=== PATIENT | male | born 1935 | race Caucasian/White ===

== ENCOUNTER 2018-04-09 13:02 | Inpatient (IN) | payer MEDICARE, BC ==
--- NOTE | 2018-04-09 14:22 | RAD ---
HISTORY: chest pain COMPARISONS: March 18, 2015 VIEWS: 1: frontal portable view of the chest at 2:00 PM FINDINGS: LINES AND TUBES: None. CARDIOMEDIASTINAL SILHOUETTE: The aorta is tortuous. The cardiomediastinal silhouette is otherwise normal for portable technique. PLEURA: The costophrenic angles are sharp. No pleural abnormalities are noted. LUNG PARENCHYMA: The lungs are clear. ABDOMEN: The upper abdomen is clear. There is no subphrenic gas. BONES AND SOFT TISSUES: No bone or soft tissue abnormalities are noted. IMPRESSION: NO ACTIVE CARDIOPULMONARY DISEASE.
[2018-04-09 14:37] LABS: ABS Basophils 0.1 10^3/ul (0-0.2); ABS Eosinophils 0.5 10^3/ul (0-0.6); ABS Lymphocytes 1.3 10^3/ul (1.0-4.8); ABS Monocytes 0.5 10^3/ul (0-0.8); ABS Neutrophils 4.8 10^3/ul (1.5-7.7); ABS Nucleated RBC 0 10^3/ul; Eosinophil % 6.8 % (0-6); Hematocrit 32 % (42-52); Lymphocyte % 18.3 % (25-47); Mean Corpuscular HGB Conc 35 g/dl (31-36); Mean Corpuscular Hemoglobin 28 pg (27-31); Mean Corpuscular Volume 80 fL (80-94); Mean Platelet Volume 6.7 um3 (7.4-10.4); Nucleated Red Blood Cells % 0; Platelet Count 210 10^3/ul (150-450); Red Blood Count 3.98 10^6/ul (4.00-5.40); Red Cell Distribution Width 15 % (10.5-15); White Blood Count 7.2 10^3/ul (3.5-10.8)
[2018-04-09 14:49] LABS: INR 0.97 (0.77-1.02)
[2018-04-09 14:55] LABS: EGFR Non-African American 44.8 (>60)
[2018-04-09] MEDS ORDERED: Aspirin TAB* 325 MG PO ONE (16:38)
[2018-04-09] MEDS ORDERED: Aspirin 81 mg CHEW TAB* 81 MG TAB.CHEW ONE (16:51)
--- NOTE | 2018-04-09 16:53 | ED ---
HPI Chest Pain - HPI Summary HPI Summary: This patient is an 83 year old M presenting to [facility] accompanied by and daughter with a chief complaint of CP "beneath the ribs" since 04/08/18. He denies N/V, dizziness, SOB, worsening of sx upon deep breath. He endorses burping a lot, and that the CP is still present today. - History of Current Complaint Chief Complaint: EDChestPainROMI Time Seen by Provider: 04/09/18 16:16 Hx Obtained From: Patient, Family/Mimeographer Onset/Duration: Started Days Ago, Still Present Timing: Constant Initial Severity: Mild Current Severity: Mild Pain Intensity: 3 Pain Scale Used: 0-10 Numeric Chest Pain Location: Upper Sternal - upper left Chest Pain Radiates: No Character: Sharp/Stabbing Aggravating Factor(s): Nothing Alleviating Factor(s): Nothing Associated Signs and Symptoms: Positive: Chest Pain, Other: - burping. Negative : Dizziness, Shortness of Breath, Fever, Nausea, Vomiting - Allergy/Home Medications Allergies/Adverse Reactions: Allergies Allergy/AdvReac Type Severity Reaction Status Date / Time MS Oxycodone [From Percocet] Allergy Severe Difficulty Verified 03/08/16 12:53 Breathing MS Cortisone [Cortisone] AdvReac Intermediate Anxiety Verified 03/08/16 12:53 MS Morphine [Morphine] AdvReac Intermediate Nausea And Verified 03/08/16 12:53 Vomiting Home Medications: Home Medications Aspirin EC TAB* [Ecotrin EC Low Dose 81 MG*] 81 mg PO QAM 04/09/18 [History Confirmed 04/09/18] Atorvastatin* [Lipitor*] 20 mg PO QPM 04/09/18 [History Confirmed 04/09/18] Betamethasone Kaycee 0.1% CRM(NF) [Valisone 0.1% CM(NF)] 1 applic TOPICAL DAILY PRN 04/09/18 [History Confirmed 04/09/18] Ferrous Gluconate TAB* [Fergon TAB*] 324 mg PO SUSA 04/09/18 [History Confirmed 04/09/18] Fexofenadine (NF) [Didi 180 (NF)] 180 mg PO DAILY PRN 04/09/18 [History Confirmed 04/09/18] Isosorbide Mononitrate ER TAB* [Imdur ER TAB*] 30 mg PO QAM 04/09/18 [History Confirmed 04/09/18] Minerin Cream* [Minerin*] 1 applic TOPICAL DAILY PRN 04/09/18 [History Confirmed 04/09/18] Multivitamins/Minerals TAB* [Theragran/minerals TAB*] 1 tab PO QAM 04/09/18 [ History Confirmed 04/09/18] Nitroglycerin TAB 0.4 MG* 0.4 mg SL Q5M PRN 04/09/18 [History Confirmed 04/09/18 ] Pantoprazole TAB (NF) [Protonix TAB (NF)] 40 mg PO QAM 04/09/18 [History Confirmed 04/09/18] Polyethylene Glycol 3350* [Miralax*] 17 gm PO DAILY 04/09/18 [History Confirmed 04/09/18] Potassium Chlor TAB* [Klor Con ER TAB*] 10 meq PO QAM 04/09/18 [History Confirmed 04/09/18] Sertraline* [Zoloft*] 25 mg PO BEDTIME 04/09/18 [History Confirmed 04/09/18] Vit A/Vit C/Vit E/Zinc/Copper [Preservision Areds Softgel] 1 each PO DAILY 04/09 [History Confirmed 04/09/18] PMH/Surg Hx/FS Hx/Imm Hx Endocrine/Hematology History: Denies: Hx Anticoagulant Therapy, Hx Diabetes, Hx Thyroid Disease Cardiovascular History: Reports: Hx Angina, Hx Angioplasty, Hx Coronary Artery Disease, Hx Hypercholesterolemia, Hx Hypertension, Hx Myocardial Infarction, Other Cardiovascular Problems/Disorders - PCI 12/2014 Denies: Hx Auto Implanted Cardiovert Defib, Hx Pacemaker/ICD, Hx Valvular Heart Disease Respiratory History: Reports: Hx Seasonal Allergies - severe hayfever Denies: Hx Asthma, Hx Chronic Obstructive Pulmonary Disease (COPD) GI History: Reports: Hx Gastroesophageal Reflux Disease, Hx Hiatal Hernia, Hx Jaundice - GB out 2012, Other GI Disorders - Constipation-chronic Denies: Hx Cirrhosis, Hx Crohn's Disease, Hx Diverticulosis, Hx Gall Bladder Disease, Hx Gastrointestinal Bleed, Hx Irritable Bowel, Hx Ileostomy, Hx Pyloric Stenosis, Hx Ulcer Comment Only: Hx Obstructive Bowel - loop surgical repair 09/16/ History: Reports: Hx Benign Prostatic Hyperplasia, Hx Kidney Stones, Other Problems/Disorders - Prostate CA, S/P TURP Denies: Hx Dialysis, Hx Renal Disease Musculoskeletal History: Reports: Hx Arthritis, Other Musculoskeletal History - Spinal stenosis Denies: Hx Osteoporosis Sensory History: Reports: Hx Cataracts - surgically removed, Hx Contacts or Glasses, Hx Hearing Aid, Hx Hearing Problem Denies: Hx Eye Injury, Hx Eye Prosthesis, Hx Glaucoma, Hx Legally Blind, Hx Macular Degeneration Opthamlomology History: Reports: Hx Cataracts - surgically removed, Hx Contacts or Glasses Denies: Hx Eye Injury, Hx Eye Prosthesis, Hx Glaucoma, Hx Legally Blind, Hx Macular Degeneration Neurological History: Reports: Other Neuro Impairments/Disorders - temporal arteritis Denies: Hx Dementia, Hx Migraine, Hx Seizures Psychiatric History: Denies: Hx Panic Disorder, Hx Substance Abuse - Cancer History Cancer Type, Location and Year: PROSTATE Hx Chemotherapy: No Hx Radiation Therapy: No - Surgical History Surgery Procedure, Year, and Place: RIGHT KNEE 1982. LEFT SHOULDER. ANGIOPLASTY 1986. PROSTATE SCRAPE. COLON RESECTION. HEART CATH- STENT PLACED - PROMUS PREMIER DRUG-ELUTING STENT PER [facility] [place] OP REPORT- SAFE UP TO 3T; SPATIAL GRADIENT FIELD OF 720 GAUSS/CM OR LESS. GALLBLADDER REMOVAL Hx Anesthesia Reactions: No - Immunization History Date of Tetanus Vaccine: Unk Date of Influenza Vaccine: Fall 2011 Infectious Disease History: No Infectious Disease History: Denies: Hx Hepatitis, Hx Human Immunodeficiency Virus (HIV), Traveled Outside the [place] in Last 30 Days - Family History Known Family History: Negative: Blood Disorder - Social History Alcohol Use: None Substance Use Type: Reports: None Smoking Status (MU): Former Smoker Have You Smoked in the Last Year: No Review of Systems Negative: Fever Positive: Chest Pain Negative: Shortness Of Breath Positive: Other - abnormally frequent burping. Negative: Vomiting, Nausea Neurological: Other - denies dizziness All Other Systems Reviewed And Are Negative: Yes Physical Exam - Summary Physical Exam Summary: Appearance: Well appearing, no pain distress Skin: warm, dry, reflects adequate perfusion Head/face: normal Eyes: EOMI, LISSETTE ENT: normal Neck: supple, non-tender Respiratory: CTA, breath sounds present Cardiovascular: RRR, pulses symmetrical Abdomen: non-tender, soft Bowel: present Musculoskeletal: normal, strength/ROM intact Neuro: normal, sensory motor intact, A&Ox3 Triage Information Reviewed: Yes Vital Signs On Initial Exam: Initial Vitals Temp Pulse Resp BP Pulse Ox 98.3 F 55 16 123/57 99 04/09/18 13:04 04/09/18 13:04 04/09/18 13:04 04/09/18 13:04 04/09/18 13:04 Vital Signs Reviewed: Yes Diagnostics - Vital Signs Vital Signs Temp Pulse Resp BP Pulse Ox 04/09/18 14:59 97.9 F 60 16 144/81 95 04/09/18 13:04 98.3 F 55 16 123/57 99 - Laboratory Lab Results: Lab Results 04/09/18 04/09/18 04/09/18 Range/Units 14:25 14:25 14:25 WBC 7.2 (3.5-10.8) 10^3/ul RBC 3.98 L (4.00-5.40) 10^6/ul Hgb 11.0 L (14.0-18.0) g/dl Hct 32 L (42-52) % MCV 80 (80-94) fL MCH 28 (27-31) pg MCHC 35 (31-36) g/dl RDW 15 (10.5-15) % Plt Count 210 (150-450) 10^3/ul MPV 6.7 L (7.4-10.4) um3 Neut % (Auto) 66.9 (38-83) % Lymph % (Auto) 18.3 L (25-47) % Garfield % (Auto) 6.8 (0-7) % Eos % (Auto) 6.8 H (0-6) % Baso % (Auto) 1.2 (0-2) % Absolute Neuts (auto) 4.8 (1.5-7.7) 10^3/ul Absolute Lymphs (auto) 1.3 (1.0-4.8) 10^3/ul Absolute Monos (auto) 0.5 (0-0.8) 10^3/ul Absolute Eos (auto) 0.5 (0-0.6) 10^3/ul Absolute Basos (auto) 0.1 (0-0.2) 10^3/ul Absolute Nucleated RBC 0 10^3/ul Nucleated RBC % 0 INR (Anticoag Therapy) 0.97 (0.77-1.02) APTT 32.2 (26.0-36.3) seconds Sodium 136 (135-145) mmol/L Potassium 4.0 (3.5-5.0) mmol/L Chloride 102 (101-111) mmol/L Carbon Dioxide 25 (22-32) mmol/L Anion Gap 9 (2-11) mmol/L BUN 22 (6-24) mg/dL Creatinine 1.49 H (0.67-1.17) mg/dL Est GFR ( Amer) 54.2 (>60) Est GFR (Non-Af Amer) 44.8 (>60) BUN/Creatinine Ratio 14.8 (8-20) Glucose 112 H (70-100) mg/dL Lactic Acid (0.5-2.0) mmol/L Calcium 9.2 (8.6-10.3) mg/dL Total Bilirubin 0.70 (0.2-1.0) mg/dL AST 20 (13-39) U/L ALT 12 (7-52) U/L Alkaline Phosphatase 82 (34-104) U/L Troponin I 0.01 (<0.04) ng/mL B-Natriuretic Peptide ( - 100) pg/mL Total Protein 7.2 (6.4-8.9) g/dL Albumin 3.9 (3.2-5.2) g/dL Globulin 3.3 (2-4) g/dL Albumin/Globulin Ratio 1.2 (1-3) 04/09/18/ Range/Units 14:25 14:25 WBC (3.5-10.8) 10^3/ul RBC (4.00-5.40) 10^6/ul Hgb (14.0-18.0) g/dl Hct (42-52) % MCV (80-94) fL MCH (27-31) pg MCHC (31-36) g/dl RDW (10.5-15) % Plt Count (150-450) 10^3/ul MPV (7.4-10.4) um3 Neut % (Auto) (38-83) % Lymph % (Auto) (25-47) % Garfield % (Auto) (0-7) % Eos % (Auto) (0-6) % Baso % (Auto) (0-2) % Absolute Neuts (auto) (1.5-7.7) 10^3/ul Absolute Lymphs (auto) (1.0-4.8) 10^3/ul Absolute Monos (auto) (0-0.8) 10^3/ul Absolute Eos (auto) (0-0.6) 10^3/ul Absolute Basos (auto) (0-0.2) 10^3/ul Absolute Nucleated RBC 10^3/ul Nucleated RBC % INR (Anticoag Therapy) (0.77-1.02) APTT (26.0-36.3) seconds Sodium (135-145) mmol/L Potassium (3.5-5.0) mmol/L Chloride (101-111) mmol/L Carbon Dioxide (22-32) mmol/L Anion Gap (2-11) mmol/L BUN (6-24) mg/dL Creatinine (0.67-1.17) mg/dL Est GFR ( Amer) (>60) Est GFR (Non-Af Amer) (>60) BUN/Creatinine Ratio (8-20) Glucose (70-100) mg/dL Lactic Acid 0.7 (0.5-2.0) mmol/L Calcium (8.6-10.3) mg/dL Total Bilirubin (0.2-1.0) mg/dL AST (13-39) U/L ALT (7-52) U/L Alkaline Phosphatase (34-104) U/L Troponin I (<0.04) ng/mL B-Natriuretic Peptide 242 H ( - 100) pg/mL Total Protein (6.4-8.9) g/dL Albumin (3.2-5.2) g/dL Globulin (2-4) g/dL Albumin/Globulin Ratio (1-3) Result Diagrams: 04/09/18 14:25 04/09/18 14:25 Lab Statement: Any lab studies that have been ordered have been reviewed, and results considered in the medical decision making process. - Radiology CXR Xray Interpretation: No Acute Changes Radiology Interpretation Completed By: Radiologist - No active cardiopulmonary disease. Dr. Ríos has reviewed this report. - EKG 1355 Cardiac Rate: Bradycardia EKG Rhythm: Sinus Bradycardia ST Segment: Non-Specific EKG Interpretation: T changes Chest Pain Course/Dx - Course Course Of Treatment: A 83-year-old M presents to the ED with a CC of CP since last PM. (+) CP, burping. (-) SOB, dizziness, N/V. Background of heart problems. A CXR was negative. An EKG reveals T changes and sinus bradycardia at 41 BPM. In the ED course, pt was given ASA. - Chest Pain Differential Diagnosis/HQI/PQRI: Acute CT, ACS, CHF, Chest Wall, Lower Respiratory Infection, Pulmonary Edema - Diagnoses Provider Diagnoses: Chest pain, rule out acute myocardial infarction - Provider Notifications Discussed Care Of Patient With: Asael Dominguez Time Discussed With Above Provider: 16:50 Instructed by Provider To: Other - accepted admission Discharge - Sign-Out/Discharge Documenting (check all that apply): Patient Departure - admit - Discharge Plan Condition: Fair Disposition: ADMITTED TO [facility] Referrals: Sepideh Davis MD [Primary Care Provider] - - Billing Disposition and Condition Condition: FAIR Disposition: Admitted to [facility]
[2018-04-09] MEDS ORDERED: Acetaminophen TAB* 325 MG PO PRN (19:33)
[2018-04-09] MEDS ORDERED: Al Hydrox/Mg Hydrox/Simet LIQ* 30 ML UDC PO PRN (19:33)
[2018-04-09] MEDS ORDERED: Nitroglycerin TAB 0.4 MG* 0.4 MG TAB SL PRN (19:37)
[2018-04-09] MEDS ORDERED: Atorvastatin* 20 MG TAB ONE (19:52)
[2018-04-09] MEDS: Atorvastatin* 20 MG TAB PO SCH (19:55)
[2018-04-09] MEDS: Sertraline* 25 MG TAB PO SCH (22:01)
[2018-04-09] MEDS: Heparin VIAL(*) 5000 UNITS/ML VIAL (FIVE THOUSAND) SUBCUT SCH (22:01)
--- NOTE | 2018-04-10 01:02 | HP ---
HISTORY AND PHYSICAL: DATE OF ADMISSION: 04/09/18 PROVIDER: Christina Jerry NP PRIMARY CARE PROVIDER: Sepideh Davis MD ATTENDING PROVIDER: Quin Meyers MD * (DICTATED BY CHRISTINA JERRY NP) CHIEF COMPLAINT: Chest pain. HISTORY OF PRESENT ILLNESS: Mr. aLrose is a pleasant 83-year-old male, who carries a past medical history significant for hyperlipidemia, coronary artery disease, iron deficiency anemia, rheumatoid arthritis, bradycardia, low back pain, gastroesophageal reflux, and mild cognitive impairment, MO in 2014, who presented to the emergency room from his family physician after complaints of chest pain. The patient states over the past day and half he has had intermittent episodes of left- sided chest pain. He described it as a mild ache at his left chest. He denies any sweating. He denies any shortness of breath. He denies any radiation to the neck or left arm. He does report some belching associated with the chest pain. He denies any nausea or vomiting. He denies any nocturnal dyspnea or orthopnea. He denies any edema or weight gain. He states that these episodes last from 10 seconds to a minute and given having frequent episodes of this left-sided chest pain, he presented to the emergency room for further evaluation. While in the emergency room, he had routine lab work drawn and his troponins were negative. He has had no further chest pain while in the emergency room. He had a routine EKG done. Given his history of coronary artery disease and stenting in 2014, we were asked to evaluate him for admission due to his chest pain. PAST MEDICAL HISTORY: Significant for coronary artery disease and stenting in 2015, MO, rheumatoid arthritis, mild cognitive impairment, hyperlipidemia, iron deficiency anemia, bradycardia, low back pain, and GERD. PAST SURGICAL HISTORY: Tonsillectomy, knee surgery, stent placement, TURP in 2010. HOME MEDICATIONS: Include: 1. Potassium 10 mEq p.o. daily. 2. Sertraline 25 mg p.o. daily at bedtime. 3. Pantoprazole 40 mg p.o. daily. 4. Isosorbide mononitrate ER 60 mg p.o. daily, take half tablet every 24 hours. 5. MiraLAX 17 g oral powder daily as needed for constipation. 6. Fexofenadine 180 mg p.o. as needed for allergies. 7. Multivitamin 1 tablet p.o. daily. 8. PreserVision 1 capsule orally daily. 9. Nitroglycerin 0.4 sublingual 1 tablet sublingually every 5 minutes x3 as needed for chest pain. 10. Aspirin 81 mg p.o. daily. 11. Ferrous sulfate 134 mg one orally twice a week. 12. Atorvastatin 20 mg p.o. daily. ALLERGIES: 1. BRILINTA. 2. Cortisone 3. ZYRTEC. 4. RHINOCORT. 5. ZOCOR. 6. MORPHINE. 7. OXYCODONE FAMILY HISTORY: Brother with history of colon cancer. No other reported family history. SOCIAL HISTORY: He denies any tobacco, alcohol, or illicit drug use. He is . He lives with his . Surrogate decision maker in the event he is unable to make his own decisions is his daughter, Annetta or , Amelia. , Amelia' phone number is [phone]. His daughter, Annetta's phone number is [phone]. He is a full code. REVIEW OF SYSTEMS: There was no documented fever. There has been no significant weight change. There is no double vision. No ear discharge. No rhinorrhea. No sore throat. He denies any recent illnesses or sick contacts. He denies any fever or chills. He denies any cough, shortness of breath. He does report intermittent episodes of left-sided chest pain rated at a 2 lasting between 10 seconds to a minute over the past day and a half. He denies any cough, hemoptysis, or shortness of breath. He denies any nausea, vomiting, or diarrhea. Denies any abdominal pain. Denies any gross hematuria or dysuria. Denies any focal weakness or sensory loss. Denies any visual complaints. Denies any dysphagia. Denies any arthralgias or myalgias. Denies any rashes or lesions. Denies any psychosis or anxiety. He does report some mild cognitive impairment with underlying mild dementia. PHYSICAL EXAMINATION GENERAL: At this time, Mr. Larose is an 83-year-old pleasant male. He is resting on the stretcher in the emergency room. He does not appear to be in any acute distress. VITAL SIGNS: Temperature was 98.3, heart rate was 55, respirations 16, O2 saturation 99%, blood pressure 123/57. HEENT: Head: Atraumatic, normocephalic. Eyes: EOMs are intact. Sclerae anicteric and not pale. Oral mucosa appeared to be moist. NECK: Supple. LUNGS: Clear to auscultation bilaterally. There are no wheezes, rales, or rhonchi. HEART: S1, S2. Bradycardic. There are no murmurs, rubs, or gallops. ABDOMEN: Soft and nontender. Bowel sounds are present x4. EXTREMITIES: Pulses are +2 bilaterally. There is no edema. He has 5/5 strength for all 4 extremities. NEUROLOGIC: He is awake, alert, and oriented x3. Speech is clear. He is hard of hearing. He does wear hearing aids. SKIN: Intact. DIAGNOSTIC STUDIES/LABORATORY DATA: WBCs are 7.2, RBCs 3.98, hemoglobin 11.0, hematocrit was 32, platelet count was 210. INR was 0.97. Sodium 136, potassium 4.0, chloride 102, carbon dioxide was 25, anion gap was 9, BUN was 22 , creatinine 1.49, which appears to be his baseline, glucose was 112. Lactic acid 0.7. Calcium 9.2. Troponin was 0.01 and 0.01. BNP was 242, which is lower than his normal. He had a chest x-ray, which showed no active cardiopulmonary disease. He had an electrocardiogram, which showed sinus bradycardia at a rate of 41. ASSESSMENT AND PLAN: Mr. Larose is an 83-year-old gentleman, who presented to the emergency room today for complaints of intermittent left-sided chest pain. Denied any diaphoresis or shortness of breath or radiation of the chest pain due to his history of coronary artery disease with stenting and a myocardial infarction in 2014. We were asked to see and evaluate him for admission for chest pain. He will be admitted under observation for: 1. Chest pain. We will rule out acute coronary syndrome. His troponins are currently 0.01 x2. He denies any chest pain at this time. We will continue to trend his troponins. We will do a nuclear stress test in the morning. His ROBERTO score is 3 giving him 13% risk at 14 days of all-cause mortality, new or recurrent myocardial infarction or severe recurrent ischemia requiring urgent vascularization. He will be placed on telemetry and monitored overnight. He does have a history of bradycardia. He is not on any beta-blockers at this time. 2. Iron deficiency anemia. We will continue his iron. 3. Coronary artery disease. We will continue him on aspirin 81 mg p.o. daily, nitro 0.4 mg sublingually as needed for chest pain and atorvastatin 20 mg p.o. daily. 4. Hyperlipidemia. We will continue his atorvastatin. 5. Acid reflux. We will continue him on pantoprazole 40 mg p.o. daily. 6. DVT prophylaxis. I will place him on heparin subcu. 7. Code status. He is a full code. 8. Fluids, electrolytes, and nutrition. He will be placed on heart-healthy, no caffeine diet. TIME SPENT: Time spent on this admission was approximately 60 minutes, greater than half the time was spent [id number] with the patient obtaining my history and physical, the other half of the time was spent going over my plan of care with the patient and implementing my plan of care. I have discussed this with my attending, Dr. Quin Meyers, and she is in agreement with my plan. CHRISTINA JERRY, RECOVERY ROOM RN [id number]/CPS #: [id number] BROCK
[2018-04-10] MEDS: Heparin VIAL(*) 5000 UNITS/ML VIAL (FIVE THOUSAND) SUBCUT SCH ×3 (05:14→21:45)
[2018-04-10] MEDS: Multivitamins/Minerals TAB PO SCH (08:48)
[2018-04-10] MEDS: Polyethylene Glycol 3350* 17 GM PACKET PO SCH (08:48)
[2018-04-10] MEDS: Isosorbide Mononitrate ER TAB* 30 MG PO SCH (08:48)
[2018-04-10] MEDS: Potassium Chlor TAB* 10 MEQ TAB.ER PO SCH (08:48)
[2018-04-10] MEDS: Aspirin EC TAB* 81 MG TAB.EC PO SCH (08:48)
[2018-04-10] MEDS: Omeprazole CAP* 20 MG PO SCH (08:48)
[2018-04-10] MEDS ORDERED: Regadenoson* 0.4 MG/5 ML SYRINGE ONE (11:01)
[2018-04-10] MEDS ORDERED: Aminophylline IV* 25 MG/ML 10 ML VIAL ONE (11:01)
--- NOTE | 2018-04-10 11:30 | RAD ---
HISTORY: chest pain, hyperlipidemia COMPARISONS: January 05, 2015 TECHNIQUE: A 1 day stress/rest myocardial perfusion study was performed, with pharmacologic stress. The stress portion was monitored by Dr. Nicolas. Gated SPECT imaging was performed, without CT-based attenuation correction based on patient physical limitation DOSE: Stress: Technetium 99m tetrofosmin, 25.3 millicuries, injected at 10:14 AM on April 10, 2018 Rest: Technetium 99m tetrofosmin, 10.2 millicuries, injected at 6:50 AM on April 10, 2018 Pharmacologic agent: Lexiscan FINDINGS: CARDIAC MONITORING: No ischemic EKG changes with stress EF: 54% TID: 0.6 MOTION: Normal motion, with normal wall thickening. PERFUSION: There is a small fixed defect of the apex which may reflect histologic apical thinning. There are no definite reversible perfusion defect to suggest ischemia. OTHER: None IMPRESSION: SMALL FIXED DEFECT OF THE APEX WHICH MAY BE PHYSIOLOGIC APICAL THINNING OR A SMALL REMOTE INFARCT. NO DEFINITE REVERSIBILITY TO SUGGEST ISCHEMIA. ASSESSMENT: LOW RISK. Based on imaging criteria from ACC/AHA 2002. Guideline Update for the Management of Patient's with Chronic Stable Angina, table 23. Noninvasive Risk Stratification.
[2018-04-10] MEDS ORDERED: NS 0.9% 1000 ML* 1,000 ML IV ONE (13:45)
[2018-04-10] MEDS: Atorvastatin* 20 MG TAB PO SCH (17:23)
--- NOTE | 2018-04-10 21:31 | PN ---
Subjective Date of Service: 04/10/18 Interval History: Patient nuclear stress today was LOW risk. Patient and family given results and discharge instructions. Patient was getting ready for home , was in the bathroom became lightheaded and dizzy. hypotensive. Patient was placed back in bed and orthostatic vital signs obtained , patient was orthostatic and given 1 liter of normal saline. Did report chest pain overnight, currently denies chest pain. Discharge cancelled. Denies abd pain ,n/v/d Family History: Unchanged from Admission Social History: Unchanged from Admission Past Medical History: Unchanged from Admission Objective Active Medications: Acetaminophen (Tylenol Tab*) 650 mg PO Q4H PRN PRN Reason: FEVER/PAIN Al Hydrox/Mg Hydrox/Simethicone (Maalox Plus*) 30 ml PO Q6H PRN PRN Reason: INDIGESTION Aspirin (Aspirin Ec Tab*) 81 mg PO QAM [facility] Last Admin: 04/10/18 08:48 Dose: 81 mg Atorvastatin Calcium (Lipitor*) 20 mg PO QPM [facility] Last Admin: 04/10/18 17:23 Dose: 20 mg Ferrous Gluconate (Fergon Tab*) 324 mg PO SuSa@0900 [facility] Heparin Sodium (Porcine) (Heparin Vial(*)) 5,000 units SUBCUT Q8HR [facility] Last Admin: 04/10/18 14:29 Dose: 5,000 units Isosorbide Mononitrate (Imdur Er Tab*) 30 mg PO QAM [facility] Last Admin: 04/10/18 08:48 Dose: 30 mg Multivitamins/Minerals (Theragran/Minerals Tab*) [facility] [place] Last Admin: 04/10/18 08:48 Dose: 1 tab Nitroglycerin (Nitroglycerin Tab 0.4 Mg*) 0.4 mg SL Q5M PRN PRN Reason: PAIN - CHEST Omeprazole (Prilosec Cap*) 20 mg PO QAM [facility] Last Admin: 04/10/18 08:48 Dose: 20 mg Polyethylene Glycol/Electrolytes (Miralax*) 17 gm PO DAILY [facility] Last Admin: 04/10/18 08:48 Dose: 17 gm Potassium Chloride (Klor Con Er Tab*) [facility] [place] Last Admin: 04/10/18 08:48 Dose: 10 meq Sertraline HCl (Zoloft*) 25 mg PO BEDTIME [facility] Last Admin: 04/09/18 22:01 Dose: 25 mg Vital Signs - 8 hr 04/10/18 04/10/18 04/10/18 13:30 13:42 13:46 Temperature 97.3 F 98.6 F Pulse Rate 95 73 96 Respiratory 16 16 Rate Blood Pressure 73/19 112/74 61/46 (mmHg) O2 Sat by Pulse 97 97 96 Oximetry 04/10/18 04/10/18 04/10/18 15:11 15:17 15:19 Temperature 98.3 F Pulse Rate 74 84 Respiratory 17 16 Rate Blood Pressure 109/70 92/48 84/67 (mmHg) O2 Sat by Pulse 97 96 Oximetry 04/10/18 04/10/18 15:20 19:26 Temperature 97.7 F Pulse Rate 96 83 Respiratory 20 Rate Blood Pressure 61/46 111/72 (mmHg) O2 Sat by Pulse 96 93 Oximetry Oxygen Devices in Use Now: None Appearance: appears pale, restingin bed. no acute distress Eyes: No Scleral Icterus Ears/Nose/Mouth/Throat: Mucous Membranes Moist Neck: NL Appearance and Movements; NL JVP, Trachea Midline Respiratory: Symmetrical Chest Expansion and Respiratory Effort, Clear to Auscultation Cardiovascular: No Edema, - - normal sounds, murmur, no rubs or gallops. Abdominal: NL Sounds; No Tenderness; No Distention Extremities: No Edema, No Clubbing, Cyanosis Skin: No Rash or Ulcers Neurological: Alert and Oriented x 3 Nutrition: Taking PO's Result Diagrams: 04/09/18 14:25 04/09/18 14:25 Additional Lab and Data: Lab Results 04/09/18 04/09/18 04/09/18 Range/Units 14:25 14:25 14:25 WBC 7.2 (3.5-10.8) 10^3/ul RBC 3.98 L (4.00-5.40) 10^6/ul Hgb 11.0 L (14.0-18.0) g/dl Hct 32 L (42-52) % MCV 80 (80-94) fL MCH 28 (27-31) pg MCHC 35 (31-36) g/dl RDW 15 (10.5-15) % Plt Count 210 (150-450) 10^3/ul MPV 6.7 L (7.4-10.4) um3 Neut % (Auto) 66.9 (38-83) % Lymph % (Auto) 18.3 L (25-47) % [place] % (Auto) 6.8 (0-7) % Eos % (Auto) 6.8 H (0-6) % Baso % (Auto) 1.2 (0-2) % Absolute Neuts (auto) 4.8 (1.5-7.7) 10^3/ul Absolute Lymphs (auto) 1.3 (1.0-4.8) 10^3/ul Absolute Monos (auto) 0.5 (0-0.8) 10^3/ul Absolute Eos (auto) 0.5 (0-0.6) 10^3/ul Absolute Basos (auto) 0.1 (0-0.2) 10^3/ul Absolute Nucleated RBC 0 10^3/ul Nucleated RBC % 0 INR (Anticoag Therapy) 0.97 (0.77-1.02) APTT 32.2 (26.0-36.3) seconds Sodium 136 (135-145) mmol/L Potassium 4.0 (3.5-5.0) mmol/L Chloride 102 (101-111) mmol/L Carbon Dioxide 25 (22-32) mmol/L Anion Gap 9 (2-11) mmol/L BUN 22 (6-24) mg/dL Creatinine 1.49 H (0.67-1.17) mg/dL Est GFR ( Amer) 54.2 (>60) Est GFR (Non-Af Amer) 44.8 (>60) BUN/Creatinine Ratio 14.8 (8-20) Glucose 112 H (70-100) mg/dL Lactic Acid (0.5-2.0) mmol/L Calcium 9.2 (8.6-10.3) mg/dL Total Bilirubin 0.70 (0.2-1.0) mg/dL AST 20 (13-39) U/L ALT 12 (7-52) U/L Alkaline Phosphatase 82 (34-104) U/L Troponin I 0.01 (<0.04) ng/mL B-Natriuretic Peptide ( - 100) pg/mL Total Protein 7.2 (6.4-8.9) g/dL Albumin 3.9 (3.2-5.2) g/dL Globulin 3.3 (2-4) g/dL Albumin/Globulin Ratio 1.2 (1-3) 04/09/18 04/09/18 Range/Units 14:25 14:25 WBC (3.5-10.8) 10^3/ul RBC (4.00-5.40) 10^6/ul Hgb (14.0-18.0) g/dl Hct (42-52) % MCV (80-94) fL MCH (27-31) pg MCHC (31-36) g/dl RDW (10.5-15) % Plt Count (150-450) 10^3/ul MPV (7.4-10.4) um3 Neut % (Auto) (38-83) % Lymph % (Auto) (25-47) % [place] % (Auto) (0-7) % Eos % (Auto) (0-6) % Baso % (Auto) (0-2) % Absolute Neuts (auto) (1.5-7.7) 10^3/ul Absolute Lymphs (auto) (1.0-4.8) 10^3/ul Absolute Monos (auto) (0-0.8) 10^3/ul Absolute Eos (auto) (0-0.6) 10^3/ul Absolute Basos (auto) (0-0.2) 10^3/ul Absolute Nucleated RBC 10^3/ul Nucleated RBC % INR (Anticoag Therapy) (0.77-1.02) APTT (26.0-36.3) seconds Sodium (135-145) mmol/L Potassium (3.5-5.0) mmol/L Chloride (101-111) mmol/L Carbon Dioxide (22-32) mmol/L Anion Gap (2-11) mmol/L BUN (6-24) mg/dL Creatinine (0.67-1.17) mg/dL Est GFR ( Amer) (>60) Est GFR (Non-Af Amer) (>60) BUN/Creatinine Ratio (8-20) Glucose (70-100) mg/dL Lactic Acid 0.7 (0.5-2.0) mmol/L Calcium (8.6-10.3) mg/dL Total Bilirubin (0.2-1.0) mg/dL AST (13-39) U/L ALT (7-52) U/L Alkaline Phosphatase (34-104) U/L Troponin I (<0.04) ng/mL B-Natriuretic Peptide 242 H ( - 100) pg/mL Total Protein (6.4-8.9) g/dL Albumin (3.2-5.2) g/dL Globulin (2-4) g/dL Albumin/Globulin Ratio (1-3) Assess/Plan/Problems-Billing Assessment: Mr. Larose is a pleasant 83-year-old male, who carries a past medical history significant for hyperlipidemia, coronary artery disease, iron deficiency anemia , rheumatoid arthritis, bradycardia, low back pain, gastroesophageal reflux, and mild cognitive impairment, [place] in 2015, who presented to the emergency room from his family physician after complaints of chest pain. - Patient Problems (1) Chest pain Current Visit: Yes Status: Acute Code(s): R07.9 - CHEST PAIN, UNSPECIFIED SNOMED Code(s): 14468545 Comment: - low risk nuclear stress today- 1 area of fixed defect noted- patient/ family do not want any further interventional management. - episode of hypotension after using the bathroom today, found to be orthostatic hypotensive- will given 1 litter of normal saline - repeat orthostatic vital signs. - troponin negative - will repeat orthostatic vital in the AM as well. (2) CAD (coronary artery disease) Current Visit: No Status: Chronic Priority: Low Code(s): I25.10 - ATHSCL HEART DISEASE OF [place] CORONARY ARTERY W/O ANG PCTRS SNOMED Code(s): 01492986 Comment: continue home medications- ASA, IMDUR, Lipitor (3) GERD (gastroesophageal reflux disease) Current Visit: No Status: Chronic Priority: Low Code(s): K21.9 - GASTRO- ESOPHAGEAL REFLUX DISEASE WITHOUT ESOPHAGITIS SNOMED Code(s): 176960282 Comment: continue omeprazole - i suspect this could also be contributing to his chest pain as he report the pain subsides with eating. (4) Hypertension Current Visit: No Status: Chronic Priority: Low Code(s): I10 - ESSENTIAL ( PRIMARY) HYPERTENSION SNOMED Code(s): 87703824 Comment: controlled (5) DVT prophylaxis Current Visit: No Status: Chronic Priority: High Onset Date: 01/12/15 Code(s): TVZ7106 - SNOMED Code(s): 936482741 Comment: HSQ (6) Full code status Current Visit: Yes Status: Acute Code(s): Z78.9 - OTHER SPECIFIED HEALTH STATUS SNOMED Code(s): 112460778 Status and Disposition: Poss Discharge in the AM
[2018-04-10] MEDS: Sertraline* 25 MG TAB PO SCH (21:45)
[2018-04-11] MEDS: Heparin VIAL(*) 5000 UNITS/ML VIAL (FIVE THOUSAND) SUBCUT SCH (05:59)
[2018-04-11 06:04] LABS: ABS Basophils 0 10^3/ul (0-0.2); ABS Eosinophils 0.6 10^3/ul (0-0.6); ABS Lymphocytes 0.8 10^3/ul (1.0-4.8); ABS Monocytes 0.5 10^3/ul (0-0.8); ABS Neutrophils 5.3 10^3/ul (1.5-7.7); ABS Nucleated RBC 0 10^3/ul; Eosinophil % 7.7 % (0-6); Hematocrit 36 % (42-52); Hemoglobin 12.2 g/dl (14.0-18.0); Lymphocyte % 11.3 % (25-47); Mean Corpuscular HGB Conc 34 g/dl (31-36); Mean Corpuscular Hemoglobin 28 pg (27-31); Mean Corpuscular Volume 81 fL (80-94); Nucleated Red Blood Cells % 0; Platelet Count 208 10^3/ul (150-450); Red Blood Count 4.43 10^6/ul (4.00-5.40); Red Cell Distribution Width 15 % (10.5-15); White Blood Count 7.2 10^3/ul (3.5-10.8)
[2018-04-11 06:25] LABS: EGFR Non-African American 47.8 (>60)
[2018-04-11] MEDS: Multivitamins/Minerals TAB PO SCH (08:35)
[2018-04-11] MEDS: Potassium Chlor TAB* 10 MEQ TAB.ER PO SCH (08:35)
[2018-04-11] MEDS: Isosorbide Mononitrate ER TAB* 30 MG PO SCH (08:35)
[2018-04-11] MEDS: Omeprazole CAP* 20 MG PO SCH (08:35)
[2018-04-11] MEDS: Aspirin EC TAB* 81 MG TAB.EC PO SCH (08:35)
[2018-04-11] MEDS: Polyethylene Glycol 3350* 17 GM PACKET PO SCH (08:35)
--- NOTE | 2018-04-11 10:51 | PN ---
Subjective Date of Service: 04/11/18 Interval History: No complaints of chest pain. States that he is feeling well today, Ambulated in the hallways gait was steady, denies lightheadedness or dizziness. Denies shortness of breath or abd pain . Denies n/v/d. Orthostatic with vital signs but is asymptomatic- denying dizziness or lightheadedness. Family History: Unchanged from Admission Social History: Unchanged from Admission Past Medical History: Unchanged from Admission Objective Active Medications: Acetaminophen (Tylenol Tab*) 650 mg PO Q4H PRN PRN Reason: FEVER/PAIN Al Hydrox/Mg Hydrox/Simethicone (Maalox Plus*) 30 ml PO Q6H PRN PRN Reason: INDIGESTION [facility]ir[facility] ([facility]in Ec Tab*) [facility] Last Admin: 04/11/18 08:35 Dose: 81 mg Atorvastatin Calcium (Lipitor*) 20 mg PO QPM [facility] Last Admin: 04/10/18 17:23 Dose: 20 mg Ferrous Gluconate (Fergon Tab*) 324 mg PO SuSa@0900 [facility] Heparin Sodium (Porcine) (Heparin Vial(*)) 5,000 units SUBCUT Q8HR [facility] Last Admin: 04/11/18 05:59 Dose: 5,000 units Isosorbide Mononitrate (Imdur Er Tab*) [facility] Last Admin: 04/11/18 08:35 Dose: 30 mg Multivitamins/Minerals (Theragran/Minerals Tab*) [facility] Last Admin: 04/11/18 08:35 Dose: 1 tab Nitroglycerin (Nitroglycerin Tab 0.4 Mg*) 0.4 mg SL Q5M PRN PRN Reason: PAIN - CHEST Omeprazole (Prilosec Cap*) [facility] Last Admin: 04/11/18 08:35 Dose: 20 mg Polyethylene Glycol/Electrolytes (Miralax*) 17 gm PO DAILY [facility] Last Admin: 04/11/18 08:35 Dose: Not Given Potassium Chloride (Klor Con Er Tab*) [facility]q [facility] Last Admin: 04/11/18 08:35 Dose: 10 meq Sertraline HCl (Zoloft*) 25 mg PO BEDTIME [facility] Last Admin: 04/10/18 21:45 Dose: 25 mg Vital Signs - 8 hr 04/11/18 04/11/18 04/11/18 03:54 07:56 08:00 Temperature 97.2 F 98.1 F Pulse Rate 63 52 78 Respiratory 20 16 Rate Blood Pressure 108/54 146/73 88/59 (mmHg) O2 Sat by Pulse 95 95 96 Oximetry Oxygen Devices in Use Now: None Appearance: alert and oreinted x 3, sitting in the chair, no acute distress. Eyes: No Scleral Icterus, PERRLA Ears/Nose/Mouth/Throat: Clear Oropharnyx, Mucous Membranes Moist Neck: NL Appearance and Movements; NL JVP, Trachea Midline Respiratory: Symmetrical Chest Expansion and Respiratory Effort, Clear to Auscultation Cardiovascular: NL Sounds; No Murmurs; No JVD Abdominal: NL Sounds; No Tenderness; No Distention Extremities: No Edema, No Clubbing, Cyanosis Skin: No Rash or Ulcers Neurological: Alert and Oriented x 3 Nutrition: Taking PO's Result Diagrams: 04/11/18 05:28 04/11/18 05:28 Additional Lab and Data: Lab Results 04/09/18 04/09/18 04/09/18 Range/Units 14:25 14:25 14:25 WBC 7.2 (3.5-10.8) 10^3/ul RBC 3.98 L (4.00-5.40) 10^6/ul Hgb 11.0 L (14.0-18.0) g/dl Hct 32 L (42-52) % MCV 80 (80-94) fL MCH 28 (27-31) pg MCHC 35 (31-36) g/dl RDW 15 (10.5-15) % Plt Count 210 (150-450) 10^3/ul MPV 6.7 L (7.4-10.4) um3 Neut % (Auto) 66.9 (38-83) % Lymph % (Auto) 18.3 L (25-47) % [place] % (Auto) 6.8 (0-7) % Eos % (Auto) 6.8 H (0-6) % Baso % (Auto) 1.2 (0-2) % Absolute Neuts (auto) 4.8 (1.5-7.7) 10^3/ul Absolute Lymphs (auto) 1.3 (1.0-4.8) 10^3/ul Absolute Monos (auto) 0.5 (0-0.8) 10^3/ul Absolute Eos (auto) 0.5 (0-0.6) 10^3/ul Absolute Basos (auto) 0.1 (0-0.2) 10^3/ul Absolute Nucleated RBC 0 10^3/ul Nucleated RBC % 0 INR (Anticoag Therapy) 0.97 (0.77-1.02) APTT 32.2 (26.0-36.3) seconds Sodium 136 (135-145) mmol/L Potassium 4.0 (3.5-5.0) mmol/L Chloride 102 (101-111) mmol/L Carbon Dioxide 25 (22-32) mmol/L Anion Gap 9 (2-11) mmol/L BUN 22 (6-24) mg/dL Creatinine 1.49 H (0.67-1.17) mg/dL Est GFR ( Amer) 54.2 (>60) Est GFR (Non-Af Amer) 44.8 (>60) BUN/Creatinine Ratio 14.8 (8-20) Glucose 112 H (70-100) mg/dL Lactic Acid (0.5-2.0) mmol/L Calcium 9.2 (8.6-10.3) mg/dL Total Bilirubin 0.70 (0.2-1.0) mg/dL AST 20 (13-39) U/L ALT 12 (7-52) U/L Alkaline Phosphatase 82 (34-104) U/L Troponin I 0.01 (<0.04) ng/mL B-Natriuretic Peptide ( - 100) pg/mL Total Protein 7.2 (6.4-8.9) g/dL Albumin 3.9 (3.2-5.2) g/dL Globulin 3.3 (2-4) g/dL Albumin/Globulin Ratio 1.2 (1-3) 04/09/18 04/09/18 Range/Units 14:25 14:25 WBC (3.5-10.8) 10^3/ul RBC (4.00-5.40) 10^6/ul Hgb (14.0-18.0) g/dl Hct (42-52) % MCV (80-94) fL MCH (27-31) pg MCHC (31-36) g/dl RDW (10.5-15) % Plt Count (150-450) 10^3/ul MPV (7.4-10.4) um3 Neut % (Auto) (38-83) % Lymph % (Auto) (25-47) % [place] % (Auto) (0-7) % Eos % (Auto) (0-6) % Baso % (Auto) (0-2) % Absolute Neuts (auto) (1.5-7.7) 10^3/ul Absolute Lymphs (auto) (1.0-4.8) 10^3/ul Absolute Monos (auto) (0-0.8) 10^3/ul Absolute Eos (auto) (0-0.6) 10^3/ul Absolute Basos (auto) (0-0.2) 10^3/ul Absolute Nucleated RBC 10^3/ul Nucleated RBC % INR (Anticoag Therapy) (0.77-1.02) APTT (26.0-36.3) seconds Sodium (135-145) mmol/L Potassium (3.5-5.0) mmol/L Chloride (101-111) mmol/L Carbon Dioxide (22-32) mmol/L Anion Gap (2-11) mmol/L BUN (6-24) mg/dL Creatinine (0.67-1.17) mg/dL Est GFR ( Amer) (>60) Est GFR (Non-Af Amer) (>60) BUN/Creatinine Ratio (8-20) Glucose (70-100) mg/dL Lactic Acid 0.7 (0.5-2.0) mmol/L Calcium (8.6-10.3) mg/dL Total Bilirubin (0.2-1.0) mg/dL AST (13-39) U/L ALT (7-52) U/L Alkaline Phosphatase (34-104) U/L Troponin I (<0.04) ng/mL B-Natriuretic Peptide 242 H ( - 100) pg/mL Total Protein (6.4-8.9) g/dL Albumin (3.2-5.2) g/dL Globulin (2-4) g/dL Albumin/Globulin Ratio (1-3) Assess/Plan/Problems-Billing Assessment: Mr. Larose is a pleasant 83-year-old male, who carries a past medical history significant for hyperlipidemia, coronary artery disease, iron deficiency anemia , rheumatoid arthritis, bradycardia, low back pain, gastroesophageal reflux, and mild cognitive impairment, [place] in 2015, who presented to the emergency room from his family physician after complaints of chest pain. - Patient Problems (1) Chest pain Status: Acute Code(s): R07.9 - CHEST PAIN, UNSPECIFIED SNOMED Code(s): 44405416 Comment: - low risk nuclear stress today- 1 area of fixed defect noted- patient/ family do not want any further interventional management. - episode of hypotension after using the bathroom today, found to be orthostatic hypotensive- will given 1 litter of normal saline - repeat orthostatic vital signs- Repaet orthostatic vital signs this AM continues to be orthostatic but symptomsatic, able to raise and ambulate without symptoms of dizziness, lightheadedness. - troponin negative - will repeat orthostatic vital in the AM as well. (2) CAD (coronary artery disease) Status: Chronic Priority: Low Code(s): I25.10 - ATHSCL HEART DISEASE OF [place] CORONARY ARTERY W/O ANG PCTRS SNOMED Code(s): 79907639 Comment: continue home medications- ASA, IMDUR, Lipitor (3) GERD (gastroesophageal reflux disease) Status: Chronic Priority: Low Code(s): K21.9 - GASTRO-ESOPHAGEAL REFLUX DISEASE WITHOUT ESOPHAGITIS SNOMED Code(s): 904862237 Comment: continue omeprazole - i suspect this could also be contributing to his chest pain as he report the pain subsides with eating. (4) Hypertension Status: Chronic Priority: Low Code(s): I10 - ESSENTIAL (PRIMARY) HYPERTENSION SNOMED Code(s): 68472797 Comment: controlled (5) DVT prophylaxis Status: Chronic Priority: High Onset Date: 01/12/15 Code(s): VAB9400 - SNOMED Code(s): 774732680 Comment: HSQ (6) Full code status Status: Acute Code(s): Z78.9 - OTHER SPECIFIED HEALTH STATUS SNOMED Code(s) : 042920714 Status and Disposition: Discharge
[2018-04-11 11:59] VITALS: BP 120/69
[2018-04-12] MEDS ORDERED: Ferrous Gluconate TAB* 324 MG TAB PO SCH (09:00)
--- NOTE | 2018-04-14 12:36 | DS ---
CC: Dr. Sepideh Davis * DISCHARGE SUMMARY: DATE OF ADMISSION: 04/09/18 DATE OF DISCHARGE: 04/11/18 PROVIDER: Christina Jerry NP. ATTENDING PHYSICIAN WHILE IN THE HOSPITAL: Quin Meyers DO * (dictated by Christina Jerry NP). PRIMARY DIAGNOSIS: Chest pain. SECONDARY DIAGNOSES: 1. Coronary artery disease with stenting in 2015. 2. Myocardial infarction. 3. Rheumatoid arthritis. 4. Mild cognitive impairment. 5. Hyperlipidemia. 6. Iron-deficiency anemia. 7. Bradycardia. 8. Low back pain. 9. Gastroesophageal reflux disease. STUDIES COMPLETED WHILE IN THE HOSPITAL: He had a chest x-ray on 04/09/18. Radiologist's impression: No active cardiopulmonary disease. He had an electrocardiogram on 04/09/18, which showed sinus bradycardia at a rate of 41. He had a nuclear stress on 04/10/18, which showed assessment is low risk. Impression: Small fixed defect at the apex, which may be physiologic apical thinning or a small remote infarct. No definite reversibility to suggest ischemia. DISCHARGE MEDICATIONS: No new home medications. Continued home medications: 1. Zoloft 25 mg p.o. at bedtime. 2. Eucerin topically as needed. 3. Betamethasone ana 0.1% topically as needed. 4. Nitroglycerin 0.4 sublingual q.5 minutes as needed for chest pain. 5. MiraLax 17 g p.o. daily. 6. Didi 180 mg p.o. p.r.n. 7. Ferrous gluconate 324 mg p.o. Saturday and Saturday. 8. PreserVision softgel 1 tablet p.o. daily. 9. Potassium 10 mEq p.o. q.a.m. 10. Multivitamin 1 tab p.o. q.a.m. 11. Aspirin 81 mg p.o. q.a.m. 12. Protonix 40 mg p.o. q.a.m. 13. Isosorbide mononitrate ER 30 mg p.o. q.a.m. 14. Atorvastatin 20 mg p.o. q.p.m. HISTORY OF PRESENT ILLNESS AND HOSPITAL COURSE: Mr. Larose is an 83-year-old male who carries a past medical history significant for hyperlipidemia, coronary artery disease, iron-deficiency anemia, rheumatoid arthritis, and bradycardia, low back pain, GERD, and mild cognitive impairment, [place] in 2014, who presented to the emergency room from his family physician after complaints of chest pain. The patient states that over the last day and a half, he has had intermittent episodes of left-sided chest pain. He describes it as a mild ache. Denies any sweating. Denies any shortness of breath. Denies any radiation to the neck or back. He denies orthopnea or nocturnal dyspnea. Given his history of coronary artery disease and CT in 2015, we were asked to see and evaluate him to rule out acute coronary syndrome. While in the emergency room, he had routine lab work drawn. His troponins were negative. He had no further chest pain while in the emergency room and he was admitted for monitoring on telemetry and nuclear stress test. The next morning while in the hospital, the patient had a nuclear stress test, which showed to be low risk. When getting ready to be discharged home, the patient had an episode of presyncopal episode. He became pale, diaphoretic. He was hypotensive with blood pressures in the 70s. His discharge was canceled and he was given a liter of normal saline and monitored on telemetry overnight. He had no further episodes. The next morning, the patient states that he is feeling in his normal state of health. He has no dizziness or lightheadedness. He denies any chest pain or shortness of breath. He is sitting in the chair. He appears to be in no acute distress. He is able to stand and ambulate and remains asymptomatic, though he does have some orthostatic hypotension. Standing and ambulating. His gait was steady and again, he had no complaints of lightheadedness or dizziness. At this time, Mr. Larose is stable for discharge home. Vital Signs: Temperature was 98.5, heart rate 72, respirations 16, O2 saturations of 96%, blood pressure was 120/69. DISCHARGE PLAN: Mr. Larose will be discharged home today. Activity as tolerated. The patient was instructed to rise slowly and stand for few seconds before ambulating. 1. Chest pain. Chest pain does not appear to be related to acute coronary syndrome. He had a low nuclear stress test. The family indicated they would not want any further interventional procedures with his chest pain and that they would want him medically managed if needed. The patient and the also agreed with this plan. I would recommend for any further complaints of chest pain, medical management. The patient should continue on a heart-healthy, low- sodium diet. He should drink plenty of fluids. 2. Hyperlipidemia. He should continue his atorvastatin as previously prescribed. 3. Coronary artery disease. He should continue with his Imdur. 4. GERD. He should continue on his Protonix as previously prescribed. The patient was instructed to follow up with his primary care provider in 4 to 7 days. The patient was instructed to return to the emergency room for any increased chest pain or shortness of breath or any other concerning symptoms. This is a summarization of his hospitalization. For further details, please see the entire medical record. TIME SPENT: Time spent on this discharge was approximately 60 minutes, greater than half that time was spent with the patient discussing discharge plans and instructions. CONDITION ON DISCHARGE: Stable. CHRISTINA JERRY NP [id number]/CPS #: [id number] [place]
== END 2018-04-11 12:00 | disposition home or self-care (01) | DRG 313 ==
LOC: ED 13:02 → MEDTELE 20:11 → OBSVTOIN 04-10 17:00
PROVIDERS: ADMIT Internal Medicine; ATTEND Internal Medicine
DX: R07.9 Chest pain, unspecified (principal); I95.1 Orthostatic hypotension; I25.10 Atherosclerotic heart disease of native coronary artery without angina pectoris; I11.9 Hypertensive heart disease without heart failure; E78.5 Hyperlipidemia, unspecified; D50.9 Iron deficiency anemia, unspecified; M06.9 Rheumatoid arthritis, unspecified; K21.9 Gastro-esophageal reflux disease without esophagitis; G31.84 Mild cognitive impairment of uncertain or unknown etiology; M54.5 Low back pain; I25.2 Old myocardial infarction; Z95.5 Presence of coronary angioplasty implant and graft; Z79.82 Long term (current) use of aspirin; Z79.899 Other long term (current) drug therapy; Z88.5 Allergy status to narcotic agent; Z88.8 Allergy status to other drugs, medicaments and biological substances; Z80.0 Family history of malignant neoplasm of digestive organs
CPT/HCPCS: 36415; 71045; 78452; 80048; 80053; 83605; 83880; 84484; 85025; 85610; 85730; 93005; 93017; 99285; A9270-GY; A9502; J0280; J1644; J2785

== ENCOUNTER 2018-10-17 16:57 | Inpatient (IN) | payer MEDICARE, BC ==
[2018-10-17] MEDS ORDERED: Ibuprofen TAB* 600 MG PO ONE (17:55)
--- NOTE | 2018-10-17 18:05 | ED ---
Complex/Multi-Sys Presentation - HPI Summary HPI Summary: A 83 y/o male brought in by ambulance and accompanied by family presents to the ED c/o pain reaching 10/10 in severity s/p fall. As per triage, "Pt brought in by EMS due to a unwitnessed fall in his driveway. Pt states that he was walking to the mailbox to grab the newspaper when he slipped on the ice. Pt is unsure of whether or not he lost conciousness, but believes he did. States he did hit his head and his right hip. Pt was able to crawl himself back to his residence, resides in an apartment behind his daughters house. Per EMS, pt notified his daughter and they attempted to get him into a car but were unable to so they called EMS. Pt complaining of severe pain in right hip when moving. Denies cp, sob, lightheadedness. Hx: Dementia, bilateral hearing aides". According to the patient's family, the patient lives with his behind their house. The patient was walking outside to get the mail when he fell. The family denies any LOC, but they are not sure because patient has dementia and he cannot remember where he fell. The stated that he was outside for at least 10 minutes. She noted that he was at least 50 feet, but crawled his way to the house. Patient is on several medications and vitamins. Patient was given Tylenol at 1500. - History Of Current Complaint Chief Complaint: EDHipPelvisInjury Time Seen by Provider: 10/17/18 17:05 Hx Obtained From: Patient, Family/[employer] Hx From Patient Unobtainable Due To: Dementia Onset/Duration: Sudden Onset, Still Present Timing: Constant, Minutes Severity Currently: Severe - 10/10 Severity Initially: Severe - 10/10 Location: Pain At: - HIP Aggravating Factor(s): NOTHING Alleviating Factor(s): NOTHING Associated Signs And Symptoms: Positive: Other - HIP PAIN - Allergies/Home Medications Allergies/Adverse Reactions: Allergies Allergy/AdvReac Type Severity Reaction Status Date / Time cortisone Allergy Anxiety Verified 10/17/18 18:52 morphine Allergy Nausea And Verified 10/17/18 18:52 Vomiting oxycodone Allergy Difficulty Verified 10/17/18 18:52 Breathing Home Medications: Home Medications Lutein/Zeaxanthin 1 dose PO DAILY 10/17/18 [History Confirmed 10/17/18] Zoloft 25 mg PO DAILY 10/17/18 [History Confirmed 10/17/18] PMH/Surg Hx/FS Hx/Imm Hx Endocrine/Hematology History: Denies: Hx Anticoagulant Therapy, Hx Diabetes, Hx Thyroid Disease Cardiovascular History: Reports: Hx Angina, Hx Angioplasty, Hx Coronary Artery Disease - Stents, Hx Hypercholesterolemia, Hx Hypertension, Hx Myocardial Infarction, Other Cardiovascular Problems/Disorders - PCI 12/2014 Denies: Hx Auto Implanted Cardiovert Defib, Hx Pacemaker/ICD, Hx Valvular Heart Disease Respiratory History: Reports: Hx Seasonal Allergies - severe hayfever Denies: Hx Asthma, Hx Chronic Obstructive Pulmonary Disease (COPD) GI History: Reports: Hx Gastroesophageal Reflux Disease, Hx Hiatal Hernia, Hx Jaundice - GB out 2012, Other GI Disorders - Constipation-chronic Denies: Hx Cirrhosis, Hx Crohn's Disease, Hx Diverticulosis, Hx Gall Bladder Disease, Hx Gastrointestinal Bleed, Hx Irritable Bowel, Hx Ileostomy, Hx Pyloric Stenosis, Hx Ulcer Comment Only: Hx Obstructive Bowel - loop surgical repair 09/16/ History: Reports: Hx Benign Prostatic Hyperplasia, Hx Kidney Stones, Other Problems/Disorders - Prostate CA, S/P TURP Denies: Hx Dialysis, Hx Renal Disease Musculoskeletal History: Reports: Hx Arthritis, Other Musculoskeletal History - Spinal stenosis Denies: Hx Osteoporosis Sensory History: Reports: Hx Cataracts - surgically removed, Hx Contacts or Glasses, Hx Hearing Aid, Hx Hearing Problem Denies: Hx Eye Injury, Hx Eye Prosthesis, Hx Glaucoma, Hx Legally Blind, Hx Macular Degeneration Opthamlomology History: Reports: Hx Cataracts - surgically removed, Hx Contacts or Glasses Denies: Hx Eye Injury, Hx Eye Prosthesis, Hx Glaucoma, Hx Legally Blind, Hx Macular Degeneration Neurological History: Reports: Other Neuro Impairments/Disorders - temporal arteritis Denies: Hx Dementia, Hx Migraine, Hx Seizures Psychiatric History: Denies: Hx Panic Disorder, Hx Substance Abuse - Cancer History Cancer Type, Location and Year: PROSTATE Hx Chemotherapy: No Hx Radiation Therapy: No - Surgical History Surgery Procedure, Year, and Place: RIGHT KNEE 1982. LEFT SHOULDER. ANGIOPLASTY 1986. PROSTATE SCRAPE. COLON RESECTION. HEART CATH- STENT PLACED - PROMUS PREMIER DRUG-ELUTING STENT PER [facility] [place] OP REPORT- SAFE UP TO 3T; SPATIAL GRADIENT FIELD OF 720 GAUSS/CM OR LESS. GALLBLADDER REMOVAL Hx Anesthesia Reactions: No - Immunization History Date of Tetanus Vaccine: Unk Date of Influenza Vaccine: Fall 2011 Infectious Disease History: No Infectious Disease History: Denies: Hx Hepatitis, Hx Human Immunodeficiency Virus (HIV), Traveled Outside the [place] in Last 30 Days - Family History Known Family History: Negative: Blood Disorder - Social History Alcohol Use: None Substance Use Type: Reports: None Smoking Status (MU): Former Smoker Type: Cigarettes Length of Time of Smoking/Using Tobacco: Pt unsure,states many, many years ago,? quit,smoked about 5 years Have You Smoked in the Last Year: No Review of Systems Negative: Fever, Chills Negative: Erythema Negative: Sore Throat Negative: Chest Pain Negative: Shortness Of Breath Negative: Abdominal Pain, Vomiting, Nausea Negative: dysuria, hematuria Positive: Other - POSITIVE: HIP PAIN. Negative: Myalgia, Edema Negative: Rash Neurological: Other - NEGATIVE: DIZZINESS All Other Systems Reviewed And Are Negative: Yes Physical Exam - Summary Physical Exam Summary: Constitutional: Well-developed, Well-nourished, Alert, Cooperative Skin: Warm, Dry HENT: Normocephalic; No Racoons eyes; No stewart's sign; No abrasion; No contusion; No hemotympanum; No maxilla facial tenderness or instability; Dentition are smooth; No dental trauma; No trismus Eyes: EOM normal, PERRL Neck: Trachea is midline. No stridor; No JVD; No step off; No posterior cervical spine tenderness Cardio: Rhythm regular, rate normal Heart sounds normal; Intact distal pulses; The pedal pulses are 2+ and symmetric. Radial pulses are 2+ and symmetric. Pulmonary/Chest wall: Effort normal; Breath sounds normal; Equal chest rise; No flail segment; No rib tenderness; No sternal tenderness Abd: Soft, Appearance normal. No distension; No tenderness; No palpable pulsatile mass; No Cullens sign; No Sow-Turners sign Musculoskeletal: No joint swelling; No vertebral body tenderness; No paraspinal tenderness; No step off or deformity of the spine; Pelvis is stable to lateral compression and rock. Pain with passsive ROM of hip, tender to the lateral aspect of the hip. FROM of neck. Neuro: Alert, Oriented x3, Strength 5/5 all extremities. : No blood at urethral meatus Psych: Mood and affect Normal GCS: 15 Triage Information Reviewed: Yes Vital Signs On Initial Exam: Initial Vitals Temp Pulse Resp BP Pulse Ox 98.8 F 67 18 180/86 95 10/17/18 16:59 10/17/18 16:59 10/17/18 16:59 10/17/18 16:59 10/17/18 16:59 Vital Signs Reviewed: Yes Diagnostics - Vital Signs Vital Signs Temp Pulse Resp BP Pulse Ox 10/17/18 16:59 98.8 F 67 18 180/86 95 - Laboratory Result Diagrams: 10/17/18 18:50 10/17/18 18:50 Lab Statement: Any lab studies that have been ordered have been reviewed, and results considered in the medical decision making process. - Radiology FEMUR XR Radiology Interpretation Completed By: ED Physician Summary of Radiographic Findings: NO ACUTE DISEASE. PENDING OFFICIAL REPORT. HIP XR Radiology Interpretation Completed By: ED Physician Summary of Radiographic Findings: NO ACUTE DISEASE. PENDING OFFICIAL REPORT. - CT BRAIN CT CT Interpretation Completed By: Radiologist Summary of CT Findings: 1. No intracranial bleed, suspicious mass, or mass effect. Ventricles appear unremarkable. 2. There is low attenuation change in the white matter most consistent with chronic age related small vessel ischemic change. No acute territorial infarction is seen. These can be initially occult on head CT. 3. Minimal sinus disease. ED PHYSICIAN REVIEWED THIS RADIOLOGY REPORT. CERVICAL SPINE CT CT Interpretation Completed By: Radiologist Summary of CT Findings: 1. No cervical fracture. 2. Mild posterior offset lateral masses of C1 relative to C2 slightly more pronounced on the left suggesting ligamentous laxity or injury. Posterior to the C2 and C3 vertebral bodies there is intermediate attenuation material measuring up to 5 mm in thickness. This may be epidural hemorrhage or ligamentous hypertrophy. Consider MRI. ED PHYSICIAN REVIEWED THIS RADIOLOGY REPORT. PELVIC CT CT Interpretation Completed By: Radiologist Summary of CT Findings: There is an acute nondisplaced basicervical fracture of the proximal right. femur with minimal impaction. ED PHYSICIAN REVIEWED THIS RADIOLOGY REPORT. - EKG 1832 Cardiac Rate: NL - 72 BPM EKG Rhythm: Sinus Rhythm - 72 BPM Summary of EKG Findings: NEGATIVE STEMI. Re-Evaluation - Re-Evaluation First Eval Re-Evaluation Time: 18:22 Change: Unchanged Comment: DR. MACHUCA REQUESTED HIP AND FEMUR PLANE FILMS. Complex Multi-Symp Course/Dx Course Of Treatment: A 83 y/o male brought in by ambulance and accompanied by family presents to the ED c/o pain reaching 10/10 in severity s/p fall. According to the patient's family, the patient lives with his behind their house. The patient was walking outside to get the mail when he fell. The family denies any LOC, but they are not sure because patient has dementia and he cannot remember where he fell. The stated that he was outside for at least 10 minutes. She noted that he was at least 50 feet, but crawled his way to the house. Physical examination findings were significant for pain with passsive ROM of hip, tender to the lateral aspect of the hip. FROM of neck. A Brain CT revealed 1. No intracranial bleed, suspicious mass, or mass effect. Ventricles appear unremarkable. 2. There is low attenuation change in the white matter most consistent with chronic age related small vessel ischemic change. No acute territorial infarction is seen. These can be initially occult on head CT. 3. Minimal sinus disease. GCS: 15. A Cervical Spine CT revealed 1. No cervical fracture. 2. Mild posterior offset lateral masses of C1 relative to C2 slightly more pronounced on the left suggesting ligamentous laxity or injury. Posterior to the C2 and C3 vertebral bodies there is intermediate attenuation material measuring up to 5 mm in thickness. This may be epidural hemorrhage or ligamentous hypertrophy. Consider MRI. A Pelvic CT revealed there is an acute nondisplaced basicervical fracture of the proximal right femur with minimal impaction. An EKG revealed NSR of 72 BPM, negative STEMI. A Femur XR revealed no acute disease. A Hip XR revealed no acute disease. Hematology, Chemistry, and coagulation screens were done. No significant laboratory abnormalities were found except hyperglycemia of 117 mg/dL. Troponin I was 0.01. In the ED course, Motrin, Toradol, Lidocaine, and Zofran. Patient care was discussed with hospitalist, Dr. Genet Chin, who accepts patient for admission. Patient will be admitted with a diagnosis of right hip fracture. Patient is agreeable with this plan. - Diagnoses Provider Diagnoses: Fracture of right hip - Physician Notifications Discussed Care Of Patient With: Genet Chin Time Discussed With Above Provider: 19:06 Instructed by Provider To: Other - ACCEPTS PATIENT FOR ADMISSION. 1999 - DR. MCKEON WILL SEE PATIENT, RECOMMENDS MRI TOMORROW. 2122 - DR. MCKEON RECOMMENDS KEEPING PATIENT IN A [place] [employer] AND MRI THE PATIENT IN THE AM. Discharge - Sign-Out/Discharge Documenting (check all that apply): Patient Departure - ADMIT, Sign-Out Patient - MOVVA Signing out patient TO: Genet Chin Receiving patient FROM: Omid Petersen - Discharge Plan Condition: Fair Disposition: ADMITTED TO [facility] - Attestation Statements Document Initiated by Scribe: Yes Documenting Scribe: Carrillo Connolly Provider For Whom Scribe is Documenting (Include Credential): Omid Petersen MD Scribe Attestation: Carrillo Barrientos, scribed for Omid Petersen MD on 10/17/18 at 2254. Status of Scribe Document: Ready
[2018-10-17] MEDS ORDERED: Ketorolac INJ* 30 MG/ML 1 ML VIAL IV PUSH ONE (18:45)
[2018-10-17] MEDS ORDERED: Ketorolac INJ* 30 MG/ML 1 ML VIAL ONE (18:46)
[2018-10-17 19:09] LABS: Hematocrit 34 % (42-52); Hemoglobin 11.3 g/dl (14.0-18.0); Mean Corpuscular HGB Conc 34 g/dl (31-36); Mean Corpuscular Hemoglobin 28 pg (27-31); Mean Corpuscular Volume 82 fL (80-94); Mean Platelet Volume 6.8 fL (7.4-10.4); Platelet Count 202 10^3/ul (150-450); Red Blood Count 4.12 10^6/ul (4.00-5.40); Red Cell Distribution Width 15 % (10.5-15); White Blood Count 11.1 10^3/ul (3.5-10.8)
[2018-10-17 19:19] LABS: Activated Partial Thrombo Time 29.2 seconds (26.0-36.3); INR 1.04 (0.77-1.02)
[2018-10-17 19:39] LABS: Albumin 3.9 g/dL (3.2-5.2); BUN/Creatinine Ratio 17.7 (8-20); Calcium 9.4 mg/dL (8.6-10.3); EGFR African American 55.1 (>60); EGFR Non-African American 45.5 (>60); Globulin 3.8 g/dL (2-4); Potassium 4.1 mmol/L (3.5-5.0); Total Bilirubin 0.6 mg/dL (0.2-1.0); Total Protein 7.7 g/dL (6.4-8.9)
[2018-10-17 19:40] LABS: Troponin I 0.01 ng/mL (<0.04)
[2018-10-17] MEDS ORDERED: Senna TAB PO PRN (20:25)
[2018-10-17] MEDS ORDERED: Ondansetron INJ* 2 MG/ML VIAL IV PRN (20:25)
[2018-10-17] MEDS ORDERED: Magnesium Hydroxide LIQ* 30 ML UDC PO PRN (20:25)
[2018-10-17] MEDS ORDERED: NS 0.9% 1000 ML** 1,000 ML IV SCH (20:30)
[2018-10-17] MEDS ORDERED: hydrALAZINE IV* 20 MG/ML VIAL IV SLOW PU PRN (20:45)
[2018-10-17] MEDS ORDERED: Heparin VIAL(*) 5000 UNITS/ML VIAL (FIVE THOUSAND) SUBCUT SCH (22:00)
[2018-10-17] MEDS ORDERED: Buffered Lidocaine 1% SYRIN* 1 ML/SYRINGE INTRADERM ONE (22:03)
[2018-10-17] MEDS ORDERED: Ondansetron TAB* 4 MG PO ONE (22:03)
--- NOTE | 2018-10-17 22:36 | HP ---
CC: Dr. Davis; Dr. Polanco * HISTORY AND PHYSICAL: DATE OF ADMISSION: 10/17/18 PRIMARY CARE PROVIDER: Dr. Davsi. THIN FILM TECHNICIAN: Dr. Polanco. CHIEF COMPLAINT: Fall and right hip pain. HISTORY OF PRESENT ILLNESS: Mr. Larose is an 83-year-old male who has a history of coronary artery disease, status post stent in 2014, mild cognitive impairment, hyperlipidemia, iron deficiency anemia, chronic back pain, and GERD who presents to the emergency room with complaints of fall and right hip pain. The patient states that he was walking from outside into his house when he slipped on ice in the driveway. He states that he notes the he slipped on the ice, but when he fell he believes he may have hit his head and passed out for a brief period of time. The patient states that he was unable to get up; therefore, he crawled on his hands and knees back into the house. The patient' s was unable to get him up, so she contacted their daughter, who came to their house and when they tried to get him into the car to be brought to the emergency room, they were unable to do so and therefore, the ambulance was called. The patient states generally he has no significant pain at rest; however, if there is any significant movement to the right lower extremity, he does have significant pain in the right hip. He otherwise has no complaints at this point. At baseline, the patient is ambulatory and steady on his feet. He states that he does not develop any chest pain or shortness of breath and ambulating longer distances. He does not walk up a flight of stairs; therefore, cannot tell me if he develops chest pain with that. He has had no recent chest pain or shortness of breath. He states that overall he has been feeling quite well and is in his usual state of health over the last several days. The patient followed with Dr. Polanco in August 2018. At that time, it was felt that he was doing very well. It was recommended that he continue on his medical management. Of note, the patient did have a chemical nuclear stress test that revealed a small fixed defect of the apex, which may be physiologic apical thinning or a small remote infarct. No definite reversibility to suggest ischemia was noted on the stress test in March 2018. The patient's most recent transthoracic echocardiogram was in December 2014, which revealed an EF of 50% to 55%. PAST MEDICAL HISTORY: 1. Coronary artery disease, status post stenting in 2015. 2. Burnt out RA. 3. Mild cognitive impairment. 4. Hyperlipidemia. 5. Iron deficiency anemia. 6. Chronic back pain. 7. GERD. 8. Stage 3 chronic kidney disease. PAST SURGICAL HISTORY: 1. Tonsillectomy. 2. Arthroscopic knee surgery. 3. TURP. 4. Colon resection for some sort of blockage. 5. Cholecystectomy. 6. Bilateral cataract extraction. 7. Left shoulder surgery. MEDICATIONS: 1. Lutein/zeaxanthin 1 dose p.o. daily. 2. Zoloft 25 mg p.o. daily. 3. Valisone 0.1% cream apply topically daily p.r.n. rash or itching. 4. Lipitor 20 mg p.o. q.h.s. 5. Aspirin 81 mg p.o. daily. 6. Didi 180 mg p.o. daily p.r.n. allergies. 7. Ferrous gluconate 325 mg p.o. Saturday and Saturday. 8. Protonix 40 mg p.o. daily. 9. Nitroglycerin 0.4 mg SL q.5 minutes p.r.n. chest pain. 10. Multivitamin 1 tab p.o. daily. 11. Eucerin cream apply topically daily as needed for dry skin. 12. Imdur 15 mg p.o. daily. 13. PreserVision AREDS 1 cap p.o. daily. 14. Potassium chloride 10 mEq p.o. daily. 15. MiraLAX 17 g p.o. daily. ALLERGIES: CORTISONE, MORPHINE, and OXYCODONE. FAMILY HISTORY: Mom had a history of heart disease. Dad's medical history is unknown. SOCIAL HISTORY: The patient is a remote former smoker, he quit 40 to 50 years ago. He does not drink alcohol. He is . He lives with his who is his healthcare proxy. He also states his daughter is a surrogate to healthcare proxy. REVIEW OF SYSTEMS: A complete 11-system review of systems is obtained. Pertinent positives and negatives are as per HPI and otherwise negative. PHYSICAL EXAMINATION GENERAL: The patient is a well developed elderly male, seen lying flat in the bed, in no acute distress. VITAL SIGNS: Blood pressure 180/86, pulse 67, respirations 18, temp 98.8, O2 sat 95% on room air. HEENT: Pupils are equal and round. Extraocular muscles are intact. Oropharynx is clear. Oral mucosa is moist. The patient wears a full upper denture and a partial on the bottom. There is no submandibular, cervical, or supraclavicular adenopathy. Thyroid is not enlarged. No thyroid nodules noted. PULMONARY: Lungs are clear to auscultation anteriorly and at the lateral bases. CARDIAC: Normal S1, S2. Regular rate and rhythm. I do no appreciate any murmurs. There is no lower extremity edema. ABDOMEN: Bowel sounds present. Abdomen is soft, nontender, nondistended. MUSCULOSKELETAL: There is no cyanosis, clubbing of the digits. SKIN: Warm and dry. There are no rashes. NEUROLOGIC: Cranial nerves II to XII are grossly intact. Sensation is intact to light touch throughout. Strength is 5/5 and symmetric in the upper extremities and left lower extremity. PSYCH: The patient is alert. He is oriented x3. Affect appears appropriate. DIAGNOSTIC STUDIES/LAB DATA: WBC 11.1, hemoglobin 11.3, hematocrit 34, platelets 202. INR 1.04. Sodium 136, potassium 4.1, chloride 102, CO2 26, BUN 26, creatinine 1.47, glucose 117, calcium 9.4. Bilirubin 0.6, AST 21, ALT 12, alk phos 86. Troponin 0.01. Albumin 3.9. EKG reveals normal sinus rhythm without any acute ST-T wave abnormalities, although baseline is not very clear. CT brain reveals no intracranial bleed, suspicious mass or mass effect. Ventricles appear unremarkable. There is low attenuation change in the white matter, most consistent with chronic age-related small vessel ischemic change. No acute territorial infarction is seen. Minimal sinus disease is noted. Cervical spine CT reveals no cervical fracture. There is mild posterior offset lateral masses of C1 relative to C2, slightly more pronounced on the left suggesting ligamentous laxity or injury. Posterior to the C2 and C3 vertebral bodies, there is intermediate attenuation measuring up to 5 mm in thickness. This may be epidural hemorrhage or ligamentous hypertrophy. MRI should be considered. Pelvis CT, there is an acute nondisplaced fracture of the proximal right femur with minimal impaction. Osteopenia and moderate degenerative changes noted. ASSESSMENT AND PLAN: Mr. Larose is an 83-year-old male with a history of coronary artery disease, mild cognitive impairment, hyperlipidemia, iron deficiency anemia, and chronic back pain as well as stage 3 chronic kidney disease, who presents to the emergency room after a mechanical fall where he unfortunately sustained a right proximal femur fracture. 1. Right proximal femur fracture. At this point, the patient is medically optimized to proceed to the operating room. He is not on beta-danita at baseline and I will, therefore, not start this at this point. I do not believe the patient needs a transthoracic echocardiogram as he appears to be without any evidence of congestive heart failure. The patient has been chest pain free despite exertion, though it is unclear if he is able to perform 4 mets. The patient's revised cardiac risk index is 1 making his risk to major cardiac event 6.0%. The benefits of proceeding to the OR sooner rather than later currently outweigh the risk of delaying for any further cardiac evaluation. The patient's aspirin will be held preoperatively, but it should be resumed as soon as possible. Dr. Perez will be alerted to the fact that I believe the patient is ready to go to the OR tomorrow. 2. Possible ligamentous injury versus laxity of the cervical spine. CT of the cervical spine did reveal questionable ligamentous injury versus laxity. Dr. English was consulted by the ER. He has recommended MRI of the cervical spine, which has been ordered by Dr. Petersen from the ER. Dr. English will be seeing the patient in consultation. The patient denies any pain in his neck whatsoever making me suspect that this is likely a chronic finding. 3. Stage 3 chronic kidney disease. The patient's creatinine is 1.47 today. This is essentially at baseline. 4. Coronary artery disease. Again, the patient has a history of [place] in the past and was stented in 2014. He has had no chest pain. He did have an episode of chest pain in March 2018; at which time, he underwent stress testing, which revealed no evidence of ischemia; however, following that hospitalization , it became evident that the patient's chest pain was related to shingles which developed with the rash showing up post-hospitalization. As above, the patient should be restarted on his aspirin as soon as possible. He will continue on his low-dose Imdur. 5. Hypertension. The patient's blood pressure is markedly hypertensive currently; however, I suspect that it is related to pain. The patient's and daughter state that his blood pressure had been getting intermittently low; therefore, his Imdur was decreased. I will add p.r.n. hydralazine for systolic blood pressures greater than 170. 6. Gastroesophageal reflux disease. Continue Protonix. 7. Constipation. The patient is constipated at baseline. He will be placed on an aggressive bowel regimen preoperatively. 8. DVT prophylaxis. According to the Adult Thrombosis Prophylaxis Risk Factor Assessment Guide, the patient has a total risk factor score of 8 making him the highest risk. Heparin 5000 units subcutaneous daily will be initiated this evening; however, will be held after midnight in anticipation of going to the OR tomorrow. 9. Code status is full. TIME SPENT: 65 minutes was spent admitting this patient. [id number]/CPS #: [id number] BROCK
[2018-10-17] MEDS: Acetaminophen TAB* 325 MG PO SCH (23:46)
[2018-10-17] MEDS: Docusate CAP* 100 MG PO SCH (23:47)
[2018-10-18 00:30] LABS: Urine Appearance Clear; Urine Bilirubin Negative (Negative); Urine Blood Negative (Negative); Urine Color Yellow; Urine Glucose Negative (Negative); Urine Ketones Negative (Negative); Urine Nitrite Negative (Negative); Urine Protein Negative (Negative); Urine Specific Gravity 1.005 (1.010-1.030); Urine Urobilinogen Negative (Negative)
--- NOTE | 2018-10-18 04:11 | CONS ---
CONSULTATION NOTE: DATE OF CONSULT: 10/17/18 HISTORY OF PRESENT ILLNESS: The patient is a very pleasant 83-year-old gentleman with history of dementia; coronary artery disease, status post stent placement; hypercholesterolemia; hypertension; and rheumatoid arthritis, who was reported to have sustained a fall today while he was walking to a mailbox and slipped on the ice. We were requested to see the patient by Dr. Petersen in the ED because of CT scan findings consistent with possible rotatory subluxation at the C1-C2 versus ligamentous laxity. The patient denies loss of consciousness, denies loss of memory. The patient reports that he called back himself to the house and called his who notified his daughter and then he was brought to the emergency room by ambulance. The patient denies any neck pain, denies any back pain, denies any weakness of his extremities with the exception in the right hip that has been diagnosed with a fracture. Denies any numbness or tingling of his extremities. The patient was able to ambulate prior to fall. He denies urinary or GI incontinence. The patient is , lives with his and his 4 children. He is retired. He is accompanied today by his daughter. PAST MEDICAL HISTORY: Coronary artery disease, status post stent placement; hypercholesterolemia; hypertension; AR; GERD; hiatal hernia; constipation; prostate hyperplasia; kidney stones; prostate cancer; rheumatoid arthritis; cataracts; hearing loss; temporal arteritis. PAST SURGICAL HISTORY: Right knee surgery, left shoulder surgery, angioplasty, prostate surgery, colon resection, heart stent placement, cholecystectomy. HOME MEDICATIONS: Zoloft, lutein/zeaxanthin. ALLERGIES: CORTISONE, MORPHINE and OXYCODONE. FAMILY HISTORY: Noncontributory. SOCIAL HISTORY: Tobacco negative. Alcohol negative. Recreational drug use negative. PHYSICAL EXAM: The patient is not in acute distress. He is awake, alert, oriented x1-2; this is his baseline as his daughter reports. Pupils are equal and reactive. Cranial nerves II through XII are grossly intact with the exception of bilateral hearing loss. The patient has bilateral hearing aids. Motor 4-5/5 in all extremities with exception of the right hip flexion and knee extension, which are difficult to examine because of his recent fracture and pain limitations. Sensory is grossly intact to light touch. Deep tendon reflexes +1 bilaterally. Right knee not examined because of pain. No clonus, no Babinski. Carlitos's negative. Straight leg test not examined because of his hip fracture. No tenderness to palpation of the thoracic or lumbar spine. He has free range of motion of the cervical spine. DIAGNOSTIC STUDIES/LAB DATA: The patient had a CT scan of the brain, which did not reveal acute hemorrhage or intracranial injury. The patient had a CT scan of the cervical spine that did not reveal evidence of fracture. There is a small degree of subluxation of C1-C2 joint with mild displacement of the C1 lateral mass in reference to C2 with left being slightly more prominent than the right. There is also a suspicion of anterior epidural collection, which could represent blood or chronic inflammatory tissue, per radiology report. ASSESSMENT: The patient is a pleasant 83-year-old gentleman with a history of fall and right hip fracture with medical history including dementia, prostate cancer, rheumatoid arthritis, coronary artery disease with CT scan findings consistent with possible rotatory subluxation of C1 on C2. PLAN: The patient is reporting that he is doing quite well in terms of his neurological function. The CT scan findings may represent abnormal ligamentous laxity due to his arthritis versus traumatic subluxation. For this reason, we recommend an MRI of his cervical spine as well as placement of the patient in a MJ- C-collar. We also recommend thoracic and lumbar spine x-rays. Discussed CT scan findings with the patient's daughter as well as possible treatment options in case traumatic injury will be identified including prolonged immobilization in a cervical collar versus surgical intervention in the form of an arthrodesis between C1 and C2 or occiput to cervical spine. The patient's daughter reports that the patient and herself would like to avoid surgical intervention and understands the possible outcomes from conservative and from operative treatment. We will be happy to follow the results of the MRI. Thank you for allowing us to participate in the care of this patient. Please do not hesitate to contact our office in case you have any further questions or concerns regarding the care of this patient. [id number]/[facility] #: [id number] BROCK
[2018-10-18] MEDS: Acetaminophen TAB* 325 MG PO SCH ×4 (04:30→21:33)
[2018-10-18] MEDS ORDERED: Lactated Ringers 1000 ML Bag* 1,000 ML IV SCH (06:00)
[2018-10-18] MEDS ORDERED: Famotidine IV* 10 MG/ML 2 ML (20 mg) IV ONE (06:00)
[2018-10-18] MEDS ORDERED: Dexamethasone IV* 4 MG/ML 1 ML (4 MG) IV SLOW PU ONE (06:00)
--- NOTE | 2018-10-18 07:26 | PN ---
Progress Note - Progress Note Date of Service: 10/18/18 Note: Pt seen and examined this AM. Full note dictated in system. Pt with R nondisplaced basicervical hip fracture. Plan: R hip IMN. Pt optimized by medicine but with c-collar due to possible spine injury. Will observe spine precautions.
[2018-10-18] MEDS ORDERED: fentaNYL* 50 MCG/ML 2 ML VIAL (100 MCG VIAL) ONE (09:48)
[2018-10-18] MEDS ORDERED: KETAMINE HCL* 50 MG/ML 10 ML VIAL ONE (09:48)
[2018-10-18] MEDS ORDERED: Midazolam* 1 MG/ML 5 ML VIAL (5 MG) ONE (09:48)
[2018-10-18] MEDS ORDERED: Dexamethasone IV* 4 MG/ML 1 ML (4 MG) ONE (09:51)
[2018-10-18] MEDS ORDERED: Famotidine IV* 10 MG/ML 2 ML (20 mg) ONE (09:51)
[2018-10-18] MEDS ORDERED: ceFAZolin 2 GM PREMIX in ORs 2 GM/50 ML BAG IVPB ONE (10:31)
[2018-10-18] MEDS ORDERED: Ropivacaine* 2 MG/ML 20 ML VIAL (0.2%) ONE (11:50)
--- NOTE | 2018-10-18 12:02 | CONS ---
CONSULTATION REPORT: DATE OF CONSULT: 10/18/18 ATTENDING PHYSICIAN: Bipin Perez MD CHIEF COMPLAINT: Right hip pain. HISTORY OF PRESENT ILLNESS: Briefly, Anand Larose is an 83-year-old male who went to check the mail and slipped on ice, it was an unwitnessed fall. He had some head and neck pain. He may have had loss of consciousness. He also has history of dementia. He crawled on his hands and knees back to his house. His and his daughter were unable to get him up, then they tried to get him into the car, so they called an ambulance. He had significant hip pain and was unable to weight bear. He states he thinks he may have lost consciousness. He is a community ambulator, he does not use any assistive devices. His daughter who is at the bedside as well as his . The patient was jensen scanned, there was some finding on the cervical spine. He was evaluated by Dr. English and placed in a collar until he gets an MRI today, which we will plan after surgery. PAST MEDICAL HISTORY: 1. Coronary artery disease. 2. RA. 3. Cognitive impairment/mild dementia. 4. Hyperlipidemia. 5. Iron-deficiency anemia. 6. Chronic back pain. 7. GERD. 8. Stage 3 chronic kidney disease. PAST SURGICAL HISTORY: 1. Tonsillectomy. 2. Arthroscopic knee surgery. 3. TURP. 4. Colon resection in 2013. 5. Cholecystectomy. 6. Cataract surgery. 7. Left shoulder surgery. 8. Stent placement. MEDICATIONS: 1. Lutein. 2. Zoloft. 3. Valisone. 4. Lipitor. 5. Aspirin. 6. Didi 7. Ferrous gluconate. 8. Protonix. 9. Nitroglycerin. 10. Multivitamin. 11. Eucerin cream. 12. Imdur. 13. PreserVision AREDS. 14. Potassium chloride. 15. MiraLAX. ALLERGIES: CORTISONE, MORPHINE, and OXYCODONE. FAMILY HISTORY: Mother had heart disease. Father medical history is unknown. SOCIAL HISTORY: He is a remote former smoker and has quit more than 4 to 5 decades ago. He does not drink alcohol. He is . He lives with his . They live independently. His daughter and his are his surrogate healthcare proxy. He does not use any assistive devices. He is right-hand dominant. REVIEW OF SYSTEMS: A 14-point review of systems reviewed with the patient and is significant only for the above complaint, otherwise, remaining systems are negative. PHYSICAL EXAM: He is in no acute distress. He is well developed, well nourished. He is alert and oriented x3. He has pleasant mood and normal affect. Good balance and coordination of extremities. Temperature is 99.4, pulse 62, respiratory rate 16, O2 saturation is 92% on room air, blood pressure 136/62. He was on 2 L a couple of hours ago. EOMI. Chest: Clear to auscultation. Heart is regular rate and rhythm. Abdomen: Soft and nontender. Examination of the right leg demonstrates the skin is intact. No erythema or warmth. The patient has pain on log roll of the right leg. He his sensate to light touch about the first dorsal webspace in medial, lateral, dorsal and plantar foot. He has 2+ PT pulse. His calf is soft and nontender. DIAGNOSTIC STUDIES/LAB DATA: CT was first obtained that demonstrates an intertrochanteric hip fracture and then x-rays were obtained that demonstrate an intertrochanteric hip fracture with minimal displacement. Labs were reviewed and were within normal limits. IMPRESSION AND PLAN: He has intertrochanteric hip fracture with minimal displacement and basicervical component to it and has lined up quite well. At this point, I would recommend right hip intramedullary nail. He has been medically optimized by the medicine team. We will plan for surgery early Saturday morning. We will then make the patient weightbearing as tolerated after surgery. Risks and benefits of surgery were discussed at length, including but not limited to bleeding; infection; damage to nerves, vessels, surrounding structures; wound nonhealing; persistent pain; need for surgery; scaring, stiffness; incomplete relief of symptoms; risks of anesthesia. We will follow with the patient inhouse. [id number]/[facility] #: [id number] BROCK
[2018-10-18] MEDS ORDERED: Propofol* 10 MG/ML 20 ML BTL ONE (12:23)
[2018-10-18] MEDS ORDERED: Naloxone* 0.4 MG/ML 1 ML VIAL IV PRN (12:29)
[2018-10-18] MEDS ORDERED: PROCHLORPERAZINE INJ 5 MG/ML 2 ML VIAL IV PRN (12:29)
[2018-10-18] MEDS ORDERED: fentaNYL* 50 MCG/ML 2 ML VIAL (100 MCG VIAL) IV PRN (12:29)
[2018-10-18] MEDS: Docusate CAP* 100 MG PO SCH ×2 (14:32→21:36)
[2018-10-18] MEDS: Ferrous Gluconate TAB* 324 MG TAB PO SCH (14:32)
[2018-10-18] MEDS: Isosorbide Mononitrate ER TAB* 30 MG PO SCH (14:32)
[2018-10-18] MEDS: Potassium Chlor TAB* 10 MEQ TAB.ER PO SCH (14:33)
[2018-10-18] MEDS: Pantoprazole TAB * 40 MG TAB PO SCH (14:33)
[2018-10-18] MEDS: Multivitamins/Minerals TAB PO SCH (14:33)
[2018-10-18] MEDS: Sertraline* 25 MG TAB PO SCH (14:33)
[2018-10-18] MEDS: Polyethylene Glycol 3350* 17 GM PACKET PO SCH (14:33)
[2018-10-18] MEDS: traMADol TAB* 50 MG PO PRN (14:41)
--- NOTE | 2018-10-18 15:53 | PN ---
Subjective Date of Service: 10/18/18 Interval History: Mr. Larose went to the OR this afternoon with Dr. Perez and has just arrived back to his room. His two daughters and his are here with him. He is feeling okay--he has no pain at this time. His family report that his bishop paiute-J collar is bothersome, but he does not specifically complain about it. He denies chest pain or shortness of breath. Objective Active Medications: Acetaminophen (Tylenol Tab*) 975 mg PO Q6H [facility] Last Admin: 10/18/18 14:43 Dose: 975 mg Atorvastatin Calcium (Lipitor*) 20 mg PO QPM [facility] Docusate Sodium (Colace Cap*) 100 mg PO BID [facility] Last Admin: 10/18/18 14:32 Dose: Not Given Enoxaparin Sodium (Lovenox(*)) 40 mg SUBCUT Q24H [facility] Ferrous Gluconate (Fergon Tab*) 324 mg PO SUSA [facility] Last Admin: 10/18/18 14:32 Dose: Not Given Hydralazine HCl (Apresoline Iv*) 5 mg IV SLOW PU Q6H PRN PRN Reason: SBP>170 Lactated Ringer's (Lactated Ringers 1000 Ml Bag*) 1,000 mls @ 125 mls/hr IV PER RATE [facility] Cefazolin Sodium 1 gm/ Sodium (Chloride) 50 mls @ 200 mls/hr IVPB Q8H [facility] Stop: 10/19/18 10:44 Isosorbide Mononitrate (Imdur Er Tab*) 15 mg PO QAOK [facility] [place] Last Admin: 10/18/18 14:32 Dose: Not Given Magnesium Hydroxide (Milk Of Magnesia Liq*) 30 ml PO BID PRN PRN Reason: CONSTIPATION Multivitamins/Minerals (Theragran/Minerals Tab*) 1 tab PO QAOK [facility] [place] Last Admin: 10/18/18 14:33 Dose: Not Given Ondansetron HCl (Zofran Inj*) 4 mg IV Q6H PRN PRN Reason: NAUSEA Pantoprazole Sodium (Protonix Tab*) 40 mg PO QAM [facility] Last Admin: 10/18/18 14:33 Dose: Not Given Polyethylene Glycol/Electrolytes (Miralax*) 17 gm PO DAILY [facility] Last Admin: 10/18/18 14:33 Dose: Not Given Potassium Chloride (Klor Con Er Tab*) 10 meq PO QAM [facility] Last Admin: 10/18/18 14:33 Dose: Not Given Senna (Senokot Tab*) 1 tab PO BEDTIME PRN PRN Reason: CONSTIPATION Sertraline HCl (Zoloft*) 25 mg PO DAILY [facility] Last Admin: 10/18/18 14:33 Dose: Not Given Tramadol HCl (Ultram*) 50 mg PO Q6H PRN PRN Reason: PAIN Last Admin: 10/18/18 14:41 Dose: 50 mg Vital Signs - 8 hr 10/18/18 10/18/18 10/18/18 12:26 12:32 12:41 Temperature 97.2 F Pulse Rate 66 72 Respiratory 5 17 Rate Blood Pressure 161/85 162/85 (mmHg) O2 Sat by Pulse 90 95 Oximetry 10/18/18 10/18/18 10/18/18 12:45 13:00 13:15 Temperature Pulse Rate 69 70 70 Respiratory Rate Blood Pressure 163/87 164/91 175/88 (mmHg) O2 Sat by Pulse 95 94 94 Oximetry 10/18/18 10/18/18 13:30 14:41 Temperature 98.2 F Pulse Rate Respiratory 16 Rate Blood Pressure (mmHg) O2 Sat by Pulse Oximetry Oxygen Devices in Use Now: Nasal Cannula Appearance: alert, well appearing, with bishop paiute J Eyes: No Scleral Icterus Ears/Nose/Mouth/Throat: NL Teeth, Lips, Gums Respiratory: Symmetrical Chest Expansion and Respiratory Effort, Clear to Auscultation Cardiovascular: RRR, No Edema Abdominal: NL Sounds; No Tenderness; No Distention Lymphatic: No Cervical Adenopathy Extremities: - - left hip incision with blood at the posterior end. sensation in tact b/l legs. pulses 2+ b/l. Neurological: Alert and Oriented x 3, - - able to name all his family members in the room. when I attempt a sensory exam and ask which hand I am touching, he gets confused. his strength is 5/5 in both upper extremities. Result Diagrams: 10/17/18 18:50 10/17/18 18:50 Assess/Plan/Problems-Billing Assessment: This is an 83 year old man with history of dementia and CAD who presented to the ED after a fall on 10/17 and was found to have a left hip fracture and a possible C1-2 subluxation. - Patient Problems (1) Hip fracture, left Current Visit: Yes Status: Acute Code(s): S72.002A - FRACTURE OF UNSP PART OF NECK OF LEFT FEMUR, INIT SNOMED Code(s): 489408345 Comment: POD #0 PT/OT no pain at this time (2) C1-C2 subluxation Current Visit: Yes Status: Acute Code(s): S13.120A - SUBLUXATION OF C1/C2 CERVICAL VERTEBRAE, INITIAL ENCOUNTER SNOMED Code(s): 030034838 Comment: I have spoken with Dr. Schaefer of radiology to request that the MRI be done now Once we verify that the mikey used on hip are MRI compatible, will proceed Dr. Acosta following No pain His neurologic exam is limited by dementia (3) CAD (coronary artery disease) Current Visit: No Status: Chronic Priority: Low Code(s): I25.10 - ATHSCL HEART DISEASE OF [place] CORONARY ARTERY W/O ANG PCTRS SNOMED Code(s): 96452974 Comment: ASA on hold perioperatively. stent was in 2014. recheck cbc tomorrow. (4) DVT prophylaxis Current Visit: No Status: Chronic Priority: High Onset Date: 01/12/15 Code(s): XKO2087 - SNOMED Code(s): 279612018 Comment: polinax (5) Hypertension Current Visit: No Status: Chronic Priority: Low Code(s): I10 - ESSENTIAL ( PRIMARY) HYPERTENSION SNOMED Code(s): 36333677 Comment: poorly controlled but his family says he has recently been hypotensive on higher doses of imdur continue prn hydralazine unless persistently hypertensive
[2018-10-18] MEDS ORDERED: Atorvastatin* 20 MG TAB PO SCH (18:00)
[2018-10-18] MEDS: ceFAZolin 1 GM ADVAN(*) 1 GM in NS 0.9% 50 ML* 50 ML IVPB SCH (18:32)
[2018-10-19] MEDS ORDERED: risperiDONE TAB* 1 MG PO ONE (00:16)
[2018-10-19] MEDS ORDERED: Haloperidol INJ IV/IM* 5 MG/ML AMP IV SLOW PU ONE (01:10)
[2018-10-19] MEDS: ceFAZolin 1 GM ADVAN(*) 1 GM in NS 0.9% 50 ML* 50 ML IVPB SCH ×2 (03:22→10:31)
--- NOTE | 2018-10-19 05:10 | OP ---
OPERATIVE REPORT: DATE OF OPERATION: 10/18/18 DATE OF : 31 SURGEON: Dr. Perez. ACCESS SPEC: None available. ANESTHESIOLOGIST: Dr. Spain. ANESTHESIA: General. PRE-OP DIAGNOSIS: Right hip basicervical femoral neck fracture. POST-OP DIAGNOSIS: Right hip basicervical femoral neck fracture. OPERATIVE PROCEDURE: Right hip intramedullary nail. INDICATIONS: Anand Larose is an 83-year-old male, who is a community ambulator, who walked to the mailbox and had an unwitnessed fall. He may or may not have lost consciousness. He dragged himself back to his house and they were unable to place him into a car and therefore called EMS. He was brought to the ER and jensen-scanned and found to have a right basicervical femoral neck fracture. He was optimized by Medicine overnight. He did have a possible C1- C2 subluxation, which was evaluated and being managed by Neurosurgery. He is currently in a C-collar with spine precautions. The risks and benefits of surgery were discussed at length and include, but are not limited to bleeding, infection, damage to nerves; vessels; surrounding structures, wound nonhealing, persistent pain, need for surgery, scarring, stiffness, incomplete relief of symptoms, and risk of anesthesia. DESCRIPTION OF PROCEDURE: The patient was greeted in the preoperative area by the attending surgeon. The correct extremity was marked and consent was confirmed. The patient was brought back to the operative suite, where he was placed in the supine position on the operating room table. He underwent spinal anesthesia. Spine precautions were observed throughout the entirety of this case. The patient was then placed on the fracture table. The right arm was draped over his torso. The right hip was placed in the traction device and the left nonoperative leg was placed in a well-leg hawthorne that was well padded. Traction was countered by a well- padded perineal post. X-ray was brought in to confirm reduction of the fracture. This was nondisplaced. When views were confirmed on the AP and lateral views, the right leg was then prepped and draped in the usual sterile fashion, beginning with chlorhexidine, soap, scrub, and alcohol wipe, and a final prep with ChloraPrep. After appropriate surgical pause indicating side, site, and procedure, and administration of antibiotics, the #15 blade was used to make an incision proximal to the tip of the trochanter. Soft tissue was carefully dissected to expose the fascial layer, which was identified and incised. At this point, the guidewire was then placed in the appropriate position. Once this was confirmed on the AP and lateral views, the 16 mm canal reamer was then drilled, after which a size 12 x 170 mm nail was placed down in the shaft. The patient had a capacious canal. A short nail was placed. The femoral neck interlocking jig was then placed and the guidewire was placed. Once it was appropriately positioned on the AP and lateral views, this was measured and found to be 95. The lateral cortex was then drilled and a size 95 helical blade was then chosen and then impacted into position with excellent purchase. The patient had good, decent quality bone. Once this was placed with confirmation that I did not penetrate the joint, the nail was locked proximally, after which the static interlocking bolt was placed distally through a separate stab incision. Once this was in and the correct length was placed, the jig was removed. Final images were obtained. The wounds were then copiously irrigated with sterile saline. The fascia and IT band were then closed in layers with 0 Vicryl in interrupted fashion and the skin with 3-0 Monocryl and mikey. The wounds were then injected with 0.2% Marcaine. Sterile dressings were applied. He was awoken from anesthesia and transferred to PACU in stable condition. POSTOPERATIVE PLAN: He will be weightbearing as tolerated. He will be admitted until he is placed in rehab or sent home with therapy. He will receive 24 hours of postoperative antibiotics. DVT prophylaxis will be Lovenox for 6 weeks. We will start PT; he is out of bed to chair today. We will discontinue his muller post at day #1. I will continue to follow the patient. [id number]/[facility] #: [id number] [facility]ITALMonet
[2018-10-19] MEDS: Acetaminophen TAB* 325 MG PO SCH ×4 (05:29→20:16)
[2018-10-19 06:09] LABS: INR 1.14 (0.77-1.02)
[2018-10-19 06:19] LABS: ABS Basophils 0 10^3/ul (0-0.2); ABS Eosinophils 0 10^3/ul (0-0.6); ABS Lymphocytes 0.7 10^3/ul (1.0-4.8); ABS Monocytes 0.7 10^3/ul (0-0.8); ABS Neutrophils 10.2 10^3/ul (1.5-7.7); ABS Nucleated RBC 0 10^3/ul; Eosinophil % 0.1 %; Hematocrit 28 % (42-52); Hemoglobin 9.4 g/dl (14.0-18.0); Lymphocyte % 5.9 %; Mean Corpuscular HGB Conc 34 g/dl (31-36); Mean Corpuscular Hemoglobin 28 pg (27-31); Mean Corpuscular Volume 82 fL (80-94); Mean Platelet Volume 7.2 fL (7.4-10.4); Nucleated Red Blood Cells % 0; Platelet Count 168 10^3/ul (150-450); Red Blood Count 3.41 10^6/ul (4.00-5.40); Red Cell Distribution Width 14 % (10.5-15); White Blood Count 11.6 10^3/ul (3.5-10.8)
[2018-10-19 06:38] LABS: Calcium 8.9 mg/dL (8.6-10.3); EGFR African American 61.8 (>60); EGFR Non-African American 51.1 (>60); Magnesium 2.1 mg/dL (1.9-2.7); Potassium 3.9 mmol/L (3.5-5.0)
--- NOTE | 2018-10-19 08:06 | PN ---
Progress Note - Progress Note Date of Service: 10/19/18 Note: Pt seen and examined. Confused. Pt did not sleep again last night. No complaints of hip pain. MRI was done but unable to sit still. Shoulder xray obtained. Son at bedside. C-collar in place Temp Pulse Resp BP Pulse Ox 97.7 F 76 18 139/68 95 10/19/18 03:19 10/19/18 03:19 10/19/18 03:19 10/19/18 03:19 10/19/18 03:19 NAD. c-collar in place. alert but not oriented. grabbing sheets. RLE: dressing in place with no strike through. SILT grossly distally. calf soft, nontender. brisk cap refill. minimal pain on hip motion Sodium 138 mmol/L (135-145) 10/19/18 05:39 Potassium 3.9 mmol/L (3.5-5.0) 10/19/18 05:39 BUN 24 mg/dL (6-24) 10/19/18 05:39 Creatinine 1.33 mg/dL (0.67-1.17) H 10/19/18 05:39 Calcium 8.9 mg/dL (8.6-10.3) 10/19/18 05:39 Magnesium 2.1 mg/dL (1.9-2.7) 10/19/18 05:39 AST 21 U/L (13-39) 10/17/18 18:50 ALT 12 U/L (7-52) 10/17/18 18:50 Laboratory Results - last 24 hr 10/19/18 10/19/18 10/19/18 05:39 05:39 05:39 WBC 11.6 H RBC 3.41 L Hgb 9.4 L Hct 28 L MCV 82 MCH 28 MCHC 34 RDW 14 Plt Count 168 MPV 7.2 L Neut % (Auto) 88.0 Lymph % (Auto) 5.9 Hand % (Auto) 5.8 Eos % (Auto) 0.1 Baso % (Auto) 0.2 Absolute Neuts (auto) 10.2 H Absolute Lymphs (auto) 0.7 L Absolute Monos (auto) 0.7 Absolute Eos (auto) 0 Absolute Basos (auto) 0 Absolute Nucleated RBC 0 Nucleated RBC % 0 INR (Anticoag Therapy) 1.14 H Sodium 138 Potassium 3.9 Chloride 105 Carbon Dioxide 25 Anion Gap 8 BUN 24 Creatinine 1.33 H Est GFR ( Amer) 61.8 Est GFR (Non-Af Amer) 51.1 BUN/Creatinine Ratio 18.0 Glucose 131 H Calcium 8.9 Magnesium 2.1 A/P POD#1 R hip IMN doing well WBAT-PT/OT dvt ppx for 6 weeks lovenox dressing change tomorrow continue post op abx will continue to follow
--- NOTE | 2018-10-19 08:25 | PN ---
Subjective Date of Service: 10/19/18 Interval History: Mr. Larose reportedly did not sleep well overnight. He was restless and confused. He went for MRI but was unable to stay still for it. Collar remains in place. His son Maricel is here and was here with him overnight, and also relates that he got no sleep. Mr. Larose denies pain, he has no complaints. No chest pain, shortness of breath. Objective Active Medications: Acetaminophen (Tylenol Tab*) 975 mg PO Q6H [facility] Last Admin: 10/19/18 05:29 Dose: 975 mg Atorvastatin Calcium (Lipitor*) 20 mg PO QPM [facility] Last Admin: 10/18/18 18:36 Dose: 20 mg Docusate Sodium (Colace Cap*) 100 mg PO BID [facility] Last Admin: 10/18/18 21:36 Dose: 100 mg Enoxaparin Sodium (Lovenox(*)) 40 mg SUBCUT Q24H [facility] Ferrous Gluconate (Fergon Tab*) 324 mg PO SUSA [facility] Last Admin: 10/18/18 14:32 Dose: Not Given Hydralazine HCl (Apresoline Iv*) 5 mg IV SLOW PU Q6H PRN PRN Reason: SBP>170 Lactated Ringer's (Lactated Ringers 1000 Ml Bag*) 1,000 mls @ 125 mls/hr IV PER RATE [facility] Last Admin: 10/18/18 21:17 Dose: 125 mls/hr Cefazolin Sodium 1 gm/ Sodium (Chloride) 50 mls @ 200 mls/hr IVPB Q8H [facility] Stop: 10/19/18 10:44 Last Admin: 10/19/18 03:22 Dose: 200 mls/hr Isosorbide Mononitrate (Imdur Er Tab*) [facility] [place] Last Admin: 10/18/18 14:32 Dose: Not Given Magnesium Hydroxide (Milk Of Magnesia Liq*) 30 ml PO BID PRN PRN Reason: CONSTIPATION Multivitamins/Minerals (Theragran/Minerals Tab*) [facility] [place] Last Admin: 10/18/18 14:33 Dose: Not Given Ondansetron HCl (Zofran Inj*) 4 mg IV Q6H PRN PRN Reason: NAUSEA Pantoprazole Sodium (Protonix Tab*) 40 mg PO QAM [facility] Last Admin: 10/18/18 14:33 Dose: Not Given Polyethylene Glycol/Electrolytes (Miralax*) 17 gm PO DAILY [facility] Last Admin: 10/18/18 14:33 Dose: Not Given Potassium Chloride (Klor Con Er Tab*) 10 meq PO QAM [facility] Last Admin: 10/18/18 14:33 Dose: Not Given Senna (Senokot Tab*) 1 tab PO BEDTIME PRN PRN Reason: CONSTIPATION Sertraline HCl (Zoloft*) 25 mg PO DAILY [facility] Last Admin: 10/18/18 14:33 Dose: Not Given Tramadol HCl (Ultram*) 50 mg PO Q6H PRN PRN Reason: PAIN Last Admin: 10/18/18 14:41 Dose: 50 mg Vital Signs - 8 hr 10/19/18 10/19/18 00:25 03:19 Temperature 97.7 F Pulse Rate 76 Respiratory 18 Rate Blood Pressure 139/68 (mmHg) O2 Sat by Pulse 96 95 Oximetry Oxygen Devices in Use Now: Nasal Cannula Appearance: alert, no distress, comfortable. Ears/Nose/Mouth/Throat: NL Teeth, Lips, Gums Respiratory: Symmetrical Chest Expansion and Respiratory Effort, Clear to Auscultation Cardiovascular: NL Sounds; No Murmurs; No JVD, RRR Abdominal: NL Sounds; No Tenderness; No Distention Lymphatic: No Cervical Adenopathy Extremities: - - right hip incision is dressed without drainage around the gauze Skin: No Rash or Ulcers Neurological: - - follows simple commands. Is able to participate in a sensory exam today, which is in tact b/l. strength is 5/5 b/l. DP/PT pulses are 2+ b/ l. Result Diagrams: 10/19/18 05:39 10/19/18 05:39 Assess/Plan/Problems-Billing Assessment: This is an 83 year old man with history of dementia and CAD who presented to the ED after a fall on 10/17 and was found to have a right hip fracture and a possible C1-2 subluxation. - Patient Problems (1) Hip fracture, right Current Visit: Yes Status: Acute Code(s): S72.001A - FRACTURE OF UNSP PART OF NECK OF RIGHT FEMUR, INIT SNOMED Code(s): 166495994 Comment: POD #1 (2) C1-C2 subluxation Current Visit: Yes Status: Acute Code(s): S13.120A - SUBLUXATION OF C1/C2 CERVICAL VERTEBRAE, INITIAL ENCOUNTER SNOMED Code(s): 105844005 Comment: MRI was very limited--I am asking Dr. Acosta to re-evaluate need for collar based on MRI No pain His neurologic exam is limited by dementia (3) CAD (coronary artery disease) Current Visit: No Status: Chronic Priority: Low Code(s): I25.10 - ATHSCL HEART DISEASE OF [place] CORONARY ARTERY W/O ANG PCTRS SNOMED Code(s): 60704963 Comment: ASA on hold perioperatively. stent was in 2014. hgb dropped as anticipated postoperatively. will order ASA to be resumed tomorrow. (the decision to hold asa perioperatively is based on poise-2 trial data, which showed no reduction in AK or mortality in patients undergoing noncardiac surgery in whom asa was continued but increased major bleeding) (4) DVT prophylaxis Current Visit: No Status: Chronic Priority: High Onset Date: 01/12/15 Code(s): VOD0982 - SNOMED Code(s): 262319464 Comment: lovenox (x 6 weeks per ortho) (5) Hypertension Current Visit: No Status: Chronic Priority: Low Code(s): I10 - ESSENTIAL ( PRIMARY) HYPERTENSION SNOMED Code(s): 68710877 Comment: much better control today without intervention
[2018-10-19] MEDS: Pantoprazole TAB * 40 MG TAB PO SCH (08:38)
[2018-10-19] MEDS: Sertraline* 25 MG TAB PO SCH (08:39)
[2018-10-19] MEDS: Potassium Chlor TAB* 10 MEQ TAB.ER PO SCH (08:39)
[2018-10-19] MEDS: Isosorbide Mononitrate ER TAB* 30 MG PO SCH (08:39)
[2018-10-19] MEDS: Multivitamins/Minerals TAB PO SCH (08:39)
[2018-10-19] MEDS: Docusate CAP* 100 MG PO SCH ×2 (08:39→20:17)
[2018-10-19] MEDS: Polyethylene Glycol 3350* 17 GM PACKET PO SCH (08:40)
[2018-10-19] MEDS: Ferrous Gluconate TAB* 324 MG TAB PO SCH (08:44)
--- NOTE | 2018-10-19 12:06 | PN ---
Progress Note - Progress Note Date of Service: 10/19/18 SOAP: Subjective: []Patient was in OR yesterday during rounds. No events ON. Tolerated Rt hip surgery well. On MJ collar. No complains of neck or back pain. Objective: []VSS No tenderness to palpation C spine, Free ROM C spine. AAOx1-2, LISSETTE, CN II-XII grossly intact Motor 4-5/5 all extremities except Rt LE: HF/KE not tested Sensory grossly intact to light touch. Assessment: []83 yom hx RA sp fall, Rt hip #, possible rotatory subluxation C1-2 Plan: []Monitor VS Neurochecks Discussed with Dr Block regarding MRI of C spine findings. No evidence of trauma , but study limited and would recommend repeat of study in am. Maintain MJ collar. Discussed in extend with family including , son, daughter regarding imaging findings. Discussed about repeat MRI in am and regarding treatment options in the event MRI does not exclude cervical spine ligamentous injury. Patient;s and children understand possible outcome of conservative vs operative approach including paralysis and . Given his age and medical condition they would not like to consider surgical intervention. They would prefer a soft collar for comfort with the understanding that if patient has instability at his cervical spine, there is a possibility of severe spinal cord injury, paralysis and . T/L spine XR today. Appreciate IM care. Toño English MD
[2018-10-19] MEDS: Enoxaparin(*) 40 MG/0.4 ML SYR SUBCUT SCH (14:08)
[2018-10-19] MEDS: Atorvastatin* 20 MG TAB PO SCH (20:17)
[2018-10-19] MEDS: Melatonin 3 MG TAB PO SCH (20:17)
[2018-10-20] MEDS: traMADol TAB* 50 MG PO PRN (00:34)
[2018-10-20] MEDS ORDERED: Haloperidol INJ IV/IM* 5 MG/ML AMP IV SLOW PU ONE (00:57)
[2018-10-20] MEDS ORDERED: Haloperidol INJ IV/IM* 5 MG/ML AMP ONE (01:01)
[2018-10-20] MEDS ORDERED: LORazepam INJ* 2 MG/ML 1 ML VIAL IV PUSH ONE (01:46)
[2018-10-20] MEDS ORDERED: LORazepam INJ* 2 MG/ML 1 ML VIAL ONE (01:51)
[2018-10-20] MEDS: Acetaminophen TAB* 325 MG PO SCH ×3 (04:44→21:06)
--- NOTE | 2018-10-20 11:06 | PN ---
Subjective Date of Service: 10/20/18 Interval History: Pt is sedated after receiving Haldol last night for agitation. Seen with daughter and by the bedside Objective Active Medications: Acetaminophen (Tylenol Tab*) 975 mg PO Q6H [facility] Last Admin: 10/20/18 04:44 Dose: Not Given Atorvastatin Calcium (Lipitor*) 20 mg PO 2100 [facility] Last Admin: 10/19/18 20:17 Dose: 20 mg Docusate Sodium (Colace Cap*) 100 mg PO BID [facility] Last Admin: 10/19/18 20:17 Dose: 100 mg Enoxaparin Sodium (Lovenox(*)) 40 mg SUBCUT Q24H [facility] Last Admin: 10/19/18 14:08 Dose: 40 mg Ferrous Gluconate (Fergon Tab*) 324 mg PO SUSA [facility] Last Admin: 10/19/18 08:44 Dose: 324 mg Hydralazine HCl (Apresoline Iv*) 5 mg IV SLOW PU Q6H PRN PRN Reason: SBP>170 Lactated Ringer's (Lactated Ringers 1000 Ml Bag*) 1,000 mls @ 125 mls/hr IV PER RATE [facility] Last Admin: 10/18/18 21:17 Dose: 125 mls/hr Isosorbide Mononitrate (Imdur Er Tab*) 15 mg PO [facility] Last Admin: 10/19/18 08:39 Dose: 15 mg Magnesium Hydroxide (Milk Of Magnesia Liq*) 30 ml PO BID PRN PRN Reason: CONSTIPATION Melatonin (Melatonin) 3 mg PO BEDTIME [facility]; Protocol Last Admin: 10/19/18 20:17 Dose: 3 mg Multivitamins/Minerals (Theragran/Minerals Tab*) 1 tab PO [facility] Last Admin: 10/19/18 08:39 Dose: 1 tab Ondansetron HCl (Zofran Inj*) 4 mg IV Q6H PRN PRN Reason: NAUSEA Pantoprazole Sodium (Protonix Tab*) [facility] [place] Last Admin: 10/19/18 08:38 Dose: 40 mg Polyethylene Glycol/Electrolytes (Miralax*) 17 gm PO DAILY [facility] Last Admin: 10/19/18 08:40 Dose: Not Given Potassium Chloride (Klor Con Er Tab*) 10 meq PO [facility] Last Admin: 10/19/18 08:39 Dose: 10 meq Senna (Senokot Tab*) 1 tab PO BEDTIME PRN PRN Reason: CONSTIPATION Sertraline HCl (Zoloft*) 25 mg PO DAILY [facility] Last Admin: 10/19/18 08:39 Dose: 25 mg Tramadol HCl (Ultram*) 50 mg PO Q6H PRN PRN Reason: PAIN Last Admin: 10/20/18 00:34 Dose: 50 mg Vital Signs - 8 hr 10/20/18 10/20/18 10/20/18 04:01 09:39 09:40 Temperature 100.0 F 98.8 F Pulse Rate 93 94 Respiratory 18 20 20 Rate Blood Pressure 111/56 133/68 (mmHg) O2 Sat by Pulse 98 97 Oximetry Oxygen Devices in Use Now: Nasal Cannula Appearance: 83 yo M, sedated, snoring, withdraws to pain Eyes: No Scleral Icterus, PERRLA Ears/Nose/Mouth/Throat: NL Teeth, Lips, Gums, Mucous Membranes Moist Neck: NL Appearance and Movements; NL JVP, Trachea Midline Respiratory: Symmetrical Chest Expansion and Respiratory Effort, Clear to Auscultation Cardiovascular: NL Sounds; No Murmurs; No JVD, RRR Abdominal: NL Sounds; No Tenderness; No Distention, No Hepatosplenomegaly Lymphatic: No Cervical Adenopathy Extremities: No Edema, No Clubbing, Cyanosis Skin: No Rash or Ulcers, No Nodules or Sclerosis, - - R post op incision not uncovered from surgical dressings, no hematoma or skin infection noted Neurological: - - withdraws to pain in all 4 extremities equally, sedated Result Diagrams: 10/19/18 05:39 10/19/18 05:39 Assess/Plan/Problems-Billing Assessment: This is an 83 year old man with history of dementia and CAD who presented to the ED after a fall on 10/17 and was found to have a right hip fracture and a possible C1-2 subluxation. - Patient Problems (1) Hip fracture, right Comment: s/p R hip ORIF on 10/18/18 (2) C1-C2 subluxation Comment: MRI was very limited-- Dr. Acosta recommens repeat MRI attempt today. His neurologic exam is limited by dementia/sedation As d/w family- their goal is mostly comfort and they are considering discontinuation of collar even if pt was at risk of paralysis/ (3) CKD (chronic kidney disease) stage 3, GFR 30-59 ml/min Comment: creat at baseline (4) CAD (coronary artery disease) Comment: ASA on hold perioperatively. stent was in 2014. hgb dropped as anticipated postoperatively. will order ASA to be resumed tomorrow. (5) Dementia in Alzheimer's disease with delirium Comment: pt owns nightly. will try Seroquel at night (6) Postoperative anemia due to acute blood loss Comment: will recheck Hb in aM (7) DVT prophylaxis Comment: lovenox (x 6 weeks per ortho)
[2018-10-20] MEDS: Isosorbide Mononitrate ER TAB* 30 MG PO SCH (15:17)
[2018-10-20] MEDS: Multivitamins/Minerals TAB PO SCH (15:17)
[2018-10-20] MEDS: Docusate CAP* 100 MG PO SCH ×2 (15:17→21:07)
[2018-10-20] MEDS: Polyethylene Glycol 3350* 17 GM PACKET PO SCH (15:18)
[2018-10-20] MEDS: Potassium Chlor TAB* 10 MEQ TAB.ER PO SCH (15:18)
[2018-10-20] MEDS: Sertraline* 25 MG TAB PO SCH (15:18)
[2018-10-20] MEDS: Pantoprazole TAB * 40 MG TAB PO SCH (15:18)
--- NOTE | 2018-10-20 15:31 | PN ---
Progress Note - Progress Note Date of Service: 10/20/18 SOAP: Subjective: []Pt seen with family at bedside.He is awake and alert but is not oriented to interact with me. Daughter has no complaints to report on his behalf Objective: []general: NAD, alert but not oriented RLE: Right hip dressing changed, gauze was soaked through with dried blood, no active bleeding, no discharge otherwise. Thigh is soft, DF/PF intact, DP2+, cap refill less than two seconds distally, does not answer questions to assess sensation. Calves supple and nontender without erythema, edema or palpable cords Assessment: []POD 2 SP R hip IM nail Plan: []WBAT PT/OT DVT prohy lovenox x 6 weeks Daily Dry sterile dressing change Fu Dr lorenzana 2 weeks post op ortho will follow in house, no further ortho interventions needed prior to DC Vital Signs Temp 98.8 F 10/20/18 09:39 Pulse 94 10/20/18 09:39 Resp 20 10/20/18 09:40 BP 133/68 10/20/18 09:39 Pulse Ox 97 10/20/18 09:39 Intake & Output 10/19/18 10/20/18 10/20/18 18:59 06:59 18:59 Intake Total 533 720 Output Total 1075 375 Balance -542 345 Intake: IVPB 53 ABX - CEFAZOLIN 53 Oral 480 720 Output: Urine 1075 375 Other: Estimated Void Medium Medium # Bowel Movements 0 # Voids 2 2 Laboratory Last Values WBC 11.6 10^3/ul (3.5-10.8) H 10/19/18 05:39 RBC 3.41 10^6/ul (4.00-5.40) L 10/19/18 05:39 Hgb 9.4 g/dl (14.0-18.0) L 10/19/18 05:39 Hct 28 % (42-52) L 10/19/18 05:39 MCV 82 fL (80-94) 10/19/18 05:39 MCH 28 pg (27-31) 10/19/18 05:39 MCHC 34 g/dl (31-36) 10/19/18 05:39 RDW 14 % (10.5-15) 10/19/18 05:39 Plt Count 168 10^3/ul (150-450) 10/19/18 05:39 MPV 7.2 fL (7.4-10.4) L 10/19/18 05:39 Neut % (Auto) 88.0 % 10/19/18 05:39 Lymph % (Auto) 5.9 % 10/19/18 05:39 [place] % (Auto) 5.8 % 10/19/18 05:39 Eos % (Auto) 0.1 % 10/19/18 05:39 Baso % (Auto) 0.2 % 10/19/18 05:39 Absolute Neuts (auto) 10.2 10^3/ul (1.5-7.7) H 10/19/18 05:39 Absolute Lymphs (auto) 0.7 10^3/ul (1.0-4.8) L 10/19/18 05:39 Absolute Monos (auto) 0.7 10^3/ul (0-0.8) 10/19/18 05:39 Absolute Eos (auto) 0 10^3/ul (0-0.6) 10/19/18 05:39 Absolute Basos (auto) 0 10^3/ul (0-0.2) 10/19/18 05:39 Absolute Nucleated RBC 0 10^3/ul 10/19/18 05:39 Nucleated RBC % 0 10/19/18 05:39 INR (Anticoag Therapy) 1.14 (0.77-1.02) H 10/19/18 05:39 APTT 29.2 seconds (26.0-36.3) 10/17/18 18:50 Sodium 138 mmol/L (135-145) 10/19/18 05:39 Potassium 3.9 mmol/L (3.5-5.0) 10/19/18 05:39 Chloride 105 mmol/L (101-111) 10/19/18 05:39 Carbon Dioxide 25 mmol/L (22-32) 10/19/18 05:39 Anion Gap 8 mmol/L (2-11) 10/19/18 05:39 BUN 24 mg/dL (6-24) 10/19/18 05:39 Creatinine 1.33 mg/dL (0.67-1.17) H 10/19/18 05:39 Est GFR ( Amer) 61.8 (>60) 10/19/18 05:39 Est GFR (Non-Af Amer) 51.1 (>60) 10/19/18 05:39 BUN/Creatinine Ratio 18.0 (8-20) 10/19/18 05:39 Glucose 131 mg/dL (70-100) H 10/19/18 05:39 Calcium 8.9 mg/dL (8.6-10.3) 10/19/18 05:39 Magnesium 2.1 mg/dL (1.9-2.7) 10/19/18 05:39 Total Bilirubin 0.60 mg/dL (0.2-1.0) 10/17/18 18:50 AST 21 U/L (13-39) 10/17/18 18:50 ALT 12 U/L (7-52) 10/17/18 18:50 Alkaline Phosphatase 86 U/L (34-104) 10/17/18 18:50 Troponin I 0.01 ng/mL (<0.04) 10/17/18 18:50 Total Protein 7.7 g/dL (6.4-8.9) 10/17/18 18:50 Albumin 3.9 g/dL (3.2-5.2) 10/17/18 18:50 Globulin 3.8 g/dL (2-4) 10/17/18 18:50 Albumin/Globulin Ratio 1.0 (1-3) 10/17/18 18:50 Urine Color Yellow 10/18/18 00:04 Urine Appearance Clear 10/18/18 00:04 Urine pH 6.0 (5-9) 10/18/18 00:04 Ur Specific [place] 1.005 (1.010-1.030) L 10/18/18 00:04 Urine Protein Negative (Negative) 10/18/18 00:04 Urine Ketones Negative (Negative) 10/18/18 00:04 Urine Blood Negative (Negative) 10/18/18 00:04 Urine Nitrate Negative (Negative) 10/18/18 00:04 Urine Bilirubin Negative (Negative) 10/18/18 00:04 Urine Urobilinogen Negative (Negative) 10/18/18 00:04 Ur Leukocyte Esterase Negative (Negative) 10/18/18 00:04 Urine Glucose Negative (Negative) 10/18/18 00:04
[2018-10-20] MEDS: Enoxaparin(*) 40 MG/0.4 ML SYR SUBCUT SCH (16:14)
[2018-10-20] MEDS ORDERED: QUEtiapine TAB* 25 MG PO SCH (21:00)
[2018-10-20] MEDS: Melatonin 3 MG TAB PO SCH (21:07)
[2018-10-20] MEDS: Atorvastatin* 20 MG TAB PO SCH (21:07)
[2018-10-21] MEDS: Acetaminophen TAB* 325 MG PO SCH ×4 (03:05→21:44)
[2018-10-21 06:04] LABS: ABS Basophils 0 10^3/ul (0-0.2); ABS Eosinophils 0.6 10^3/ul (0-0.6); ABS Lymphocytes 0.7 10^3/ul (1.0-4.8); ABS Monocytes 0.4 10^3/ul (0-0.8); ABS Neutrophils 5.3 10^3/ul (1.5-7.7); ABS Nucleated RBC 0 10^3/ul; Eosinophil % 9.2 %; Hematocrit 27 % (42-52); Hemoglobin 9.3 g/dl (14.0-18.0); Lymphocyte % 9.4 %; Mean Corpuscular HGB Conc 34 g/dl (31-36); Mean Corpuscular Hemoglobin 28 pg (27-31); Mean Corpuscular Volume 82 fL (80-94); Mean Platelet Volume 7.1 fL (7.4-10.4); Nucleated Red Blood Cells % 0; Platelet Count 169 10^3/ul (150-450); Red Blood Count 3.36 10^6/ul (4.00-5.40); Red Cell Distribution Width 14 % (10.5-15)
[2018-10-21 06:22] LABS: BUN/Creatinine Ratio 17.9 (8-20); Calcium 8.7 mg/dL (8.6-10.3); EGFR African American 71.7 (>60); EGFR Non-African American 59.2 (>60); Potassium 3.9 mmol/L (3.5-5.0)
--- NOTE | 2018-10-21 10:45 | PN ---
Subjective Date of Service: 10/21/18 Interval History: Pt was awake and conversational, ate breakfast today. When walking with PT got dizzy and had to sit down . SBP>120.After PT felt fatigued, now sleeping in recliner, wakes up and is pleasant and cooperative, but drifts off to sleep quickly Family ant pt requested c spine collar to be removed Objective Active Medications: Acetaminophen (Tylenol Tab*) 975 mg PO Q6H [facility] Last Admin: 10/21/18 09:46 Dose: 975 mg Aspirin (Aspirin Ec Tab*) 81 mg PO QAM [facility] Atorvastatin Calcium (Lipitor*) 20 mg PO 2100 [facility] Last Admin: 10/20/18 21:07 Dose: Not Given Docusate Sodium (Colace Cap*) 100 mg PO BID [facility] Last Admin: 10/20/18 21:07 Dose: Not Given Enoxaparin Sodium (Lovenox(*)) 40 mg SUBCUT Q24H [facility] Last Admin: 10/20/18 16:14 Dose: 40 mg Ferrous Gluconate (Fergon Tab*) 324 mg PO SUSA [facility] Last Admin: 10/19/18 08:44 Dose: 324 mg Hydralazine HCl (Apresoline Iv*) 5 mg IV SLOW PU Q6H PRN PRN Reason: SBP>170 Isosorbide Mononitrate (Imdur Er Tab*) 15 mg PO [facility] Last Admin: 10/20/18 15:17 Dose: Not Given Magnesium Hydroxide (Milk Of Magnesia Liq*) 30 ml PO BID PRN PRN Reason: CONSTIPATION Melatonin (Melatonin) 3 mg PO BEDTIME [facility]; Protocol Last Admin: 10/20/18 21:07 Dose: Not Given Multivitamins/Minerals (Theragran/Minerals Tab*) 1 tab PO [facility] Last Admin: 10/20/18 15:17 Dose: Not Given Ondansetron HCl (Zofran Inj*) 4 mg IV Q6H PRN PRN Reason: NAUSEA Pantoprazole Sodium (Protonix Tab*) 40 mg PO [facility] Last Admin: 10/20/18 15:18 Dose: Not Given Polyethylene Glycol/Electrolytes (Miralax*) 17 gm PO DAILY [facility] Last Admin: 10/20/18 15:18 Dose: Not Given Potassium Chloride (Klor Con Er Tab*) 10 meq PO QAM [facility] Last Admin: 10/20/18 15:18 Dose: Not Given Quetiapine Fumarate (Seroquel Tab*) 25 mg PO BEDTIME [facility] Last Admin: 10/20/18 21:07 Dose: Not Given Senna (Senokot Tab*) 1 tab PO BEDTIME PRN PRN Reason: CONSTIPATION Sertraline HCl (Zoloft*) 25 mg PO DAILY [facility] Last Admin: 10/20/18 15:18 Dose: Not Given Tramadol HCl (Ultram*) 50 mg PO Q6H PRN PRN Reason: PAIN Last Admin: 10/20/18 00:34 Dose: 50 mg Vital Signs - 8 hr 10/21/18 10/21/18 03:57 10:19 Temperature 98.1 F Pulse Rate 78 100 Respiratory 20 Rate Blood Pressure 141/72 126/70 (mmHg) O2 Sat by Pulse 99 100 Oximetry Oxygen Devices in Use Now: Nasal Cannula Appearance: 83 yo M in nAD, aAOx1, occasionally pt is able to recall that he is in hospital. pleasant and cooperative Eyes: No Scleral Icterus, PERRLA Ears/Nose/Mouth/Throat: NL Teeth, Lips, Gums, Mucous Membranes Moist Neck: NL Appearance and Movements; NL JVP, Trachea Midline Respiratory: Symmetrical Chest Expansion and Respiratory Effort, - - faint bibasiliar crackles Cardiovascular: - - irregular Abdominal: NL Sounds; No Tenderness; No Distention, No Hepatosplenomegaly Lymphatic: No Cervical Adenopathy Extremities: No Clubbing, Cyanosis, - - mild R thigh edema, no evidence of post op wound dehiscence or hematoma Skin: No Nodules or Sclerosis Neurological: NL Muscle Strength and Tone Result Diagrams: 10/21/18 05:47 10/21/18 05:47 Assess/Plan/Problems-Billing Assessment: This is an 83 year old man with history of dementia and CAD who presented to the ED after a fall on 10/17 and was found to have a right hip fracture and a possible C1-2 subluxation. - Patient Problems (1) Hip fracture, right Comment: s/p R hip ORIF on 10/18/18 (2) C1-C2 subluxation Comment: repat MRI shows no abnormalities. Family and pt requested for c spine collar to be removed today. (3) CKD (chronic kidney disease) stage 3, GFR 30-59 ml/min Comment: creat at baseline (4) CAD (coronary artery disease) Comment: ASA on hold perioperatively. stent was in 2015. hgb dropped as anticipated postoperatively. will order ASA to be resumed tomorrow. (5) Dementia in Alzheimer's disease with delirium Comment: pt owns nightly. post op delirium /encepalopathy appears to be resolving (6) Postoperative anemia due to acute blood loss Comment: will recheck Hb in aM (7) DVT prophylaxis Comment: lovenox (x 6 weeks per ortho) (8) Irregular heart beat Comment: will check EKG Status and Disposition: inpatient, awaiting STR
[2018-10-21] MEDS: Multivitamins/Minerals TAB PO SCH (10:59)
[2018-10-21] MEDS: Isosorbide Mononitrate ER TAB* 30 MG PO SCH (11:00)
[2018-10-21] MEDS: Potassium Chlor TAB* 10 MEQ TAB.ER PO SCH (11:01)
[2018-10-21] MEDS: Docusate CAP* 100 MG PO SCH ×2 (11:02→21:45)
[2018-10-21] MEDS: Sertraline* 25 MG TAB PO SCH (11:02)
[2018-10-21] MEDS: Aspirin EC TAB* 81 MG TAB.EC PO SCH (11:02)
[2018-10-21] MEDS: Polyethylene Glycol 3350* 17 GM PACKET PO SCH (11:03)
[2018-10-21] MEDS: Pantoprazole TAB * 40 MG TAB PO SCH (11:03)
[2018-10-21] MEDS: Enoxaparin(*) 40 MG/0.4 ML SYR SUBCUT SCH (13:44)
--- NOTE | 2018-10-21 14:17 | PN ---
Progress Note - Progress Note Date of Service: 10/21/18 SOAP: Subjective: []Patient seen OOB in chair. and daughter present. He is still quite somnolent. He opens his eyes briefly and falls back asleep. They are waiting to hear about bed offers for rehab. Objective: [] Vital Signs Temp 98.1 F 10/21/18 03:57 Pulse 100 10/21/18 10:19 Resp 20 10/21/18 08:00 BP 126/70 10/21/18 10:19 Pulse Ox 100 10/21/18 10:19 Intake & Output 10/20/18 10/21/18 10/21/18 18:59 06:59 18:59 Intake Total 185 Output Total 200 300 Balance -200 -115 Weight 155 lb Intake: Oral 185 Output: Urine 200 300 Other: Estimated Void Medium Small Small # Bowel Movements 0 # Voids 2 1 1 Laboratory Results - last 24 hr 10/21/18 10/21/18 05:47 05:47 WBC 7.0 RBC 3.36 L Hgb 9.3 L Hct 27 L MCV 82 MCH 28 MCHC 34 RDW 14 Plt Count 169 MPV 7.1 L Neut % (Auto) 75.0 Lymph % (Auto) 9.4 [place] % (Auto) 6.1 Eos % (Auto) 9.2 Baso % (Auto) 0.3 Absolute Neuts (auto) 5.3 Absolute Lymphs (auto) 0.7 L Absolute Monos (auto) 0.4 Absolute Eos (auto) 0.6 Absolute Basos (auto) 0 Absolute Nucleated RBC 0 Nucleated RBC % 0 Sodium 136 Potassium 3.9 Chloride 102 Carbon Dioxide 27 Anion Gap 7 BUN 21 Creatinine 1.17 Est GFR ( Amer) 71.7 Est GFR (Non-Af Amer) 59.2 BUN/Creatinine Ratio 17.9 Glucose 112 H Calcium 8.7 Right hip dressings under tegaderm dressings are all dry and intact He is able to dorsiflex the right ankle when asked foot pink and warm, sensation intact Assessment: []s/p ORIF with nail, right intertrochanteric hip fracture POD #3 Plan: []PT/OT when able, WBAT RLE Lovenox for DVT prophylaxis 6 weeks post op Await SNF bed
[2018-10-21] MEDS ORDERED: Calcium Carbonate CHEW TAB* 500 MG (TUMS) PO PRN (16:14)
[2018-10-21] MEDS ORDERED: NS 0.9% 250 ML* 250 ML IV ONE (18:46)
[2018-10-21 20:00] LABS: Hematocrit 28 % (42-52); Hemoglobin 9.2 g/dl (14.0-18.0)
--- NOTE | 2018-10-21 20:20 | PN ---
Progress Note - Progress Note Date of Service: 10/21/18 SOAP: Subjective: [] No events ON. MRI was repeated yesterday, no definite injury. MJ collar was removed today. No complains of neck or back pain. Objective: []VSS No tenderness to palpation C spine, Free ROM C spine. AAOx1-2, LISSETTE, CN II-XII grossly intact Motor 4-5/5 all extremities except Rt LE: HF/KE not tested Sensory grossly intact to light touch. Assessment: []83 yom hx RA sp fall, Rt hip #, possible rotatory subluxation C1-2 Plan: [] Monitor VS Neurochecks MRI did not reveal definite ligamentous injury. Motion artifact present. Agree with MJ removal as discussed with family. May have soft collar for comfort. Discussed in extend with daughter regarding imaging findings. Appreciate IM , orthopedic care. Will be always available if needed. Toño English MD
[2018-10-21] MEDS: Atorvastatin* 20 MG TAB PO SCH (21:45)
[2018-10-21] MEDS: Melatonin 3 MG TAB PO SCH (22:00)
[2018-10-22] MEDS: Acetaminophen TAB* 325 MG PO SCH ×2 (04:04→09:35)
[2018-10-22 05:22] LABS: ABS Basophils 0 10^3/ul (0-0.2); ABS Eosinophils 0.7 10^3/ul (0-0.6); ABS Lymphocytes 0.9 10^3/ul (1.0-4.8); ABS Monocytes 0.5 10^3/ul (0-0.8); ABS Neutrophils 4.3 10^3/ul (1.5-7.7); ABS Nucleated RBC 0 10^3/ul; Eosinophil % 10.7 %; Hematocrit 27 % (42-52); Hemoglobin 9.2 g/dl (14.0-18.0); Lymphocyte % 14.2 %; Mean Corpuscular HGB Conc 34 g/dl (31-36); Mean Corpuscular Hemoglobin 28 pg (27-31); Mean Corpuscular Volume 82 fL (80-94); Nucleated Red Blood Cells % 0; Platelet Count 200 10^3/ul (150-450); Red Cell Distribution Width 15 % (10.5-15); White Blood Count 6.5 10^3/ul (3.5-10.8)
[2018-10-22] MEDS: Potassium Chlor TAB* 10 MEQ TAB.ER PO SCH (09:35)
[2018-10-22] MEDS: Sertraline* 25 MG TAB PO SCH (09:35)
[2018-10-22] MEDS: Multivitamins/Minerals TAB PO SCH (09:35)
[2018-10-22] MEDS: Docusate CAP* 100 MG PO SCH (09:35)
[2018-10-22] MEDS: Aspirin EC TAB* 81 MG TAB.EC PO SCH (09:35)
[2018-10-22] MEDS: Pantoprazole TAB * 40 MG TAB PO SCH (09:35)
[2018-10-22] MEDS: Polyethylene Glycol 3350* 17 GM PACKET PO SCH (09:47)
[2018-10-22 12:12] VITALS: BP 116/52
--- NOTE | 2018-10-22 12:14 | DS ---
CC: Dr. Davis; Dr. Polanco; Dr. Perez; [facility] * DISCHARGE SUMMARY: DATE OF ADMISSION: 10/17/18 DATE OF DISCHARGE/TRANSFER TO [facility]: 10/22/18 PRIMARY CARE PROVIDER: Dr. Davis. DISCHARGE DIAGNOSES: 1. Status post fall and right hip fracture status post intramedullary eliud placement by Dr. Perez on 10/18/18. 2. Postoperative delirium. SECONDARY DIAGNOSES: 1. History of dementia. 2. History of carotid disease status post stenting in 2014. 3. History of rheumatoid arthritis, in remission. 4. Hyperlipidemia. 5. Iron-deficiency anemia. 6. Chronic back pain. 7. Gastroesophageal reflux disease. 8. Chronic kidney disease stage 3. MEDICATIONS AT DISCHARGE: Include: 1. Aspirin 81 mg daily. 2. Lipitor 20 mg daily. 3. Betamethasone cream 0.1% one application daily p.r.n. to the affected area. 4. Ferrous gluconate 324 mg p.o. on weekends which is Sundays and Saturdays. 5. Didi 180 mg daily. 6. Lutein 1 dose daily. 7. Eucerin cream on a p.r.n. basis. 8. Multivitamin 1 tablet daily. 9. Nitroglycerin 0.4 mg sublingual on a p.r.n. basis. 10. Protonix 40 mg daily. 11. MiraLAX 17 g daily p.r.n. 12. Potassium chloride 10 mEq daily. 13. Vitamin A, vitamin C, zinc and copper supplement 1 capsule daily. 14. Zoloft 25 mg daily. 15. Acetaminophen 975 mg every 6 hours p.r.n. 16. Colace 100 mg b.i.d. 17. Lovenox 40 mg subcutaneously for DVT prophylaxis for a total of 6 weeks and stop. 18. Melatonin 3 mg at bedtime p.r.n. CONSULTATION DURING HOSPITAL STAY: Dr. Perez from Orthopedic Surgery. PROCEDURE PERFORMED: Included right intramedullary nail placed into the right hip on 10/18/18. LABORATORY DATA AND STUDIES PERFORMED DURING THE HOSPITAL STAY: Included: C-spine MRI obtained on 10/20/18, impression: "No acute findings. STIR sequence is limited due to motion artifact." Thoracic spine x-ray obtained on 10/19/18 showed no compression fracture of the thoracic spine. Lumbar spine x-ray obtained on same day showed no fracture of lumbar spine. Shoulder x-ray obtained on 10/18/18, impression: No fracture of the left shoulder is noted. Pelvis CT obtained on 10/17/18, impression: "There is an acute nondisplaced basicervical fracture of the proximal right femur with minimal impaction seen." Brain CT obtained at admission, impression: "No intracranial bleed or suspicious mass or mass effect. Ventricles appear unremarkable. There is low attenuation change in the white matter most consistent with chronic age-related small vessel ischemic change. No acute territorial infarction is seen. Minimal sinus disease." LABORATORY DATA DURING THE HOSPITAL STAY: Include: On 10/21/18, sodium 136, potassium 3.9, chloride 102, carbon dioxide 27, BUN 21, creatinine 1.17. On , white blood cell count 6.5, hemoglobin 9.2, hematocrit 27, and platelets 200. Microbiology test, none obtained. HOSPITAL COURSE: Anand Larose is an 83-year-old male with significant dementia. The patient's stated that "they never leave him home alone." He is able to dress with minimal help at home, wear his clothes that are laid out. He presented to the hospital complaining of right hip pain after a fall. He was noted to have right hip fracture. The surgery was performed the next day on 10/18/18 with intramedullary eliud placement. Postoperative course was complicated by postop delirium. The patient was agitated and required several doses of Haldol throughout his hospital stay. The delirium eventually resolved on 10/21/18. The patient is still somewhat lethargic but he is pleasant, cooperative with still significant memory deficit which is his baseline. He did develop postoperative anemia that is proportional to the surgery performed with hemoglobin at 9.2 at the time of discharge. The patient had low systolic pressures the night prior to discharge to [facility] and due to that his Imdur that he had been on at 15 mg daily was held and not resumed at discharge. It is recommended for the patient's Imdur 15 mg daily to be resumed if his blood pressures rise to approximately 130 systolic. By the time of discharge, the patient is pleasant, very forgetful, occasionally remembers that he is in the hospital. He is accepted to [facility] for further rehabilitation. PHYSICAL EXAM AT THE TIME OF DISCHARGE: Blood pressure 156/70, heart rate of 79 and regular, respiratory rate of 16, oxygen saturation 100% on 2 L of oxygen nasal cannula, temperature 97.8. General: The patient is a very pleasant 83- year-old male who is in no acute distress. The patient is oriented to self. He recognizes his in the room. Today he is able with prompting to tell me that he is in the hospital. He is not aware of the time or year. HEENT: Head atraumatic, normocephalic. Eyes: Pupils are equal and reactive to light and accommodation. Oropharynx is clear. Mucosa is moist. Neck: Supple. No JVD, no bruits bilaterally. Cardiovascular: Regular rate and rhythm. No murmurs. Respiratory: Clear to auscultation bilaterally. Abdomen: Soft, nontender. Bowel sounds present in all 4 quadrants. Extremities: There is no edema. Pulses +2 bilaterally. There is no clubbing or cyanosis. On neuro evaluation, speech is clear. Cranial nerves II through XII grossly intact. Motor strength is 5/5 bilaterally. On evaluation of the skin, the right postoperative site is noted with a small area of ecchymosis, most proximally to the incision. The area is approximately 5 cm in diameter. Please note that at discharge, the patient is still requiring oxygen at 2 L nasal cannula. It is recommended for the patient to continue oxygen at 2 L while at [facility] and to be slowly weaned off as tolerated. Please note that this is a short summary of the patient's hospitalization. Please refer to further medical records for details. TIME SPENT: Approximately 45 minutes was spent on the patient's discharge. [id number]/[facility] #: [id number] [facility]
[2018-10-22] MEDS: Enoxaparin(*) 40 MG/0.4 ML SYR SUBCUT SCH (13:50)
== END 2018-10-22 14:15 | DRG 956 ==
LOC: ED 16:57 → SSU 20:25
PROVIDERS: ADMIT Hospitalist; ATTEND Internal Medicine
PROC: 0QS606Z Reposition Right Upper Femur with Intramedullary Internal Fixation Device, Open Approach (ICD-10-PCS; principal; 2018-10-18 10:30)
DX: S72.8X1A Other fracture of right femur, initial encounter for closed fracture (principal); S13.120A Subluxation of C1/C2 cervical vertebrae, initial encounter; F05 Delirium due to known physiological condition; D62 Acute posthemorrhagic anemia; W00.2XXA Other fall from one level to another due to ice and snow, initial encounter; I25.10 Atherosclerotic heart disease of native coronary artery without angina pectoris; E78.00 Pure hypercholesterolemia, unspecified; J30.2 Other seasonal allergic rhinitis; K44.9 Diaphragmatic hernia without obstruction or gangrene; K21.9 Gastro-esophageal reflux disease without esophagitis; K59.09 Other constipation; H91.90 Unspecified hearing loss, unspecified ear; G89.29 Other chronic pain; M54.9 Dorsalgia, unspecified; N18.3 Chronic kidney disease, stage 3 (moderate); G30.9 Alzheimer's disease, unspecified; I49.9 Cardiac arrhythmia, unspecified; D50.9 Iron deficiency anemia, unspecified; F02.80 Dementia in other diseases classified elsewhere, unspecified severity, without behavioral disturbance, psychotic disturbance, mood disturbance, and anxiety; I12.9 Hypertensive chronic kidney disease with stage 1 through stage 4 chronic kidney disease, or unspecified chronic kidney disease; M06.9 Rheumatoid arthritis, unspecified; Z88.6 Allergy status to analgesic agent; Z88.5 Allergy status to narcotic agent; Z88.8 Allergy status to other drugs, medicaments and biological substances; Z95.5 Presence of coronary angioplasty implant and graft; I25.2 Old myocardial infarction; Z85.46 Personal history of malignant neoplasm of prostate; Z87.442 Personal history of urinary calculi; Z98.42 Cataract extraction status, left eye; Z98.41 Cataract extraction status, right eye; Z97.4 Presence of external hearing-aid; Y92.008 Other place in unspecified non-institutional (private) residence as the place of occurrence of the external cause; Z90.49 Acquired absence of other specified parts of digestive tract; Z87.891 Personal history of nicotine dependence; Z82.49 Family history of ischemic heart disease and other diseases of the circulatory system; Z79.82 Long term (current) use of aspirin
CPT/HCPCS: 36415; 70450; 72070; 72100; 72125; 72141; 72192; 76000; 80048; 80053; 81003; 83735; 84484; 85014; 85018; 85025; 85027; 85610; 85730; 93005; 99284; A9270-GY; C1713; C1776; G8978-GP-CL; G8979-GP-CJ; G8987-GO-CM; G8988-GO-CJ; J0690; J1100; J1630; J1644; J1650; J1885; J2060; J2250; J2704; J2795; J3010

== ENCOUNTER 2018-10-24 02:13 | Emergency (ER) | payer MEDICARE, BC ==
--- NOTE | 2018-10-24 02:48 | ED ---
Head Injury - HPI Summary HPI Summary: This patient is a 83 year old male brought in by EMS to the emergency room with this daughter with a cc of fall from bed tonight. Pt has dementia and lives in the custodial. The patient has a femur fracture repair on the right. The custodial states he hit his head. LEVEL 5 CAVEAT: Exam limited due to dementia. - History Of Current Complaint Stated Complaint: FALL Time Seen by Provider: 10/24/18 02:32 Hx Obtained From: Family/[employer] Set Up Operator, EMS Hx From Patient Unobtainable Due To: Dementia Mechanism Of Injury: Fall From Height Of: - bed Onset/Duration: Still Present Onset of Pain: Immediate Severity Currently: Moderate Severity Initially: Moderate Pain Intensity: 0 Pain Scale Used: 0-10 Numeric - Allergies/Home Medications Allergies/Adverse Reactions: Allergies Allergy/AdvReac Type Severity Reaction Status Date / Time cortisone Allergy Anxiety Verified 10/17/18 18:52 morphine Allergy Nausea And Verified 10/17/18 18:52 Vomiting oxycodone Allergy Difficulty Verified 10/17/18 18:52 Breathing PMH/Surg Hx/FS Hx/Imm Hx Endocrine/Hematology History: Denies: Hx Anticoagulant Therapy, Hx Diabetes, Hx Thyroid Disease Cardiovascular History: Reports: Hx Angina, Hx Angioplasty, Hx Coronary Artery Disease - Stents, Hx Hypercholesterolemia, Hx Myocardial Infarction, Other Cardiovascular Problems/Disorders - PCI 12/2014 Denies: Hx Auto Implanted Cardiovert Defib, Hx Hypertension, Hx Pacemaker/ICD , Hx Valvular Heart Disease Respiratory History: Reports: Hx Seasonal Allergies - severe hayfever Denies: Hx Asthma, Hx Chronic Obstructive Pulmonary Disease (COPD) GI History: Reports: Hx Gastroesophageal Reflux Disease, Hx Hiatal Hernia, Hx Jaundice - GB out 2012, Other GI Disorders - Constipation-chronic Denies: Hx Cirrhosis, Hx Crohn's Disease, Hx Diverticulosis, Hx Gall Bladder Disease, Hx Gastrointestinal Bleed, Hx Irritable Bowel, Hx Ileostomy, Hx Pyloric Stenosis, Hx Ulcer Comment Only: Hx Obstructive Bowel - loop surgical repair 09/16/ History: Reports: Hx Benign Prostatic Hyperplasia, Hx Kidney Stones, Other Problems/Disorders - Prostate CA, S/P TURP Denies: Hx Dialysis, Hx Renal Disease Musculoskeletal History: Reports: Hx Arthritis - RA, Other Musculoskeletal History - Spinal stenosis Denies: Hx Osteoporosis Sensory History: Reports: Hx Cataracts, Hx Contacts or Glasses, Hx Hearing Aid - bilateral, Hx Hearing Problem Denies: Hx Eye Injury, Hx Eye Prosthesis, Hx Glaucoma, Hx Legally Blind, Hx Macular Degeneration Opthamlomology History: Reports: Hx Cataracts, Hx Contacts or Glasses Denies: Hx Eye Injury, Hx Eye Prosthesis, Hx Glaucoma, Hx Legally Blind, Hx Macular Degeneration Neurological History: Reports: Hx Dementia, Other Neuro Impairments/Disorders - temporal arteritis Denies: Hx Headaches, Hx Migraine, Hx Nerve Disease, Hx Seizures Psychiatric History: Reports: Hx Depression Denies: Hx Anxiety, Hx Panic Disorder, Hx Substance Abuse - Cancer History Cancer Type, Location and Year: PROSTATE Hx Chemotherapy: No Hx Radiation Therapy: No - Surgical History Surgery Procedure, Year, and Place: RIGHT KNEE 1982. LEFT SHOULDER. ANGIOPLASTY 1986. PROSTATE SCRAPE. COLON RESECTION. HEART CATH- STENT PLACED - PROMUS [facility] DRUG-ELUTING STENT PER [facility] OP REPORT- SAFE UP TO 3T; SPATIAL GRADIENT FIELD OF 720 GAUSS/CM OR LESS. GALLBLADDER REMOVAL. hip replacment- ok per dr. uriarte since pt had surgery 3 days ago. temporal vein stripping Hx Anesthesia Reactions: No - Immunization History Date of Tetanus Vaccine: Unk Date of Influenza Vaccine: Fall 2011 Infectious Disease History: Reports: Hx Shingles - March 2018 Denies: Hx Hepatitis, Hx Human Immunodeficiency Virus (HIV), Hx of Known/ Suspected MRSA, Hx Tuberculosis, Traveled Outside the [place] in Last 30 Days - Family History Known Family History: Negative: Blood Disorder - Social History Alcohol Use: None Substance Use Type: Reports: None Smoking Status (MU): Former Smoker Type: Cigarettes Length of Time of Smoking/Using Tobacco: Pt unsure,states many, many years ago,? 1959's quit,smoked about 5 years Have You Smoked in the Last Year: No Review of Systems - ROS Summary Review of Systems Summary: LEVEL 5 CAVEAT: Exam limited due to dementia. Positive: Other - fall . Negative: Fever Positive: Other - head injury All Other Systems Reviewed And Are Negative: No Physical Exam - Summary Physical Exam Summary: Appearance: Well appearing, no pain distress Skin: bandage on the left hip Head/face: normal Eyes: EOMI, LISSETTE ENT: normal Neck: supple, non-tender Respiratory: CTA, breath sounds present Cardiovascular: RRR, pulses symmetrical Abdomen: non-tender, soft Musculoskeletal: normal, strength/ROM intact Neuro: sensory motor intact, Alert and confused GCS:13 Triage Information Reviewed: Yes Vital Signs Reviewed: Yes Completion Of Physical Exam Limited Due To: Dementia, Level 5 Diagnostics - Laboratory Lab Statement: Any lab studies that have been ordered have been reviewed, and results considered in the medical decision making process. - Radiology hip pelvis xray Radiology Interpretation Completed By: ED Physician - no acute fracture. Pending official report Summary of Radiographic Findings: no acute fracture. Pending official report - CT CT Brain CT Interpretation Completed By: Radiologist Summary of CT Findings: no acute findings. ED Physician has reviewed this report CT ABD/Pelvis CT Interpretation Completed By: Radiologist Summary of CT Findings: 1. No evidence of acute fracture involving the cervical vertebral bodies or. posterior elements. 2. 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 No. significant central canal stenosis. Variable degrees of neural foraminal. narrowing secondary degenerative changes of the vertebral joints and facet. joints. 3. Slight retrolisthesis of C1 onto C2 involving the lateral masses. This was. noted on the prior CT scan of 10/17/2018 and are unchanged in severity. ED Physician has reviewed this report Head Injury Course/Dx Assessment/Plan: This patient is a 83 year old male brought in by EMS to the emergency room with this daughter with a cc of fall from bed tonight. Pt has dementia and lives in the custodial. The patient has a femur fracture repair on the right. The custodial states he hit his head. LEVEL 5 CAVEAT: Exam limited due to dementia. CT C spine reveals, per radiology, 1. No evidence of acute fracture involving the cervical vertebral bodies or. posterior elements. 2. 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 No. significant central canal stenosis. Variable degrees of neural foraminal. narrowing secondary degenerative changes of the vertebral joints and facet. joints. 3. Slight retrolisthesis of C1 onto C2 involving the lateral masses. This was. noted on the prior CT scan of 10/17/2018 and are unchanged in severity. CT Brain reveals, per radiology, no acute findings. Hip pelvis xray , no acute fracture. Pending official report. The patient will be discharged back to his nursing facility - Diagnoses Differential Diagnosis/HQI/PQRI: Contusion, Other - fall/dementia Provider Diagnoses: Head injury, Fall Discharge - Sign-Out/Discharge Documenting (check all that apply): Patient Departure Patient Received Moderate/Deep Sedation with Procedure: No - Discharge Plan Condition: Critical Disposition: HOME Patient Education Materials: Fall Prevention for Older Adults (ED), Head Injury (ED) Referrals: Sepideh Davis MD [Primary Care Provider] - Additional Instructions: Follow up with your primary care physician in 1-3 days. RETURN TO THE EMERGENCY DEPARTMENT FOR CHANGING OR WORSENING SYMPTOMS. - Billing Disposition and Condition Condition: CRITICAL Disposition: Home - Attestation Statements Document Initiated by Scribe: Yes Documenting Scribe: Sriram Hunter Provider For Whom Salma is Documenting (Include Credential): Bandar Ríos MD Scribe Attestation: Sriram Barrientos , scribed for Bandar Ríos MD on 10/24/18 at 0528. Scribe Documentation Reviewed: Yes Provider Attestation: The documentation as recorded by the Sriram price accurately reflects the service I personally performed and the decisions made by Bandar vogel MD Status of Scribe Document: Viewed
[2018-10-24 06:08] VITALS: BP 142/77
== END 2018-10-24 06:05 | disposition home or self-care (01) ==
LOC: ED 02:13
DX: S09.90XA Unspecified injury of head, initial encounter (principal); W19.XXXA Unspecified fall, initial encounter; Y92.9 Unspecified place or not applicable; Z87.891 Personal history of nicotine dependence; I25.10 Atherosclerotic heart disease of native coronary artery without angina pectoris; Z95.5 Presence of coronary angioplasty implant and graft; I25.2 Old myocardial infarction; Z85.46 Personal history of malignant neoplasm of prostate; Z98.61 Coronary angioplasty status; Z88.6 Allergy status to analgesic agent; F03.90 Unspecified dementia, unspecified severity, without behavioral disturbance, psychotic disturbance, mood disturbance, and anxiety; K21.9 Gastro-esophageal reflux disease without esophagitis; Z87.442 Personal history of urinary calculi
CPT/HCPCS: 70450; 72125; 99282

== ENCOUNTER 2019-02-08 09:01 | Inpatient (IN) | payer MEDICARE, BC ==
[2019-02-08] MEDS ORDERED: NS 0.9% 1000 ML** 1,000 ML IV ONE (09:07)
[2019-02-08] MEDS ORDERED: cefTRIAXone(*) 2 GM in NS 0.9% 100 ML* 100 ML IVPB ONE (09:08)
--- NOTE | 2019-02-08 09:16 | ED ---
HPI Febrile Illness - HPI Summary HPI Summary: Patient is a 83 y/o M presenting to ED with complaints of fever, urinary incontinence, increased confusion and lethargy. Patient is reported to have first episode of urinary incontinence two days ago in the evening. Patient has had increased fever, lethargy, and confusion over the past few days. Fever has been managed in the past few days but today it is noted that the patient's fever increased, EMS was called by family. EMS reports that the patient had normal EKG, BG was 98. No Hx of diabetes or stroke, Hx of cardiac disease is reported by EMS. Hx of dementia, level 5 caveat. On triage, pain is denied, nothing is noted to aggravate/alleviate Sx, patient last took Tylenol at 2000 last night. Home medications and allergies are reviewed. - History of Current Complaint Hx Obtained From: EMS Hx From Patient Unobtainable Due To: Dementia - LEVEL 5 CAVEAT, DEMENTIA, INCREASED CONFUSION Onset/Duration: Started Days Ago, Still Present, Worse Since - fever increased today Timing: Constant, Lasting Days Current Severity: None - pain denied Pain Intensity: 0 Pain Scale Used: 0-10 Numeric Aggravating Factors: Nothing Alleviating Factors: Nothing Associated Signs and Symptoms: Altered Mental Status - confusion, Other: - urinary incontinence, increased confusion and lethargy - Additional Pertinent History Primary Care Physician: SARAH - Allergy/Home Medications Allergies/Adverse Reactions: Allergies Allergy/AdvReac Type Severity Reaction Status Date / Time cortisone Allergy Anxiety Verified 10/17/18 18:52 morphine Allergy Nausea And Verified 10/17/18 18:52 Vomiting oxycodone Allergy Difficulty Verified 10/17/18 18:52 Breathing PMH/Surg Hx/FS Hx/Imm Hx Endocrine/Hematology History: Denies: Hx Anticoagulant Therapy, Hx Diabetes, Hx Thyroid Disease Cardiovascular History: Reports: Hx Angina, Hx Angioplasty, Hx Coronary Artery Disease - Stents, Hx Hypercholesterolemia, Hx Myocardial Infarction, Other Cardiovascular Problems/Disorders - PCI 12/2014 Denies: Hx Auto Implanted Cardiovert Defib, Hx Hypertension, Hx Pacemaker/ICD , Hx Valvular Heart Disease Respiratory History: Reports: Hx Seasonal Allergies - severe hayfever Denies: Hx Asthma, Hx Chronic Obstructive Pulmonary Disease (COPD) GI History: Reports: Hx Gastroesophageal Reflux Disease, Hx Hiatal Hernia, Hx Jaundice - GB out 2012, Other GI Disorders - Constipation-chronic Denies: Hx Cirrhosis, Hx Crohn's Disease, Hx Diverticulosis, Hx Gall Bladder Disease, Hx Gastrointestinal Bleed, Hx Irritable Bowel, Hx Ileostomy, Hx Pyloric Stenosis, Hx Ulcer Comment Only: Hx Obstructive Bowel - loop surgical repair 09/16/ History: Reports: Hx Benign Prostatic Hyperplasia, Hx Kidney Stones, Other Problems/Disorders - Prostate CA, S/P TURP Denies: Hx Dialysis, Hx Renal Disease Musculoskeletal History: Reports: Hx Arthritis - RA, Other Musculoskeletal History - Spinal stenosis Denies: Hx Osteoporosis Sensory History: Reports: Hx Cataracts, Hx Contacts or Glasses, Hx Hearing Aid - bilateral, Hx Hearing Problem Denies: Hx Eye Injury, Hx Eye Prosthesis, Hx Glaucoma, Hx Legally Blind, Hx Macular Degeneration Opthamlomology History: Reports: Hx Cataracts, Hx Contacts or Glasses Denies: Hx Eye Injury, Hx Eye Prosthesis, Hx Glaucoma, Hx Legally Blind, Hx Macular Degeneration Neurological History: Reports: Hx Dementia, Other Neuro Impairments/Disorders - temporal arteritis Denies: Hx Headaches, Hx Migraine, Hx Nerve Disease, Hx Seizures Psychiatric History: Reports: Hx Depression Denies: Hx Anxiety, Hx Panic Disorder, Hx Substance Abuse - Cancer History Cancer Type, Location and Year: PROSTATE Hx Chemotherapy: No Hx Radiation Therapy: No - Surgical History Surgery Procedure, Year, and Place: RIGHT KNEE 1982. LEFT SHOULDER. ANGIOPLASTY 1986. PROSTATE SCRAPE. COLON RESECTION. HEART CATH- STENT PLACED - PROMUS PREMIER DRUG-ELUTING STENT PER [facility] [place] OP REPORT- SAFE UP TO 3T; SPATIAL GRADIENT FIELD OF 720 GAUSS/CM OR LESS. GALLBLADDER REMOVAL. hip replacment- ok per dr. uriarte since pt had surgery 3 days ago. temporal vein stripping Hx Anesthesia Reactions: No - Immunization History Date of Tetanus Vaccine: Unk Date of Influenza Vaccine: Fall 2011 Infectious Disease History: Reports: Hx Shingles - March 2018 Denies: Hx Hepatitis, Hx Human Immunodeficiency Virus (HIV), Hx of Known/ Suspected MRSA, Hx Tuberculosis - Family History Known Family History: Positive: Cardiac Disease Negative: Blood Disorder - Social History Alcohol Use: None Substance Use Type: Reports: None Smoking Status (MU): Former Smoker Type: Cigarettes Length of Time of Smoking/Using Tobacco: Pt unsure,states many, many years ago,? 1960's quit,smoked about 5 years Have You Smoked in the Last Year: No Review of Systems - ROS Summary Review of Systems Summary: LEVEL 5 CAVEAT, DEMENTIA, INCREASED CONFUSION Constitutional: Other - POSITIVE - LETHARGY Positive: Fever Positive: incontinence - urinary Psychological: Other - POSITIVE - CONFUSION All Other Systems Reviewed And Are Negative: No - Comments Additional Review of Systems Comments: LEVEL 5 CAVEAT, DEMENTIA, INCREASED CONFUSION Physical Exam - Summary Physical Exam Summary: Appearance: well appearing, no pain distress Skin: hot, dry, reflects adequate perfusion Head/face: normal Eyes: EOMI, LISSETTE ENT: mucous membranes moist Neck: supple, non-tender Respiratory: dry cough is heard, breath sounds present Cardiovascular: tachycardic, pulses symmetrical Abdomen: non-tender, soft Bowel Sounds: present Musculoskeletal: normal, strength/ROM intact, no BLE edema Neuro: normal, sensory motor intact, disoriented to time, level 5 caveat Triage Information Reviewed: Yes Vital Signs On Initial Exam: Initial Vitals Temp Pulse Resp BP Pulse Ox 100.9 F 94 24 178/87 90 02/08/19 09:09 02/08/19 09:09 02/08/19 09:09 02/08/19 09:09 02/08/19 09:09 Vital Signs Reviewed: Yes Diagnostics - Laboratory Result Diagrams: 02/08/19 09:39 02/08/19 09:39 Lab Statement: Any lab studies that have been ordered have been reviewed, and results considered in the medical decision making process. - Radiology CXR Radiology Interpretation Completed By: Radiologist Summary of Radiographic Findings: IMPRESSION: NO ACTIVE CARDIOPULMONARY DISEASE IS IDENTIFIED. THIS REPORT WAS REVIEWED BY DR. ROBLES. - EKG 0917 Cardiac Rate: NL - rate of 96 BPM EKG Rhythm: Sinus Rhythm ST Segment: Normal Summary of EKG Findings: EKG showed NSR with rate of 98 BPM, left axis, normal ST. Course/Dx - Course Course Of Treatment: Patient with temperature to 103.4 with increasing confusion and urinary incontinence. Suspected UTI. Rocephin was given early. IV fluids for sepsis. Patient ultimately had no elevation WBC or lactate. He did have upper respiratory symptoms and a negative chest x-ray. Nasal swab for flu was negative. Patient to be admitted by the hospitalist team for further evaluation and treatment. - Febrile Illness Differential Diagnoses: Bacteremia, Encephalitis, Pneumonia, Pyelonephritis, Sepsis - Diagnoses Provider Diagnoses: URI (upper respiratory infection), Sepsis - Provider Notifications Discussed Care Of Patient With: Cary Arbach Time Discussed With Above Provider: 10:29 Instructed by Provider To: Other - Patient's case was discussed with Dr. Conway , Dr. Conway accepts for admission. - Critical Care Time Critical Care Time: 30-74 min - CCT is EXCLUSIVE of separately billable procedures. Discharge - Sign-Out/Discharge Documenting (check all that apply): Patient Departure - admit Patient Received Moderate/Deep Sedation with Procedure: No - Discharge Plan Condition: Good Disposition: ADMITTED TO [facility] - Billing Disposition and Condition Condition: GOOD Disposition: Admitted to [facility] - Attestation Statements Document Initiated by Scribe: Yes Documenting Scribe: PIPER PADGETT Provider For Whom Scribe is Documenting (Include Credential): EITAN ROBLES MD Scribe Attestation: PIPER Barrientos, scribed for EITAN ROBLES MD on 02/08/19 at 1433. Scribe Documentation Reviewed: Yes Provider Attestation: The documentation as recorded by the PIPER price accurately reflects the service I personally performed and the decisions made by EITAN vogel MD Status of Scribe Document: Viewed
--- OUTSIDE RECORDS SUMMARY | 2019-02-08 09:19 | XMS REPORT | Continuity of Care Document ---
:1935 External Reference #:[id number] Author Name Lamin Arango, OD Address [address] [place] [address] Care Team Providers Name Role Phone Sepideh Davis MD Care Team Information Pool Manager Unavailable Sepideh Davis MD Primary Care Physician Unavailable Payers Date Identification Numbers Payment Provider Subscriber Policy Number: [id number] Medicare [place] Larose PayID: [id number] [address] [place] [address] Policy Number: [id number] [place] Insurance Amelia Larose PayID: [id number] [address] [place] [address] Advance Directives Description No Information Available Problems Description No Information Family History Date Family Member(s) Observation Comments General Glasses General No Current Problems Mother Heart Disease Social History Type Date Description Comments Sex Unknown ETOH Use Denies alcohol use Tobacco Use Start: Unknown End: Unknown Patient is a former smoker Smoking Status Reviewed: 01/15/19 Patient is a former smoker Allergies, Adverse Reactions, Alerts Active Allergies Reaction Severity Comments Date Morphine 07/11/2017 Cortisone 07/11/2017 Oxycodone 07/11/2017 Medications Active Medications SIG Qnty Indications Ordering Provider Date Lutein-Zeaxanthin one capsule 60caps Ta [place], 07/17/2018 every day by Indigo 20-0.8mg Capsules mouth Pantoprazole Sodium Lamin Arango, SAFIA 07/11/2017 40mg Solution Rec Isosorbide Mononitrate Unknown ER 60mg Tablets ER 24HR Lipitor Unknown 20mg Tablets Aspirin Low Dose Unknown 81mg Tablets DR Rodriguez Unknown 100mg Capsules Potassimin Unknown 10mg Tablets Didi Allergy Unknown 180mg Tablets Atorvastatin Calcium Unknown 20mg Tablets Aspirin 81 Low Dose Unknown 81mg Chewtabs Nitrostat Unknown 0.4mg Tablets Sub Zoloft Unknown 25mg Tablets Immunizations Description No Information Available Vital Signs Date Vital Result Comment 07/17/2018 8:32am Intraocular Pressure Right Eye 13 mmHg Intraocular Pressure Left Eye 13 mmHg 07/11/2017 2:42pm Intraocular Pressure Right Eye 12 mmHg Intraocular Pressure Left Eye 12 mmHg Results Description No Information Available Procedures Date Code Description Status 07/17/2018 09522 Fundus Photography W/Interpretation & Report Completed 07/17/2018 47505 Refraction Completed 07/17/2018 89689 Eye Exam Est Intermediate Completed 01/10/2018 71726 Oct Retina Completed 01/10/2018 90130 Eye Exam Est Intermediate Completed 07/11/2017 02542 Fundus Photography W/Interpretation & Report Completed 07/11/2017 66702 Eye Exam New Intermediate Completed 10/13/2010 49862 Eye Exam Est Intermediate Completed 03/06/2010 22092 Extracapsular Cataract Extraction W/Intraocular Lens Completed 02/27/2010 84781 Extracapsular Cataract Extraction W/Intraocular Lens Completed 01/07/2010 10014 Ophthalmoscopy Initial Completed 01/07/2010 93767 Ophthalmic Biometry By Partial Coherence Interferometry Completed W/Intra 01/07/2010 54254 Eye Exam New Comprehensive Completed Encounters Description No Information Available Plan of Treatment 01/15/2019 - Lamin Arango, OD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, left eyeH35.3131 Nonexudative age-related macular degeneration, bilateral, eaFollow up:6 mos full , sooner PRN
[2019-02-08 09:56] LABS: ABS Eosinophils 0.1 10^3/ul (0-0.6); ABS Lymphocytes 0.7 10^3/ul (1.0-4.8); ABS Monocytes 0.4 10^3/ul (0-0.8); ABS Neutrophils 4.7 10^3/ul (1.5-7.7); Eosinophil % 2.3 %; Hematocrit 31 % (42-52); Hemoglobin 10.5 g/dL (14.0-18.0); Lymphocyte % 12.1 %; Mean Corpuscular HGB Conc 34 g/dL (31-36); Mean Corpuscular Hemoglobin 26 pg (27-31); Mean Corpuscular Volume 78 fL (80-94); Mean Platelet Volume 6.8 fL (7.4-10.4); Nucleated Red Blood Cells % 0.1; Platelet Count 180 10^3/uL (150-450); Red Blood Count 4.02 10^6 /uL (4.18-5.48); Red Cell Distribution Width 17 % (10.5-15)
[2019-02-08 10:05] LABS: Activated Partial Thrombo Time 31.5 seconds (26.0-36.3); INR 1.04 (0.82-1.09)
[2019-02-08 10:05] LABS: Urine Appearance Cloudy; Urine Bacteria Absent (Absent); Urine Bilirubin Negative (Negative); Urine Blood 1+ (Negative); Urine Color Yellow; Urine Glucose Negative (Negative); Urine Ketones Negative (Negative); Urine Nitrite Negative (Negative); Urine Protein Negative (Negative); Urine Red Blood Cell 3+(>10/hpf) (Absent); Urine Specific Gravity 1.011 (1.010-1.030); Urine Urobilinogen Negative (Negative); Urine White Blood Cell Absent (Absent)
[2019-02-08 10:07] LABS: Albumin 4.1 g/dL (3.2-5.2); Albumin/Globulin Ratio 1.2 (1-3); BUN/Creatinine Ratio 17.4 (8-20); C Reactive Protein 12.26 mg/L (<8.01); Calcium 8.8 mg/dL (8.6-10.3); EGFR African American 54.2 (>60); EGFR Non-African American 44.8 (>60); Globulin 3.5 g/dL (2-4); Potassium 4.2 mmol/L (3.5-5.0); Total Bilirubin 0.5 mg/dL (0.2-1.0); Total Protein 7.6 g/dL (6.4-8.9)
[2019-02-08 10:09] LABS: Troponin I 0.03 ng/mL (<0.04)
[2019-02-08] MEDS ORDERED: Acetaminophen ADULT LIQ* 650 MG/20.3 ML UDC PO ONE (10:14)
[2019-02-08 10:34] LABS: Influenza A Molecular NEGATIVE (Negative); Influenza B Molecular NEGATIVE (Negative)
[2019-02-08] MEDS ORDERED: Al Hydrox/Mg Hydrox/Simet LIQ* 30 ML UDC PO PRN (11:33)
[2019-02-08] MEDS ORDERED: Albuterol/Ipratropium NEB.SOL* Albuterol 2.5 MG/Ipratropium 0.5 MG 3 ML INH PRN (11:33)
[2019-02-08] MEDS ORDERED: Magnesium Hydroxide LIQ* 30 ML UDC PO PRN (11:33)
[2019-02-08] MEDS ORDERED: Azithromycin TAB* 250 MG PO SCH (12:00)
[2019-02-08] MEDS ORDERED: Acetaminophen TAB* 325 MG PO PRN (13:16)
[2019-02-08] MEDS ORDERED: Cetirizine* 10 MG TAB PO PRN (13:16)
--- NOTE | 2019-02-08 13:49 | HP ---
CC: Sepideh Davis MD * HISTORY AND PHYSICAL: DATE OF ADMISSION: 02/08/19 PRIMARY CARE PHYSICIAN: Sepideh Davis MD HEALTHCARE PROXY: His daughters, Annetta and Patricia. CODE STATUS: Full. CHIEF COMPLAINT: Fever and nocturnal urinary incontinence for 2 days. HISTORY OF PRESENT ILLNESS: Mr. Larose is an 83-year-old man with a history of coronary artery disease, status post stent in 2014; rheumatoid arthritis, no longer active; dementia; iron deficiency anemia; who is presenting from home for 2 days of fevers and nocturnal urinary incontinence. His daughter, Annetta, at bedside gives most history as the patient has notably poor memory which is at his baseline. His daughter states that 2 nights ago, he was noted to have a fever to approximately 101 degrees Fahrenheit at home and that night he had experienced urinary incontinence which was not present during the day the next day; however, he had fever again that day. These new symptoms were associated with increased lethargy as well as a progressive cough. The daughter states that initially a few days ago he had a hoarse voice that progressed to a cough which has recently become productive of whitish sputum. Given the progressive nature of his symptoms and the persistent fevers, EMS was called to bring the patient to the hospital. The patient and his daughter deny pain, shortness of breath, chest pain, nausea, vomiting, decreased appetite. The patient's noted two episodes of diarrhea 2 days prior to presentation, but had a normal bowel movement yesterday. The patient and family deny chills or night sweats. The patient may have had increased runny nose and congestion recently as well, but not in the last 2 days. The patient has had no sick contacts, dysuria, abdominal pain, or new rash. PAST MEDICAL HISTORY: 1. Coronary artery disease with AR status post stenting 2014. 2. Rheumatoid arthritis, no longer active or on treatment. 3. Dementia and depression. 4. Iron deficiency anemia. 5. Chronic lower back pain. 6. GERD. HOME MEDICATIONS: 1. Isosorbide mononitrate ER 30 mg daily. 2. Lipitor 20 mg daily. 3. Aspirin 81 mg daily. 4. Pantoprazole 40 mg daily. 5. Potassium 10 mEq daily. 6. Multivitamin and PreserVision 1 tablet daily. 7. Ferrous gluconate twice a week. 8. Didi 180 mg daily. 9. Zoloft 25 mg nightly. 10. MiraLAX daily as needed. 11. Sublingual nitro daily as needed. ALLERGIES: Include MORPHINE, CORTISONE, and OXYCODONE with unknown reactions. FAMILY HISTORY: Reviewed and noncontributory. SOCIAL HISTORY: The patient lives at home with his and they have a caregiver during the day and Annetta, his daughter, stays with them at night. He quite tobacco in the 70s, never drank or did other drugs. 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 His healthcare proxies are his daughters, Annetta and Patricia. REVIEW OF SYSTEMS: A 10-point review of systems was performed and all pertinent positives and negatives are listed in the HPI. PHYSICAL EXAM: GENERAL: Chronically ill-appearing elderly man, somewhat lethargic, in no acute distress, nontoxic. VITAL SIGNS: T-max 100.9, heart rate 90s, blood pressure 170s/80s, respiratory rate 20, oxygen saturation 92% on 2 L nasal cannula. HEENT: Moist mucous membranes. OP clear. NECK: Supple, nontender. No JVD. LUNGS: Clear to auscultation bilaterally. HEART: Regular rate and rhythm. No murmur, gallops, rubs. ABDOMEN: Mild tenderness to palpation of epigastrium. No guarding or rebound, nondistended, normoactive bowel sounds. EXTREMITIES: Lower extremities warm and well perfused without edema. NEURO: A and O x1 to daughter. Does not know date, nor location. DIAGNOSTIC STUDIES/LAB DATA: Labs reviewed and significant for: Normal WBC. Hemoglobin 10.5, microcytic anemia at baseline. Sodium 132 and creatinine 1.49 , near baseline. CRP 12. UA without positive nitrite, LE, or bacteria. Influenza A and B swabs negative. Chest x-ray AP unremarkable. EKG: Normal sinus rhythm 96 with left anterior fascicular block. No concerning ischemic changes. No Q waves. ASSESSMENT AND PLAN: An 83-year-old man with history of coronary artery disease /myocardial infarction, status post stent, dementia, depression, iron deficiency anemia, is presenting to emergency room with fevers and new cough. 1. Sepsis with fever and tachypnea and concern for infection. Etiology of infection is uncertain at this point, but highest on differential is a new lung infection given progressive cough, productive mucous proceeded by upper respiratory infection like symptoms and now presenting with new oxygen requirements. Chest x- ray performed in the ER was AP, and chest x-rays are not very sensitive for diagnosing pneumonia. The patient was given 1 dose of ceftriaxone in the emergency room. We will continue on ceftriaxone and add azithromycin. Urine antigen sent for Strep pneumo and legionella. We will follow up with cultures and procalcitonin as well and continue to monitor closely for other focal signs of infection. Also, possible that the patient could be experiencing a viral illness as well and his urinalysis was clear. DuoNebs as needed for shortness of breath given the patient's history of smoking. 2. Coronary artery disease. Continue the patient's home aspirin and statin. Also continue home Imdur. 3. Seasonal allergies. Continue Didi. 4. Gastroesophageal reflux disease. Continue PPI. 5. Dementia, complicated by depression. Continue home SSRI. We will order physical therapy for generalized weakness. 6. DVT prophylaxis. We will start on Lovenox. 7. Code status is full. TIME SPENT: Approximately 60 minutes was spent on admission of this patient; more than half of which was spent at bedside for interview and exam. [id number]/CPS #: [id number] BROCK
[2019-02-08] MEDS ORDERED: Ferrous Gluconate TAB* 324 MG TAB PO SCH (14:00)
[2019-02-08] MEDS: NF:Multivitamins/Minera Areds(NF) 1 CAP CAP PO SCH (14:05)
[2019-02-08] MEDS: Isosorbide Mononitrate ER TAB* 30 MG PO SCH (15:07)
[2019-02-08] MEDS: Aspirin EC TAB* 81 MG TAB.EC PO SCH (15:07)
[2019-02-08] MEDS: Enoxaparin(*) 40 MG/0.4 ML SYR SUBCUT SCH (15:13)
[2019-02-08] MEDS ORDERED: Atorvastatin* 20 MG TAB PO SCH (18:00)
[2019-02-08] MEDS ORDERED: GuaiFENesin DM sugar free* 5 ML UDC PO PRN (20:58)
[2019-02-08] MEDS ORDERED: Sertraline* 25 MG TAB PO SCH (21:00)
[2019-02-09 08:43] LABS: ABS Lymphocytes 0.6 10^3/ul (1.0-4.8); ABS Monocytes 0.4 10^3/ul (0-0.8); Eosinophil % 0.4 %; Hematocrit 30 % (42-52); Hemoglobin 9.9 g/dL (14.0-18.0); Lymphocyte % 15.2 %; Mean Corpuscular HGB Conc 33 g/dL (31-36); Mean Corpuscular Hemoglobin 26 pg (27-31); Mean Corpuscular Volume 78 fL (80-94); Nucleated Red Blood Cells % 0.1; Platelet Count 174 10^3/uL (150-450); Red Blood Count 3.82 10^6 /uL (4.18-5.48); Red Cell Distribution Width 17 % (10.5-15)
[2019-02-09] MEDS ORDERED: Azithromycin TAB* 250 MG PO SCH (09:00)
[2019-02-09] MEDS ORDERED: Pantoprazole TAB * 40 MG TAB PO SCH (09:00)
[2019-02-09] MEDS ORDERED: Multivitamins/Minerals TAB PO SCH (09:00)
[2019-02-09] MEDS ORDERED: cefTRIAXone(*) 2 GM in NS 0.9% 100 ML* 100 ML IVPB SCH (09:00)
[2019-02-09] MEDS ORDERED: Potassium Chlor TAB* 10 MEQ TAB.ER PO SCH (09:00)
[2019-02-09 09:02] LABS: BUN/Creatinine Ratio 16.4 (8-20); Calcium 8.6 mg/dL (8.6-10.3); EGFR African American 64.6 (>60); EGFR Non-African American 53.4 (>60); Magnesium 2.2 mg/dL (1.9-2.7); Potassium 4.2 mmol/L (3.5-5.0)
[2019-02-09] MEDS: Aspirin EC TAB* 81 MG TAB.EC PO SCH (10:16)
[2019-02-09] MEDS: Isosorbide Mononitrate ER TAB* 30 MG PO SCH (10:16)
[2019-02-09] MEDS: NF:Multivitamins/Minera Areds(NF) 1 CAP CAP PO SCH (10:16)
[2019-02-09] MEDS: Enoxaparin(*) 40 MG/0.4 ML SYR SUBCUT SCH (12:21)
[2019-02-09 13:57] VITALS: BP 127/68
--- NOTE | 2019-02-09 21:16 | DS ---
CC: Dr. Sepideh Davis * DISCHARGE SUMMARY: DATE OF ADMISSION: 02/08/19 DATE OF DISCHARGE: 02/09/19 PRIMARY CARE PROVIDER: Dr. Sepideh Davis. ATTENDING PHYSICIAN: Dr. Cary Conway * (dictated by Shannan Rao NP). PRIMARY DIAGNOSES: 1. Community-acquired pneumonia. 2. Acute hypoxic respiratory failure. 3. Sepsis. SECONDARY DIAGNOSES: 1. Coronary artery disease. 2. Dementia. 3. Gastroesophageal reflux disease. 4. Iron-deficiency anemia. STUDIES WHILE IN THE HOSPITAL: 1. Chest x-ray on 02/08/19 reads as: No active cardiopulmonary disease. 2. EKG on 02/08/19 shows: Normal sinus rhythm with a rate of 96, QTc 435. This EKG appears to be consistent with previous EKG on file from September 2018. HISTORY OF PRESENT ILLNESS AND HOSPITAL COURSE: Mr. Larose is an 83-year-old male with past medical history of CAD, rheumatoid arthritis, dementia, depression, iron- deficiency anemia and GERD, who presented to the emergency room on 02/08/19 with complaints of fever and nocturnal urinary incontinence. Please see the history and physical by Dr. Conway for a complete summary of the events leading up to this hospitalization. In short, the patient's daughter reported 2 days of fevers with new nocturnal urinary incontinence. The patient is noted to be a poor historian and was unable to provide a good history. Fever at home was reportedly up to 101 degrees Fahrenheit. The daughter did also report increased lethargy as well as a worsening cough with white sputum. There were no known sick contacts. In the emergency room, the patient was noted to have microcytic anemia consistent with his baseline iron-deficiency anemia. He was noted to have elevated CRP of 12. Urinalysis was unremarkable and influenza A and B swabs were negative. In the emergency room, he did spike a temp of 103.3. That combined with tachycardia and tachypnea was sufficient for a diagnosis of sepsis. Source was not clear, although because of the new- onset cough, it was felt as though this was likely a pneumonia despite a negative chest x-ray. The patient was admitted by the hospitalist service. He was initially requiring 2 L of oxygen to maintain saturations in the low 90s , though as of today, has been weaned off oxygen and saturating in the mid 90s while ambulating on room air. The patient was started on ceftriaxone and azithromycin. He was noted to have negative Legionella and Strep pneumo urine antigens. Vital signs normalized and the patient's last fever was on 02/08/19 at 1300 and that was 100.6 degrees Fahrenheit. On exam this morning, the patient reports feeling significantly improved. His and daughter at the bedside agree that he appears to be improved from yesterday. He denies any shortness of breath or cough and as I mentioned above, he has been able to ambulate on room air without any noted hypoxia. As I noted above, the patient' s chest x-ray was unremarkable for any acute process, though due to the clinical picture, community-acquired pneumonia is very likely at this point. The patient also did respond to antibiotics quite well, which further points to the presence of a bacterial pneumonia. Initially, it was thought as to be viral and this could be on the differential, although I think this is less likely due to the presence of a fever greater than 103 and again the improvement since beginning antibiotics. I spoke with the patient and his family and they are agreeable for discharge home today. Mr. Larose is stable for discharge today. Most recent vital signs are as follows: Temp 98.0, heart rate 89, respiratory rate 18, oxygen saturation 95% on room air, blood pressure 127/68. DISCHARGE MEDICATIONS: New medications: 1. Amoxicillin 1000 mg p.o. t.i.d. x6 days. 2. Azithromycin 250 mg p.o. daily x3 days. Continued medications: 1. Acetaminophen 975 mg p.o. q.6 hours p.r.n. for pain. 2. Aspirin 81 mg p.o. daily. 3. Atorvastatin 20 mg p.o. daily. 4. Ferrous gluconate 324 mg p.o. every Saturday and Saturday. 5. Fexofenadine 180 mg p.o. daily p.r.n. allergy symptoms. 6. Isosorbide mononitrate ER 30 mg p.o. daily. 7. Lutein/zeaxanthin 1 tab p.o. daily. 8. Multivitamin 1 tab p.o. daily. 9. Nitro 0.4 mg sublingual q.5 minutes p.r.n. chest pain. 10. Pantoprazole 40 mg p.o. daily. 11. Potassium chloride 10 mEq p.o. daily. 12. PreserVision 1 cap p.o. daily. 13. Sertraline 25 mg p.o. daily. DISCHARGE PLAN: Mr. Larose will be discharged home. Activity will be as tolerated. Diet will be regular as tolerated. Medications are noted above. I have prescribed the patient an additional 3 days of azithromycin to complete a total of 5 days of azithromycin and 6 days of amoxicillin to complete a total of 7 days of antibiotic therapy for his acute community-acquired pneumonia. He can continue his other usual medications as noted above and I have not made any further changes. He will need to follow up with his primary care provider in 4 to 7 days. Our employment case manager have made a referral to visiting nurse services as well. The patient and his family have been instructed to return to the emergency room or nearest hospital for any worsening of symptoms, shortness of breath, lightheadedness, dizziness, chest discomfort, high fevers, chills, night sweats, loss of consciousness, or any other worrisome signs or symptoms. DISCHARGE CONDITION: Stable. DISCHARGE DISPOSITION: Home. This is a summarized report of a complex medical history and hospital stay. For further details, please see the entire medical record. TIME SPENT: Approximately 50 minutes were spent on this discharge. SHANNAN RAO NP [id number]/CPS #: [id number] [facility]OCK
== END 2019-02-09 13:20 | disposition home or self-care (01) | DRG 871 ==
LOC: ED 09:01 → MED 11:33
PROVIDERS: ADMIT Internal Medicine; ATTEND Internal Medicine
DX: A41.9 Sepsis, unspecified organism (principal); J96.01 Acute respiratory failure with hypoxia; J15.9 Unspecified bacterial pneumonia; R32 Unspecified urinary incontinence; F03.90 Unspecified dementia, unspecified severity, without behavioral disturbance, psychotic disturbance, mood disturbance, and anxiety; M06.9 Rheumatoid arthritis, unspecified; M48.00 Spinal stenosis, site unspecified; H91.93 Unspecified hearing loss, bilateral; F32.9 Major depressive disorder, single episode, unspecified; G89.29 Other chronic pain; M54.5 Low back pain; D50.9 Iron deficiency anemia, unspecified; I44.4 Left anterior fascicular block; H26.9 Unspecified cataract; I25.10 Atherosclerotic heart disease of native coronary artery without angina pectoris; Z95.5 Presence of coronary angioplasty implant and graft; E78.00 Pure hypercholesterolemia, unspecified; I25.2 Old myocardial infarction; J30.2 Other seasonal allergic rhinitis; K21.9 Gastro-esophageal reflux disease without esophagitis; K44.9 Diaphragmatic hernia without obstruction or gangrene; K59.09 Other constipation; N40.0 Benign prostatic hyperplasia without lower urinary tract symptoms; Z87.442 Personal history of urinary calculi; Z85.46 Personal history of malignant neoplasm of prostate; Z97.4 Presence of external hearing-aid; Z90.49 Acquired absence of other specified parts of digestive tract; Z96.649 Presence of unspecified artificial hip joint; Z88.5 Allergy status to narcotic agent; Z88.8 Allergy status to other drugs, medicaments and biological substances; Z86.19 Personal history of other infectious and parasitic diseases; Z82.49 Family history of ischemic heart disease and other diseases of the circulatory system; Z87.891 Personal history of nicotine dependence; Z79.82 Long term (current) use of aspirin
CPT/HCPCS: 36415; 71045; 80048; 80053; 81003; 81015; 83605; 83735; 84145; 84484; 85025; 85610; 85730; 86140; 87040; 87899; 93005; 99284; A9270-GY; G8978-GP-CL; G8979-GP-CI; J0696; J1650

== ENCOUNTER 2019-06-28 11:41 | Emergency (ER) | payer MEDICARE, BC ==
[2019-06-28] MEDS ORDERED: Meclizine TAB* 12.5 MG PO ONE (12:21)
--- NOTE | 2019-06-28 12:30 | ED ---
Dizziness - HPI Summary HPI Summary: The patient is an 84 y/o M presenting to [facility] accompanied by daughter with a chief complaint of dizziness, nausea, chest pain, and weakness onset this morning. His daughter reports that they had been in [place] when he had dizziness , nausea, and chest pain. As they were leaving, he had weakness as he was unable to stand on his own like he typically is able to do. His daughter denies any syncope or vomiting, but he had more disorientation than usual and has felt warm to touch. He denies any shortness of breath or pain at this time. PMHx: angina, CAD, HLD, ID with stent placement, dementia. Former smoker, no EtOH, no substance use. Medications reviewed. Allergies noted. LEVEL 5 CAVEAT secondary to dementia. 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 Negative: syncope, shortness of breath, pain. Negative: Vomiting - Allergies/Home Medications Allergies/Adverse Reactions: Allergies Allergy/AdvReac Type Severity Reaction Status Date / Time cortisone Allergy Anxiety Verified 06/28/19 11:46 morphine Allergy Nausea And Verified 06/28/19 11:46 Vomiting oxycodone Allergy Difficulty Verified 06/28/19 11:46 Breathing PMH/Surg Hx/FS Hx/Imm Hx Endocrine/Hematology History: Denies: Hx Anticoagulant Therapy, Hx Diabetes, Hx Thyroid Disease Cardiovascular History: Reports: Hx Angina, Hx Angioplasty, Hx Coronary Artery Disease - Stents, Hx Hypercholesterolemia, Hx Myocardial Infarction, Other Cardiovascular Problems/Disorders - PCI 12/2014 Denies: Hx Auto Implanted Cardiovert Defib, Hx Hypertension, Hx Pacemaker/ICD , Hx Valvular Heart Disease Respiratory History: Reports: Hx Seasonal Allergies - severe hayfever Denies: Hx Asthma, Hx Chronic Obstructive Pulmonary Disease (COPD) GI History: Reports: Hx Gastroesophageal Reflux Disease, Hx Hiatal Hernia, Hx Jaundice - GB out 2012, Other GI Disorders - Constipation-chronic Denies: Hx Cirrhosis, Hx Crohn's Disease, Hx Diverticulosis, Hx Gall Bladder Disease, Hx Gastrointestinal Bleed, Hx Irritable Bowel, Hx Ileostomy, Hx Pyloric Stenosis, Hx Ulcer Comment Only: Hx Obstructive Bowel - loop surgical repair 09/16/ History: Reports: Hx Benign Prostatic Hyperplasia, Hx Kidney Stones, Other Problems/Disorders - Prostate CA, S/P TURP Denies: Hx Dialysis, Hx Renal Disease Musculoskeletal History: Reports: Hx Arthritis - RA, Other Musculoskeletal History - Spinal stenosis Denies: Hx Osteoporosis Sensory History: Reports: Hx Cataracts, Hx Contacts or Glasses, Hx Hearing Aid - bilateral, Hx Hearing Problem Denies: Hx Eye Injury, Hx Eye Prosthesis, Hx Glaucoma, Hx Legally Blind, Hx Macular Degeneration Opthamlomology History: Reports: Hx Cataracts, Hx Contacts or Glasses Denies: Hx Eye Injury, Hx Eye Prosthesis, Hx Glaucoma, Hx Legally Blind, Hx Macular Degeneration Neurological History: Reports: Hx Dementia, Other Neuro Impairments/Disorders - temporal arteritis Denies: Hx Headaches, Hx Migraine, Hx Nerve Disease, Hx Seizures Psychiatric History: Reports: Hx Depression Denies: Hx Anxiety, Hx Panic Disorder, Hx Substance Abuse - Cancer History Cancer Type, Location and Year: PROSTATE Hx Chemotherapy: No Hx Radiation Therapy: No - Surgical History Surgical History: Yes Surgery Procedure, Year, and Place: RIGHT KNEE 1982. LEFT SHOULDER. ANGIOPLASTY 1986. PROSTATE SCRAPE. COLON RESECTION. HEART CATH- STENT PLACED - PROMUS PREMIER DRUG-ELUTING STENT PER [facility] [place]- SAFE UP TO 3T; SPATIAL GRADIENT FIELD OF 720 GAUSS/CM OR LESS. GALLBLADDER REMOVAL. hip replacment- ok per dr. uriarte since pt had surgery 3 days ago. temporal vein stripping Hx Anesthesia Reactions: No - Immunization History Date of Tetanus Vaccine: Unk Date of Influenza Vaccine: Fall 2011 Infectious Disease History: No Infectious Disease History: Reports: Hx Shingles - March 2018 Denies: Hx Hepatitis, Hx Human Immunodeficiency Virus (HIV), Hx of Known/ Suspected MRSA, Hx Tuberculosis, Traveled Outside the [place] in Last 30 Days - Family History Known Family History: Positive: Cardiac Disease Negative: Blood Disorder - Social History Alcohol Use: None Hx Substance Use: No Substance Use Type: Reports: None Hx Tobacco Use: Yes Smoking Status (MU): Former Smoker Type: Cigarettes Length of Time of Smoking/Using Tobacco: Pt unsure,states many, many years ago,? 1960's quit,smoked about 5 years Have You Smoked in the Last Year: No Review of Systems Positive: Other - warm sensation Positive: Chest Pain - resolved Negative: Shortness Of Breath Positive: Nausea. Negative: Vomiting Neurological: Other - dizziness, disoriented Positive: Weakness. Negative: Syncope All Other Systems Reviewed And Are Negative: No - Comments Additional Review of Systems Comments: LEVEL 5 CAVEAT secondary to dementia Physical Exam - Summary Physical Exam Summary: VITAL SIGNS: Reviewed. GENERAL: Patient is a well-developed and nourished male who is lying comfortable in the stretcher. Patient is not in any acute respiratory distress. HEAD AND FACE: No signs of trauma. No ecchymosis, hematomas or skull depressions. No sinus tenderness. EYES: PERRLA, EOMI x 2, No injected conjunctiva, no nystagmus. EARS: Hearing grossly intact. Ear canals and tympanic membranes are within normal limits. MOUTH: Oropharynx within normal limits. NECK: Supple, trachea is midline, no adenopathy, no JVD, no carotid bruit, no c- spine tenderness, neck with full ROM. CHEST: Symmetric, no tenderness at palpation. LUNGS: Clear to auscultation bilaterally. No wheezing or crackles. CVS: Regular rate and rhythm, S1 and S2 present, no murmurs or gallops appreciated. ABDOMEN: Soft, non-tender. No signs of distention. No rebound, no guarding, and no masses palpated. Bowel sounds are normal. EXTREMITIES: FROM in all major joints, no edema, no cyanosis or clubbing. NEURO: Alert. Dementia. No acute neurological deficits. Speech is normal and follows commands. SKIN: Dry and warm. GCS: 14. Triage Information Reviewed: Yes Vital Signs On Initial Exam: Initial Vitals Temp Pulse Resp BP Pulse Ox 97.4 F 54 16 135/74 96 06/28/19 11:43 06/28/19 11:43 06/28/19 11:43 06/28/19 11:43 06/28/19 11:43 Vital Signs Reviewed: Yes Completion Of Physical Exam Limited Due To: Dementia, Level 5 - Rexford Coma Scale Best Eye Response: 4 - Spontaneous Best Motor Response: 6 - Obeys Commands Best Verbal Response: 4 - Confused Coma Scale Total: 14 Procedures - Sedation Patient Received Moderate/Deep Sedation with Procedure: No Diagnostics - Vital Signs Vital Signs Temp Pulse Resp BP Pulse Ox 06/28/19 11:43 97.4 F 54 16 135/74 96 - Laboratory Result Diagrams: 06/28/19 13:08 06/28/19 13:08 Lab Statement: Any lab studies that have been ordered have been reviewed, and results considered in the medical decision making process. - Radiology Chest X-Ray Radiology Interpretation Completed By: Radiologist Summary of Radiographic Findings: Impression: Low lung volumes, no evidence for acute finding. ED physician has reviewed this report. - CT Brain CT CT Interpretation Completed By: Radiologist Summary of CT Findings: Impression: 1. No evidence for acute intracranial abnormality. 2. Atrophy and findings suggestive of chronic small vessel ischemic changes. 3. Mucosal thickening within the sinuses which would be suggestive of sinusitis in the correct clinical setting. ED physician has reviewed this report. - EKG 1209 Cardiac Rate: Bradycardia - 53 bpm EKG Rhythm: Sinus Bradycardia EKG Comparison: No Significant Change - Similar to previous on 02/08/19. Summary of EKG Findings: EKG at 1209 reveals sinus bradycardia at 53 bpm. T- wave inversions in V5-V6. Diffuse T-wave abnormality. ED physician has reviewed and interpreted this EKG. Re-Evaluation - Re-Evaluation First Eval Re-Evaluation Time: 17:30 Change: Improved Comment: We discussed all results and plan for discharge. He is not dizzy in the ED. Dizzy Course/Dx - Course Assessment/Plan: Level 5 caveat secondary to dementia (history obtained from daughter). Patient is an 84 y/o M hx of ID, HTN with chief complaint of dizziness, nausea, chest pain, increased disorientation, and weakness this morning while at [place]. He denies pain or shortness of breath in the ED. Blood work without any significant abnormality except for slight anemia, sodium of 133 , BUN of 26, creatinine of 1.6, glucose of 108, CRP of 11.5, BNP of 238 and TSH of 8.63. Head CT impression: No evidence for acute mental Abnormality. Atrophy and Findings Suggestive of a Chronic Small Vessel Ischemic Changes. Mucosal Thickening within the Sinuses Which Could be Suggestive of Sinusitis and the Correct Clinical Setting. CXR impression: negative for acute pathology. In the ED course, the patient was given meclizine for dizziness. After medications the patient was observed for a couple hours and the symptoms resolved. The patient is alert without any ataxia, he is feeling back to normal. At this point, I discussed all the findings and test results with the patient. He was instructed to return to the emergency room immediately if any of the symptoms return or worsen. Patient understands and agrees. Neurological exam before discharge: Patient is alert and oriented x 3. No acute neurological deficits. Patient's vital signs are stable. Patient is to follow up with CPP in the next 2 3 days. They understand and agree. Plan of care was discussed with the patient and patient understands and agrees with the plan of care. All questions were answered at patient satisfaction. There were no further complaints or concerns. - Diagnoses Provider Diagnoses: Vertigo Discharge ED - Sign-Out/Discharge Documenting (check all that apply): Patient Departure - Patient will be discharged home. - Discharge Plan Condition: Stable Disposition: HOME Prescriptions: Meclizine TAB* [Antivert 12.5 TAB*] 25 mg PO TID PRN #30 tab PRN Reason: Vertigo Patient Education Materials: Vertigo (DC) Referrals: Sepideh Davis MD [Primary Care Provider] - 3 Days Additional Instructions: Please take medications as prescribed. Follow up with your primary care provider in 2-3 days. Return to the emergency department for any new or worsening symptoms. - Billing Disposition and Condition Condition: STABLE Disposition: Home - Attestation Statements Document Initiated by Salma: Yes Documenting Scribe: Kirsten Monge Provider For Whom Salma is Documenting (Include Credential): Dr. Juan Luis Solorio MD Scribe Attestation: Kirsten Barrientos scribed for Dr. Juan Luis Solorio MD on 06/28/19 at 1901. Scribe Documentation Reviewed: Yes Provider Attestation: The documentation as recorded by the Kirsten price accurately reflects the service I personally performed and the decisions made by me, Dr. Juan Luis Solorio MD Status of [place] Document: Viewed
[2019-06-28 13:31] LABS: ABS Basophils 0.1 10^3/ul (0-0.2); ABS Eosinophils 0.3 10^3/ul (0-0.6); ABS Lymphocytes 0.8 10^3/ul (1.0-4.8); ABS Monocytes 0.7 10^3/ul (0-0.8); Hematocrit 35 % (42-52); Hemoglobin 11.6 g/dL (14.0-18.0); Lymphocyte % 7.1 %; Mean Corpuscular HGB Conc 33 g/dL (31-36); Mean Corpuscular Hemoglobin 27 pg (27-31); Mean Corpuscular Volume 80 fL (80-94); Mean Platelet Volume 7.1 fL (7.4-10.4); Platelet Count 270 10^3/uL (150-450); Red Blood Count 4.36 10^6 /uL (4.18-5.48); Red Cell Distribution Width 15 % (10-15); White Blood Count 10.8 10^3/uL (3.5-10.8)
[2019-06-28 13:47] LABS: Albumin 4.2 g/dL (3.2-5.2); Albumin/Globulin Ratio 1.1 (1-3); C Reactive Protein 11.55 mg/L (<8.01); Calcium 9.5 mg/dL (8.6-10.3); EGFR African American 49.1 (>60); EGFR Non-African American 40.6 (>60); Globulin 3.7 g/dL (2-4); Magnesium 2.1 mg/dL (1.9-2.7); Potassium 4.5 mmol/L (3.5-5.0); Total Bilirubin 0.6 mg/dL (0.2-1.0); Total Protein 7.9 g/dL (6.4-8.9)
[2019-06-28 13:48] LABS: Troponin I 0.02 ng/mL (<0.04)
[2019-06-28 14:00] LABS: TSH (Thyroid Stimulating Horm) 8.63 mcIU/mL (0.34-5.60)
[2019-06-28 17:57] VITALS: BP 123/77
== END 2019-06-28 18:04 | disposition home or self-care (01) ==
LOC: ED 11:41
DX: R42 Dizziness and giddiness (principal); R07.9 Chest pain, unspecified; R11.0 Nausea; Z87.891 Personal history of nicotine dependence; I25.10 Atherosclerotic heart disease of native coronary artery without angina pectoris; I25.2 Old myocardial infarction; E78.00 Pure hypercholesterolemia, unspecified; K21.9 Gastro-esophageal reflux disease without esophagitis; N40.0 Benign prostatic hyperplasia without lower urinary tract symptoms; Z87.442 Personal history of urinary calculi; F32.9 Major depressive disorder, single episode, unspecified
CPT/HCPCS: 36415; 70450; 71046; 80053; 83605; 83735; 83880; 84443; 84484; 85025; 86140; 93005; 99284; A9270-GY

== ENCOUNTER 2019-08-29 09:19 | Emergency (ER) | payer MEDICARE, OTHER, BC ==
--- OUTSIDE RECORDS SUMMARY | 2019-08-29 09:28 | XMS REPORT | Continuity of Care Document ---
:1935 External Reference #:[id number] Author Name Cesar Polanco M.D. (transmitted by agent of provider Sue Ramirez ) Address [address] 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 Medicine Problems Active Problems Provider Date Chronic ischemic heart disease Bar Solo M.D., [facility], Onset: 01/18/2015 [facility] Essential hypertension Bar Solo M.D., [facility], Onset: 01/18/2015 [facility] Hyperlipidemia Bar Solo M.D., [facility], Onset: 01/18/2015 [facility] Atherosclerotic heart disease of Bar Solo M.D., [facility], Onset: 09/02/2017 [place] coronary artery without angina [facility] pectoris Closed intertrochanteric fracture Bipin Perez MD Onset: 10/28/2018 Social History Type Date Description Comments Sex Unknown ETOH Use Denies alcohol use Tobacco Use Start: Unknown End: Patient is a former quit in 1971, smoked Unknown smoker for 20yrs, less than 1PPD Smoking Status Reviewed: 01/08/19 Patient is a former quit in 1971, smoked smoker for 20yrs, less than 1PPD Exercise Exercises sporadically Type/Frequency Allergies, Adverse Reactions, Alerts Active Allergies Reaction Severity Comments Date Cortisone 01/14/2015 Morphine 01/14/2015 Oxycodone 01/18/2015 Medications Active Medications SIG Qnty Indications Ordering Date Provider Isosorbide Mononitrate Take 1/2 Tablet Sepideh Davis 05/09/2018 ER By Mouth Itz LMD Venkata 30mg Tablets ER 24HR Day Potassium Chloride ER Take One Capsule Sepideh Davis 2018 10Meq By Mouth Every MD Radha Capsules ER Day Sertraline HCL 1 tablet po Sepideh Davis 2018 25mg Tablets daily MD Radha Pantoprazole Sodium 1 by mouth every Sepideh Davis 07/05/2017 40mg day MD Radha Tablets DR Lipitor one tab by mouth 90tabs Cesar Araya 20mg Tablets every night at [facility] Polanco bedtime Aspirin 1 by mouth every Unknown 81mg Tablets day [facility] 50 1 by mouth every Unknown + Multivitamins day Capsules Miralax prn Unknown Didi Allergy 1 by mouth every Unknown 180mg day Tablets Nitrostat one sl q5min up 25tabs Cesar Araya 0.4mg Tablets Sub to 3 doses as [place] Polanco needed Iron Ferrous Gluconate 1 tablet po on Unknown sat and sun only Hydrocortisone used as needed Unknown 1% Cream Eucerin applied to arms Unknown Cream and back daily Preservision Areds 2 1 tab by mouth Unknown once a day Capsules Lutein 1 po daily Unknown 20mg Medications Administered in Office Medication SIG Qnty Indications Ordering Provider Date Technetium TC 99M Cesar Robbins M.D. 05/20/2013 Per Unit Dose Up To 40 Millicuries Injection Immunizations Description No Information Available Vital Signs Date Vital Result Comment 01/08/2019 9:19am Height 66.5 inches 5'6.50" Weight 166.00 lb Heart Rate 86 /min BP Systolic 98 mmHg BP Diastolic 68 mmHg Body Temperature 97.8 F Pain Level 2 BMI (Body Mass Index) 26.4 kg/m2 11/27/2018 10:54am Height 66.50 inches 5'6.50" Heart Rate 70 /min BP Systolic Sitting 118 mmHg BP Diastolic Sitting 66 mmHg Respiratory Rate 16 /min Pain Level 3 Results Description No Information Available Procedures Description No Information Available Medical Devices Description No Information Available Encounters Description No Information Available Assessments Description No Information Available Plan of Treatment 01/08/2019 - Bipin Perez, [id number] Displaced intertrochanteric fracture of right femur, subsequFollow up:Follow up: As needed Functional Status Description No Information Available Mental Status Description No Information Available Referrals Description No Information Available
--- OUTSIDE RECORDS SUMMARY | 2019-08-29 09:28 | XMS REPORT | Continuity of Care Document ---
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 [phone] Problems Description No Information Available Social History Type Date Description Comments Sex Unknown ETOH Use Denies alcohol use Tobacco Use Start: Unknown End: Unknown Patient is a former smoker Smoking Status Reviewed: 07/17/19 Patient is a former smoker Allergies, Adverse Reactions, Alerts Active Allergies Reaction Severity Comments Date Morphine 07/11/2017 Cortisone 07/11/2017 Oxycodone 07/11/2017 Medications Active Medications SIG Qnty Indications Ordering Provider Date Lutein-Zeaxanthin one capsule 60caps Ta [place], 07/17/2018 every day by [place] 20-0.8mg Capsules mouth Pantoprazole Sodium Lamin Arango, OD 07/11/2017 40mg Solution Rec Isosorbide Mononitrate Unknown ER 60mg Tablets ER 24HR Lipitor Unknown 20mg Tablets Aspirin Low Dose Unknown 81mg Tablets DR Rodriguez Unknown 100mg Capsules Potassimin Unknown 10mg Tablets Didi Allergy Unknown 180mg Tablets Atorvastatin Calcium Unknown 20mg Tablets Aspirin 81 Low Dose Unknown 81mg Chewtabs Nitrostat Unknown 0.4mg Tablets Sub Zoloft Unknown 25mg Tablets Klor-Con M10 1 tablet by Unknown 10Meq mouth twice Tablets ER daily am/pm ( started 07/2017) One Daily Multivitamin Unknown Mens 50+/Lycopene Mens 50+ Tablets Preservision Areds 2 1 by mouth twice Unknown a day Areds 2 Capsules Ferrous Gluconate take one tablet Unknown by mouth twice a 324(37.5Fe) mg Tablets day Immunizations Description No Information Available Vital Signs Date Vital Result Comment 07/17/2018 8:32am Intraocular Pressure Right Eye 13 mmHg Intraocular Pressure Left Eye 13 mmHg 07/11/2017 2:42pm Intraocular Pressure Right Eye 12 mmHg Intraocular Pressure Left Eye 12 mmHg Results Description No Information Available Procedures Description No Information Available Medical Devices Description No Information Available Encounters Description No Information Available Assessments Date Code Description Provider 07/17/2019 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, left eye Lamin Arango, OD 07/17/2019 H35.3131 Nonexudative age-related macular degeneration, Lamin Arango, OD bilateral, ea 07/17/2019 Z96.1 Presence of intraocular lens Lamin Arango, OD 07/17/2019 H52.4 Presbyopia Lamin Arango, OD Plan of Treatment 07/17/2019 - Lamin Arango, OD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, left eyeH35.3131 Nonexudative age-related macular degeneration, bilateral, eaZ96.1 Presence of intraocular lensH52.4 PresbyopiaFollow up:6 mos mac OCT, sooner PRN Functional Status Description No Information Available Mental Status Description No Information Available Referrals Description No Information Available
--- NOTE | 2019-08-29 10:11 | ED ---
Altered Mental Status - HPI Summary HPI Summary: This patient is a 84 year old male with a Hx of dementia, right femur fracture status post fixation brought in by EMS accompanied by his daughter presenting to [facility] with a chief complaint of fatigue and leg pain. His daughter says he was up all night, pain in his lower extremities, right more than left. He also reports back pain. She states he was awake 2/2 pain. No trauma. She reports that he recently had a UTI within one month ago. Patient denies fevers. Patient lives at home with in assisted living facility. No known falls, daughter is adamant that he would know if he fell. States his baseline is mild confusion (at his baseline). - History Of Current Complaint Chief Complaint: EDWeakness Stated Complaint: DISTRESS PER EMS Time Seen by Provider: 08/29/19 09:48 Hx Obtained From: Family/[employer], EMS Timing: Constant, Lasting Hours Character: Responsiveness - Allergies/Home Medications Allergies/Adverse Reactions: Allergies Allergy/AdvReac Type Severity Reaction Status Date / Time cortisone Allergy Anxiety Verified 06/28/19 11:46 morphine Allergy Nausea And Verified 06/28/19 11:46 Vomiting oxycodone Allergy Difficulty Verified 06/28/19 11:46 Breathing PMH/Surg Hx/FS Hx/Imm Hx Endocrine/Hematology History: Denies: Hx Anticoagulant Therapy, Hx Diabetes, Hx Thyroid Disease Cardiovascular History: Reports: Hx Angina, Hx Angioplasty, Hx Coronary Artery Disease - Stents, Hx Hypercholesterolemia, Hx Myocardial Infarction, Other Cardiovascular Problems/Disorders - PCI 12/2014 Denies: Hx Auto Implanted Cardiovert Defib, Hx Hypertension, Hx Pacemaker/ICD , Hx Valvular Heart Disease Respiratory History: Reports: Hx Seasonal Allergies - severe hayfever Denies: Hx Asthma, Hx Chronic Obstructive Pulmonary Disease (COPD) GI History: Reports: Hx Gastroesophageal Reflux Disease, Hx Hiatal Hernia, Hx Jaundice - GB out 2012, Other GI Disorders - Constipation-chronic Denies: Hx Cirrhosis, Hx Crohn's Disease, Hx Diverticulosis, Hx Gall Bladder Disease, Hx Gastrointestinal Bleed, Hx Irritable Bowel, Hx Ileostomy, Hx Pyloric Stenosis, Hx Ulcer Comment Only: Hx Obstructive Bowel - loop surgical repair 09/16/ History: Reports: Hx Benign Prostatic Hyperplasia, Hx Kidney Stones, Other Problems/Disorders - Prostate CA, S/P TURP Denies: Hx Dialysis, Hx Renal Disease Musculoskeletal History: Reports: Hx Arthritis - RA, Other Musculoskeletal History - Spinal stenosis Denies: Hx Osteoporosis Sensory History: Reports: Hx Cataracts, Hx Contacts or Glasses, Hx Hearing Aid - bilateral, Hx Hearing Problem Denies: Hx Eye Injury, Hx Eye Prosthesis, Hx Glaucoma, Hx Legally Blind, Hx Macular Degeneration Opthamlomology History: Reports: Hx Cataracts, Hx Contacts or Glasses Denies: Hx Eye Injury, Hx Eye Prosthesis, Hx Glaucoma, Hx Legally Blind, Hx Macular Degeneration Neurological History: Reports: Hx Dementia, Other Neuro Impairments/Disorders - temporal arteritis Denies: Hx Headaches, Hx Migraine, Hx Nerve Disease, Hx Seizures Psychiatric History: Reports: Hx Depression Denies: Hx Anxiety, Hx Panic Disorder, Hx Substance Abuse - Cancer History Cancer Type, Location and Year: PROSTATE Hx Chemotherapy: No Hx Radiation Therapy: No - Surgical History Surgery Procedure, Year, and Place: RIGHT KNEE 1982. LEFT SHOULDER. ANGIOPLASTY 1986. PROSTATE SCRAPE. COLON RESECTION. HEART CATH- STENT PLACED - PROMUS PREMIER DRUG-ELUTING STENT PER [facility] [place] OP REPORT- SAFE UP TO 3T; SPATIAL GRADIENT FIELD OF 720 GAUSS/CM OR LESS. GALLBLADDER REMOVAL. hip replacment- ok per dr. uriarte since pt had surgery 3 days ago. temporal vein stripping Hx Anesthesia Reactions: No - Immunization History Date of Tetanus Vaccine: Unk Date of Influenza Vaccine: Fall 2011 Infectious Disease History: No Infectious Disease History: Reports: Hx Shingles - March 2018 Denies: Hx Hepatitis, Hx Human Immunodeficiency Virus (HIV), Hx of Known/ Suspected MRSA, Hx Tuberculosis, Traveled Outside the [place] in Last 30 Days - Family History Known Family History: Positive: Cardiac Disease Negative: Blood Disorder - Social History Alcohol Use: None Hx Substance Use: No Substance Use Type: Reports: None Hx Tobacco Use: Yes Smoking Status (MU): Former Smoker Type: Cigarettes Length of Time of Smoking/Using Tobacco: Pt unsure,states many, many years ago,? 1960's quit,smoked about 5 years Have You Smoked in the Last Year: No Review of Systems Positive: Other - General behavior change- staying awake all night Positive: Other - Back and bilateral lower extremity pain Neurological: Other - Decreased responsiveness All Other Systems Reviewed And Are Negative: Yes Physical Exam - Summary Physical Exam Summary: Constitutional: Elderly and drowsy. Skin: Warm, Dry HENT: Normocephalic; Atraumatic Eyes: Conjunctiva normal Neck: Musculoskeletal ROM normal neck. (-) JVD, (-) Stridor, (-) Nuchal rigidity Cardio: Rhythm regular, rate normal, Heart sounds normal; Intact distal pulses; Radial pulses are 2+ and symmetric. (-) Murmur Pulmonary/Chest wall: Effort normal. (-) Respiratory distress, (-) Wheezes, (-) Rales Abd: Soft, (-) tenderness, (-) Distension, (-) Guarding, (-) Rebound Musculoskeletal: (-) Edema. Tenderness of the midline and paraspinal thoracic and lumbar spine. 2 + DP pulses in his lower extremities. No significant tenderness of hips, knees or ankles bilaterally. Lymph: (-) Cervical adenopathy Neuro: Drowsy, responds to verbal stimuli. Alert and oriented to person and place, not time (baseline). Psych: Deferred. l Triage Information Reviewed: Yes Vital Signs On Initial Exam: Initial Vitals Temp Pulse Resp BP Pulse Ox 97.7 F 73 18 140/83 95 08/29/19 09:27 08/29/19 09:27 08/29/19 09:27 08/29/19 09:27 08/29/19 09:27 Vital Signs Reviewed: Yes Procedures - Sedation Patient Received Moderate/Deep Sedation with Procedure: No Diagnostics - Vital Signs Vital Signs Temp Pulse Resp BP Pulse Ox 08/29/19 09:27 97.7 F 73 18 140/83 95 - Laboratory Result Diagrams: 08/29/19 10:06 08/29/19 10:06 Lab Statement: Any lab studies that have been ordered have been reviewed, and results considered in the medical decision making process. - Radiology Thoracic Spine XR Radiology Interpretation Completed By: Radiologist Summary of Radiographic Findings: Osteopenia with no compression deformity in the thoracic spine. ED Provider has reviewed this report. Femur Right XR Radiology Interpretation Completed By: Radiologist Summary of Radiographic Findings: 1. Status post right hip ORIF. Uncomplicated hardware. 2. Osteopenia with no displaced fracture. If pain persists follow-up imaging is recommended. ED Provider has reviewed this report. Lumbar Spine XR Radiology Interpretation Completed By: Radiologist Summary of Radiographic Findings: 1. Osteopenia with no compression deformity in the lumbar spine. 2. Multilevel spondylosis. ED Provider has reviewed this report. Bilateral Hip XR Radiology Interpretation Completed By: Radiologist Summary of Radiographic Findings: 1. Status post right hip ORIF. Uncomplicated hardware. 2. Osteopenia with no displaced fracture. If pain persists, follow- up imaging is recommended. ED Provider has reviewed this report. CXR Radiology Interpretation Completed By: Radiologist Summary of Radiographic Findings: 1. No acute cardiopulmonary process by radiograph. 2. There is mild elevation of the right hemidiaphragm. ED Provider has reviewed this report. - CT Pelvis CT Interpretation Completed By: Radiologist Summary of CT Findings: 1. Osteopenic bones with no new displaced fracture identified. 2. Status post ORIF of the right hip with previously described basicervical fracture redemonstrated. 3. Ventral hernia and bilateral inguinal hernias as above. ED Provider has reviewed this report. - EKG 1013 Cardiac Rate: NL - 74 BPM EKG Rhythm: Sinus Rhythm Summary of EKG Findings: T-wave inversions in I,V1, aVL, and LAFB. No significant changes since 12/28/2014. ED Physician has reviewed and interpreted this report. 1314 Cardiac Rate: Bradycardia - 59 BPM EKG Rhythm: Sinus Bradycardia Summary of EKG Findings: T-wave inversions in I, V1, aVL. No significant change from the earlier EKG. ED Physician has reviewed and interpreted this EKG. Re-Evaluation - Re-Evaluation First Eval Re-Evaluation Time: 12:27 Comment: On review of imaging, on the CXR he had a elevated right hemidiaphragm , which is unchanged from 01/07/15. Patient reports having persistent right hip pain, so a CT of the hip was ordered. Second Eval Re-Evaluation Time: 14:05 Change: Improved Comment: Patient ambulated around the ED with the help of his walker and he is at his baseline mental status. Ate a turkey sandwhich. Family feels comfortable taking him home. Altered Mental Statu Course/Dx - Course Course Of Treatment: 84 y/o male w hx dementia, CAD, HTN, HLD, RA, recent R femur fr, UTI p/w fatigue. VSS NAD. PE w elderly male, NAD. AAOx2 baseline. Drowsy but arousable. States he didnt sleep last night 2/2 leg pain. Mild TTP R lateral hip. - no trauma. Family concerned about UTI. - labs w/o e/o infection , EKG unchanged trop 0.3 x2 (baseline), trop of 0.13 was lab error. - CXR unremarkable aside from elevated diaphragm (chronic), plain films hips/femur/ back neg. - CT obtained of R femur for persistent pain w hx fr, neg for fr. - given 500 cc IVF, tolerating PO and will ambulate in ED. - does not appear to be altered from baseline, no signs of trauma or hx falls, head CT deferred. - Diagnoses Provider Diagnoses: Fatigue, Acute pain of right lower extremity Discharge ED - Sign-Out/Discharge Documenting (check all that apply): Patient Departure - Discharge Plan Condition: Stable Disposition: HOME Patient Education Materials: Fatigue (ED) Referrals: Sepideh Davis MD [Primary Care Provider] - Additional Instructions: You were seen in the emergency department for right hip pain and fatigue. Your x-rays and CT scan did not show any new changes. Your labs did not show any cause for her fatigue. If any studies were not completed at the time of discharge you will be called with the relevant results. Please follow up with your primary care doctor in next 2-3 days and return to emergency department for worsening pain, chest pain, fevers, or concerning symptoms. It was a pleasure taking care of you today. - Billing Disposition and Condition Condition: STABLE Disposition: Home - Attestation Statements Document Initiated by Salma: Yes Documenting Chrisibe: [employer] Provider For Whom Salma is Documenting (Include Credential): Rosa Chase MD Scribe Attestation: I, Gr[employer] Rios, scribed for Rosa Chase MD on 08/29/19 at 1410. Scribe Documentation Reviewed: Yes Provider Attestation: The documentation as recorded by the Gr[employer] price accurately reflects the service I personally performed and the decisions made by me, Rosa Chase MD Status of Scribe Document: Viewed
[2019-08-29 10:14] LABS: ABS Basophils 0.1 10^3/ul (0-0.2); ABS Eosinophils 0.9 10^3/ul (0-0.6); ABS Monocytes 0.6 10^3/ul (0-0.8); ABS Neutrophils 3.7 10^3/ul (1.5-7.7); Eosinophil % 14.2 %; Hematocrit 31 % (42-52); Hemoglobin 10.6 g/dL (14.0-18.0); Lymphocyte % 16.6 %; Mean Corpuscular HGB Conc 34 g/dL (31-36); Mean Corpuscular Hemoglobin 27 pg (27-31); Mean Corpuscular Volume 78 fL (80-94); Mean Platelet Volume 6.7 fL (7.4-10.4); Platelet Count 256 10^3/uL (150-450); Red Blood Count 3.97 10^6 /uL (4.18-5.48); Red Cell Distribution Width 16 % (10-15); White Blood Count 6.2 10^3/uL (3.5-10.8)
[2019-08-29 10:33] LABS: ALT 9 U/L (7-52); AST 21 U/L (13-39); Albumin 3.8 g/dL (3.2-5.2); Albumin/Globulin Ratio 1.1 (1-3); Alkaline Phosphatase 75 U/L (34-104); Anion Gap 8 mmol/L (2-11); BUN/Creatinine Ratio 14.1 (8-20); Blood Urea Nitrogen 21 mg/dL (6-24); CO2 Carbon Dioxide 26 mmol/L (22-32); Calcium 9.2 mg/dL (8.6-10.3); Chloride 100 mmol/L (101-111); EGFR African American 54.1 (>60); EGFR Non-African American 44.7 (>60); Globulin 3.4 g/dL (2-4); Glucose 101 mg/dL (70-100); Sodium 134 mmol/L (135-145); Total Protein 7.2 g/dL (6.4-8.9)
[2019-08-29 10:39] LABS: Troponin I 0.03 ng/mL (<0.03)
[2019-08-29] MEDS ORDERED: NS 0.9% 500 ML* 500 ML IV ONE (11:06)
[2019-08-29 11:08] LABS: T4, Total 8.03 mcg/dL (6.09-12.23)
[2019-08-29 11:12] LABS: TSH (Thyroid Stimulating Horm) 7.93 mcIU/mL (0.34-5.60)
[2019-08-29] MEDS ORDERED: NS 0.9% 1000 ML** 1,000 ML IV.FLUID IV ONE (11:49)
[2019-08-29 12:16] LABS: Urine Appearance Clear; Urine Bilirubin Negative (Negative); Urine Blood Negative (Negative); Urine Color Yellow; Urine Glucose Negative (Negative); Urine Ketones Negative (Negative); Urine Nitrite Negative (Negative); Urine Protein Negative (Negative); Urine Specific Gravity 1.013 (1.010-1.030); Urine Urobilinogen Negative (Negative)
[2019-08-29 13:38] LABS: Troponin I 0.03 ng/mL (<0.03)
[2019-08-29 14:32] VITALS: BP 152/86
== END 2019-08-29 14:37 | disposition home or self-care (01) ==
LOC: ED 09:19
DX: R53.83 Other fatigue (principal); M79.604 Pain in right leg; K43.9 Ventral hernia without obstruction or gangrene; K40.20 Bilateral inguinal hernia, without obstruction or gangrene, not specified as recurrent; M85.89 Other specified disorders of bone density and structure, multiple sites; F03.90 Unspecified dementia, unspecified severity, without behavioral disturbance, psychotic disturbance, mood disturbance, and anxiety; I25.10 Atherosclerotic heart disease of native coronary artery without angina pectoris; I10 Essential (primary) hypertension; M06.9 Rheumatoid arthritis, unspecified; E78.00 Pure hypercholesterolemia, unspecified; I25.2 Old myocardial infarction; K21.9 Gastro-esophageal reflux disease without esophagitis; N40.0 Benign prostatic hyperplasia without lower urinary tract symptoms; F32.9 Major depressive disorder, single episode, unspecified; Z85.46 Personal history of malignant neoplasm of prostate; Z95.5 Presence of coronary angioplasty implant and graft; Z87.442 Personal history of urinary calculi; Z90.49 Acquired absence of other specified parts of digestive tract; Z87.891 Personal history of nicotine dependence; Z96.641 Presence of right artificial hip joint; Z88.5 Allergy status to narcotic agent; Z88.8 Allergy status to other drugs, medicaments and biological substances
CPT/HCPCS: 36415; 71046; 72070; 72100; 72192; 73523; 80053; 81003; 84436; 84443; 84484; 85025; 93005; 96360; 99282

== ENCOUNTER 2019-09-01 12:05 | Emergency (ER) | payer MEDICARE, OTHER, BC ==
--- NOTE | 2019-09-01 12:13 | ED ---
Head Injury - HPI Summary HPI Summary: The patient is an 84 y/o M arriving by ambulance to [facility] with a chief complaint of a head injury after sustaining a fall this morning. He reports that he believed he slipped, causing him to fall and hit his head, leaving an abrasion to the left forehead. He denies LOC as he remembers the fall. He had a headache earlier, but he denies the headache now. He denies any neck pain. Reporting back pain. Currently taking ASA but no other blood thinners. He was recently in the ED for back and leg myalgias and lethargy. PMHx: HTN, [place], hypothyroidism, CAD, GERD, HLD, BPH, dementia. Former smoker, no EtOH, no substance use. Medications reviewed. Allergies noted. - History Of Current Complaint Stated Complaint: FALL Hx Obtained From: Patient Mechanism Of Injury: Fall From A Standing Position Onset/Duration: Started Minutes Ago Severity Currently: Moderate Severity Initially: Mild Pain Intensity: 0 Pain Scale Used: 0-10 Numeric Location of Head Injury: Frontal - right Aggravating Factor(s): Other: - nothing Alleviating Factor(s): Other: - nothing Associated Signs And Symptoms: Other: - headache (resolved); Negative: neck pain - Allergies/Home Medications Allergies/Adverse Reactions: Allergies Allergy/AdvReac Type Severity Reaction Status Date / Time cortisone Allergy Anxiety Verified 06/28/19 11:46 morphine Allergy Nausea And Verified 06/28/19 11:46 Vomiting oxycodone Allergy Difficulty Verified 06/28/19 11:46 Breathing Home Medications: Home Medications Acetaminophen TAB* [Tylenol TAB*] 650 mg PO Q6H PRN 09/01/19 [History Confirmed 09/01/19] Albuterol HFA INHALER* [Ventolin HFA Inhaler*] 2 puff INH Q6H PRN 09/01/19 [ History Confirmed 09/01/19] Dextromethorphan HBr [Robitussin Childrens Coug] 10 ml PO TID PRN 09/01/19 [ History Confirmed 09/01/19] Ferrous Sulfate TAB* 134 mg PO TUFR 09/01/19 [History Confirmed 09/01/19] Levothyroxine Sodium [Levoxyl] 25 mcg PO DAILY 09/01/19 [History Confirmed 09/01] Lutein 20 mg PO DAILY 09/01/19 [History Confirmed 09/01/19] Sertraline* [Zoloft*] 50 mg PO BEDTIME 09/01/19 [History Confirmed 09/01/19] Vit C/E/Zn/Coppr/Lutein/Zeaxan [Preservision Areds 2 Softgel] 1 each PO DAILY [History Confirmed 09/01/19] PMH/Surg Hx/FS Hx/Imm Hx Endocrine/Hematology History: Denies: Hx Anticoagulant Therapy, Hx Diabetes, Hx Thyroid Disease Cardiovascular History: Reports: Hx Angina, Hx Angioplasty, Hx Coronary Artery Disease - Stents, Hx Hypercholesterolemia, Hx Myocardial Infarction, Other Cardiovascular Problems/Disorders - PCI 12/2014 Denies: Hx Auto Implanted Cardiovert Defib, Hx Hypertension, Hx Pacemaker/ICD , Hx Valvular Heart Disease Respiratory History: Reports: Hx Seasonal Allergies - severe hayfever Denies: Hx Asthma, Hx Chronic Obstructive Pulmonary Disease (COPD) GI History: Reports: Hx Gastroesophageal Reflux Disease, Hx Hiatal Hernia, Hx Jaundice - GB out 2012, Other GI Disorders - Constipation-chronic Denies: Hx Cirrhosis, Hx Crohn's Disease, Hx Diverticulosis, Hx Gall Bladder Disease, Hx Gastrointestinal Bleed, Hx Irritable Bowel, Hx Ileostomy, Hx Pyloric Stenosis, Hx Ulcer Comment Only: Hx Obstructive Bowel - loop surgical repair 09/16/ History: Reports: Hx Benign Prostatic Hyperplasia, Hx Kidney Stones, Other Problems/Disorders - Prostate CA, S/P TURP Denies: Hx Dialysis, Hx Renal Disease Musculoskeletal History: Reports: Hx Arthritis - RA, Other Musculoskeletal History - Spinal stenosis Denies: Hx Osteoporosis Sensory History: Reports: Hx Cataracts, Hx Contacts or Glasses, Hx Hearing Aid - bilateral, Hx Hearing Problem Denies: Hx Eye Injury, Hx Eye Prosthesis, Hx Glaucoma, Hx Legally Blind, Hx Macular Degeneration Opthamlomology History: Reports: Hx Cataracts, Hx Contacts or Glasses Denies: Hx Eye Injury, Hx Eye Prosthesis, Hx Glaucoma, Hx Legally Blind, Hx Macular Degeneration Neurological History: Reports: Hx Dementia, Other Neuro Impairments/Disorders - temporal arteritis Denies: Hx Headaches, Hx Migraine, Hx Nerve Disease, Hx Seizures Psychiatric History: Reports: Hx Depression Denies: Hx Anxiety, Hx Panic Disorder, Hx Substance Abuse - Cancer History Cancer Type, Location and Year: PROSTATE Hx Chemotherapy: No Hx Radiation Therapy: No - Surgical History Surgical History: Yes Surgery Procedure, Year, and Place: RIGHT KNEE 1982. LEFT SHOULDER. ANGIOPLASTY 1986. PROSTATE SCRAPE. COLON RESECTION. HEART CATH- STENT PLACED - PROMUS PREMIER DRUG-ELUTING STENT PER [facility] [place] OP REPORT- SAFE UP TO 3T; SPATIAL GRADIENT FIELD OF 720 GAUSS/CM OR LESS. GALLBLADDER REMOVAL. hip replacment- ok per dr. uriarte since pt had surgery 3 days ago. temporal vein stripping Hx Anesthesia Reactions: No - Immunization History Date of Tetanus Vaccine: Unk Date of Influenza Vaccine: Fall 2011 Infectious Disease History: Reports: Hx Shingles - March 2018 Denies: Hx Hepatitis, Hx Human Immunodeficiency Virus (HIV), Hx of Known/ Suspected MRSA, Hx Tuberculosis - Family History Known Family History: Positive: Cardiac Disease Negative: Blood Disorder - Social History Alcohol Use: None Hx Substance Use: No Substance Use Type: Reports: None Hx Tobacco Use: Yes Smoking Status (MU): Former Smoker Type: Cigarettes Length of Time of Smoking/Using Tobacco: Pt unsure,states many, many years ago,? 1959's quit,smoked about 5 years Have You Smoked in the Last Year: No Review of Systems Negative: Other - neck pain Positive: Other - abrasion to left forehead Neurological: Other - Negative: LOC Positive: Headache - resolved All Other Systems Reviewed And Are Negative: Yes Physical Exam - Summary Physical Exam Summary: Constitutional: Well-developed, Well-nourished, Alert, Cooperative Skin: Warm, Dry, abrasion to forehead HENT: Abrasion to the left forehead. Normocephalic. Midface stable, Dentition intact Eyes: EOM normal, PERRL Neck: Trachea is midline. No stridor; No JVD; No step off; No posterior cervical spine tenderness Cardio: Rhythm regular, rate normal Heart sounds normal; Intact distal pulses; Radial pulses are 2+ and symmetric. Pulmonary/Chest wall: Effort normal; Breath sounds normal; Equal chest rise; No flail segment; No rib tenderness; No sternal tenderness Abd: Soft, Appearance normal. No distension; No tenderness Musculoskeletal: No tenderness at hips, ankles, shoulders, elbows and knees; No joint swelling; paraspinal and midline thoracic and lumbar tenderness.No step off or deformity of the spine; Neuro: Alert, Oriented x2, GCS 15. Strength 5/5 all extremities. Psyc cooperative Triage Information Reviewed: Yes Vital Signs Reviewed: Yes - [place] Coma Scale Best Eye Response: 4 - Spontaneous Best Motor Response: 6 - Obeys Commands Best Verbal Response: 5 - Oriented Coma Scale Total: 15 Procedures - Sedation Patient Received Moderate/Deep Sedation with Procedure: No Diagnostics - Laboratory Result Diagrams: 09/01/19 12:19 09/01/19 12:19 Lab Statement: Any lab studies that have been ordered have been reviewed, and results considered in the medical decision making process. - Radiology Abd XR Radiology Interpretation Completed By: Radiologist Summary of Radiographic Findings: Impression: Nonspecific bowel gas pattern. ED physician has reviewed this report. CXR Radiology Interpretation Completed By: Radiologist Summary of Radiographic Findings: Impression: Low lung volumes. No active cardiopulmonary disease. ED physician has reviewed this report. - CT Brain CT CT Interpretation Completed By: Radiologist Summary of CT Findings: Impression: 1. Left forehead laceration with an intact subjacent calvarium. 2. No acute intracranial abnormality. 3. Moderate chronic small vessel ischemic disease is likely. 4. Moderate cerebral volume loss. 5. Paranasal sinus mucosal disease as above. ED physician has reviewed this report. C-Spine CT CT Interpretation Completed By: Radiologist Summary of CT Findings: Impression: 1. Osteopenia. 2. Degenerative disc disease and osteoarthritis. 3. No acute osseous injury to the cervical spine. ED physician has reviewed this report. L-Spine CT CT Interpretation Completed By: Radiologist Summary of CT Findings: Impression: 1. Osteopenia. 2. Degenerative disc disease and osteoarthritis as described above. 3. No acute osseous injury to the lumbar spine. ED physician has reviewed this report. T-Spine CT CT Interpretation Completed By: Radiologist Summary of CT Findings: Impression: Osteopenia. Degenerative disc disease and osteoarthritis no acute osseous injury to the thoracic spine. ED physician has reviewed this report. Abd/Pel CT CT Interpretation Completed By: Radiologist Summary of CT Findings: Impression: 1. In the right lobe of the liver there is a 7 mm hypoattenuating focus that is incompletely characterized on this CT examination. Further characterization can be acquired with ultrasound the liver on a nonemergent basis. 2. Diastases recti at the umbilicus allowing loops of small bowel to extend just beneath the surface of the abdominal wall. There is no evidence of pathologic obstruction or bowel strangulation. 3. There are additional chronic, degenerative and iatrogenic findings described in the body the report. ED physician has reviewed this report. - EKG 1244 Cardiac Rate: Bradycardia - 59 BPM EKG Rhythm: Sinus Bradycardia EKG Comparison: No Significant Change - Compared to 08/29/19, no significant change Summary of EKG Findings: An EKG at 1244 reveals sinus bradycardia at 54 BPM. No STEMI. ED physician has reviewed and interpreted this EKG. Re-Evaluation - Re-Evaluation First Eval Re-Evaluation Time: 12:50 Change: Worse Comment: He is reporting lower back pain. Lumbar and Cervical Spine CTs ordered. Second Eval Re-Evaluation Time: 14:30 Change: Worse Comment: Patient now experiencing abdominal pain. Daughter at bedside states hx colon resection (per [facility] / [facility] in 2014), will check Abd/Pel CT, CXR. Abd soft Third Eval Re-Evaluation Time: 18:20 Change: Improved - lipase neg, CT w/o abnl aside from liver lesion. Ambulated w walker Head Injury Course/Dx Course Of Treatment: 84-year-old male with a history of dementia presents after mechanical fall. - Physical exam abrasion to head. Patient walks with a walker at baseline. Suspect mechanical but given history of dementia we'll also check labs and EKG. - patient was seen 2 days ago for back pain, neg XRays. - presented at bedside patient has continued to report back and leg pain , he has been otherwise well. Tolerating by mouth and having bowel movements. Patient has a history of a cecal volvulus per review of records years ago. - CT brain w/o abnormality, CTs of the spine without fractures. Patient reporting persistent back pain concerned that he may have abdominal process causing this pain, will check a CT abdomen and pelvis. History difficult given dementia - Diagnoses Provider Diagnoses: Fall, Back pain, Dementia Discharge ED - Sign-Out/Discharge Documenting (check all that apply): Patient Departure - Patient will be discharged home. - Discharge Plan Condition: Stable Disposition: HOME Patient Education Materials: Dementia (ED), Fall Prevention for Older Adults ( ED), Back Pain (ED) Referrals: Sepideh Davis MD [Medical Doctor] - 3 Days Additional Instructions: You were seen in the emergency department for a fall with back pain. Your CT scan did not show any evidence of fractures. It did show small nodule on your liver for to get an ultrasound outpatient for non-emergently. If any studies were not completed at the time of discharge you will be called with the relevant results. Please follow up with your primary care doctor in the next 2-3 days and return to the emergency department for worsening pain, falls, weakness or concerning symptoms. It was a pleasure taking care of you today. - Billing Disposition and Condition Condition: STABLE Disposition: Home - Attestation Statements Document Initiated by Salma: Yes Documenting Scribe: Kirsten Monge Provider For Whom Salma is Documenting (Include Credential): Dr. Rosa Chase MD Scribe Attestation: I, Kirsten Monge, scribed for Dr. Rosa Chase MD on 09/01/19 at 2151. Scribe Documentation Reviewed: Yes Provider Attestation: The documentation as recorded by the Kirsten price accurately reflects the service I personally performed and the decisions made by me, Dr. Rosa Chase MD Status of Scribe Document: Viewed
[2019-09-01] MEDS ORDERED: Tetan/Diph/Pertus SYR(Tdap)* 0.5 ML SYR(BOOSTRIX) use SYR contains LATEX IM ONE (12:15)
[2019-09-01 12:27] LABS: ABS Basophils 0.1 10^3/ul (0-0.2); ABS Eosinophils 0.9 10^3/ul (0-0.6); ABS Monocytes 0.6 10^3/ul (0-0.8); ABS Neutrophils 3.7 10^3/ul (1.5-7.7); Eosinophil % 15.1 %; Hematocrit 28 % (42-52); Hemoglobin 9.7 g/dL (14.0-18.0); Lymphocyte % 15.6 %; Mean Corpuscular HGB Conc 34 g/dL (31-36); Mean Corpuscular Hemoglobin 27 pg (27-31); Mean Corpuscular Volume 79 fL (80-94); Mean Platelet Volume 6.7 fL (7.4-10.4); Platelet Count 246 10^3/uL (150-450); Red Cell Distribution Width 16 % (10-15); White Blood Count 6.3 10^3/uL (3.5-10.8)
[2019-09-01 13:22] LABS: Potassium 4.1 mmol/L (3.5-5.0)
[2019-09-01 13:24] LABS: Albumin 3.6 g/dL (3.2-5.2); Albumin/Globulin Ratio 1.1 (1-3); EGFR African American 53.7 (>60); EGFR Non-African American 44.4 (>60); Globulin 3.2 g/dL (2-4); Total Bilirubin 0.4 mg/dL (0.2-1.0); Total Protein 6.8 g/dL (6.4-8.9)
[2019-09-01] MEDS ORDERED: Acetaminophen TAB* 325 MG PO ONE (13:53)
[2019-09-01] MEDS ORDERED: Ondansetron INJ* 2 MG/ML VIAL IV ONE (15:18)
[2019-09-01] MEDS ORDERED: Iodixanol* (CONTRAST) 320 MG/ML 100 ML SDV IV ONE (17:08)
[2019-09-01 18:55] VITALS: BP 148/65
[2019-09-02 12:20] LABS: C Reactive Protein 19.81 mg/L (<8.01)
== END 2019-09-01 18:53 | disposition home or self-care (01) ==
LOC: ED 12:05
DX: M54.5 Low back pain (principal); M51.36 Other intervertebral disc degeneration, lumbar region; M85.88 Other specified disorders of bone density and structure, other site; M47.816 Spondylosis without myelopathy or radiculopathy, lumbar region; M51.34 Other intervertebral disc degeneration, thoracic region; M50.30 Other cervical disc degeneration, unspecified cervical region; S01.81XA Laceration without foreign body of other part of head, initial encounter; W01.0XXA Fall on same level from slipping, tripping and stumbling without subsequent striking against object, initial encounter; Y92.9 Unspecified place or not applicable; Z23 Encounter for immunization; R00.1 Bradycardia, unspecified; I44.4 Left anterior fascicular block; F03.90 Unspecified dementia, unspecified severity, without behavioral disturbance, psychotic disturbance, mood disturbance, and anxiety; E78.00 Pure hypercholesterolemia, unspecified; K21.9 Gastro-esophageal reflux disease without esophagitis; F32.9 Major depressive disorder, single episode, unspecified; Z79.82 Long term (current) use of aspirin; Z88.5 Allergy status to narcotic agent; Z88.8 Allergy status to other drugs, medicaments and biological substances; Z95.5 Presence of coronary angioplasty implant and graft; Z87.891 Personal history of nicotine dependence
CPT/HCPCS: 36415; 70450; 71045; 72125; 72128; 72131; 74018; 74177; 80053; 82550; 83690; 85025; 86140; 90471; 90715; 93005; 96374; 99282; A9270-GY; J2405; Q9967

== ENCOUNTER 2019-09-03 20:01 | Inpatient (IN) | payer MEDICARE, BC ==
[2019-09-03 20:34] LABS: ABS Basophils 0.1 10^3/ul (0-0.2); ABS Eosinophils 0.8 10^3/ul (0-0.6); ABS Lymphocytes 0.9 10^3/ul (1.0-4.8); ABS Monocytes 0.6 10^3/ul (0-0.8); ABS Neutrophils 5.1 10^3/ul (1.5-7.7); Hematocrit 30 % (42-52); Hemoglobin 10.3 g/dL (14.0-18.0); Mean Corpuscular HGB Conc 34 g/dL (31-36); Mean Corpuscular Hemoglobin 27 pg (27-31); Mean Corpuscular Volume 78 fL (80-94); Mean Platelet Volume 6.7 fL (7.4-10.4); Platelet Count 263 10^3/uL (150-450); Red Blood Count 3.84 10^6 /uL (4.18-5.48); Red Cell Distribution Width 16 % (10-15); White Blood Count 7.4 10^3/uL (3.5-10.8)
[2019-09-03 20:51] LABS: ALT 14 U/L (7-52); AST 27 U/L (13-39); Albumin 3.8 g/dL (3.2-5.2); Albumin/Globulin Ratio 1.1 (1-3); Alkaline Phosphatase 76 U/L (34-104); Anion Gap 8 mmol/L (2-11); BUN/Creatinine Ratio 15.2 (8-20); Blood Urea Nitrogen 24 mg/dL (6-24); CO2 Carbon Dioxide 25 mmol/L (22-32); Calcium 9.1 mg/dL (8.6-10.3); Chloride 97 mmol/L (101-111); EGFR African American 50.6 (>60); EGFR Non-African American 41.8 (>60); Globulin 3.5 g/dL (2-4); Glucose 105 mg/dL (70-100); Sodium 130 mmol/L (135-145); Total Protein 7.3 g/dL (6.4-8.9)
--- OUTSIDE RECORDS SUMMARY | 2019-09-03 20:51 | XMS REPORT | Continuity of Care Document ---
:1935 External Reference #:[id number] Author Name Cesar Polanco M.D. 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 [phone] Medicine Problems Active Problems Provider Date Chronic ischemic heart disease Bar Solo M.D., [facility], Onset: 01[facility]18/2015 [facility] Essential hypertension Bar Solo M.D., [facility], Onset: 01/18/2015 [facility] Hyperlipidemia Bar Solo M.D., [facility], Onset: 01/18/2015 [facility] Atherosclerotic heart disease of Bar Solo M.D., [facility], Onset: 09/02/2017 [facility] coronary artery without angina [facility] pectoris Closed intertrochanteric fracture Bipin Perez [...] Indications Ordering Provider Date Technetium TC 99M TetrCesar antoine M.D. 05/20/2013 Per Unit Dose Up To [...] Information Available Plan of Treatment 01/08/2019 - PALMER [id number] Displaced intertrochanteric fracture of right femur, subsequFollow up:Follow up: As needed Functional Status Description No Information Available Mental Status Description No Information Available Referrals Description No Information Available
[2019-09-03 20:58] LABS: Troponin I 0.03 ng/mL (<0.03)
--- NOTE | 2019-09-03 21:02 | ED ---
Altered Mental Status - HPI Summary HPI Summary: This pt is an 84 Y/O M brought in by EMS to [facility] for a fall that he had yesterday. He states that he fell down due to feeling lightheaded and hit the front part of his head on the ground. He states that he has a headache and that he has a small abrasion to the top part of his head. He has issues remembering where he lives. His daughter states that he has been having C/O of back pain and has been extremely fatigued since Saturday08/29/19. He has no aggravating or alleviating symptoms. He denies any recent illness including fevers, chills , N/V, SOB and CP. He has a PMHx of CAD, Prostate CA, and Dementia. - History Of Current Complaint Chief Complaint: EDAltMentalStatus Stated Complaint: AMS PER EMS Time Seen by Provider: 09/03/19 20:13 Hx Obtained From: Patient Last Known Well Date: Saturday08/27/19 Onset/Duration: Still Present Timing: Constant Severity Initially: Moderate Severity Currently: Moderate Character: Confusion, Lethargy Aggravating Factor(s): Nothing Alleviating Factor(s): Nothing Associated Signs And Symptoms: Positive: Negative - chills, SOB and CP. Negative: Nausea, Vomiting, Fever - Allergies/Home Medications Allergies/Adverse Reactions: Allergies Allergy/AdvReac Type Severity Reaction Status Date / Time budesonide Allergy Unknown Verified 09/03/19 20:15 [From Rhinocort Allergy] Reaction Details cetirizine [From Zyrtec] Allergy Unknown Verified 09/03/19 20:15 Reaction Details cortisone Allergy Anxiety Verified 09/03/19 20:15 morphine Allergy Nausea And Verified 09/03/19 20:15 Vomiting oxycodone Allergy Difficulty Verified 09/03/19 20:15 Breathing simvastatin [From Zocor] Allergy Unknown Verified 09/03/19 20:15 Reaction Details ticagrelor [From Brilinta] Allergy Unknown Verified 09/03/19 20:15 Reaction Details triamcinolone Allergy Unknown Verified 09/03/19 20:15 Reaction Details PMH/Surg Hx/FS Hx/Imm Hx Previously Healthy: Yes Endocrine/Hematology History: Denies: Hx Anticoagulant Therapy, Hx Diabetes, Hx Thyroid Disease Cardiovascular History: Reports: Hx Angina, Hx Angioplasty, Hx Coronary Artery Disease - Stents, Hx Hypercholesterolemia, Hx Myocardial Infarction, Other Cardiovascular Problems/Disorders - PCI 12/2014 Denies: Hx Auto Implanted Cardiovert Defib, Hx Hypertension, Hx Pacemaker/ICD , Hx Valvular Heart Disease Respiratory History: Reports: Hx Seasonal Allergies - severe hayfever Denies: Hx Asthma, Hx Chronic Obstructive Pulmonary Disease (COPD) GI History: Reports: Hx Gastroesophageal Reflux Disease, Hx Hiatal Hernia, Hx Jaundice - GB out 2012, Other GI Disorders - Constipation-chronic Denies: Hx Cirrhosis, Hx Crohn's Disease, Hx Diverticulosis, Hx Gall Bladder Disease, Hx Gastrointestinal Bleed, Hx Irritable Bowel, Hx Ileostomy, Hx Pyloric Stenosis, Hx Ulcer Comment Only: Hx Obstructive Bowel - loop surgical repair 09/16/ History: Reports: Hx Benign Prostatic Hyperplasia, Hx Kidney Stones, Other Problems/Disorders - Prostate CA, S/P TURP Denies: Hx Dialysis, Hx Renal Disease Musculoskeletal History: Reports: Hx Arthritis - RA, Other Musculoskeletal History - Spinal stenosis Denies: Hx Osteoporosis Sensory History: Reports: Hx Cataracts, Hx Contacts or Glasses, Hx Hearing Aid - bilateral, Hx Hearing Problem Denies: Hx Eye Injury, Hx Eye Prosthesis, Hx Glaucoma, Hx Legally Blind, Hx Macular Degeneration Opthamlomology History: Reports: Hx Cataracts, Hx Contacts or Glasses Denies: Hx Eye Injury, Hx Eye Prosthesis, Hx Glaucoma, Hx Legally Blind, Hx Macular Degeneration Neurological History: Reports: Hx Dementia, Other Neuro Impairments/Disorders - temporal arteritis Denies: Hx Headaches, Hx Migraine, Hx Nerve Disease, Hx Seizures Psychiatric History: Reports: Hx Depression Denies: Hx Anxiety, Hx Panic Disorder, Hx Substance Abuse - Cancer History Cancer Type, Location and Year: PROSTATE Hx Chemotherapy: No Hx Radiation Therapy: No - Surgical History Surgical History: Yes Surgery Procedure, Year, and Place: RIGHT KNEE 1982. LEFT SHOULDER. ANGIOPLASTY 1986. PROSTATE SCRAPE. COLON RESECTION. HEART CATH- STENT PLACED - PROMUS PREMIER DRUG-ELUTING STENT PER [facility] [place]- SAFE UP TO 3T; SPATIAL GRADIENT FIELD OF 720 GAUSS/CM OR LESS. GALLBLADDER REMOVAL. hip replacment- ok per dr. uriarte since pt had surgery 3 days ago. temporal vein stripping Hx Anesthesia Reactions: No - Immunization History Date of Tetanus Vaccine: Unk Date of Influenza Vaccine: Fall 2011 Immunizations Up to Date: Yes Infectious Disease History: No Infectious Disease History: Reports: Hx Shingles - March 2018 Denies: Hx Hepatitis, Hx Human Immunodeficiency Virus (HIV), Hx of Known/ Suspected MRSA, Hx Tuberculosis, Traveled Outside the [place] in Last 30 Days - Family History Known Family History: Positive: Cardiac Disease Negative: Blood Disorder - Social History Occupation: Retired Lives: With Family Alcohol Use: None Hx Substance Use: No Substance Use Type: Reports: None Hx Tobacco Use: Yes Smoking Status (MU): Former Smoker Type: Cigarettes Length of Time of Smoking/Using Tobacco: Pt unsure,states many, many years ago,? 1959's quit,smoked about 5 years Have You Smoked in the Last Year: No Review of Systems - ROS Summary Review of Systems Summary: Home Medications Medication Instructions Recorded Confirmed Type Aspirin EC TAB* [Ecotrin EC Low 81 mg PO QAM 04/09/18 09/03/19 History Dose 81 MG*] Atorvastatin* [Lipitor 20 MG*] 20 mg PO DAILY 04/09/18 09/03/19 History Fexofenadine (NF) [Didi 180 180 mg PO DAILY PRN 04/09/18 09/03/19 History (NF)] Multivitamins/Minerals TAB* 1 tab PO DAILY 04/09/18 09/03/19 History [Theragran/minerals TAB*] Nitroglycerin TAB 0.4 MG* 0.4 mg SL Q5M PRN 04/09/18 09/03/19 History Pantoprazole TAB * [Protonix TAB*] 40 mg PO DAILY 04/09/18 09/03/19 History Potassium Chlor TAB* [Klor Con ER 10 meq PO DAILY 04/09/18 09/03/19 History TAB 10 MEQ*] Isosorbide Mononitrate ER TAB* 15 mg PO DAILY 02/09/19 09/03/19 History [Imdur ER TAB*] Meclizine TAB* [Antivert 12.5 TAB*] 25 mg PO TID PRN #30 tab 06/28/19 09/03/19 Rx Acetaminophen TAB* [Tylenol TAB*] 650 mg PO Q6H PRN 09/01/19 09/03/19 History Albuterol HFA INHALER* [Ventolin 2 puff INH Q6H PRN 09/01/19 09/03/19 History HFA Inhaler*] Dextromethorphan HBr [Robitussin 10 ml PO TID PRN 09/01/19 09/03/19 History [facility]] Ferrous Sulfate TAB* 134 mg PO TUFR 09/01/19 09/03/19 History Levothyroxine Sodium [Levoxyl] 25 mcg PO DAILY 09/01/19 09/03/19 History Lutein 20 mg PO DAILY 09/01/19 09/03/19 History Sertraline* [Zoloft*] 50 mg PO BEDTIME 09/01/19 09/03/19 History Vit C/E/Zn/Coppr/Lutein/Zeaxan 1 each PO DAILY 09/01/19 09/03/19 History [Preservision Areds 2 Softgel] Negative: Fever, Chills Negative: Chest Pain Negative: Shortness Of Breath Negative: Vomiting, Nausea Positive: Other - Pt states that he hit his head after a fall Skin: Other - abrasion to head Positive: Weakness All Other Systems Reviewed And Are Negative: Yes Physical Exam - Summary Physical Exam Summary: General: Well-developed, Well-nourished male. No acute distress. HEENT: Normocephalic, large superficial abrasion to the L scalp Eyes: Conjuctiva normal, PERRL. Oropharynx: Clear, mucous membranes moist, (-) exudates. Neck: Soft, FROM, (-) lymphadenopathy, (-) thyromegaly, (-) JVD. Cardiovascular: Normal sinus rhythm, (-) murmur. Lungs: Clear to auscultation bilaterally (-) wheezes, (-) rales, (-) rhonchi. Abdomen: Soft, non-tender, non-distended, (-) organomegaly, normal bowel sounds. Back: (-) CVA tenderness Extremities: No edema. Skin: Warm, dry, (-) rash. Neuro: confused, oriented to 1, no focal deficits. Psychiatric: Mood normal, affect normal. Triage Information Reviewed: Yes Vital Signs On Initial Exam: Initial Vitals Temp Pulse Resp BP Pulse Ox 98.5 F 74 18 113/45 93 09/03/19 20:10 09/03/19 20:10 09/03/19 20:10 09/03/19 20:10 09/03/19 20:10 Vital Signs Reviewed: Yes - [place] Coma Scale Best Eye Response: 4 - Spontaneous Best Motor Response: 6 - Obeys Commands Best Verbal Response: 4 - Confused Coma Scale Total: 14 Procedures - Sedation Patient Received Moderate/Deep Sedation with Procedure: No Diagnostics - Vital Signs Vital Signs Temp Pulse Resp BP Pulse Ox 09/03/19 20:10 98.5 F 74 18 113/45 93 - Laboratory Lab Results: Lab Results 09/03/19 09/03/19 09/03/19 Range/Units 20:27 20:27 20:27 WBC 7.4 (3.5-10.8) 10^3/uL RBC 3.84 L (4.18-5.48) 10^6 /uL Hgb 10.3 L (14.0-18.0) g/dL Hct 30 L (42-52) % MCV 78 L (80-94) fL MCH 27 (27-31) pg MCHC 34 (31-36) g/dL RDW 16 H (10-15) % Plt Count 263 (150-450) 10^3/uL MPV 6.7 L (7.4-10.4) fL Neut % (Auto) 68.2 % Lymph % (Auto) 12.0 % Cooper % (Auto) 8.1 % Eos % (Auto) 11.0 % Baso % (Auto) 0.7 % Absolute Neuts (auto) 5.1 (1.5-7.7) 10^3/ul Absolute Lymphs (auto) 0.9 L (1.0-4.8) 10^3/ul Absolute Monos (auto) 0.6 (0-0.8) 10^3/ul Absolute Eos (auto) 0.8 H (0-0.6) 10^3/ul Absolute Basos (auto) 0.1 (0-0.2) 10^3/ul Absolute Nucleated RBC 0.0 10^3/ul Nucleated RBC % 0.0 Sodium 130 L (135-145) mmol/L Potassium 4.0 (3.5-5.0) mmol/L Chloride 97 L (101-111) mmol/L Carbon Dioxide 25 (22-32) mmol/L Anion Gap 8 (2-11) mmol/L BUN 24 (6-24) mg/dL Creatinine 1.58 H (0.67-1.17) mg/dL Est GFR ( Amer) 50.6 (>60) Est GFR (Non-Af Amer) 41.8 (>60) BUN/Creatinine Ratio 15.2 (8-20) Glucose 105 H (70-100) mg/dL Lactic Acid 1.1 (0.5-2.0) mmol/L Calcium 9.1 (8.6-10.3) mg/dL Total Bilirubin 0.40 (0.2-1.0) mg/dL AST 27 (13-39) U/L ALT 14 (7-52) U/L Alkaline Phosphatase 76 (34-104) U/L Troponin I Pending Total Protein 7.3 (6.4-8.9) g/dL Albumin 3.8 (3.2-5.2) g/dL Globulin 3.5 (2-4) g/dL Albumin/Globulin Ratio 1.1 (1-3) TSH Pending Result Diagrams: 09/06/19 05:48 09/07/19 06:44 Lab Statement: Any lab studies that have been ordered have been reviewed, and results considered in the medical decision making process. - Radiology CXR Radiology Interpretation Completed By: ED Physician Summary of Radiographic Findings: No infiltrate. No pleural effusion. Pending offical review. - CT Brain CT CT Interpretation Completed By: Radiologist Summary of CT Findings: 1. No traumatic intracranial abnormalities. 2. Age- related atrophy and mild chronic small vessel ischemic disease. 3. Paranasal sinusitis. ED physician has reviewed this report. - EKG 2041 Cardiac Rate: NL - 69 BPM EKG Rhythm: Sinus Rhythm ST Segment: Normal Ectopy: None Summary of EKG Findings: EKG at 2041 reveals normal sinus rhythm with rate of 69 BPM, no acute changes, no ischemic changes. This EKG was reviewed and interpreted by Dr. Agrawal at 204309/03/19. Altered Mental Statu Course/Dx - Course Course Of Treatment: 84-year-old male presents after fall. Patient has decline in function over the last week. He is no longer safe to be at home with his level of care. He lives in an apartment with his with minimal [facility] contacts. Less than assisted living. Workup demonstrates no significant abnormality. Patient has known dementia. Initially refused by hospitalist for admission. However [facility] called and strongly emphasized the change in patient's ability to function independently. Patient will be admitted as social admission to be discharged to a higher level of care. - Diagnoses Provider Diagnoses: Dementia with behavioral disturbance, Weakness - Provider Notifications Discussed Care Of Patient With: Joaquina Doyle - see attached section Time Discussed With Above Provider: 01:55 Discharge ED - Sign-Out/Discharge Documenting (check all that apply): Patient Departure - admitted - Discharge Plan Condition: Stable Disposition: ADMITTED TO [facility] - Billing Disposition and Condition Condition: STABLE Disposition: Admitted to [facility] - Attestation Statements Document Initiated by Salma: Yes Documenting Scribe: Shay Whitten Provider For Whom Kenyone is Documenting (Include Credential): Ann Agrawal MD Scribe Attestation: Shay Barrientos, scribed for Ann Agrawal MD on 09/07/19 at 1532. Scribe Documentation Reviewed: Yes Provider Attestation: The documentation as recorded by the Shay price accurately reflects the service I personally performed and the decisions made by , Ann Agrawal MD Status of Scribe Document: Viewed Consult Consult: Dr. Doyle, Hospitalist, was consulted at 0155 in order to discuss possible admission. Per Dr. Doyle the pt is capable of being discharged and has no abnormalities that require admission [facility]. The pt will be discharged home. Dr. Doyle was consulted again at 0318 due to [place] stating that the pt has been increasingly becoming more demented an unable to care for himself. The hospitalist will re-evaluating the pt for a social work admission to place the pt into a higher level of care.
[2019-09-03 21:03] LABS: INR 1.15 (0.82-1.09)
[2019-09-03 21:10] LABS: TSH (Thyroid Stimulating Horm) 7.46 mcIU/mL (0.34-5.60)
[2019-09-03 21:56] LABS: Urine Appearance Cloudy; Urine Bilirubin Negative (Negative); Urine Blood Negative (Negative); Urine Color Yellow; Urine Glucose Negative (Negative); Urine Ketones Negative (Negative); Urine Nitrite Negative (Negative); Urine Protein Negative (Negative); Urine Specific Gravity 1.016 (1.010-1.030); Urine Urobilinogen Negative (Negative)
[2019-09-03 22:09] LABS: Urine Benzodiazepine Screen None Detected (None Detect); Urine Opiates Screen None Detected (None Detect)
[2019-09-04 01:07] LABS: Troponin I 0.03 ng/mL (<0.03)
[2019-09-04] MEDS ORDERED: Acetaminophen TAB* 325 MG PO ONE (02:35)
[2019-09-04 03:11] LABS: Uric Acid 5.8 mg/dL (4.4-7.6)
[2019-09-04] MEDS ORDERED: Albuterol 2.5 MG/3 ML NEB.SOL* (0.083%) INH PRN (04:40)
[2019-09-04] MEDS ORDERED: Albuterol HFA INHALER* 8 gm MDI INH PRN (04:42)
[2019-09-04] MEDS ORDERED: Nitroglycerin TAB 0.4 MG* 0.4 MG TAB SL PRN (04:42)
--- NOTE | 2019-09-04 05:51 | ADMNOTE ---
Subjective Interval History: H&P 84 yo male with history of dementia who resides in [place] brought to the ED by daughter with complaints of delirium. His history actually started about 1 week ago when he presented with back pain. There was no witnessed trauma but due to his level of pain and the fact he was a poor historian, it was assumed that he sustained some trauma. His entire spine was scanned, and there was no acute findings. Pt was discharged back to [facility] from the ED. He came back a few days after with a witnessed fall with trauma to his head. He had a CT head done which was normal and pt was discharged back to [facility]. He comes back again tonight with delirium. Per daughter pt has been hallucinating, trying to eat his couch, sometimes screams that his back is in pain. Daughter reports that at baseline he walks with a cane. He is oriented to self and sometimes recognizes her. He usually is pleasant. Pt had CBC, CMP, Uric acid, ammonia, UA, drug screen. No metabolic explanation for his delirium. Pt had a CT head repeated which was normal. I explained to baljinderugher that there isnt a metabolic explanation for his delirium but it's not uncommon for a patient with dementia to become delirious with frequent changes to their environment. Otherwise, He has had 1 new medication which was synthroid that was started about a week ago. His PCP was concerned that his pain might be secondary to his rheumatoid arthritis and was planning on starting him on steroids (he is not on any treatment for this). Pt was deemed medically stable for discharge back to [facility]. [facility] called and expressed that they do not feel comfortable taking him back due to not enough staff to watch over him because of his delirium. Daughter was frustrated with back and forth, i talked to her and explained that i will observe the patient and have CM involve in the morning for discharge planning. Family History: Unchanged from Admission Social History: Unchanged from Admission Past Medical History: Unchanged from Admission Review of Systems - Measurements Intake and Output: Intake and Output Last 24 Hours 09/01/19 09/02/19 09/03/19 09/04/19 06:59 06:59 06:59 06:59 Weight 170 lb - Review of Systems General Comments: not obtained due to dementia Objective Active Medications: Acetaminophen (Tylenol Tab*) 975 mg PO Q8H [place] Albuterol (Ventolin 2.5 Mg/3 Ml Neb.Joana*) 2.5 mg INH RT.H2KG-ERLQD AWAKE PRN PRN Reason: sob/wheezing Albuterol (Ventolin Hfa Inhaler*) 2 puff INH Q6H PRN PRN Reason: CONGESTION Aspirin (Aspirin Ec Tab*) 81 mg PO QAM [facility] Atorvastatin Calcium (Lipitor*) 20 mg PO DAILY [facility] Ferrous Sulfate (Ferrous Sulfate Tab*) 134 mg PO TUFR [facility] Heparin Sodium (Porcine) (Heparin Vial(*)) 5,000 units SUBCUT Q8HR [facility] Isosorbide Mononitrate (Imdur Er Tab*) 15 mg PO DAILY [facility] Nitroglycerin (Nitroglycerin Tab 0.4 Mg*) 0.4 mg SL Q5M PRN PRN Reason: PAIN - CHEST Pantoprazole Sodium (Protonix Tab*) 40 mg PO DAILY [facility] Quetiapine Fumarate (Seroquel Tab*) 25 mg PO DAILY [facility] Senna (Senokot 8.6 Mg Tab*) 1 tab PO BID [facility] Sertraline HCl (Zoloft*) 50 mg PO BEDTIME [facility] Vital Signs - 8 hr 09/04/19 09/04/19 09/04/19 02:28 02:29 02:41 Pulse Rate 72 76 71 Blood Pressure 156/122 153/81 (mmHg) O2 Sat by Pulse 96 99 98 Oximetry 09/04/19 09/04/19 09/04/19 02:57 03:00 03:28 Pulse Rate 67 66 69 Blood Pressure 162/89 141/74 (mmHg) O2 Sat by Pulse 97 98 98 Oximetry 09/04/19 09/04/19 09/04/19 03:57 04:00 04:29 Pulse Rate 80 77 80 Blood Pressure 147/92 144/106 (mmHg) O2 Sat by Pulse 94 95 79 Oximetry 09/04/19 04:36 Pulse Rate 79 Blood Pressure 141/83 (mmHg) O2 Sat by Pulse 87 Oximetry Oxygen Devices in Use Now: None Appearance: not in distress, confused, being redirected by daughter Eyes: No Scleral Icterus, PERRLA Ears/Nose/Mouth/Throat: Clear Oropharnyx, Mucous Membranes Moist Neck: NL Appearance and Movements; NL JVP, Trachea Midline Respiratory: Symmetrical Chest Expansion and Respiratory Effort, Clear to Auscultation, Clear to Percussion Cardiovascular: NL Sounds; No Murmurs; No JVD, No Edema Abdominal: NL Sounds; No Tenderness; No Distention, No Hepatosplenomegaly Lymphatic: No Cervical Adenopathy, No Inguinal Adenopathy Extremities: No Edema, No Clubbing, Cyanosis Skin: No Rash or Ulcers Neurological: - - alert, oriented to self. Does not recognize his daughter. Speech is clear but pt is clearly confused. No focal deficits. He is moving his EXTs spontaneously. He is not following commands. Result Diagrams: 09/03/19 20:27 09/03/19 20:27 Additional Lab and Data: Lab Results 09/03/19 09/03/19 09/03/19 Range/Units 20:27 20:27 20:27 WBC 7.4 (3.5-10.8) 10^3/uL RBC 3.84 L (4.18-5.48) 10^6 /uL Hgb 10.3 L (14.0-18.0) g/dL Hct 30 L (42-52) % MCV 78 L (80-94) fL MCH 27 (27-31) pg MCHC 34 (31-36) g/dL RDW 16 H (10-15) % Plt Count 263 (150-450) 10^3/uL MPV 6.7 L (7.4-10.4) fL Neut % (Auto) 68.2 % Lymph % (Auto) 12.0 % [place] % (Auto) 8.1 % Eos % (Auto) 11.0 % Baso % (Auto) 0.7 % Absolute Neuts (auto) 5.1 (1.5-7.7) 10^3/ul Absolute Lymphs (auto) 0.9 L (1.0-4.8) 10^3/ul Absolute Monos (auto) 0.6 (0-0.8) 10^3/ul Absolute Eos (auto) 0.8 H (0-0.6) 10^3/ul Absolute Basos (auto) 0.1 (0-0.2) 10^3/ul Absolute Nucleated RBC 0.0 10^3/ul Nucleated RBC % 0.0 Sodium 130 L (135-145) mmol/L Potassium 4.0 (3.5-5.0) mmol/L Chloride 97 L (101-111) mmol/L Carbon Dioxide 25 (22-32) mmol/L Anion Gap 8 (2-11) mmol/L BUN 24 (6-24) mg/dL Creatinine 1.58 H (0.67-1.17) mg/dL Est GFR ( Amer) 50.6 (>60) Est GFR (Non-Af Amer) 41.8 (>60) BUN/Creatinine Ratio 15.2 (8-20) Glucose 105 H (70-100) mg/dL Lactic Acid 1.1 (0.5-2.0) mmol/L Calcium 9.1 (8.6-10.3) mg/dL Total Bilirubin 0.40 (0.2-1.0) mg/dL AST 27 (13-39) U/L ALT 14 (7-52) U/L Alkaline Phosphatase 76 (34-104) U/L Troponin I Pending Total Protein 7.3 (6.4-8.9) g/dL Albumin 3.8 (3.2-5.2) g/dL Globulin 3.5 (2-4) g/dL Albumin/Globulin Ratio 1.1 (1-3) TSH Pending Assess/Plan/Problems-Billing Assessment: - Patient Problems (1) Dementia in Alzheimer's disease with delirium Current Visit: No Status: Acute Code(s): G30.9 - ALZHEIMER'S DISEASE, UNSPECIFIED; F02.80 - DEMENTIA IN OTH DISEASES CLASSD ELSWHR W/O BEHAVRL DISTURB ; F05 - DELIRIUM DUE TO KNOWN PHYSIOLOGICAL CONDITION SNOMED Code(s): 130177777413667 Comment: Pt has 2 trips to the ER for back pain, and then for fall. Now he is delirious iwth no metabolic explanation for it. Bharathi is not comfortable caring for him right now. If his back pain is causing the delirium, started standing tylenol and a heating pad Starting seroquel discontinuing some of his home medications PT/OT. Bharathi said he hadnt walked today. Right now he is just not following commands and becomes more agitated if you try to get him to do anything. Hoping the seroquel will calm him enough to be evaluated with PT (2) CKD (chronic kidney disease) stage 3, GFR 30-59 ml/min Current Visit: No Status: Acute Code(s): N18.3 - CHRONIC KIDNEY DISEASE, STAGE 3 (MODERATE) SNOMED Code(s): 634038438 Comment: creat at baseline (3) CAD (coronary artery disease) Current Visit: No Status: Chronic Priority: Low Code(s): I25.10 - ATHSCL HEART DISEASE OF [place] CORONARY ARTERY W/O ANG PCTRS SNOMED Code(s): 59880012 Comment: cont aspirin (4) DVT prophylaxis Current Visit: No Status: Chronic Priority: High Onset Date: 01/12/15 Code(s): PXX9733 - SNOMED Code(s): 734793917 Comment: heparin sc (5) GERD (gastroesophageal reflux disease) Current Visit: No Status: Chronic Priority: Low Code(s): K21.9 - GASTRO- ESOPHAGEAL REFLUX DISEASE WITHOUT ESOPHAGITIS SNOMED Code(s): 460894382 Comment: continue omeprazole (6) Hypertension Current Visit: No Status: Chronic Priority: Low Code(s): I10 - ESSENTIAL ( PRIMARY) HYPERTENSION SNOMED Code(s): 24197832 Comment: controlled (7) Rheumatoid arthritis Current Visit: No Status: Chronic Code(s): M06.9 - RHEUMATOID ARTHRITIS, UNSPECIFIED SNOMED Code(s): 68258679 Comment: not on medications at home
[2019-09-04] MEDS: Acetaminophen TAB* 325 MG PO SCH ×4 (07:51→23:21)
[2019-09-04] MEDS: Heparin VIAL(*) 5000 UNITS/ML VIAL (FIVE THOUSAND) SUBCUT SCH ×3 (07:51→23:38)
[2019-09-04] MEDS ORDERED: QUEtiapine TAB* 25 MG PO SCH (09:00)
[2019-09-04] MEDS ORDERED: Ferrous Sulfate LIQ* 300 MG/5 ML UDC PO SCH (09:00)
[2019-09-04] MEDS: Isosorbide Mononitrate ER TAB* 30 MG PO SCH (11:07)
[2019-09-04] MEDS: Senna TAB 8.6 mg* TAB PO SCH ×2 (11:08→23:20)
[2019-09-04] MEDS: Aspirin EC TAB* 81 MG TAB.EC PO SCH (11:08)
[2019-09-04] MEDS: Pantoprazole TAB * 40 MG TAB PO SCH (11:09)
[2019-09-04] MEDS: Atorvastatin* 20 MG TAB PO SCH (11:09)
[2019-09-04] MEDS ORDERED: Haloperidol INJ IV/IM* 5 MG/ML AMP IV SLOW PU PRN (13:09)
[2019-09-04] MEDS ORDERED: Ibuprofen ADULT LIQ* 600 MG/30 ML UDC PO PRN (13:09)
[2019-09-04 13:14] LABS: C Reactive Protein 44.44 mg/L (<8.01)
--- NOTE | 2019-09-04 18:19 | PN ---
Hospitalist Progress Note Date of Service: 09/04/19 Patient seen and examined at bedside, still markedly delirious and reaching for objects in the air which do not exist. Unable to have coherent conversation. Discussed with family and PCP and transitioned off of penitentiary status due to acute hallucinations. A/P: With mild hypoxia, ordered CT chest which showed possible small lobar infiltrate. Will treat with antibiotics and assess for improvement in mental status. Repeat ABG at this time. Treat with low dose steroids for pain. Change to nighttime seroquel and PRN haldol. Avoid interruptions and strong supportive care.
[2019-09-04] MEDS ORDERED: DOXYcycline IV* 100 MG in NS 0.9% 250 ML* 250 ML IVPB SCH (19:30)
[2019-09-04] MEDS: cefTRIAXone(*) 1 GM in NS 0.9% 50 ML* 50 ML IVPB SCH (20:06)
[2019-09-04] MEDS: Sertraline* 50 MG TAB PO SCH (23:20)
[2019-09-04] MEDS: QUEtiapine TAB* 25 MG PO SCH (23:20)
[2019-09-04] MEDS: DOXYcycline IV* 100 MG in NS 0.9% 250 ML* 250 ML IVPB SCH (23:25)
[2019-09-05 05:17] LABS: ABS Basophils 0.1 10^3/ul (0-0.2); ABS Eosinophils 0.8 10^3/ul (0-0.6); ABS Lymphocytes 0.9 10^3/ul (1.0-4.8); ABS Monocytes 0.5 10^3/ul (0-0.8); ABS Neutrophils 4.4 10^3/ul (1.5-7.7); Eosinophil % 11.7 %; Hematocrit 32 % (42-52); Hemoglobin 10.9 g/dL (14.0-18.0); Mean Corpuscular HGB Conc 34 g/dL (31-36); Mean Corpuscular Hemoglobin 27 pg (27-31); Mean Corpuscular Volume 79 fL (80-94); Nucleated Red Blood Cells % 0.3; Platelet Count 280 10^3/uL (150-450); Red Blood Count 4.06 10^6 /uL (4.18-5.48); Red Cell Distribution Width 16 % (10-15); White Blood Count 6.7 10^3/uL (3.5-10.8)
[2019-09-05 05:34] LABS: BUN/Creatinine Ratio 14.2 (8-20); Calcium 9.3 mg/dL (8.6-10.3); EGFR African American 61.2 (>60); EGFR Non-African American 50.5 (>60); Magnesium 2.1 mg/dL (1.9-2.7); Potassium 3.9 mmol/L (3.5-5.0)
[2019-09-05] MEDS: Heparin VIAL(*) 5000 UNITS/ML VIAL (FIVE THOUSAND) SUBCUT SCH ×3 (07:25→23:15)
[2019-09-05] MEDS: Acetaminophen TAB* 325 MG PO SCH ×3 (07:25→23:11)
[2019-09-05] MEDS: predniSONE TAB* 10 MG PO SCH (10:39)
[2019-09-05] MEDS: Aspirin EC TAB* 81 MG TAB.EC PO SCH (10:40)
[2019-09-05] MEDS: Pantoprazole TAB * 40 MG TAB PO SCH (10:40)
[2019-09-05] MEDS: DOXYcycline IV* 100 MG in NS 0.9% 250 ML* 250 ML IVPB SCH ×2 (10:40→23:20)
[2019-09-05] MEDS: Isosorbide Mononitrate ER TAB* 30 MG PO SCH (10:40)
[2019-09-05] MEDS: Senna TAB 8.6 mg* TAB PO SCH ×2 (10:40→21:24)
[2019-09-05] MEDS: Atorvastatin* 20 MG TAB PO SCH (10:41)
--- NOTE | 2019-09-05 13:27 | PN ---
Subjective Date of Service: 09/05/19 Interval History: Patient slept most of the night and is still sleeping on examination. Patient is no longer obviously hallucinating. Patient denies pain. Unable to otherwise perform ROS. Family History: Unchanged from Admission Social History: Unchanged from Admission Past Medical History: Unchanged from Admission Objective Active Medications: Acetaminophen (Tylenol Tab*) 975 mg PO Q8HR [facility] Last Admin: 09/05/19 07:25 Dose: 975 mg Albuterol (Ventolin 2.5 Mg/3 Ml Neb.Joana*) 2.5 mg INH [id number] AWAKE PRN PRN Reason: sob/wheezing Albuterol (Ventolin Hfa Inhaler*) 2 puff INH Q6H PRN PRN Reason: CONGESTION Aspirin (Aspirin Ec Tab*) 81 mg PO QAM [facility] Last Admin: 09/05/19 10:40 Dose: 81 mg Atorvastatin Calcium (Lipitor*) 20 mg PO DAILY [facility] Last Admin: 09/05/19 10:41 Dose: 20 mg Ferrous Sulfate (Feosol Liq*) 150 mg PO TuFr@0900 [facility] Last Admin: 09/04/19 11:14 Dose: 150 mg Haloperidol Lactate (Haldol Inj Iv/Im*) 2.5 mg IV SLOW PU Q12H PRN PRN Reason: AGITATION Heparin Sodium (Porcine) (Heparin Vial(*)) 5,000 units SUBCUT Q8HR [facility] Last Admin: 09/05/19 07:25 Dose: 5,000 units Ceftriaxone Sodium 1 gm/ (Sodium Chloride) 50 mls @ 100 mls/hr IVPB Q24H [facility] Last Admin: 09/04/19 20:06 Dose: 100 mls/hr Doxycycline Hyclate 100 mg/ (Sodium Chloride) 250 mls @ 250 mls/hr IVPB Q12H [facility] Last Admin: 09/05/19 10:40 Dose: 250 mls/hr Ibuprofen (Motrin Liq Adult*) 600 mg PO Q6H PRN PRN Reason: MILD PAIN or TEMP > 100.4 Last Admin: 09/04/19 17:36 Dose: 600 mg Isosorbide Mononitrate (Imdur Er Tab*) 15 mg PO DAILY [facility] Last Admin: 09/05/19 10:40 Dose: 15 mg Nitroglycerin (Nitroglycerin Tab 0.4 Mg*) 0.4 mg SL Q5M PRN PRN Reason: PAIN - CHEST Pantoprazole Sodium (Protonix Tab*) 40 mg PO DAILY [facility] Last Admin: 09/05/19 10:40 Dose: 40 mg Prednisone (Deltasone Tab*) 10 mg PO DAILY [facility] Last Admin: 09/05/19 10:39 Dose: 10 mg Quetiapine Fumarate (Seroquel Tab*) 25 mg PO BEDTIME [facility] Last Admin: 09/04/19 23:20 Dose: Not Given Senna (Senokot 8.6 Mg Tab*) 1 tab PO BID [facility] Last Admin: 09/05/19 10:40 Dose: 1 tab Sertraline HCl (Zoloft*) 50 mg PO BEDTIME [facility] Last Admin: 09/04/19 23:20 Dose: Not Given Vital Signs - 8 hr 09/05/19 09/05/19 07:39 10:53 Temperature 98.3 F 97.9 F Pulse Rate 72 78 Respiratory 18 18 Rate Blood Pressure 180/93 153/76 (mmHg) O2 Sat by Pulse 99 95 Oximetry Oxygen Devices in Use Now: None Appearance: Patient is an 84yo male who appears stated age and is sitting in the bed in [facility]. Eyes: No Scleral Icterus, PERRLA Ears/Nose/Mouth/Throat: NL Teeth, Lips, Gums, Clear Oropharnyx, Mucous Membranes Moist Neck: NL Appearance and Movements; NL JVP, Trachea Midline Respiratory: Symmetrical Chest Expansion and Respiratory Effort, - - Slight rales in RLL Cardiovascular: NL Sounds; No Murmurs; No JVD Abdominal: NL Sounds; No Tenderness; No Distention, No Hepatosplenomegaly Lymphatic: No Cervical Adenopathy Extremities: No Edema, No Clubbing, Cyanosis Skin: No Rash or Ulcers, No Nodules or Sclerosis Neurological: - - Sleeping, difficult to arouse. Oriented to self on awakening. 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 - Patient Problems (1) Community acquired pneumonia Current Visit: No Status: Acute Code(s): J18.9 - PNEUMONIA, UNSPECIFIED ORGANISM SNOMED Code(s): 806567595 Comment: - Evidence on CT chest. Also mildly hypoxic intermittently - Treat with antibiotics for CAP and assess for improvement. 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 - Now he is delirious, possibly due to combination of possible pneumonia, lack of sleep, pain, and frequent changes in surroundings. - Nighttime seroquel, supportive care - Avoid delirium inducing medications - PT when able to meaningfully participate. - Very low suspicion for DRY PAN FEEDER infection or inflammation. No indication for LP (3) CAD (coronary artery disease) Current Visit: No Status: Chronic Priority: Low Code(s): I25.10 - ATHSCL HEART DISEASE OF [place] CORONARY ARTERY W/O ANG PCTRS SNOMED Code(s): 75794725 Comment: - Continue aspirin and statin. (4) Hypertension Current Visit: No Status: Chronic Priority: Low Code(s): I10 - ESSENTIAL ( PRIMARY) HYPERTENSION SNOMED Code(s): 45408198 Comment: - Labile, continue Imdur. (5) Rheumatoid arthritis Current Visit: No Status: Chronic Code(s): M06.9 - RHEUMATOID ARTHRITIS, UNSPECIFIED SNOMED Code(s): 09396397 Comment: - With increased CRP. Check ESR. - Start low dose prednisone in case ths is contributing to pain. (6) DVT prophylaxis Current Visit: No Status: Chronic Priority: High Onset Date: 01/12/15 Code(s): JRZ5960 - SNOMED Code(s): 925305224 Comment: - HSQ Status and Disposition: Inpatient, to [place] or [facility] when able.
[2019-09-05 14:42] LABS: Erythrocyte Sed Rate 74 mm/Hr (0-19)
[2019-09-05] MEDS: cefTRIAXone(*) 1 GM in NS 0.9% 50 ML* 50 ML IVPB SCH (18:15)
[2019-09-05] MEDS: QUEtiapine TAB* 25 MG PO SCH ×2 (21:24→23:09)
[2019-09-05] MEDS: Sertraline* 50 MG TAB PO SCH (23:10)
[2019-09-06] MEDS: Acetaminophen TAB* 325 MG PO SCH ×3 (05:24→21:49)
[2019-09-06] MEDS: Heparin VIAL(*) 5000 UNITS/ML VIAL (FIVE THOUSAND) SUBCUT SCH ×3 (05:28→21:49)
[2019-09-06 05:58] LABS: ABS Eosinophils 0.3 10^3/ul (0-0.6); ABS Monocytes 0.6 10^3/ul (0-0.8); ABS Neutrophils 5.1 10^3/ul (1.5-7.7); Eosinophil % 4.5 %; Hematocrit 31 % (42-52); Hemoglobin 10.7 g/dL (14.0-18.0); Mean Corpuscular HGB Conc 34 g/dL (31-36); Mean Corpuscular Hemoglobin 27 pg (27-31); Mean Corpuscular Volume 78 fL (80-94); Mean Platelet Volume 6.6 fL (7.4-10.4); Platelet Count 305 10^3/uL (150-450); Red Blood Count 4.04 10^6 /uL (4.18-5.48); Red Cell Distribution Width 16 % (10-15)
[2019-09-06 06:17] LABS: BUN/Creatinine Ratio 14.3 (8-20); C Reactive Protein 91.18 mg/L (<8.01); Calcium 9.2 mg/dL (8.6-10.3); EGFR Non-African American 45.4 (>60); Magnesium 2.1 mg/dL (1.9-2.7); Potassium 3.8 mmol/L (3.5-5.0)
[2019-09-06] MEDS: Senna TAB 8.6 mg* TAB PO SCH ×2 (09:08→20:07)
[2019-09-06] MEDS: Isosorbide Mononitrate ER TAB* 30 MG PO SCH (09:08)
[2019-09-06] MEDS: Atorvastatin* 20 MG TAB PO SCH (09:08)
[2019-09-06] MEDS: predniSONE TAB* 10 MG PO SCH (09:08)
[2019-09-06] MEDS: Aspirin EC TAB* 81 MG TAB.EC PO SCH (09:08)
[2019-09-06] MEDS: Pantoprazole TAB * 40 MG TAB PO SCH (09:08)
[2019-09-06] MEDS: DOXYcycline IV* 100 MG in NS 0.9% 250 ML* 250 ML IVPB SCH ×2 (10:19→21:59)
--- NOTE | 2019-09-06 11:57 | PN ---
Subjective Date of Service: 09/06/19 Interval History: Patient is acting better today. Patient denies pain, changes in his vision. Patient still makes numerous non-sensical statements and was reported to have evidence of hallucinations again overnight. Patient denies F/C, N/V, abdominal pain, dysuria, or other pain. Family History: Unchanged from Admission Social History: Unchanged from Admission Past Medical History: Unchanged from Admission Objective Active Medications: Acetaminophen (Tylenol Tab*) 975 mg PO Q8HR [facility] Last Admin: 09/06/19 05:24 Dose: 975 mg Albuterol (Ventolin 2.5 Mg/3 Ml Neb.Joana*) 2.5 mg INH [id number] AWAKE PRN PRN Reason: sob/wheezing Albuterol (Ventolin Hfa Inhaler*) 2 puff INH Q6H PRN PRN Reason: CONGESTION Aspirin (Aspirin Ec Tab*) 81 mg PO QAM [facility] Last Admin: 09/06/19 09:08 Dose: 81 mg Atorvastatin Calcium (Lipitor*) 20 mg PO DAILY [facility] Last Admin: 09/06/19 09:08 Dose: 20 mg Ferrous Sulfate (Feosol Liq*) 150 mg PO TuFr@0900 [facility] Last Admin: 09/04/19 11:14 Dose: 150 mg Haloperidol Lactate (Haldol Inj Iv/Im*) 2.5 mg IV SLOW PU Q12H PRN PRN Reason: AGITATION Heparin Sodium (Porcine) (Heparin Vial(*)) 5,000 units SUBCUT Q8HR [facility] Last Admin: 09/06/19 05:28 Dose: 5,000 units Ceftriaxone Sodium 1 gm/ (Sodium Chloride) 50 mls @ 100 mls/hr IVPB Q24H [facility] Last Admin: 09/05/19 18:15 Dose: 100 mls/hr Doxycycline Hyclate 100 mg/ (Sodium Chloride) 250 mls @ 250 mls/hr IVPB Q12H [facility] Last Admin: 09/06/19 10:19 Dose: 250 mls/hr Ibuprofen (Motrin Liq Adult*) 600 mg PO Q6H PRN PRN Reason: MILD PAIN or TEMP > 100.4 Last Admin: 09/04/19 17:36 Dose: 600 mg Isosorbide Mononitrate (Imdur Er Tab*) 15 mg PO DAILY [facility] Last Admin: 09/06/19 09:08 Dose: 15 mg Nitroglycerin (Nitroglycerin Tab 0.4 Mg*) 0.4 mg SL Q5M PRN PRN Reason: PAIN - CHEST Pantoprazole Sodium (Protonix Tab*) 40 mg PO DAILY [facility] Last Admin: 09/06/19 09:08 Dose: 40 mg Prednisone (Deltasone Tab*) 10 mg PO DAILY [facility] Last Admin: 09/06/19 09:08 Dose: 10 mg Quetiapine Fumarate (Seroquel Tab*) 25 mg PO BEDTIME [facility] Last Admin: 09/05/19 23:09 Dose: 25 mg Senna (Senokot 8.6 Mg Tab*) 1 tab PO BID [facility] Last Admin: 09/06/19 09:08 Dose: 1 tab Sertraline HCl (Zoloft*) 50 mg PO BEDTIME [facility] Last Admin: 09/05/19 23:10 Dose: 50 mg Vital Signs - 8 hr 09/06/19 09/06/19 08:00 09:32 Temperature 98.4 F Pulse Rate 82 Respiratory 16 16 Rate Blood Pressure 128/70 (mmHg) O2 Sat by Pulse 98 Oximetry Oxygen Devices in Use Now: None Appearance: Patient is an 84yo male who appears stated age and is sitting in the bed in [facility]. Eyes: No Scleral Icterus, PERRLA Ears/Nose/Mouth/Throat: NL Teeth, Lips, Gums, Clear Oropharnyx, Mucous Membranes Moist, - - No temporal or masseter tenderness. Neck: NL Appearance and Movements; NL JVP, Trachea Midline Respiratory: Symmetrical Chest Expansion and Respiratory Effort, Clear to Auscultation Cardiovascular: NL Sounds; No Murmurs; No JVD, RRR, No Edema Abdominal: NL Sounds; No Tenderness; No Distention, No Hepatosplenomegaly Lymphatic: No Cervical Adenopathy Extremities: No Edema, No Clubbing, Cyanosis Skin: No Rash or Ulcers, No Nodules or Sclerosis Neurological: - - Alert, oriented to self, able to stand. Confused with frequent non-sensical statements. 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 - Patient Problems (1) Community acquired pneumonia Current Visit: No Status: Acute Code(s): J18.9 - PNEUMONIA, UNSPECIFIED ORGANISM SNOMED Code(s): 515981996 Comment: - Evidence on CT chest. Also mildly hypoxic intermittently - Treat with antibiotics for CAP - Improving (2) Dementia in Alzheimer's disease with delirium Current Visit: No Status: Acute Code(s): G30.9 - ALZHEIMER'S DISEASE, UNSPECIFIED; F02.80 - DEMENTIA IN OTH DISEASES CLASSD ELSWHR W/O BEHAVRL DISTURB ; F05 - DELIRIUM DUE TO KNOWN PHYSIOLOGICAL CONDITION SNOMED Code(s): 269747201700579 Comment: - With contributing TBI - Patient has 3 trips to the ER for back pain, and then for fall. - Now he is delirious, possibly due to combination of possible pneumonia, lack of sleep, pain, and frequent changes in surroundings. - Nighttime seroquel, supportive care - Avoid delirium inducing medications - PT when able to meaningfully participate. - Very low suspicion for CHARGE AUDITOR infection or inflammation. No indication for LP - Improving (3) CAD (coronary artery disease) Current Visit: No Status: Chronic Priority: Low Code(s): I25.10 - ATHSCL HEART DISEASE OF [place] CORONARY ARTERY W/O ANG PCTRS SNOMED Code(s): 60717971 Comment: - Continue aspirin and statin. (4) Hypertension Current Visit: No Status: Chronic Priority: Low Code(s): I10 - ESSENTIAL ( PRIMARY) HYPERTENSION SNOMED Code(s): 06603351 Comment: - Labile, continue Imdur. (5) Rheumatoid arthritis Current Visit: No Status: Chronic Code(s): M06.9 - RHEUMATOID ARTHRITIS, UNSPECIFIED SNOMED Code(s): 18096236 Comment: - With increased CRP and ESR which are still improving - Start low dose prednisone in case ths is contributing to pain. - Check CCP and RF to assess for disease activity. (6) Temporal arteritis Current Visit: No Status: Inactive Code(s): M31.6 - OTHER GIANT CELL ARTERITIS SNOMED Code(s): 499689242 Comment: - History of 10yrs ago. - No signs of recurrence except for elevated inflammatory markers. (7) DVT prophylaxis Current Visit: No Status: Chronic Priority: High Onset Date: 01/12/15 Code(s): [id number] - SNOMED Code(s): 762037898 Comment: - HSQ Status and Disposition: Inpatient, to [place] or [facility] when able.
[2019-09-06] MEDS: cefTRIAXone(*) 1 GM in NS 0.9% 50 ML* 50 ML IVPB SCH (17:10)
[2019-09-06] MEDS: QUEtiapine TAB* 25 MG PO SCH (20:07)
[2019-09-06] MEDS: Sertraline* 50 MG TAB PO SCH (20:07)
[2019-09-07] MEDS: Acetaminophen TAB* 325 MG PO SCH ×3 (06:10→21:43)
[2019-09-07] MEDS: Heparin VIAL(*) 5000 UNITS/ML VIAL (FIVE THOUSAND) SUBCUT SCH ×3 (06:10→21:43)
[2019-09-07 07:20] LABS: BUN/Creatinine Ratio 14.6 (8-20); C Reactive Protein 51.53 mg/L (<8.01); Calcium 9.5 mg/dL (8.6-10.3); EGFR African American 59.6 (>60); EGFR Non-African American 49.3 (>60); Magnesium 2.1 mg/dL (1.9-2.7); Potassium 3.7 mmol/L (3.5-5.0)
[2019-09-07] MEDS: Isosorbide Mononitrate ER TAB* 30 MG PO SCH (10:28)
[2019-09-07] MEDS: predniSONE TAB* 10 MG PO SCH (10:28)
[2019-09-07] MEDS: Aspirin EC TAB* 81 MG TAB.EC PO SCH (10:29)
[2019-09-07] MEDS: Atorvastatin* 20 MG TAB PO SCH (10:29)
[2019-09-07] MEDS: Pantoprazole TAB * 40 MG TAB PO SCH (10:29)
[2019-09-07] MEDS: Senna TAB 8.6 mg* TAB PO SCH ×2 (10:29→20:03)
[2019-09-07] MEDS: DOXYcycline IV* 100 MG in NS 0.9% 250 ML* 250 ML IVPB SCH (11:00)
--- NOTE | 2019-09-07 14:37 | PN ---
Subjective Date of Service: 09/07/19 Interval History: Patient is much more alert today. Patient states he has pain in his B/L great toes. Patient is unable to further characterize this pain. Patient denies F/C, N /V abdominal pain, back pain, F/C, cough, SOB, or other pain. Family History: Unchanged from Admission Social History: Unchanged from Admission Past Medical History: Unchanged from Admission Objective Active Medications: Acetaminophen (Tylenol Tab*) 975 mg PO Q8HR [facility] Last Admin: 09/07/19 13:41 Dose: 975 mg Albuterol (Ventolin 2.5 Mg/3 Ml Neb.Joana*) 2.5 mg INH [id number] AWAKE PRN PRN Reason: sob/wheezing Albuterol (Ventolin Hfa Inhaler*) 2 puff INH Q6H PRN PRN Reason: CONGESTION Aspirin (Aspirin Ec Tab*) 81 mg PO QAM [facility] Last Admin: 09/07/19 10:29 Dose: 81 mg Atorvastatin Calcium (Lipitor*) 20 mg PO DAILY [facility] Last Admin: 09/07/19 10:29 Dose: 20 mg Ferrous Sulfate (Feosol Liq*) 150 mg PO TuFr@0900 [facility] Last Admin: 09/04/19 11:14 Dose: 150 mg Heparin Sodium (Porcine) (Heparin Vial(*)) 5,000 units SUBCUT Q8HR [facility] Last Admin: 09/07/19 13:42 Dose: 5,000 units Ceftriaxone Sodium 1 gm/ (Sodium Chloride) 50 mls @ 100 mls/hr IVPB Q24H [facility] Last Admin: 09/06/19 17:10 Dose: 100 mls/hr Doxycycline Hyclate 100 mg/ (Sodium Chloride) 250 mls @ 250 mls/hr IVPB Q12H [facility] Last Admin: 09/07/19 11:00 Dose: 250 mls/hr Ibuprofen (Motrin Liq Adult*) 600 mg PO Q6H PRN PRN Reason: MILD PAIN or TEMP > 100.4 Last Admin: 09/04/19 17:36 Dose: 600 mg Isosorbide Mononitrate (Imdur Er Tab*) 15 mg PO DAILY [facility] Last Admin: 09/07/19 10:28 Dose: 15 mg Nitroglycerin (Nitroglycerin Tab 0.4 Mg*) 0.4 mg SL Q5M PRN PRN Reason: PAIN - CHEST Pantoprazole Sodium (Protonix Tab*) 40 mg PO DAILY [facility] Last Admin: 09/07/19 10:29 Dose: 40 mg Prednisone (Deltasone Tab*) 10 mg PO DAILY [facility] Last Admin: 09/07/19 10:28 Dose: 10 mg Quetiapine Fumarate (Seroquel Tab*) 25 mg PO BEDTIME [facility] Last Admin: 09/06/19 20:07 Dose: 25 mg Senna (Senokot 8.6 Mg Tab*) 1 tab PO BID [facility] Last Admin: 09/07/19 10:29 Dose: 1 tab Sertraline HCl (Zoloft*) 50 mg PO BEDTIME [facility] Last Admin: 09/06/19 20:07 Dose: 50 mg Vital Signs - 8 hr 09/07/19 09/07/19 08:00 11:16 Temperature 97.2 F 97.4 F Pulse Rate 64 78 Respiratory 18 20 Rate Blood Pressure 146/83 164/52 (mmHg) O2 Sat by Pulse 100 98 Oximetry Oxygen Devices in Use Now: None Appearance: Patient is an 84yo male who appears stated age and is sitting in the bed in [facility]. Eyes: No Scleral Icterus, PERRLA Ears/Nose/Mouth/Throat: NL Teeth, Lips, Gums, Clear Oropharnyx, Mucous Membranes Moist Neck: NL Appearance and Movements; NL JVP, Trachea Midline Respiratory: Symmetrical Chest Expansion and Respiratory Effort, Clear to Auscultation Cardiovascular: NL Sounds; No Murmurs; No JVD, RRR, No Edema Abdominal: NL Sounds; No Tenderness; No Distention, No Hepatosplenomegaly Lymphatic: No Cervical Adenopathy Extremities: No Edema, No Clubbing, Cyanosis Skin: No Rash or Ulcers, No Nodules or Sclerosis Neurological: - - CN II-XII intact. No other focal deficits, alert and oriented to self and place. 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 - Patient Problems (1) Community acquired pneumonia Current Visit: No Status: Acute Code(s): J18.9 - PNEUMONIA, UNSPECIFIED ORGANISM SNOMED Code(s): 927003574 Comment: - Evidence on CT chest. Also mildly hypoxic intermittently - Treat with antibiotics for CAP - Improving - Hypoxia resolved. 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 - Now he is delirious, possibly due to combination of possible pneumonia, lack of sleep, pain, and frequent changes in surroundings. - Nighttime seroquel, supportive care - Avoid delirium inducing medications - PT/ot - Very low suspicion for TELEPHONE PLANT POWER OPERATOR infection or inflammation. No indication for LP - Improving, nearing baseline, reassess for ability to return to [facility] in AM or if STR will be needed (3) CAD (coronary artery disease) Current Visit: No Status: Chronic Priority: Low Code(s): I25.10 - ATHSCL HEART DISEASE OF [place] CORONARY ARTERY W/O ANG PCTRS SNOMED Code(s): 93429677 Comment: - Continue aspirin and statin. (4) Hypertension Current Visit: No Status: Chronic Priority: Low Code(s): I10 - ESSENTIAL ( PRIMARY) HYPERTENSION SNOMED Code(s): 71716042 Comment: - Labile, continue Imdur. (5) Rheumatoid arthritis Current Visit: No Status: Chronic Code(s): M06.9 - RHEUMATOID ARTHRITIS, UNSPECIFIED SNOMED Code(s): 16100194 Comment: - With increased CRP and ESR - Start low dose prednisone in case ths is contributing to pain. - Check CCP - RF WNL - CRP now peaked and trending down, likely due to acute inflammation. (6) Temporal arteritis Current Visit: No Status: Inactive Code(s): M31.6 - OTHER GIANT CELL ARTERITIS SNOMED Code(s): 551152026 Comment: - History of 10yrs ago. - No signs of recurrence except for elevated inflammatory markers. - No need for higher dose prednisone therapy at this time. (7) DVT prophylaxis Current Visit: No Status: Chronic Priority: High Onset Date: 01/12/15 Code(s): WWT7870 - SNOMED Code(s): 792766292 Comment: - HSQ Status and Disposition: Inpatient, to [place] or [facility] when able. Evaluation by Ginny in AM.
[2019-09-07] MEDS: cefTRIAXone(*) 1 GM in NS 0.9% 50 ML* 50 ML IVPB SCH (18:33)
[2019-09-07] MEDS: QUEtiapine TAB* 25 MG PO SCH (20:03)
[2019-09-07] MEDS: Sertraline* 50 MG TAB PO SCH (20:04)
[2019-09-07] MEDS: DOXYcycline CAP(*) 100 MG PO SCH (20:04)
[2019-09-08] MEDS: Heparin VIAL(*) 5000 UNITS/ML VIAL (FIVE THOUSAND) SUBCUT SCH ×3 (05:55→21:02)
[2019-09-08] MEDS: Acetaminophen TAB* 325 MG PO SCH ×3 (05:56→20:59)
[2019-09-08 06:57] LABS: ABS Basophils 0.1 10^3/ul (0-0.2); ABS Eosinophils 0.2 10^3/ul (0-0.6); ABS Lymphocytes 1.1 10^3/ul (1.0-4.8); ABS Monocytes 0.6 10^3/ul (0-0.8); Eosinophil % 2.3 %; Hematocrit 32 % (42-52); Hemoglobin 10.9 g/dL (14.0-18.0); Lymphocyte % 15.6 %; Mean Corpuscular HGB Conc 34 g/dL (31-36); Mean Corpuscular Hemoglobin 27 pg (27-31); Mean Corpuscular Volume 78 fL (80-94); Mean Platelet Volume 6.7 fL (7.4-10.4); Platelet Count 309 10^3/uL (150-450); Red Blood Count 4.11 10^6 /uL (4.18-5.48); Red Cell Distribution Width 16 % (10-15); White Blood Count 6.8 10^3/uL (3.5-10.8)
[2019-09-08 07:13] LABS: BUN/Creatinine Ratio 16.7 (8-20); C Reactive Protein 27.37 mg/L (<8.01); Calcium 9.5 mg/dL (8.6-10.3); EGFR African American 62.2 (>60); EGFR Non-African American 51.4 (>60); Magnesium 1.9 mg/dL (1.9-2.7); Potassium 3.8 mmol/L (3.5-5.0)
[2019-09-08] MEDS: Atorvastatin* 20 MG TAB PO SCH (07:51)
[2019-09-08] MEDS: Pantoprazole TAB * 40 MG TAB PO SCH (07:51)
[2019-09-08] MEDS: Isosorbide Mononitrate ER TAB* 30 MG PO SCH (07:51)
[2019-09-08] MEDS: Aspirin EC TAB* 81 MG TAB.EC PO SCH (07:51)
[2019-09-08] MEDS: Senna TAB 8.6 mg* TAB PO SCH ×2 (07:51→20:58)
[2019-09-08] MEDS: DOXYcycline CAP(*) 100 MG PO SCH ×2 (07:51→20:59)
[2019-09-08] MEDS: predniSONE TAB* 10 MG PO SCH (07:51)
--- NOTE | 2019-09-08 08:51 | PN ---
Subjective Date of Service: 09/08/19 Interval History: Pt is feeling well today. He denies pain. When he talks to me he does not make much sense. Intermittently he can clearly make his needs known. Family History: Unchanged from Admission Social History: Unchanged from Admission Past Medical History: Unchanged from Admission Objective Active Medications: Acetaminophen (Tylenol Tab*) 975 mg PO Q8HR [facility] Last Admin: 09/08/19 05:56 Dose: 975 mg Albuterol (Ventolin 2.5 Mg/3 Ml Neb.Joana*) 2.5 mg INH [id number] AWAKE PRN PRN Reason: sob/wheezing Albuterol (Ventolin Hfa Inhaler*) 2 puff INH Q6H PRN PRN Reason: CONGESTION Aspirin (Aspirin Ec Tab*) 81 mg PO QAM [facility] Last Admin: 09/08/19 07:51 Dose: 81 mg Atorvastatin Calcium (Lipitor*) 20 mg PO DAILY [facility] Last Admin: 09/08/19 07:51 Dose: 20 mg Doxycycline Hyclate (Vibramycin Cap(*)) 100 mg PO BID [facility] Last Admin: 09/08/19 07:51 Dose: 100 mg Heparin Sodium (Porcine) (Heparin Vial(*)) 5,000 units SUBCUT Q8HR [facility] Last Admin: 09/08/19 05:55 Dose: 5,000 units Ceftriaxone Sodium 1 gm/ (Sodium Chloride) 50 mls @ 100 mls/hr IVPB Q24H [facility] Last Admin: 09/07/19 18:33 Dose: 100 mls/hr Ibuprofen (Motrin Liq Adult*) 600 mg PO Q6H PRN PRN Reason: MILD PAIN or TEMP > 100.4 Last Admin: 09/04/19 17:36 Dose: 600 mg Isosorbide Mononitrate (Imdur Er Tab*) 15 mg PO DAILY [facility] Last Admin: 09/08/19 07:51 Dose: 15 mg Nitroglycerin (Nitroglycerin Tab 0.4 Mg*) 0.4 mg SL Q5M PRN PRN Reason: PAIN - CHEST Pantoprazole Sodium (Protonix Tab*) 40 mg PO DAILY [facility] Last Admin: 09/08/19 07:51 Dose: 40 mg Prednisone (Deltasone Tab*) 10 mg PO DAILY [facility] Last Admin: 09/08/19 07:51 Dose: 10 mg Quetiapine Fumarate (Seroquel Tab*) 25 mg PO BEDTIME [facility] Last Admin: 09/07/19 20:03 Dose: 25 mg Senna (Senokot 8.6 Mg Tab*) 1 tab PO BID [facility] Last Admin: 09/08/19 07:51 Dose: 1 tab Sertraline HCl (Zoloft*) 50 mg PO BEDTIME [facility] Last Admin: 09/07/19 20:04 Dose: 50 mg Vital Signs - 8 hr 09/08/19 09/08/19 04:00 08:00 Temperature 97.2 F 98.1 F Pulse Rate 59 68 Respiratory 18 18 Rate Blood Pressure 163/68 164/85 (mmHg) O2 Sat by Pulse 96 94 Oximetry Oxygen Devices in Use Now: None Appearance: Eldelry male sitting up in bed, fiddling with the blanket, NAD Eyes: No Scleral Icterus Ears/Nose/Mouth/Throat: Mucous Membranes Moist Respiratory: Symmetrical Chest Expansion and Respiratory Effort, Clear to Auscultation Cardiovascular: NL Sounds; No Murmurs; No JVD, RRR, No Edema Abdominal: NL Sounds; No Tenderness; No Distention Extremities: No Clubbing, Cyanosis Skin: No Nodules or Sclerosis Neurological: - - alert, pleasantly confused Result Diagrams: 09/08/19 06:42 09/08/19 06:42 Additional Lab and Data: Lab Results 09/03/19 09/03/19 09/03/19 Range/Units 20:27 20:27 20:27 WBC 7.4 (3.5-10.8) 10^3/uL RBC 3.84 L (4.18-5.48) 10^6 /uL Hgb 10.3 L (14.0-18.0) g/dL Hct 30 L (42-52) % MCV 78 L (80-94) fL MCH 27 (27-31) pg MCHC 34 (31-36) g/dL RDW 16 H (10-15) % Plt Count 263 (150-450) 10^3/uL MPV 6.7 L (7.4-10.4) fL Neut % (Auto) 68.2 % Lymph % (Auto) 12.0 % [place] % (Auto) 8.1 % Eos % (Auto) 11.0 % Baso % (Auto) 0.7 % Absolute Neuts (auto) 5.1 (1.5-7.7) 10^3/ul Absolute Lymphs (auto) 0.9 L (1.0-4.8) 10^3/ul Absolute Monos (auto) 0.6 (0-0.8) 10^3/ul Absolute Eos (auto) 0.8 H (0-0.6) 10^3/ul Absolute Basos (auto) 0.1 (0-0.2) 10^3/ul Absolute Nucleated RBC 0.0 10^3/ul Nucleated RBC % 0.0 Sodium 130 L (135-145) mmol/L Potassium 4.0 (3.5-5.0) mmol/L Chloride 97 L (101-111) mmol/L Carbon Dioxide 25 (22-32) mmol/L Anion Gap 8 (2-11) mmol/L BUN 24 (6-24) mg/dL Creatinine 1.58 H (0.67-1.17) mg/dL Est GFR ( Amer) 50.6 (>60) Est GFR (Non-Af Amer) 41.8 (>60) BUN/Creatinine Ratio 15.2 (8-20) Glucose 105 H (70-100) mg/dL Lactic Acid 1.1 (0.5-2.0) mmol/L Calcium 9.1 (8.6-10.3) mg/dL Total Bilirubin 0.40 (0.2-1.0) mg/dL AST 27 (13-39) U/L ALT 14 (7-52) U/L Alkaline Phosphatase 76 (34-104) U/L Troponin I Pending Total Protein 7.3 (6.4-8.9) g/dL Albumin 3.8 (3.2-5.2) g/dL Globulin 3.5 (2-4) g/dL Albumin/Globulin Ratio 1.1 (1-3) TSH Pending Microbiology and Other Data: Microbiology 09/04/19 08:10 Nasal Screen MRSA (PCR) - Final Nasal Mrsa Not Detected Assess/Plan/Problems-Billing Mr Larose is an 84yo male with 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 - Patient Problems (1) Pneumonia Current Visit: Yes Status: Acute Code(s): J18.9 - PNEUMONIA, UNSPECIFIED ORGANISM SNOMED Code(s): 839299898 Comment: Pt clinically has been improving. He is more alert. His CRP has decreased. Will continue treatment for a full 7 day course. He is being evaluated to go back to [facility]. If he leaves today will change to vantin and doxy. (2) Dementia in Alzheimer's disease with delirium Current Visit: Yes Status: Acute Code(s): G30.9 - ALZHEIMER'S DISEASE, UNSPECIFIED; F02.80 - DEMENTIA IN OTH DISEASES CLASSD ELSWHR W/O BEHAVRL DISTURB ; F05 - DELIRIUM DUE TO KNOWN PHYSIOLOGICAL CONDITION SNOMED Code(s): 774553813039327 Comment: Unclear what patient's baseline. Will ask [facility] to comment on how close he is to his baseline. Will likely be able to be d/hammad today if [facility] will take him back. Continue seroquel at bedtime. (3) CKD (chronic kidney disease) stage 3, GFR 30-59 ml/min Current Visit: Yes Status: Acute Code(s): N18.3 - CHRONIC KIDNEY DISEASE, STAGE 3 (MODERATE) SNOMED Code(s): 628991892 Comment: Creatinine is stable and at baseline. (4) Hypertension Current Visit: Yes Status: Chronic Code(s): I10 - ESSENTIAL (PRIMARY) HYPERTENSION SNOMED Code(s): 55653064 Comment: BP has been moderately elevated. Will continue imdur and add low dose amlodipine for improved control. (5) CAD (coronary artery disease) Current Visit: Yes Status: Chronic Code(s): I25.10 - ATHSCL HEART DISEASE OF [place] CORONARY ARTERY W/O ANG PCTRS SNOMED Code(s): 52925986 Comment: No c/o chest pain. Troponin on admission mildly elevated. Likely secondary to demand ischemia from hypoxia. Continue aspirin, lipitor and imdur. (6) GERD (gastroesophageal reflux disease) Current Visit: Yes Status: Chronic Code(s): K21.9 - GASTRO-ESOPHAGEAL REFLUX DISEASE WITHOUT ESOPHAGITIS SNOMED Code(s): 984139237 Comment: Continue protonix. (7) Rheumatoid arthritis Current Visit: Yes Status: Chronic Code(s): M06.9 - RHEUMATOID ARTHRITIS, UNSPECIFIED SNOMED Code(s): 15652062 Comment: Prednisone started on 09/05/19. Will cut dose to 5mg for 3 days and then stop. (8) DVT prophylaxis Current Visit: Yes Status: Chronic Onset Date: 01/12/15 Code(s): GBK9063 - SNOMED Code(s): 633121104 Comment: SQ heparin (9) Full code status Current Visit: Yes Status: Acute Code(s): Z78.9 - OTHER SPECIFIED HEALTH STATUS SNOMED Code(s): 420471792 Status and Disposition: Inpatient, to [facility] or [facility] when able. Evaluation by [facility] in AM.
[2019-09-08] MEDS ORDERED: amLODIPine TAB* 5 MG PO SCH (09:00)
[2019-09-08] MEDS: cefTRIAXone(*) 1 GM in NS 0.9% 50 ML* 50 ML IVPB SCH (18:14)
[2019-09-08] MEDS: Sertraline* 50 MG TAB PO SCH (20:58)
[2019-09-08] MEDS: QUEtiapine TAB* 25 MG PO SCH (20:58)
[2019-09-09] MEDS: amLODIPine TAB* 5 MG PO SCH ×2 (01:09→10:31)
[2019-09-09] MEDS: Heparin VIAL(*) 5000 UNITS/ML VIAL (FIVE THOUSAND) SUBCUT SCH ×3 (05:01→15:29)
[2019-09-09] MEDS: Acetaminophen TAB* 325 MG PO SCH ×3 (05:02→15:28)
[2019-09-09] MEDS ORDERED: predniSONE TAB* 5 MG PO SCH (09:00)
[2019-09-09] MEDS: Aspirin EC TAB* 81 MG TAB.EC PO SCH (10:30)
[2019-09-09] MEDS: DOXYcycline CAP(*) 100 MG PO SCH (10:30)
[2019-09-09] MEDS: Isosorbide Mononitrate ER TAB* 30 MG PO SCH (10:30)
[2019-09-09] MEDS: Pantoprazole TAB * 40 MG TAB PO SCH (10:31)
[2019-09-09] MEDS: Senna TAB 8.6 mg* TAB PO SCH (10:31)
[2019-09-09] MEDS: Atorvastatin* 20 MG TAB PO SCH (10:31)
[2019-09-09 10:47] VITALS: BP 187/80
--- NOTE | 2019-09-09 12:51 | DS ---
CC: Shruthi Harry MD * DISCHARGE SUMMARY: DATE OF ADMISSION: 09/04/19 DATE OF DISCHARGE: 09/09/19 PRIMARY CARE PHYSICIAN: Shruthi Harry MD ATTENDING PHYSICIAN: Segun Jackson MD * (dictated by ELISE Gonzales) PRIMARY DIAGNOSES: 1. Pneumonia. 2. Delirium. SECONDARY DIAGNOSES: 1. Coronary artery disease. 2. Iron deficiency anemia. 3. Gastroesophageal reflux disease. 4. Dementia. 5. Hyperlipidemia. STUDIES WHILE IN THE HOSPITAL: 1. Chest x-ray, impression: No acute process by radiograph. 2. CT brain without, impression: No traumatic intracranial abnormalities, age - related atrophy and mild chronic small vessel ischemic disease. Paranasal sinusitis. 3. CT chest without, impression: Mild bibasilar hypoventilatory changes and atelectasis without definite pneumonia or other acute pulmonary abnormalities. Additional chronic, degenerative and iatrogenic findings described in the body of the report. DISCHARGE MEDICATIONS: Home medications: 1. Albuterol HFA inhaler 2 puff inhalation q.6 hours p.r.n. 2. Aspirin 81 mg p.o. daily. 3. Atorvastatin 20 mg p.o. daily. 4. Dextromethorphan 10 mL p.o. t.i.d. p.r.n. cough. 5. Ferrous sulfate 134 mg p.o. Saturday and Saturday. 6. Fexofenadine 180 mg p.o. daily p.r.n. allergy symptoms. 7. Isosorbide mononitrate ER 15 mg p.o. daily. 8. Lutein 20 mg p.o. daily. 9. Meclizine 25 mg p.o. t.i.d. p.r.n. vertigo. 10. Multivitamins/minerals 1 tab p.o. daily. 11. Nitroglycerin 0.4 mg sublingual q.5 minutes p.r.n. angina. 12. Pantoprazole 40 mg p.o. daily. 13. Sertraline 50 mg p.o. at bedtime. 14. PreserVision AREDS 2 one tab p.o. daily. Roberta Medications: 1. Acetaminophen 975 mg p.o. q.8 hours scheduled. 2. Amlodipine 2.5 mg p.o. daily 3. Cefpodoxime 200 mg p.o. q.12 hours x 11 doses. 4. Doxycycline 100 mg p.o. b.i.d. x8 doses. 5. Prednisone 5 mg p.o. daily x3 days, then discontinue. 6. Quetiapine 25 mg p.o. at bedtime. 7. Senna tab 1 tab p.o. b.i.d. p.r.n. constipation. HISTORY OF PRESENT ILLNESS/HOSPITAL COURSE: Mr. Larose is an 84-year-old male with a past medical history of coronary artery disease, hyperlipidemia, and dementia, who presented to the ER today due to delirium. The patient resides at [place] and was brought in by his daughter. It is important to note that approximately 1 week ago the patient presented with back pain. CT of C, T and L - spine revealed osteoarthritis. Days later, he fell and returned to the ER. A CT of the head was within normal limits. He then presented on 09/04/19 with delirium. His daughter reports hallucinations, screaming in pain, trying to eat furniture. There was concern that his back pain may be causing his delirium. Standing Tylenol and heating pad had been ordered. The patient was started on Seroquel with good results. The patient was afebrile without leukocytosis. A urinalysis was within normal limits. Chest x-ray was without acute abnormality. The patient was noted to have an elevated CRP and ESR. He was also noted to be intermittently hypoxic. He was started on ceftriaxone and doxycycline. A CT of the chest showed bibasilar hypoventilatory changes and atelectasis. This was presumed to be pneumonia. The patient was again started on ceftriaxone and doxycycline. Throughout his stay, he improved with pneumonia treatment and Seroquel. The patient was noted to have continued pain in the back. He was started on low dose of prednisone due to concerns for RA in the setting of elevated CRP and ESR. Rheumatoid factor and CCP were ordered and were within normal limits. At this time, there is low suspicion for RA. The patient will be continued on standing Tylenol and he will be tapered off prednisone. Over the next 3 days, his CRP has trended down. It is recommended that this level be rechecked in approximately 1 week with followup if this is still elevated. Upon admission, the patient was noted to have a TSH that was elevated to 7.46. His home dose of levothyroxine 25 mg was discontinued throughout his hospital stay. He will remain off this medication at discharge with recommendations to repeat TSH in 3 to 4 weeks to assess the need to restart this medication. The patient was evaluated by [facility] prior to discharge and was deemed not to be a candidate for return. Recommendations were made for subacute rehab. The patient's daughter was agreeable with this. The patient will be discharged to [facility] for subacute rehab. Mr. Larose is stable for discharge to [facility]. PHYSICAL EXAMINATION: General: Mr. Larose is a well-developed, well-nourished , average weight, elderly white male who is lying in bed sleeping. He is snoring loudly. He wakes easily, but goes back to sleep. He responds to questioning, but with mildly slurred speech and mumbling, which is reportedly his baseline. Vital Signs: Temperature 97.5 temporal, heart rate 68, respiratory rate 16, oxygen saturation 98% on room air, blood pressure 150/76. HEENT: PERRL. Extraocular movements appear to be intact, although the patient is unable to follow instructions. Sclerae is nonicteric. Mildly hard of hearing. Oral mucous membranes are mildly dry. The pharynx appears to be clear. There are no lesions. Cardiovascular: Regular rate and rhythm with S1, S2 present without murmurs, rubs, clicks, or gallops. There is no JVD or peripheral edema. Pulmonary: Symmetrical chest expansion without use of accessory muscles. Clear to auscultation bilaterally anteriorly without rhonchi , wheeze, or rales. Abdomen: Flat. Bowel sounds in all quadrants. Soft, nontender to palpation. Musculoskeletal: Bilateral lower extremities with full passive range of motion. Mild discomfort with left hip flexion. Spine tender at lumbar area. Bilateral hips nontender to palpation. Neuro: The patient is asleep when I enter, but wakes easily falling back to sleep shortly thereafter. He is presently confused and oriented to self only. Mr. Larose is stable for discharge to [facility]. CONDITION: Fair. DIET: Heart healthy. ACTIVITY: As tolerated. MEDICATIONS: 1. Amlodipine 2.5 mg p.o. daily 2. Continue Seroquel at bedtime. 3. Continue prednisone 5 mg p.o. daily x3 days. 4. Continue doxycycline and Vantin. EDUCATION: 1. Repeat CRP in 7 to 10 days. 2. Repeat TSH in 3 to 4 weeks to assess need to restart levothyroxine. 2. Follow up with [facility] within 1 week. This is a summarized report for complex medical history and hospital stay. For further details, please see the entire medical record. TIME SPENT: Approximately 35 minutes were spent on this discharge; greater than half that time was spent [id number] with the patient discussing discharge plans and instructions as well as discussing this information with the patient's daughter. ELISE L[address] [id number]/CPS #: [id number] BROCK
== END 2019-09-09 15:40 | DRG 194 ==
LOC: ED 20:01 → ICU 09-04 04:40 → MED 09-04 18:48 → OBSVTOIN 09-05 14:00
PROVIDERS: ADMIT Student in an Organized Health Care Education/Training Program; ATTEND Internal Medicine
DX: J18.9 Pneumonia, unspecified organism (principal); F02.81 Dementia in other diseases classified elsewhere, unspecified severity, with behavioral disturbance; F05 Delirium due to known physiological condition; G30.9 Alzheimer's disease, unspecified; I25.10 Atherosclerotic heart disease of native coronary artery without angina pectoris; E78.00 Pure hypercholesterolemia, unspecified; J30.2 Other seasonal allergic rhinitis; K21.9 Gastro-esophageal reflux disease without esophagitis; K59.09 Other constipation; M19.90 Unspecified osteoarthritis, unspecified site; M06.9 Rheumatoid arthritis, unspecified; M48.00 Spinal stenosis, site unspecified; H91.93 Unspecified hearing loss, bilateral; F32.9 Major depressive disorder, single episode, unspecified; N18.3 Chronic kidney disease, stage 3 (moderate); I12.9 Hypertensive chronic kidney disease with stage 1 through stage 4 chronic kidney disease, or unspecified chronic kidney disease; R09.02 Hypoxemia; M31.6 Other giant cell arteritis; D50.9 Iron deficiency anemia, unspecified; N40.0 Benign prostatic hyperplasia without lower urinary tract symptoms; Z85.46 Personal history of malignant neoplasm of prostate; Z88.8 Allergy status to other drugs, medicaments and biological substances; Z88.5 Allergy status to narcotic agent; Z95.5 Presence of coronary angioplasty implant and graft; Z97.4 Presence of external hearing-aid; I25.2 Old myocardial infarction; Z79.82 Long term (current) use of aspirin; Z79.899 Other long term (current) drug therapy
CPT/HCPCS: 36415; 36600; 70450; 71045; 71250; 80048; 80053; 80307; 81003; 82140; 82803; 83605; 83735; 84443; 84484; 84550; 85025; 85610; 85652; 86140; 86200; 86431; 87641; 93005; 99283; A9270-GY; G0378; G8978-GP-CK; G8978-GP-CM; G8979-GP-CI; G8980-GP-CI; J0696; J1644; J7512

== ENCOUNTER 2019-12-28 03:56 | Inpatient (IN) | payer MEDICARE, BC ==
[2019-12-28] MEDS ORDERED: NS 0.9% 1000 ML** 1,000 ML IV ONE ×2 (03:58→14:36)
[2019-12-28] MEDS ORDERED: Ondansetron INJ* 2 MG/ML VIAL IV ONE (03:58)
[2019-12-28] MEDS ORDERED: fentaNYL* 50 MCG/ML 2 ML VIAL (100 MCG VIAL) IV SLOW PU ONE (03:58)
--- NOTE | 2019-12-28 04:01 | ED ---
Headache - HPI Summary HPI Summary: Patient is an 84 y/o M arriving via ambulance to [facility] with a chief complaint of persistent NIÑO with nausea and vomiting since yesterday. He was here yesterday afternoon for a NIÑO and increased confusion. He had a negative workup complete with labs, Abd/Pel CT, and Brain CT. After being discharge home last night, the occipital NIÑO, nausea, and vomiting has continued. He endorses photophobia. Pain is rated 6/10 in severity. PMHx: angina, CAD, HLD, PR, GERD, BPH, prostate cancer, dementia, temporal arteritis. Former smoker, no EtOH, no substance use. Medications reviewed. Allergies noted. - History Of Current Complaint Stated Complaint: HEADACHE PER EMS Hx Obtained From: Patient Onset/Duration: Started hours ago, Still Present Initially Headache Was: Moderate Currently Pain Is: Current Pain Scale(0-10)= - 6 Timing: Constant Character: Sharp Location of Headache: Occipital Aggravating Factor: Bright Lights Allevating Factors: Nothing Associated Signs And Symptoms: Nausea, Vomiting - Allergies/Home Medications Allergies/Adverse Reactions: Allergies Allergy/AdvReac Type Severity Reaction Status Date / Time budesonide Allergy Unknown Verified 09/03/19 20:15 [From Rhinocort Allergy] Reaction Details cetirizine [From Zyrtec] Allergy Unknown Verified 09/03/19 20:15 Reaction Details cortisone Allergy Anxiety Verified 09/03/19 20:15 morphine Allergy Nausea And Verified 09/03/19 20:15 Vomiting oxycodone Allergy Difficulty Verified 09/03/19 20:15 Breathing quetiapine [From Seroquel] Allergy Fatigue Verified 01/05/20 16:16 simvastatin [From Zocor] Allergy Unknown Verified 09/03/19 20:15 Reaction Details ticagrelor [From Brilinta] Allergy Unknown Verified 09/03/19 20:15 Reaction Details triamcinolone Allergy Unknown Verified 09/03/19 20:15 Reaction Details Home Medications: Home Medications Aspirin EC TAB* [Ecotrin EC Low Dose 81 MG*] 81 mg PO QAM 04/09/18 [History Confirmed 12/28/19] Atorvastatin* [Lipitor 20 MG*] 20 mg PO DAILY 04/09/18 [History Confirmed ] Fexofenadine (NF) [Didi 180 (NF)] 180 mg PO DAILY PRN 04/09/18 [History Confirmed 12/28/19] Multivitamins/Minerals TAB* [Theragran/minerals TAB*] 1 tab PO DAILY 04/09/18 [ History Confirmed 12/28/19] Nitroglycerin TAB 0.4 MG* 0.4 mg SL Q5M PRN 04/09/18 [History Confirmed 12/28/19 ] Pantoprazole TAB * [Protonix TAB*] 40 mg PO DAILY 04/09/18 [History Confirmed ] Isosorbide Mononitrate ER TAB* [Imdur ER TAB*] 15 mg PO DAILY 02/09/19 [History Confirmed 12/28/19] Meclizine TAB* [Antivert 12.5 TAB*] 25 mg PO TID PRN #30 tab 06/28/19 [Rx Confirmed 12/28/19] Albuterol HFA INHALER* [Ventolin HFA Inhaler*] 2 puff INH Q6H PRN 09/01/19 [ History Confirmed 12/28/19] Dextromethorphan HBr [Robitussin Pediatric Cough] 10 ml PO TID PRN 09/01/19 [ History Confirmed 12/28/19] Ferrous Sulfate TAB* 134 mg PO TUFR 09/01/19 [History Confirmed 12/28/19] Lutein 20 mg PO DAILY 09/01/19 [History Confirmed 12/28/19] Sertraline* [Zoloft*] 50 mg PO BEDTIME 09/01/19 [History Confirmed 12/28/19] Vit C/E/Zn/Coppr/Lutein/Zeaxan [Preservision Areds 2 Softgel] 1 each PO DAILY [History Confirmed 12/28/19] Acetaminophen TAB* [Tylenol TAB*] 975 mg PO Q8HR #90 tab 09/09/19 [Rx Confirmed 12/28/19] QUEtiapine TAB* [Seroquel 25 MG TAB*] 25 mg PO BEDTIME #30 tab 09/09/19 [Rx Confirmed 12/28/19] Senna TAB 8.6 mg* [Senokot 8.6 mg TAB*] 1 tab PO BID PRN #60 tab 09/09/19 [Rx Confirmed 12/28/19] Amlodipine 2.5 mg TAB (NF) 2.5 mg PO DAILY 12/28/19 [History Confirmed 12/28/19] predniSONE [Prednisone 5 MG TAB] 5 mg PO DAILY 12/30/19 [History Confirmed 12/29] PMH/Surg Hx/FS Hx/Imm Hx Endocrine/Hematology History: Denies: Hx Anticoagulant Therapy, Hx Diabetes, Hx Thyroid Disease Cardiovascular History: Reports: Hx Angina, Hx Angioplasty, Hx Coronary Artery Disease - Stents, Hx Hypercholesterolemia, Hx Myocardial Infarction, Other Cardiovascular Problems/Disorders - PCI 12/2014 Denies: Hx Auto Implanted Cardiovert Defib, Hx Hypertension, Hx Pacemaker/ICD , Hx Valvular Heart Disease Respiratory History: Reports: Hx Seasonal Allergies - severe hayfever Denies: Hx Asthma, Hx Chronic Obstructive Pulmonary Disease (COPD) GI History: Reports: Hx Gastroesophageal Reflux Disease, Hx Hiatal Hernia, Hx Jaundice - GB out 2012, Other GI Disorders - Constipation-chronic Denies: Hx Cirrhosis, Hx Crohn's Disease, Hx Diverticulosis, Hx Gall Bladder Disease, Hx Gastrointestinal Bleed, Hx Irritable Bowel, Hx Ileostomy, Hx Pyloric Stenosis, Hx Ulcer Comment Only: Hx Obstructive Bowel - loop surgical repair 09/16/ History: Reports: Hx Benign Prostatic Hyperplasia, Hx Kidney Stones, Other Problems/Disorders - Prostate CA, S/P TURP Denies: Hx Dialysis, Hx Renal Disease Musculoskeletal History: Reports: Hx Arthritis - RA, Other Musculoskeletal History - Spinal stenosis Denies: Hx Osteoporosis Sensory History: Reports: Hx Cataracts, Hx Contacts or Glasses, Hx Hearing Aid - bilateral, Hx Hearing Problem Denies: Hx Eye Injury, Hx Eye Prosthesis, Hx Glaucoma, Hx Legally Blind, Hx Macular Degeneration Opthamlomology History: Reports: Hx Cataracts, Hx Contacts or Glasses Denies: Hx Eye Injury, Hx Eye Prosthesis, Hx Glaucoma, Hx Legally Blind, Hx Macular Degeneration Neurological History: Reports: Hx Dementia, Other Neuro Impairments/Disorders - temporal arteritis Denies: Hx Headaches, Hx Migraine, Hx Nerve Disease, Hx Seizures Psychiatric History: Reports: Hx Depression Denies: Hx Anxiety, Hx Panic Disorder, Hx Substance Abuse - Cancer History Cancer Type, Location and Year: PROSTATE Hx Chemotherapy: No Hx Radiation Therapy: No - Surgical History Surgical History: Yes Surgery Procedure, Year, and Place: RIGHT KNEE 1982. LEFT SHOULDER. ANGIOPLASTY 1986. PROSTATE SCRAPE. COLON RESECTION. HEART CATH- STENT PLACED - PROMUS [facility] DRUG-ELUTING STENT PER [facility] OP REPORT- SAFE UP TO 3T; SPATIAL GRADIENT FIELD OF 720 GAUSS/CM OR LESS. GALLBLADDER REMOVAL. hip replacment- ok per dr. uriarte since pt had surgery 3 days ago. temporal vein stripping Hx Anesthesia Reactions: No - Immunization History Date of Tetanus Vaccine: Unk Date of Influenza Vaccine: Fall 2011 Infectious Disease History: Reports: Hx Shingles - March 2018 Denies: Hx Hepatitis, Hx Human Immunodeficiency Virus (HIV), Hx of Known/ Suspected MRSA, Hx Tuberculosis - Family History Known Family History: Positive: Cardiac Disease Negative: Blood Disorder - Social History Alcohol Use: None Hx Substance Use: No Substance Use Type: Reports: None Hx Tobacco Use: Yes Smoking Status (MU): Former Smoker Type: Cigarettes Length of Time of Smoking/Using Tobacco: Pt unsure,states many, many years ago,? 1959's quit,smoked about 5 years Have You Smoked in the Last Year: No Review of Systems Positive: Photophobia Positive: Vomiting, Nausea Positive: Headache All Other Systems Reviewed And Are Negative: Yes Physical Exam - Summary Physical Exam Summary: Appearance: Well-appearing, Well-nourished, Elderly man lying in the stretcher, no acute distress, holding his head Skin: Warm, dry, no obvious rash Eyes: sclera anicteric, no conjunctival pallor HENT: mucous membranes moist, pharynx appears normal Neck: Supple, nontender Respiratory: Clear to auscultation, no signs of respiratory distress Cardiovascular: Normal S1, S2. No murmurs. Normal distal pulses in tibial and radial bilaterally. Abdomen: Soft, nontender, normal active bowel sounds present Musculoskeletal: Normal, Strength/ROM Intact Neurological: A&Ox3, awake and alert, mentation is normal, speech is fluent and appropriate, no obvious restrictions in ROM of neck although it is difficult to get him to cooperative with normal meningeal testing Psychiatric: affect is normal, does not appear anxious or depressed Triage Information Reviewed: Yes Vital Signs Reviewed: Yes Procedures - Procedure Summary Procedure Summary: Lumbar Puncture: Patient received Fentanyl. Local anesthetic Lidocaine 1% applied. Attempt to obtain fluid without success. - Sedation Patient Received Moderate/Deep Sedation with Procedure: No Diagnostics - Laboratory Result Diagrams: 01/03/20 12:15 01/03/20 12:15 Lab Statement: Any lab studies that have been ordered have been reviewed, and results considered in the medical decision making process. Headache Course/Dx - Course Course Of Treatment: Patient is an 84 y/o M returning to the ED this morning with continued occipital NIÑO, nausea, and vomiting since yesterday with essentially negative workup including labs, Abd/Pel CT, and Brain CT. PMHx: dementia, temporal arteritis, CAD, HLD, PR, GERD, BPH, prostate cancer. Patient is an elderly man lying in the stretcher in no acute distress although he is holding his head. There are no obvious restrictions in ROM of neck although it is difficult to get him to cooperative with normal meningeal testing. IV access obtained. Patient received fluids. LP attempted without success in obtaining fluid. Dr. Pinto from the hospitalist services accepts the patient for admission. - Diagnoses Provider Diagnoses: Intractable vomiting, Headache - Physician Notifications Discussed Care Of Patient With: Jackie Pinto - hospitalist Time Discussed With Above Provider: 05:20 Instructed by Provider To: Other - I discussed the patients case with Dr. Pinto , who accepts the patient for admission. Discharge ED - Sign-Out/Discharge Documenting (check all that apply): Patient Departure - Patient accepted for admission by Dr. Pinto. - Discharge Plan Condition: Stable Disposition: ADMITTED TO [facility] - Billing Disposition and Condition Condition: STABLE Disposition: Admitted to [facility] - Attestation Statements Document Initiated by Salma: Yes Documenting Scribe: Kirsten Monge Provider For Whom Salma is Documenting (Include Credential): Tobi Sepulveda MD Scribni Attestation: Kirsten Barrientos, scribed for Tobi Sepulveda MD on 01/06/20 at 0117. Scribe Documentation Reviewed: Yes Provider Attestation: The documentation as recorded by the Kirsten price accurately reflects the service I personally performed and the decisions made by me, Tobi Sepulveda MD Status of Scribe Document: Viewed
[2019-12-28] MEDS ORDERED: Lidocaine 2% 10 ML* VIAL INJ ONE (04:28)
[2019-12-28] MEDS ORDERED: Lidocaine 1% MPF ** 5 ML VIAL ONE ×2 (04:39)
[2019-12-28] MEDS ORDERED: NS 0.9% 1000 ML** 1,000 ML IV SCH (05:30)
[2019-12-28] MEDS: Enoxaparin(*) 30 MG/0.3 ML SYR SUBCUT SCH (06:21)
[2019-12-28] MEDS: Acetaminophen TAB* 325 MG PO SCH ×3 (06:22→18:08)
[2019-12-28] MEDS ORDERED: Albuterol 2.5 MG/3 ML NEB.SOL* (0.083%) INH PRN (07:00)
--- NOTE | 2019-12-28 08:37 | HP ---
HISTORY AND PHYSICAL: DATE OF ADMISSION: 12/28/19 PRIMARY CARE PROVIDER: Shruthi Harry MD HYDROGEOLOGY PROFESSOR: Annetta Larose, the patient's daughter. CODE STATUS: DNR. SOURCE OF INFORMATION: HPI is obtained from review of medical records, EMS report, as the patient is unable to be reviewed secondary to his underlying dementia and has no accompanied family member. CHIEF COMPLAINT: Headache, nausea, vomiting, abdominal pain. HISTORY OF PRESENT ILLNESS: This is an 84-year-old male with past medical history of dementia with b ehavioral disturbance, oriented to self at baseline; rheumatoid arthritis, no longer on active treatm ent; CAD status post distant PCI; history of prostate cancer; GERD; CKD, stage 3; hypertension, who i s presenting for the second time today to the ER with complaint of headache, abdominal pain, and 2 ep isodes of nausea and vomiting in the last 1 day. He reports from his assisted living facility, which is [facility]. Apparently, the patient had been complaining of abdominal pain, off and on, for the l ast 3 to 4 days per Ginny's report and thus earlier in the afternoon on 12/27/19, after one witne ssed episode of emesis, the patient was sent to the emergency room. On arrival in the emergency room , the patient no longer complained of abdominal pain, but instead complained of headache. He received a workup in the emergency room on 12/27/19 that showed largely unremarkable labs. Also, had a CT ab domen and pelvis that showed no acute pathology and a CT head that showed no acute intracranial patho logy aside from some mild sinusitis. He was treated symptomatically for a presumed 1 time episode of emesis in the setting of mild headache with no associated fever or other upper respiratory symptoms and was discharged back to [facility] on 12/27/19 p.m. He re- presented to the emergency room only se veral hours later after returning back to [facility] and again having an episode of nausea and clear e mesis. On my interview with the patient, he is very hard of hearing and oriented to himself at [facility] and reports he has minor headache and left lower quadrant abdominal pain, though on repeated inte rview, he cannot corroborate or specify these complaints on repeat exams. Overall, he is unable to a nswer any questions meaningfully and follows commands only intermittently on my interview with him. Unfortunately, [facility] is not available for me to speak to this early in the morning. EMERGENCY ROOM COURSE: Temperature is 97.3, heart rate 70, respiratory rate 15, he is 99% on room ai r, blood pressure is 154/76. Labs again reviewed from 12/27/19, which showed mild stable normocytic anemia and a creatinine of 1.6 with a baseline around 1.4. LFTs are normal and no elevated white blo od cell count. Imaging is mentioned above as prior. Dr. Sepulveda on this admission attempted lumbar p uncture and was unsuccessful. The hospitalist team was asked to admit the patient as Ginny anaya could not care for him with 2 episodes of emesis in 1 day and the fact that he had presented to [facility] ER twice in 1 day. At this time, we will admit for observation for worsening altered mental statu s and to rule out any other occult infection. PAST MEDICAL HISTORY: Dementia with behavioral disturbance; RA; CAD status post PCI; history of pros sandy cancer; GERD; CKD, stage 3; hypertension; chronic low back pain; depression; and iron deficiency anemia. PAST SURGICAL HISTORY: Status post cholecystectomy, status post right THR, status post TURP, status post right TKR, and history of colon resection. MEDICATIONS: 1. Amlodipine 2.5 mg p.o. daily. 2. Albuterol inhaler 2 puffs inhaled q.6 hours p.r.n. 3. Acetaminophen 975 mg p.o. q.8 hours p.r.n. 4. Aspirin 81 mg p.o. daily. 5. Atorvastatin 20 mg p.o. daily. 6. Ferrous sulfate 134 mg every other day. 7. Didi 180 mg p.o. daily p.r.n. 8. Isosorbide mononitrate 15 mg p.o. daily. 9. Lutein eye vitamins 20 mg p.o. daily. 10. Meclizine 25 mg p.o. t.i.d. p.r.n. 11. Multivitamin 1 tab p.o. daily. 12. Nitroglycerin 0.4 mg sublingual q.5 minutes p.r.n. 13. Pantoprazole 40 mg p.o. daily. 14. Quetiapine 25 mg p.o. q.h.s. 15. Senna 8.6 mg 1 tab p.o. b.i.d. 16. Sertraline 50 mg p.o. q.h.s. ALLERGIES: BUDESONIDE, CETIRIZINE, CORTISONE, MORPHINE, OXYCODONE, SIMVASTATIN, TICAGRELOR, TRIAMCIN OLONE. FAMILY HISTORY: Positive for heart disease in father. SOCIAL HISTORY: Resides at [facility]. No alcohol use. Distant history of brief tobacco 5 pack year history. No illicits. Former employee at [employer]. REVIEW OF SYSTEMS: Unable to be obtained secondary to the condition of the patient. PHYSICAL EXAMINATION GENERAL APPEARANCE: This is an elderly man, in no acute distress, confused, lying in the hospital be d, very hard of hearing with [address], he is alert, oriented to himself. VITAL SIGNS: At the time of physical exam, blood pressure is 150/80, temperature is 97, heart rate 6 0, respiratory rate 16, oxygen saturation is 99% on room air. HEENT: Pupils are equal and reactive. Extraocular muscles are intact. Sclerae are anicteric. Muco us membranes are moist. NECK: Supple with no Brudzinski's or other meningeal signs. No supraclavicular or cervical lymphade nopathy. No thyromegaly. RESPIRATORY: Lungs are clear to auscultation bilaterally. CARDIAC: The patient has regular rate and rhythm with no murmurs, rubs, or gallops. ABDOMEN: Belly is soft, nondistended. Mild tenderness to palpation in right lower quadrant. Umbili florentin hernia is noted, soft and reducible. No rebound. No guarding. MUSCULOSKELETAL: He moves all 4 limbs spontaneously. EXTREMITIES: He has 1+ nonpitting edema, but otherwise warm and well perfused. NEURO: Cranial nerves appeared to be intact and he has no gross focal deficits. PSYCH: The patient is incredibly hard of hearing. Intermittently, follows commands. Confused and o riented to self at baseline. SKIN: Without rashes or lesions. DIAGNOSTIC STUDIES/LAB DATA: Labs and studies from 12/27/19, white blood cell count 6.2, hemoglobin 11.8, hematocrit 35, platelets 205. Sodium 135, potassium 4.4, chloride 102, carbon dioxide 27, ani on gap 6, BUN 23, creatinine 1.6, glucose 128. AST 19, ALT 15, alk phos 56. CRP is 2.21. TSH 2.6. Imaging done on 12/27/[address], which showed evidence of maxillary sinusitis, but no othe r acute intracranial pathology aside from chronic degenerative changes and abdomen and pelvis CT, [facility] showed umbilical hernia with no other acute bowel pathology. LP was attempted by emergency room victorina ramos and ultimately unsuccessful. ASSESSMENT AND PLAN: An 84-year-old male with past medical history of dementia with behavioral distu rbance at baseline; rheumatoid arthritis, not on active treatment; CAD status post PCI; history of pr ostate cancer; GERD; CKD, stage 3; and hypertension, who is presenting for the second time today to [facility] emergency room with nonspecific somatic complaints of headache, nausea, vomiting, and abdominal pa in. He is nontoxic appearing on my exam aside from mild tenderness to palpation in the right lower q uadrant. If possible, the complaint of his headache is secondary to mild sinusitis as seen on CT sca n and has difficulty communicating this. He is warranting observation admission to ensure the patien t remains afebrile and that there are no other clear signs of infection that are leading to his episo olinda of nausea, vomiting, and increased confusion. The patient does not have meningeal signs, unlikel y to have meningitis. The patient has no evidence of small bowel obstruction or other acute GI patho logy to account for his episodes of emesis. He will be admitted to observation with hospital course by problem as follows: 1. Headache with associated nausea and vomiting. We will treat supportively with gentle IV fluids f or a total of 1 L, Zofran as needed. We will also initiate decongestion and nasal steroids for possi ble sinus headaches. 2. Abdominal pain, right lower quadrant pain on exam with a negative CT scan. We will initiate nate l regimen to ensure the patient is not suffering from constipation. 3. Coronary artery disease. We will continue the patient's home aspirin and atorvastatin. 4. Hypertension. Amlodipine 2.5 and Imdur will be continued. 5. Gastroesophageal reflux disease. We will continue the patient's PPI. 6. Dementia. We will continue the patient's home Seroquel and sertraline. 7. Iron deficiency anemia. We will hold iron for now given abdominal pain. 8. Rheumatoid arthritis. There is no evidence of active disease and CRP is low. 9. Chronic kidney disease. The patient appears to be at baseline. We will gentle fluid hydration a nd continue to monitor. 10. DVT prophylaxis: The patient is at high risk and placed on Lovenox. 11. Diet: Heart healthy. 12. Ambulation status: PT is ordered. 13. Disposition: The patient is stable for admission to [address] [place] [address] for observation and anticipate if t here is no revealing concerning findings for nausea, vomiting and the patient is able to tolerate t, then he can be discharged back to assisted living facility within the next 24 to 48 hours. 14. Code status: DNR per last MOLST form from [facility]. TIME SPENT: Sixty minutes was spent on the planning of this admission with over half of that spent d irectly at the bedside with the patient and coordinating care. Plan of care shared with the patient who has no objections to admission. [id number]/[facility] #: [id number]
[2019-12-28] MEDS: Docusate CAP* 100 MG PO SCH ×2 (09:19→20:03)
[2019-12-28] MEDS: Aspirin EC TAB* 81 MG TAB.EC PO SCH (09:19)
[2019-12-28] MEDS: Pantoprazole TAB * 40 MG TAB PO SCH (09:19)
[2019-12-28] MEDS: Isosorbide Mononitrate ER TAB* 30 MG PO SCH (09:19)
[2019-12-28] MEDS: Atorvastatin* 20 MG TAB PO SCH (09:19)
[2019-12-28] MEDS: LORATADINE 10 MG PO SCH (09:20)
[2019-12-28] MEDS: Fluticasone NASAL SPRAY 50MCG* 16 gm SPRAY BTL BOTH NARES SCH (09:20)
[2019-12-28] MEDS: Senna TAB 8.6 mg* TAB PO SCH ×2 (09:20→20:04)
[2019-12-28] MEDS: amLODIPine TAB* 5 MG PO SCH (09:20)
--- NOTE | 2019-12-28 14:35 | PN ---
Subjective Date of Service: 12/28/19 Interval History: HOSPITALIST PROGRESS NOTE Patient seen and examined at bedside. Case reviewed and d/w Kala Deleon RN. CAT was called for patient with nausea and lightheadedness. As per RN, patient was less responsive and BP was 80/50. FS 135. He did have small amount of vomiting after lunch with some epigastric discomfort. Family History: Unchanged from Admission Social History: Unchanged from Admission Past Medical History: Unchanged from Admission Objective Active Medications: Acetaminophen (Tylenol Tab*) 650 mg PO Q6H [facility] Stop: 12/29/19 00:01 Last Admin: 12/28/19 12:40 Dose: 650 mg Albuterol (Ventolin 2.5 Mg/3 Ml Neb.Joana*) 2.5 mg INH Q6H PRN PRN Reason: CONGESTION Amlodipine Besylate (Norvasc Tab*) 2.5 mg PO DAILY [facility] Last Admin: 12/28/19 09:20 Dose: 2.5 mg Aspirin (Aspirin Ec Tab*) 81 mg PO QAM [facility] Last Admin: 12/28/19 09:19 Dose: 81 mg Atorvastatin Calcium (Lipitor*) 20 mg PO DAILY [facility] Last Admin: 12/28/19 09:19 Dose: 20 mg Docusate Sodium (Colace Cap*) 100 mg PO BID [facility] Last Admin: 12/28/19 09:19 Dose: 100 mg Enoxaparin Sodium (Lovenox(*)) 30 mg SUBCUT Q24H [facility] Last Admin: 12/28/19 06:21 Dose: 30 mg Fluticasone Propionate (Flonase Nasal [place] 50mcg*) 2 spray BOTH NARES DAILY [facility] Last Admin: 12/28/19 09:20 Dose: 2 spray Sodium Chloride (Ns 0.9% 1000 Ml) 1,000 mls @ 100 mls/hr IV PER RATE [facility] Stop: 12/28/19 15:29 Last Admin: 12/28/19 09:28 Dose: 100 mls/hr Isosorbide Mononitrate (Imdur Er Tab*) 15 mg PO DAILY [facility] Last Admin: 12/28/19 09:19 Dose: 15 mg Loratadine (Claritin Tab(Nf)) 5 mg PO DAILY [facility] Last Admin: 12/28/19 09:20 Dose: 5 mg Ondansetron HCl (Zofran Inj*) 4 mg IV Q6H PRN PRN Reason: NAUSEA Pantoprazole Sodium (Protonix Tab*) 40 mg PO DAILY [facility] Last Admin: 12/28/19 09:19 Dose: 40 mg Quetiapine Fumarate (Seroquel Tab*) 25 mg PO BEDTIME [facility] Senna (Senokot 8.6 Mg Tab*) 1 tab PO BID [facility] Last Admin: 12/28/19 09:20 Dose: 1 tab Sertraline HCl (Zoloft*) 50 mg PO BEDTIME [facility] Vital Signs - 8 hr 12/28/19 12/28/19 06:48 07:03 Temperature 97.2 F 97.2 F Pulse Rate 93 68 Respiratory 17 17 Rate Blood Pressure 132/83 132/83 (mmHg) O2 Sat by Pulse 98 97 Oximetry Oxygen Devices in Use Now: Nasal Cannula Appearance: Elderly gentleman sitting up in a recliner in NAD Eyes: No Scleral Icterus Ears/Nose/Mouth/Throat: Mucous Membranes Moist Neck: Trachea Midline Respiratory: Symmetrical Chest Expansion and Respiratory Effort, Clear to Auscultation Cardiovascular: RRR - Normal S1 and S2 Neurological: - - Lethargic, very LUMMI, arousable to voice Assess/Plan/Problems-Billing Assessment: - Patient Problems (1) Near syncope Comment: - Suspect vaso vagal in the setting of nausea and vomiting. - Increase IVF. - Continue symptomatic treatment. - Check EKG and CxR.
[2019-12-28] MEDS: PROCHLORPERAZINE INJ 5 MG/ML 2 ML VIAL IV PRN (15:15)
[2019-12-28 15:23] LABS: ABS Basophils 0.1 10^3/ul (0-0.2); ABS Eosinophils 0.3 10^3/ul (0-0.6); ABS Lymphocytes 0.7 10^3/ul (1.0-4.8); ABS Monocytes 0.5 10^3/ul (0-0.8); ABS Neutrophils 4.2 10^3/ul (1.5-7.7); Eosinophil % 5.1 %; Hematocrit 33 % (42-52); Hemoglobin 11.1 g/dL (14.0-18.0); Lymphocyte % 11.7 %; Mean Corpuscular HGB Conc 34 g/dL (31-36); Mean Corpuscular Hemoglobin 28 pg (27-31); Mean Corpuscular Volume 83 fL (80-94); Mean Platelet Volume 6.6 fL (7.4-10.4); Platelet Count 183 10^3/uL (150-450); Red Blood Count 3.94 10^6 /uL (4.18-5.48); Red Cell Distribution Width 16 % (10-15); White Blood Count 5.8 10^3/uL (3.5-10.8)
[2019-12-28 15:46] LABS: Troponin I 0.03 ng/mL (<0.03)
[2019-12-28 16:04] LABS: ALT 13 U/L (7-52); AST 17 U/L (13-39); Albumin 3.4 g/dL (3.2-5.2); Albumin/Globulin Ratio 1.3 (1-3); Alkaline Phosphatase 57 U/L (34-104); Anion Gap 6 mmol/L (2-11); Blood Urea Nitrogen 23 mg/dL (6-24); CO2 Carbon Dioxide 25 mmol/L (22-32); Calcium 8.4 mg/dL (8.6-10.3); Chloride 107 mmol/L (101-111); EGFR African American 52.5 (>60); EGFR Non-African American 43.4 (>60); Globulin 2.7 g/dL (2-4); Glucose 107 mg/dL (70-100); Potassium 3.9 mmol/L (3.5-5.0); Sodium 138 mmol/L (135-145); Total Protein 6.1 g/dL (6.4-8.9)
--- NOTE | 2019-12-28 16:20 | PN ---
Hospitalist Progress Note Date of Service: 12/28/19 HOSPITALIST ADDENDUM Reevaluated at bedside. More awake, denies nausea. Vital signs 12/28/19 14:41 Temperature 98.7 F Pulse Rate 55 Respiratory 18 Rate Blood Pressure 120/68 (mmHg) O2 Sat by Pulse 98 Oximetry Laboratory Tests 12/28/19 12/28/19 15:17 15:17 WBC 5.8 Hgb 11.1 L Hct 33 L Plt Count 183 Sodium 138 Potassium 3.9 Chloride 107 Carbon Dioxide 25 Anion Gap 6 BUN 23 Creatinine 1.53 H Glucose 107 H Troponin I 0.03 H* Will d/c IVF for now and continue to monitor.
[2019-12-28] MEDS ORDERED: traMADol TAB* 50 MG PO PRN (18:18)
[2019-12-28 18:28] LABS: Troponin I 0.03 ng/mL (<0.03)
[2019-12-28] MEDS: Ondansetron INJ* 2 MG/ML VIAL IV PRN (20:02)
[2019-12-28] MEDS: Sertraline* 50 MG TAB PO SCH (20:03)
[2019-12-28] MEDS: QUEtiapine TAB* 25 MG PO SCH (20:04)
[2019-12-28 21:21] LABS: Troponin I 0.03 ng/mL (<0.03)
[2019-12-29] MEDS: Acetaminophen TAB* 325 MG PO SCH (00:54)
[2019-12-29] MEDS: Enoxaparin(*) 30 MG/0.3 ML SYR SUBCUT SCH (05:39)
[2019-12-29 06:20] LABS: ABS Basophils 0.1 10^3/ul (0-0.2); ABS Eosinophils 0.5 10^3/ul (0-0.6); ABS Lymphocytes 1.1 10^3/ul (1.0-4.8); ABS Monocytes 0.6 10^3/ul (0-0.8); ABS Neutrophils 4.1 10^3/ul (1.5-7.7); Eosinophil % 7.6 %; Hematocrit 32 % (42-52); Lymphocyte % 17.6 %; Mean Corpuscular HGB Conc 34 g/dL (31-36); Mean Corpuscular Hemoglobin 28 pg (27-31); Mean Corpuscular Volume 84 fL (80-94); Nucleated Red Blood Cells % 0.1; Platelet Count 177 10^3/uL (150-450); Red Blood Count 3.88 10^6 /uL (4.18-5.48); Red Cell Distribution Width 16 % (10-15); White Blood Count 6.3 10^3/uL (3.5-10.8)
[2019-12-29 06:36] LABS: BUN/Creatinine Ratio 11.9 (8-20); Calcium 8.8 mg/dL (8.6-10.3); EGFR African American 53.3 (>60); Potassium 3.7 mmol/L (3.5-5.0)
[2019-12-29] MEDS: Aspirin EC TAB* 81 MG TAB.EC PO SCH (09:19)
[2019-12-29] MEDS: Senna TAB 8.6 mg* TAB PO SCH ×2 (09:19→21:53)
[2019-12-29] MEDS: Isosorbide Mononitrate ER TAB* 30 MG PO SCH (09:19)
[2019-12-29] MEDS: Atorvastatin* 20 MG TAB PO SCH (09:20)
[2019-12-29] MEDS: Pantoprazole TAB * 40 MG TAB PO SCH (09:20)
[2019-12-29] MEDS: amLODIPine TAB* 5 MG PO SCH (09:20)
[2019-12-29] MEDS: Docusate CAP* 100 MG PO SCH ×2 (09:20→21:52)
[2019-12-29] MEDS: Fluticasone NASAL SPRAY 50MCG* 16 gm SPRAY BTL BOTH NARES SCH (10:51)
[2019-12-29] MEDS: LORATADINE 10 MG PO SCH (10:51)
[2019-12-29 11:07] LABS: Erythrocyte Sed Rate 13 mm/Hr (0-19)
--- NOTE | 2019-12-29 11:19 | CONSULT ---
Consult Consult: Reason for consult: Suicidal ideation CC " I am fine" The patient is being treated for presenting underlying medical issues on the medical floor. He lives at [facility]. He wants to live for his family and is looking forward to seeing his family. He denied access to firearms or stockpiles of medications. He reported not changes in sleep or appetite. He reported that his energy levels are fine. He denied recurrent thoughts of or thoughts that he would be better off . The patient denied suicidal and or homicidal ideation intent or plan. The patient denied auditory and/ or visual hallucinations. PAST PSYCHIATRIC HISTORY: Prior Diagnosis : Depression, Neuro-cognitive Disorder History of past Psychiatric Hospitalizations: No prior psychiatric admission. History of past suicide/homicide attempts : Denied past suicide attempts, denied repeated self injurious behavior. Denied history of violence. Outpatient follow-up: PCP Medications: Acetaminophen (Tylenol Tab*) 650 mg PO Q6H PRN PRN Reason: MILD PAIN or TEMP > 100.4 Albuterol (Ventolin 2.5 Mg/3 Ml Neb.Joana*) 2.5 mg INH Q6H PRN PRN Reason: CONGESTION Amlodipine Besylate (Norvasc Tab*) 2.5 mg PO DAILY [facility] Last Admin: 12/29/19 09:20 Dose: 2.5 mg Aspirin (Aspirin Ec Tab*) 81 mg PO QAM [facility] Last Admin: 12/29/19 09:19 Dose: 81 mg Atorvastatin Calcium (Lipitor*) 20 mg PO DAILY [facility] Last Admin: 12/29/19 09:20 Dose: 20 mg Docusate Sodium (Colace Cap*) 100 mg PO BID [facility] Last Admin: 12/29/19 09:20 Dose: 100 mg Enoxaparin Sodium (Lovenox(*)) 30 mg SUBCUT Q24H [facility] Last Admin: 12/29/19 05:39 Dose: 30 mg Fluticasone Propionate (Flonase Nasal [place] 50mcg*) 2 spray BOTH NARES DAILY [facility] Last Admin: 12/29/19 10:51 Dose: 2 spray Isosorbide Mononitrate (Imdur Er Tab*) 15 mg PO DAILY [facility] Last Admin: 12/29/19 09:19 Dose: 15 mg Loratadine (Claritin Tab(Nf)) 5 mg PO DAILY [facility] Last Admin: 12/29/19 10:51 Dose: 5 mg Ondansetron HCl (Zofran Inj*) 4 mg IV Q6H PRN PRN Reason: NAUSEA Last Admin: 12/28/19 20:02 Dose: 4 mg Pantoprazole Sodium (Protonix Tab*) 40 mg PO DAILY [facility] Last Admin: 12/29/19 09:20 Dose: 40 mg Prochlorperazine Edisylate (Compazine Inj*) 5 mg IV Q6H PRN PRN Reason: NAUSEA/VOMITING Last Admin: 12/28/19 15:15 Dose: 5 mg Quetiapine Fumarate (Seroquel Tab*) 25 mg PO BEDTIME [facility] Last Admin: 12/28/19 20:04 Dose: 25 mg Senna (Senokot 8.6 Mg Tab*) 1 tab PO BID [facility] Last Admin: 12/29/19 09:19 Dose: 1 tab Sertraline HCl (Zoloft*) 50 mg PO BEDTIME [facility] Last Admin: 12/28/19 20:03 Dose: 50 mg Tramadol HCl (Ultram*) 50 mg PO Q6H PRN PRN Reason: PAIN - SEVERE FAMILY HISTORY: - Suicide: Denied family history of suicide. - Mental illness: Denied a history of mental health in immediate family members. - Substance abuse: Denied substance abuse among family members. SUBSTANCE ABUSE HISTORY: - EtOH: Denied recent use. No associated legal issues, blackouts, seizures, DTs or past hospitalizations due to alcohol. - Tobacco: Denied - Cannabis: Denied - Heroin: Denied - Cocaine: Denied - Substance abuse treatment: Denied past substance abuse treatment SOCIAL HISTORY: - Denied a history of childhood physical and or sexual abuse Has 3 sons is and lives at [place] PAST MEDICAL HISTORY: History of Prostate cancer, Neuro-cognitive Disorder , RA, CAD, GERD, CKD, HTN - Allergies: see complete list for allergies Physical Exam: Please see ED note Mental Status Exam APPEARANCE : 84 year old male who appears stated age. Patient appears to have fair hygiene and grooming. BEHAVIOR: Cooperative , calm EYE CONTACT: Fair PSYCHOMOTOR ACTIVITY: No psychomotor agitation or retardation. MOVEMENTS: No abnormal movements observed. SPEECH : Normal rate, rhythm, volume and tone. MOOD : "Fine " AFFECT : Euthymic Range is restricted Mood Congruent THOUGHT PROCESS: [place], with some thought blocking THOUGHT CONTENT: no delusions, obsessions, phobias or preoccupations. PERCEPTION: No current auditory or visual hallucinations. Doesnt appear to be responding to internal cues. No evidence of depersonalization , de-realization, or illusions SUICIDALITY Denied suicidal ideation, intent or plan. HOMICIDALITY Denied homicidal ideation, intent or plan. Insight/judgment: Poor insight and judgment ORIENTATION: Oriented to self, location, and month not to year or day. Diagnosis Neuro-cognitive Disorder , Major depressive disorder in partial remission. Assessment: 84 year old male with a history of depression, dementia, prostate cancer, RA, CAD, GERD, CKD, HTN currently being treated on the medical floor. Plan # The patient does not require psychiatric inpatient admission # 1:1 can be discontinued #Recommendations communicated to Dr. De Anda # Patient is not suicidal has no access to firearms, does not have history of a prior suicide attempts, no alcohol or substance abuse, is , has children, and is future orientated. # Psychiatry will sign off at this time . Thank you for the consult. Anand Rodgers MD
--- NOTE | 2019-12-29 16:23 | PN ---
Subjective Date of Service: 12/29/19 Interval History: HOSPITALIST PROGRESS NOTE Patient seen and examined at bedside. Care reviewed and d/w Elle Pierre RN. He offers no complaints today. Headache appears to be resolved, denies N/V. Family History: Unchanged from Admission Social History: Unchanged from Admission Past Medical History: Unchanged from Admission Objective Active Medications: Acetaminophen (Tylenol Tab*) 650 mg PO Q6H PRN PRN Reason: MILD PAIN or TEMP > 100.4 Albuterol (Ventolin 2.5 Mg/3 Ml Neb.Joana*) 2.5 mg INH Q6H PRN PRN Reason: CONGESTION Amlodipine Besylate (Norvasc Tab*) 2.5 mg PO DAILY [facility] Last Admin: 12/29/19 09:20 Dose: 2.5 mg Aspirin (Aspirin Ec Tab*) 81 mg PO QAM [facility] Last Admin: 12/29/19 09:19 Dose: 81 mg Atorvastatin Calcium (Lipitor*) 20 mg PO DAILY [facility] Last Admin: 12/29/19 09:20 Dose: 20 mg Docusate Sodium (Colace Cap*) 100 mg PO BID [facility] Last Admin: 12/29/19 09:20 Dose: 100 mg Enoxaparin Sodium (Lovenox(*)) 30 mg SUBCUT Q24H [facility] Last Admin: 12/29/19 05:39 Dose: 30 mg Fluticasone Propionate (Flonase Nasal [place] 50mcg*) 2 spray BOTH NARES DAILY [facility] Last Admin: 12/29/19 10:51 Dose: 2 spray Isosorbide Mononitrate (Imdur Er Tab*) 15 mg PO DAILY [facility] Last Admin: 12/29/19 09:19 Dose: 15 mg Loratadine (Claritin Tab(Nf)) 5 mg PO DAILY [facility] Last Admin: 12/29/19 10:51 Dose: 5 mg Ondansetron HCl (Zofran Inj*) 4 mg IV Q6H PRN PRN Reason: NAUSEA Last Admin: 12/28/19 20:02 Dose: 4 mg Pantoprazole Sodium (Protonix Tab*) 40 mg PO DAILY [facility] Last Admin: 12/29/19 09:20 Dose: 40 mg Prochlorperazine Edisylate (Compazine Inj*) 5 mg IV Q6H PRN PRN Reason: NAUSEA/VOMITING Last Admin: 12/28/19 15:15 Dose: 5 mg Quetiapine Fumarate (Seroquel Tab*) 25 mg PO BEDTIME [facility] Last Admin: 12/28/19 20:04 Dose: 25 mg Senna (Senokot 8.6 Mg Tab*) 1 tab PO BID [facility] Last Admin: 12/29/19 09:19 Dose: 1 tab Sertraline HCl (Zoloft*) 50 mg PO BEDTIME [facility] Last Admin: 12/28/19 20:03 Dose: 50 mg Tramadol HCl (Ultram*) 50 mg PO Q6H PRN PRN Reason: PAIN - SEVERE Vital Signs - 8 hr 12/29/19 11:15 Temperature 97.8 F Pulse Rate 88 Respiratory 20 Rate Blood Pressure 100/73 (mmHg) O2 Sat by Pulse 91 Oximetry Oxygen Devices in Use Now: None Appearance: Elderly gentleman sitting up in a recliner in NAD Eyes: No Scleral Icterus Ears/Nose/Mouth/Throat: Mucous Membranes Moist Neck: Trachea Midline Respiratory: Symmetrical Chest Expansion and Respiratory Effort, Clear to Auscultation Cardiovascular: RRR - Normal S1 and S2 Neurological: - - AAOx2 (self and place), GONZALEZ, very [id number] Result Diagrams: 12/29/19 06:00 12/29/19 06:00 Assess/Plan/Problems-Billing Assessment: Mr Larose is an 84yo M with PMH of dementia with behavioral disturbance, RA, CAD, prostate CA, GERD, CKD stage 3, HTN, depression, who presented to ED twice in 24h with c/o headache, N/V. - Patient Problems (1) Headache Comment: - Patient is a poor historian, but clear he had a headache. Etiology is unclear. - Dry tap in ED, but no fever or meningeal signs to suggest repeating it. - Repeat CT brain showed no acute lesions. - D/w Neuro - will order MRA head. (2) Near syncope Comment: - Suspect vaso vagal in the setting of nausea and vomiting. - D/c IVF. (3) Dementia Comment: - Patient verbalized suicidal ideation multiple times yesterday, but not today. - Seen by Psych - no suicidal ideation at this time. - D/c 1:1. (4) DVT prophylaxis Comment: - Lovenox.
[2019-12-29] MEDS: QUEtiapine TAB* 25 MG PO SCH (21:52)
[2019-12-29] MEDS: Sertraline* 50 MG TAB PO SCH (21:53)
[2019-12-30 02:12] LABS: Urine Appearance Clear; Urine Bilirubin Negative (Negative); Urine Blood 1+ (Negative); Urine Color Colorless; Urine Glucose Negative (Negative); Urine Ketones Negative (Negative); Urine Nitrite Negative (Negative); Urine Protein Negative (Negative); Urine Specific Gravity 1.002 (1.010-1.030); Urine Urobilinogen Negative (Negative)
[2019-12-30 03:06] LABS: Urine Bacteria Absent (Absent); Urine Red Blood Cell Absent (Absent); Urine White Blood Cell Absent (Absent)
[2019-12-30] MEDS: Enoxaparin(*) 30 MG/0.3 ML SYR SUBCUT SCH (07:26)
[2019-12-30] MEDS: LORATADINE 10 MG PO SCH (09:53)
[2019-12-30] MEDS: Senna TAB 8.6 mg* TAB PO SCH ×2 (09:54→21:39)
[2019-12-30] MEDS: Pantoprazole TAB * 40 MG TAB PO SCH (09:54)
[2019-12-30] MEDS: Docusate CAP* 100 MG PO SCH ×2 (09:54→21:56)
[2019-12-30] MEDS: Atorvastatin* 20 MG TAB PO SCH (09:54)
[2019-12-30] MEDS: Aspirin EC TAB* 81 MG TAB.EC PO SCH (09:54)
[2019-12-30] MEDS: amLODIPine TAB* 5 MG PO SCH (09:55)
[2019-12-30] MEDS: Isosorbide Mononitrate ER TAB* 30 MG PO SCH (09:56)
[2019-12-30] MEDS: Fluticasone NASAL SPRAY 50MCG* 16 gm SPRAY BTL BOTH NARES SCH (10:00)
--- NOTE | 2019-12-30 14:26 | PN ---
Subjective Date of Service: 12/30/19 Interval History: Pt is feeling poorly. He is sleepy. He states he still has a headache. He points to his eyes when I ask where his headache is. Nursing reports the patient had SVT and drop in O2 sat when he stood up today. Family History: Unchanged from Admission Social History: Unchanged from Admission Past Medical History: Unchanged from Admission Objective Active Medications: Acetaminophen (Tylenol Tab*) 650 mg PO Q6H PRN PRN Reason: MILD PAIN or TEMP > 100.4 Albuterol (Ventolin 2.5 Mg/3 Ml Neb.Joana*) 2.5 mg INH Q6H PRN PRN Reason: CONGESTION Amlodipine Besylate (Norvasc Tab*) 2.5 mg PO DAILY [facility] Last Admin: 12/30/19 09:55 Dose: 2.5 mg Aspirin (Aspirin Ec Tab*) 81 mg PO QAM [facility] Last Admin: 12/30/19 09:54 Dose: 81 mg Atorvastatin Calcium (Lipitor*) 20 mg PO DAILY [facility] Last Admin: 12/30/19 09:54 Dose: 20 mg Docusate Sodium (Colace Cap*) 100 mg PO BID [facility] Last Admin: 12/30/19 09:54 Dose: 100 mg Enoxaparin Sodium (Lovenox(*)) 30 mg SUBCUT Q24H [facility] Last Admin: 12/30/19 07:26 Dose: 30 mg Fluticasone Propionate (Flonase Nasal [place] 50mcg*) 2 spray BOTH NARES DAILY [facility] Last Admin: 12/30/19 10:00 Dose: 2 spray Isosorbide Mononitrate (Imdur Er Tab*) 15 mg PO DAILY [facility] Last Admin: 12/30/19 09:56 Dose: 15 mg Loratadine (Claritin Tab(Nf)) 5 mg PO DAILY [facility] Last Admin: 12/30/19 09:53 Dose: 5 mg Ondansetron HCl (Zofran Inj*) 4 mg IV Q6H PRN PRN Reason: NAUSEA Last Admin: 12/28/19 20:02 Dose: 4 mg Pantoprazole Sodium (Protonix Tab*) 40 mg PO DAILY [facility] Last Admin: 12/30/19 09:54 Dose: 40 mg Prochlorperazine Edisylate (Compazine Inj*) 5 mg IV Q6H PRN PRN Reason: NAUSEA/VOMITING Last Admin: 12/28/19 15:15 Dose: 5 mg Quetiapine Fumarate (Seroquel Tab*) 25 mg PO BEDTIME [facility] Last Admin: 12/29/19 21:52 Dose: 25 mg Senna (Senokot 8.6 Mg Tab*) 1 tab PO BID [facility] Last Admin: 12/30/19 09:54 Dose: 1 tab Sertraline HCl (Zoloft*) 50 mg PO BEDTIME [facility] Last Admin: 12/29/19 21:53 Dose: 50 mg Tramadol HCl (Ultram*) 50 mg PO Q6H PRN PRN Reason: PAIN - SEVERE Vital Signs - 8 hr 12/30/19 12/30/19 12/30/19 07:15 13:45 13:50 Temperature 97.8 F Pulse Rate 59 108 96 Respiratory 20 Rate Blood Pressure 175/78 90/54 112/71 (mmHg) O2 Sat by Pulse 93 98 100 Oximetry Oxygen Devices in Use Now: None Appearance: Elderly male lying flat in bed, sleepy but with prompting answers my questions. Eyes: No Scleral Icterus Ears/Nose/Mouth/Throat: Mucous Membranes Moist Respiratory: Symmetrical Chest Expansion and Respiratory Effort, Clear to Auscultation - anteriorly and at the lateral bases Cardiovascular: NL Sounds; No Murmurs; No JVD, RRR, No Edema Abdominal: NL Sounds; No Tenderness; No Distention Extremities: No Clubbing, Cyanosis Skin: No Nodules or Sclerosis Neurological: - - sleepy, questionably confused but I think he has a hard time hearing me and understanding my questions Result Diagrams: 12/29/19 06:00 12/29/19 06:00 Assess/Plan/Problems-Billing Mr Larose is an 84yo M with PMH of dementia with behavioral disturbance, RA, CAD, prostate CA, GERD, CKD stage 3, HTN, depression, who presented to ED twice in 24h with c/o headache, N/V. - Patient Problems (1) Headache Current Visit: Yes Status: Acute Code(s): R51 - HEADACHE SNOMED Code(s): 33100644 Comment: Pt still with headache reported. MRA negative. Will get plain MRI brain. No evidence of meningitis as far as I can tell though the patient is a poor historian. Will monitor symptoms. (2) Near syncope Current Visit: Yes Status: Acute Comment: ? orthostatic vs vasovagal. It was not reported to me today that when he stood and his HR increased that he felt dizzy but the patient currently is able to tell me how he felt at that time. Will resume chronic prednisone and see if symptomatically he feels better. I will not resume any fluids as he received bolus and continuous fluids after CAT call earlier this admission. (3) Temporal arteritis Current Visit: Yes Status: Inactive Code(s): M31.6 - OTHER GIANT CELL ARTERITIS SNOMED Code(s): 094825954 Comment: Pt is on chronic prednisone 5mg daily- has not had since admission as it was not on his home medication list. Will continue current dose. I do question if his NIÑO could possibly be related however his CRP/ESR are not elevated. (4) CKD (chronic kidney disease) stage 3, GFR 30-59 ml/min Current Visit: Yes Status: Acute Code(s): N18.3 - CHRONIC KIDNEY DISEASE, STAGE 3 (MODERATE) SNOMED Code(s): 612022648 Comment: Creatinine is stable and at baseline. (5) Dementia Current Visit: Yes Status: Acute Code(s): F03.90 - UNSPECIFIED DEMENTIA WITHOUT BEHAVIORAL DISTURBANCE SNOMED Code(s): 43219542 Comment: Continue supportive care. (6) DVT prophylaxis Current Visit: Yes Status: Chronic Onset Date: 01/12/15 Code(s): MOD6640 - SNOMED Code(s): 387074176 Comment: lovenox (7) DNR (do not resuscitate) Current Visit: Yes Status: Acute
[2019-12-30 15:18] LABS: TSH (Thyroid Stimulating Horm) 3.6 mcIU/mL (0.34-5.60)
[2019-12-30] MEDS ORDERED: methylPREDNISolone 125 MG* 2 ML VIAL IV ONE (17:58)
[2019-12-30] MEDS ORDERED: methylPREDNISolone 125 MG* 250 MG in NS 0.9% 100 ML* 100 ML IVPB ONE (18:45)
[2019-12-30] MEDS: Sertraline* 50 MG TAB PO SCH (21:39)
[2019-12-30] MEDS: Docusate LIQ* 100 MG/10 ML UDC PO SCH (21:39)
[2019-12-31] MEDS: Enoxaparin(*) 30 MG/0.3 ML SYR SUBCUT SCH (05:15)
[2019-12-31] MEDS ORDERED: Perflutren Lipid Microsphere* 3 ML VIAL ONE (08:00)
--- NOTE | 2019-12-31 09:57 | ECHO ---
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 History: Coronary artery disease. Chronic renal failure. PMH: Myocardial infarction. Risk factors: Hypertension. Conclusions Summary: - Left ventricle: The cavity size is normal. Wall thickness is mildly increased. Systolic function is normal. The estimated ejection fraction is 55-60%. - Regional wall motion abnormality: Hypokinesis of the basal inferior and basal inferolateral myocardium. - Right ventricle: The cavity size is normal. Systolic function is normal. - Left atrium: The atrium is mildly dilated. - Atrial septum: Negative bubble study. - Ascending aorta: The ascending aorta is mild to moderately dilated at 4.2 cm - No functionally significant valvular abnormalities noted. Recommendations: Compared to prior study from 12/2014, findings are similar, previously bubble study not performed. Study data: Transthoracic echocardiogram. Procedure: Transthoracic echocardiography was performed. Image quality was fair. Intravenous Definity , 2 mlswas administered. A bubble study was performed. Complete 2D, spectral Doppler, and color flow Doppler. Location: Bedside. Patient status: Inpatient. Patient room number: 449 02. Rhythm: Normal sinus rhythm with PVC's. Findings Left ventricle: The cavity size is normal. Wall thickness is mildly increased. Systolic function is normal. The estimated ejection fraction is 55-60%. Regional wall motion abnormalities: Hypokinesis of the basal inferior and basal inferolateral myocardium. Left ventricular diastolic function parameters are normal for the patient's age. Right ventricle: The cavity size is normal. Systolic function is normal. Left atrium: The atrium is mildly dilated. Right atrium: The atrium is at the upper limits of normal in size. Atrial septum: A PFO is not demonstrated by color Doppler or agitated saline contrast. Negative bubble study. Mitral valve: The Mitral valve annulus appears calcified. The leaflets are normal thickness. There is no evidence of stenosis. There is trace regurgitation. Aortic valve: The annulus is mildly calcified. The valve is trileaflet. The leaflets are mildly thickened. There is no evidence of stenosis. There is no significant regurgitation. Tricuspid valve: The leaflets are normal thickness. There is no evidence of stenosis. There is no significant regurgitation. Pulmonic valve: The leaflets are normal thickness. There is no evidence of stenosis. There is trace regurgitation. Aorta: Aortic root: The aortic root is mildly dilated. Ascending aorta: The ascending aorta is mild to moderately dilated at 4.2 cm Aortic arch: The aortic arch is appears normal. Pericardium: There is no significant pericardial effusion. Pulmonary arteries: Systolic pressure can not be accurately estimated. Systemic veins: Inferior vena cava: Not well visualized. Measurements Left ventricle Value Ref Aortic valve Value Ref JAIDA, LAX 4.5 cm 4.2 - 5.8 Ailyn diam, ED 2.3 cm --------- ESD, LAX 3.0 cm 2.5 - 4.0 Peak v, S 1.3 m/sec --------- FS, LAX 33 % 25 - 43 VTI, S 29.4 cm --------- PW, ED, LAX (H) 1.3 cm 0.6 - 1.0 Mean grad, S 4.0 mm Hg --------- E', lat ailyn, TDI (L) 5.4 cm/sec >=10.0 Peak grad, S 7.0 mm Hg - -------- E/e', lat ailyn, 12 LVOT/AV, VTI ratio 0.61 ---- ----- TDI SHER, VTI 2.33 cm^2 --------- E', med ailyn, TDI (L) 3.8 cm/sec >=7.0 SHER, Vmax 2.38 cm^2 - -------- E/e', med ailyn, 16 TDI Mitral valve Value Ref E', avg, TDI 4.6 cm/sec Peak E 0.62 m/sec ---- ----- E/e', avg, TDI 14 <=14 Peak A 1.3 m/sec - -------- Decel time 267 ms --------- LVOT Value Ref PHT 152 ms --------- Diam, S 2.20 cm Mean grad, D 2.0 mm Hg --------- Peak kenton, S 0.81 m/sec Peak grad, D 8.0 mm Hg --------- VTI, S 18.0 cm Peak E/A ratio 0.5 --------- Peak grad, S 3 mm Hg MVA, PHT 1.5 cm^2 --------- Mean grad, S 1 mm Hg SV 69 ml Pulmonic valve Value Ref Peak v, S 0.66 m/sec --------- Ventricular septum Value Ref Peak grad, S 2.0 mm Hg --------- IVS, ED (H) 1.3 cm 0.6 - 1.0 Aortic root Value Ref Right ventricle Value Ref Root diam 3.7 cm <4.1 JAIDA, LAX 2.9 cm Root max diam/bsa, 1.9 cm/m^2 1.3 - 2.1 JAIDA minor ax, A4C 2.9 cm 1.9 - 3.5 ED mid Ascending aorta Value Ref Left atrium Value Ref AAo AP diam, S 4.2 cm --------- AP dim, ES (H) 4.70 cm 3.00 - AAo AP diam/bsa, S 2.2 cm/m^2 --------- 4.00 ML dim, A4C 5.0 cm Aortic arch Value Ref SI dim, A4C 5.7 cm Arch diam 3.2 cm --------- Vol/bsa, ES, A/L (H) 41 ml/m^2 16 - 34 Arch diam/bsa 1.6 cm/m^2 --------- Right atrium Value Ref Decending aorta Value Ref SI dim, ES 5.3 cm 3.4 - 5.3 Arsenio peak kenton 0.47 m/sec --------- ML dim, ES, A4C 3.3 cm 2.6 - 4.4 Estimated RAP 8 mm Hg Legend: (L) and (H) orin values outside specified reference range. Prepared and electronically signed by Hood Nicolas MD 12/31/2019 09:57
[2019-12-31] MEDS: Docusate LIQ* 100 MG/10 ML UDC PO SCH ×2 (10:04→20:33)
[2019-12-31] MEDS: Senna TAB 8.6 mg* TAB PO SCH ×2 (10:05→20:33)
[2019-12-31] MEDS: Aspirin EC TAB* 81 MG TAB.EC PO SCH (10:05)
[2019-12-31] MEDS: Isosorbide Mononitrate ER TAB* 30 MG PO SCH (10:05)
[2019-12-31] MEDS: LORATADINE 10 MG PO SCH (10:06)
[2019-12-31] MEDS: Atorvastatin* 20 MG TAB PO SCH (10:06)
[2019-12-31] MEDS: Pantoprazole TAB * 40 MG TAB PO SCH (10:06)
[2019-12-31] MEDS: Fluticasone NASAL SPRAY 50MCG* 16 gm SPRAY BTL BOTH NARES SCH (10:07)
--- NOTE | 2019-12-31 11:54 | PN ---
Subjective Date of Service: 12/31/19 Interval History: Pt is feeling ok today. He states that he doesn't have a headache but his head feels not right. He admits to feeling dizzy as well as having a hard time reading though he read part of his white board without difficulty. Family History: Unchanged from Admission Social History: Unchanged from Admission Past Medical History: Unchanged from Admission Objective Active Medications: Acetaminophen (Tylenol Tab*) 650 mg PO Q6H PRN PRN Reason: MILD PAIN or TEMP > 100.4 Albuterol (Ventolin 2.5 Mg/3 Ml Neb.Joana*) 2.5 mg INH Q6H PRN PRN Reason: CONGESTION Aspirin (Aspirin Ec Tab*) 81 mg PO QAM [facility] Last Admin: 12/31/19 10:05 Dose: 81 mg Atorvastatin Calcium (Lipitor*) 20 mg PO DAILY [facility] Last Admin: 12/31/19 10:06 Dose: 20 mg Docusate Sodium (Colace Liq*) 100 mg PO BID [facility] Last Admin: 12/31/19 10:04 Dose: 100 mg Enoxaparin Sodium (Lovenox(*)) 30 mg SUBCUT Q24H [facility] Last Admin: 12/31/19 05:15 Dose: 30 mg Fluticasone Propionate (Flonase Nasal [place] 50mcg*) 2 spray BOTH NARES DAILY [facility] Last Admin: 12/31/19 10:07 Dose: 2 spray Isosorbide Mononitrate (Imdur Er Tab*) 15 mg PO DAILY [facility] Last Admin: 12/31/19 10:05 Dose: 15 mg Loratadine (Claritin Tab(Nf)) 5 mg PO DAILY [facility] Last Admin: 12/31/19 10:06 Dose: 5 mg Ondansetron HCl (Zofran Inj*) 4 mg IV Q6H PRN PRN Reason: NAUSEA Last Admin: 12/28/19 20:02 Dose: 4 mg Pantoprazole Sodium (Protonix Tab*) 40 mg PO DAILY [facility] Last Admin: 12/31/19 10:06 Dose: 40 mg Prochlorperazine Edisylate (Compazine Inj*) 5 mg IV Q6H PRN PRN Reason: NAUSEA/VOMITING Last Admin: 12/28/19 15:15 Dose: 5 mg Senna (Senokot 8.6 Mg Tab*) 1 tab PO BID [facility] Last Admin: 12/31/19 10:05 Dose: 1 tab Sertraline HCl (Zoloft*) 50 mg PO BEDTIME [facility] Last Admin: 12/30/19 21:39 Dose: 50 mg Tramadol HCl (Ultram*) 50 mg PO Q6H PRN PRN Reason: PAIN - SEVERE Vital Signs - 8 hr 12/31/19 12/31/19 05:35 07:15 Temperature 97.0 F Pulse Rate 96 Respiratory 16 Rate Blood Pressure 135/83 (mmHg) O2 Sat by Pulse 99 96 Oximetry Oxygen Devices in Use Now: None Appearance: Elderly male sitting up in bed, NAD Eyes: No Scleral Icterus Ears/Nose/Mouth/Throat: Mucous Membranes Moist Respiratory: Symmetrical Chest Expansion and Respiratory Effort, Clear to Auscultation Cardiovascular: NL Sounds; No Murmurs; No JVD, RRR, No Edema Abdominal: NL Sounds; No Tenderness; No Distention Extremities: No Clubbing, Cyanosis Skin: No Nodules or Sclerosis Neurological: - - alert, mildly confused Result Diagrams: 12/29/19 06:00 12/29/19 06:00 Assess/Plan/Problems-Billing Mr Larose is an 84yo M with PMH of dementia with behavioral disturbance, RA, CAD, prostate CA, GERD, CKD stage 3, HTN, depression, who presented to ED twice in 24h with c/o headache, N/V. - Patient Problems (1) Cerebrovascular accident involving cerebellum Current Visit: Yes Status: Acute Code(s): I63.9 - CEREBRAL INFARCTION, UNSPECIFIED SNOMED Code(s): 23631983407401484 Comment: MRI done yesterday to eval persistent headache revealed 2 punctate infarcts in the L cerebellum. Continue ASA. Echo does not reveal any source of embolism. Dr. Vogt will see the patient today. PT/OT to be ordered. (2) Headache Current Visit: Yes Status: Acute Code(s): R51 - HEADACHE SNOMED Code(s): 78873938 Comment: Pt is much more alert today. He denies headache per se but feels that something is not right. ? headache from temporal arteritis. He received 250mg of solumedrol yesterday. Will await further recommendations from Dr. Vogt but he likely needs at least 60mg prednisone and then it can be tapered slowly. (3) Near syncope Current Visit: Yes Status: Acute Comment: I wonder if the "near syncope" may be actually dizziness/spinning from his cerebellar CVA. Will continue to monitor on tele. (4) Temporal arteritis Current Visit: Yes Status: Inactive Code(s): M31.6 - OTHER GIANT CELL ARTERITIS SNOMED Code(s): 032795949 Comment: As above pt had solumedrol 250mg IV x1 yesterday. Will await further recommendations today. (5) CKD (chronic kidney disease) stage 3, GFR 30-59 ml/min Current Visit: Yes Status: Acute Code(s): N18.3 - CHRONIC KIDNEY DISEASE, STAGE 3 (MODERATE) SNOMED Code(s): 133257194 Comment: Creatinine is stable and at baseline. (6) Dementia Current Visit: Yes Status: Acute Code(s): F03.90 - UNSPECIFIED DEMENTIA WITHOUT BEHAVIORAL DISTURBANCE SNOMED Code(s): 27633959 Comment: Continue supportive care. (7) DVT prophylaxis Current Visit: Yes Status: Chronic Onset Date: 01/12/15 Code(s): VFB6006 - SNOMED Code(s): 973614186 Comment: lovenox (8) DNR (do not resuscitate) Current Visit: Yes Status: Acute
[2019-12-31] MEDS: Clopidogrel TAB* 75 MG PO SCH (14:25)
--- NOTE | 2019-12-31 15:30 | CONS ---
NEUROLOGY CONSULTATION: DATE OF CONSULT: 12/31/19 LOCATION: He is an inpatient in room 449. REFERRING PROVIDER: Dr. Serrano. CHIEF COMPLAINT: Headache, nausea, vomiting. HISTORY OF PRESENT ILLNESS: Anand Larose is an 84-year-old man who is admitted to the hospital on 12/28/19 with recurrent headache, nausea, and vomiting. He also had abdominal pain apparently. He was seen the night before in the emergency room and his symptoms seemed to resolve and he was sent back to his assisted living, but apparently had more vomiting and hence was again sent to the emergency room and admitted. Since that time, he has complained of headache which is bifrontal or retroorbital. A lumbar puncture was attempted in the emergency room but was unsuccessful. When he was seen in followup on 04/[address] Oneal, he did not have a headache or nausea or vomiting. When seen in followup by Dr. Serrano on 12/30/19, he complained of a headache behind his eyes. He had an episode of supraventricular tachycardia and oxygen desaturation when he stood up. It was thought that he was on prednisone at least 3 or 5 mg which was not continued on admission, according to my conversation with Dr. Serrano last evening. The patient reportedly a history of temporal arteritis, and because of the headache and apparent cessation of steroids, I recommended giving IV Solu-Medrol 250 mg. Currently, the patient is eating his lunch. He says he feels pretty good, and when asked specifically about a headache, he says he does have some headache in the frontal region. He does not look at all uncomfortable. When asked if it is worse or better than yesterday, he says it is the same. He denies problems with his vision. He is a poor historian. He has poor attention and concentration and tends to loose his train of thought. PAST MEDICAL HISTORY: His past medical history is notable for what is described as a remote history of temporal arteritis that responded well to steroids. 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 Ortiz. He developed diffuse joint pains in his shoulders and hips several months ago and responded very well to just 3 mg of prednisone. The last office note that I could find was from mid to late October and the patient was feeling well on 3 mg of prednisone. His past medical history is also notable for mild cognitive impairment or possible early dementia according to transfer records. He has a history of possible rheumatoid arthritis or possible just PMR associated with temporal arteritis, I am not sure from the records. He has stage 3 chronic kidney disease, history of prostate cancer, coronary artery disease, hypertension. MEDICATIONS: At admission consist of: 1. Amlodipine 2.5 mg p.o. daily. 2. Albuterol inhaler as needed. 3. Aspirin 81 mg p.o. daily. 4. Isosorbide 15 mg p.o. daily. 5. Meclizine 25 mg p.o. 3 times per day as needed for dizziness. 6. Quetiapine 25 mg p.o. at bedtime. 7. Pantoprazole 40 mg p.o. daily. 8. Sertraline 50 mg p.o. daily. ALLERGIES: He has multiple allergies listed in the records including TICLID, CORTISONE, MORPHINE, OXYCODONE, SIMVASTATIN. REVIEW OF SYSTEMS: From the patient is notable for the headaches, no visual changes, currently no abdominal pain. He denies chest pain or shortness of breath. PHYSICAL EXAM: He is well nourished and well hydrated. Temperature is 97.0 by temporal scan, blood pressure 135/83, heart rate in the 90s and regular, respiratory rate 16, and oxygen saturation is 96% on room air. Heart tones sound normal. There are no murmurs. Neck is supple, no meningismus. I do not hear any cervical bruits to auscultation. Neurological Exam: Pupils react equally from about 3 down to 2.5 mm. Eye movements are full. Visual [place] are full to confrontation. Funduscopic exam reveals sharp discs bilaterally. Facial musculature is symmetric. Facial sensation to light touch is symmetrical. Palate and tongue appear normal, and speech is clear. Motor exam reveals fairly good strength in the limbs. There is no drift of the extremities, seated. There is no rest tremor, myoclonus, or asterixis. Eyxciq-eb-[id number] maneuver is normal. He is alert and oriented to person, but not place or time. Language is generally fluent, but he looses his train of thought and changes topics pretty quickly. DIAGNOSTIC STUDIES/LAB DATA: Includes an MRI scan of the brain on 12/30/19, interpreted as showing 2 punctate acute or subacute infarctions in the left cerebellum. I reviewed the images and I agree. The ADC map is fairly subtle, and so I think it is close to subacute than acute. There is also several small areas of small vessel infarctions including the right caudate and the left cerebellar hemisphere. An MR angiogram of the brain was performed and was interpreted as normal on 05/12. Transthoracic echocardiogram was fairly unremarkable. Additional laboratory data notable for a sedimentation rate of just 13 yesterday , CBC notable for an anemia with a hemoglobin of 11.0. Chemistries are notable for creatinine of 1.51 yesterday and otherwise is unremarkable. Vitamin B12 level was normal yesterday at 413 and TSH at 3.6. Ammonia level yesterday was normal at 27. Urinalysis from 12/30/19 is unremarkable. ASSESSMENT AND PLAN: Impression is that of headache, nausea, and vomiting of unclear etiology. He looks comfortable currently and is eating. It seems that the history of temporal arteritis was a remote one and his inflammatory markers yesterday before steroids were unimpressive. Nevertheless, there remains a possibility. He has 2 tiny punctate small vessel subacute infarctions in the left cerebellum. I think those might have been associated with rise in blood pressure associated with his vomiting as they do not fit an embolic pattern and there is no evidence of cardioembolic source. At this point, I do not recommend ongoing steroids but just to watch him clinically. If he develops severe headaches again, I would repeat his inflammatory markers. As far as the punctate recent infarctions, our concern, I think it is reasonable to put him on Plavix plus aspirin for 21 days and then switching him to a Plavix monotherapy. His blood pressure is currently under good control and he is not diabetic. [id number]/[place] #: [id number] [facility]
[2019-12-31] MEDS: Sertraline* 50 MG TAB PO SCH (20:33)
[2020-01-01] MEDS: Enoxaparin(*) 30 MG/0.3 ML SYR SUBCUT SCH (06:18)
[2020-01-01] MEDS: Acetaminophen TAB* 325 MG PO PRN ×2 (07:57→20:59)
[2020-01-01] MEDS: Senna TAB 8.6 mg* TAB PO SCH ×2 (07:57→20:59)
[2020-01-01] MEDS: Isosorbide Mononitrate ER TAB* 30 MG PO SCH (07:57)
[2020-01-01] MEDS: Aspirin EC TAB* 81 MG TAB.EC PO SCH (07:58)
[2020-01-01] MEDS: Pantoprazole TAB * 40 MG TAB PO SCH (07:58)
[2020-01-01] MEDS: Atorvastatin* 20 MG TAB PO SCH (07:59)
[2020-01-01] MEDS: Clopidogrel TAB* 75 MG PO SCH (07:59)
[2020-01-01] MEDS: Docusate LIQ* 100 MG/10 ML UDC PO SCH ×2 (07:59→20:59)
[2020-01-01] MEDS: Fluticasone NASAL SPRAY 50MCG* 16 gm SPRAY BTL BOTH NARES SCH (08:00)
[2020-01-01] MEDS: LORATADINE 10 MG PO SCH (08:02)
--- NOTE | 2020-01-01 16:38 | PN ---
Subjective Date of Service: 01/01/20 Interval History: Pt states he is feeling ok currently. The aide in his room notes he has been sleepy today but states he did not sleep well last night. He denies any pain or dizziness at this time. This AM after breakfast he vomited. Family History: Unchanged from Admission Social History: Unchanged from Admission Past Medical History: Unchanged from Admission Objective Active Medications: Acetaminophen (Tylenol Tab*) 650 mg PO Q6H PRN PRN Reason: MILD PAIN or TEMP > 100.4 Last Admin: 01/01/20 07:57 Dose: 650 mg Albuterol (Ventolin 2.5 Mg/3 Ml Neb.Joana*) 2.5 mg INH Q6H PRN PRN Reason: CONGESTION Aspirin (Aspirin Ec Tab*) 81 mg PO QAM [facility] Last Admin: 01/01/20 07:58 Dose: 81 mg Atorvastatin Calcium (Lipitor*) 20 mg PO DAILY [facility] Last Admin: 01/01/20 07:59 Dose: 20 mg Clopidogrel Bisulfate (Plavix Tab*) 75 mg PO DAILY [facility] Last Admin: 01/01/20 07:59 Dose: 75 mg Docusate Sodium (Colace Liq*) 100 mg PO BID [facility] Last Admin: 01/01/20 07:59 Dose: 100 mg Enoxaparin Sodium (Lovenox(*)) 30 mg SUBCUT Q24H [facility] Last Admin: 01/01/20 06:18 Dose: 30 mg Fluticasone Propionate (Flonase Nasal [place] 50mcg*) 2 spray BOTH NARES DAILY [facility] Last Admin: 01/01/20 08:00 Dose: 2 spray Isosorbide Mononitrate (Imdur Er Tab*) 15 mg PO DAILY [facility] Last Admin: 01/01/20 07:57 Dose: 15 mg Loratadine (Claritin Tab(Nf)) 5 mg PO DAILY [facility] Last Admin: 01/01/20 08:02 Dose: 5 mg Ondansetron HCl (Zofran Inj*) 4 mg IV Q6H PRN PRN Reason: NAUSEA Last Admin: 12/28/19 20:02 Dose: 4 mg Pantoprazole Sodium (Protonix Tab*) 40 mg PO DAILY [facility] Last Admin: 01/01/20 07:58 Dose: 40 mg Prednisone (Deltasone 5 Mg Tab) 5 mg PO DAILY [facility] Last Admin: 01/01/20 13:53 Dose: 5 mg Prochlorperazine Edisylate (Compazine Inj*) 5 mg IV Q6H PRN PRN Reason: NAUSEA/VOMITING Last Admin: 12/28/19 15:15 Dose: 5 mg Senna (Senokot 8.6 Mg Tab*) 1 tab PO BID [facility] Last Admin: 01/01/20 07:57 Dose: 1 tab Sertraline HCl (Zoloft*) 50 mg PO BEDTIME [facility] Last Admin: 12/31/19 20:33 Dose: 50 mg Tramadol HCl (Ultram*) 50 mg PO Q6H PRN PRN Reason: PAIN - SEVERE Last Admin: 01/01/20 07:58 Dose: 50 mg Vital Signs - 8 hr 01/01/20 01/01/20 11:59 15:15 Temperature 98 F 98.2 F Pulse Rate 58 79 Respiratory 16 16 Rate Blood Pressure 115/53 101/78 (mmHg) O2 Sat by Pulse 99 89 Oximetry Oxygen Devices in Use Now: None Appearance: Elderly male sitting up in chair sleeping, awakens to voice, NAD Eyes: No Scleral Icterus Ears/Nose/Mouth/Throat: Mucous Membranes Moist Respiratory: Symmetrical Chest Expansion and Respiratory Effort, Clear to Auscultation Cardiovascular: NL Sounds; No Murmurs; No JVD, RRR, No Edema Abdominal: NL Sounds; No Tenderness; No Distention Extremities: No Clubbing, Cyanosis Skin: No Nodules or Sclerosis Neurological: - - CROW, confused Result Diagrams: 12/29/19 06:00 12/29/19 06:00 Assess/Plan/Problems-Billing Mr Larose is an 84yo M with PMH of dementia with behavioral disturbance, RA, CAD, prostate CA, GERD, CKD stage 3, HTN, depression, who presented to ED twice in 24h with c/o headache, N/V. - Patient Problems (1) Cerebrovascular accident involving cerebellum Current Visit: Yes Status: Acute Code(s): I63.9 - CEREBRAL INFARCTION, UNSPECIFIED SNOMED Code(s): 10221730567083325 Comment: MRI done to eval persistent headache revealed 2 punctate infarcts in the L cerebellum. Continue ASA and plavix x21 days then plavix alone. Pt to continue to work with PT/OT. I am concerned about him returning to [place] alone (his is in rehab). May need STR. (2) Headache Current Visit: Yes Status: Acute Code(s): R51 - HEADACHE SNOMED Code(s): 31922948 Comment: No reported headache when I visited. Dr. Vogt did not believe the headache was secondary to temporal arteritis but will continue prednisone 5mg daily. No clear cause of headache identified. (3) Near syncope Current Visit: Yes Status: Acute Comment: I wonder if the "near syncope" may be actually dizziness/spinning from his cerebellar CVA. Will continue to monitor on tele. (4) Temporal arteritis Current Visit: Yes Status: Inactive Code(s): M31.6 - OTHER GIANT CELL ARTERITIS SNOMED Code(s): 726667505 Comment: Continue prednisione 5mg daily. (5) CKD (chronic kidney disease) stage 3, GFR 30-59 ml/min Current Visit: Yes Status: Acute Code(s): N18.3 - CHRONIC KIDNEY DISEASE, STAGE 3 (MODERATE) SNOMED Code(s): 123164137 Comment: Creatinine is stable and at baseline. (6) Dementia Current Visit: Yes Status: Acute Code(s): F03.90 - UNSPECIFIED DEMENTIA WITHOUT BEHAVIORAL DISTURBANCE SNOMED Code(s): 16578423 Comment: Continue supportive care. (7) DVT prophylaxis Current Visit: Yes Status: Chronic Onset Date: 01/12/15 Code(s): DLE6183 - SNOMED Code(s): 785323708 Comment: lovenox (8) DNR (do not resuscitate) Current Visit: Yes Status: Acute
[2020-01-01] MEDS: Ondansetron INJ* 2 MG/ML VIAL IV PRN (18:14)
[2020-01-01] MEDS: PROCHLORPERAZINE INJ 5 MG/ML 2 ML VIAL IV PRN (20:52)
[2020-01-01] MEDS: Sertraline* 50 MG TAB PO SCH (20:59)
[2020-01-02] MEDS: Enoxaparin(*) 30 MG/0.3 ML SYR SUBCUT SCH (05:54)
[2020-01-02] MEDS: Isosorbide Mononitrate ER TAB* 30 MG PO SCH (10:09)
[2020-01-02] MEDS: Pantoprazole TAB * 40 MG TAB PO SCH (10:10)
[2020-01-02] MEDS: Aspirin EC TAB* 81 MG TAB.EC PO SCH (10:10)
[2020-01-02] MEDS: Docusate LIQ* 100 MG/10 ML UDC PO SCH ×2 (10:11→21:57)
[2020-01-02] MEDS: Clopidogrel TAB* 75 MG PO SCH (10:11)
[2020-01-02] MEDS: Atorvastatin* 20 MG TAB PO SCH (10:12)
[2020-01-02] MEDS: Senna TAB 8.6 mg* TAB PO SCH ×2 (10:12→21:58)
[2020-01-02] MEDS: LORATADINE 10 MG PO SCH (10:13)
[2020-01-02] MEDS: Fluticasone NASAL SPRAY 50MCG* 16 gm SPRAY BTL BOTH NARES SCH (10:14)
--- NOTE | 2020-01-02 21:17 | PN ---
Subjective Date of Service: 01/02/20 Interval History: Pt states that he still has a mild headache, not new, all over achy feeling. Denies any CP, SOB, abdominal discomfort, unusual numbness/tingling/weakness. States that he feels tired and wanted to take a nap. Family History: Unchanged from Admission Social History: Unchanged from Admission Past Medical History: Unchanged from Admission Objective Active Medications: Acetaminophen (Tylenol Tab*) 650 mg PO Q6H PRN PRN Reason: MILD PAIN or TEMP > 100.4 Last Admin: 01/01/20 20:59 Dose: 650 mg Albuterol (Ventolin 2.5 Mg/3 Ml Neb.Joana*) 2.5 mg INH Q6H PRN PRN Reason: CONGESTION Aspirin (Aspirin Ec Tab*) 81 mg PO QAM [facility] Last Admin: 01/02/20 10:10 Dose: 81 mg Atorvastatin Calcium (Lipitor*) 20 mg PO DAILY [facility] Last Admin: 01/02/20 10:12 Dose: 20 mg Clopidogrel Bisulfate (Plavix Tab*) 75 mg PO DAILY [facility] Last Admin: 01/02/20 10:11 Dose: 75 mg Docusate Sodium (Colace Liq*) 100 mg PO BID [facility] Last Admin: 01/02/20 10:11 Dose: 100 mg Enoxaparin Sodium (Lovenox(*)) 30 mg SUBCUT Q24H [facility] Last Admin: 01/02/20 05:54 Dose: 30 mg Fluticasone Propionate (Flonase Nasal [place] 50mcg*) 2 spray BOTH NARES DAILY [facility] Last Admin: 01/02/20 10:14 Dose: 2 spray Isosorbide Mononitrate (Imdur Er Tab*) 15 mg PO DAILY [facility] Last Admin: 01/02/20 10:09 Dose: 15 mg Loratadine (Claritin Tab(Nf)) 5 mg PO DAILY [facility] Last Admin: 01/02/20 10:13 Dose: 5 mg Ondansetron HCl (Zofran Inj*) 4 mg IV Q6H PRN PRN Reason: NAUSEA Last Admin: 01/01/20 18:14 Dose: 4 mg Pantoprazole Sodium (Protonix Tab*) 40 mg PO DAILY [facility] Last Admin: 01/02/20 10:10 Dose: 40 mg Prochlorperazine Edisylate (Compazine Inj*) 5 mg IV Q6H PRN PRN Reason: NAUSEA/VOMITING Last Admin: 01/01/20 20:52 Dose: 5 mg Senna (Senokot 8.6 Mg Tab*) 1 tab PO BID [facility] Last Admin: 01/02/20 10:12 Dose: 1 tab Sertraline HCl (Zoloft*) 50 mg PO BEDTIME [facility] Last Admin: 01/01/20 20:59 Dose: 50 mg Tramadol HCl (Ultram*) 50 mg PO Q6H PRN PRN Reason: PAIN - SEVERE Last Admin: 01/01/20 07:58 Dose: 50 mg Vital Signs - 8 hr 01/02/20 01/02/20 01/02/20 18:40 19:17 19:35 Temperature 98.2 F 97.7 F Pulse Rate 81 88 Respiratory 16 18 17 Rate Blood Pressure 109/69 104/64 (mmHg) O2 Sat by Pulse 98 Oximetry 01/02/20 20:07 Temperature Pulse Rate Respiratory 18 Rate Blood Pressure (mmHg) O2 Sat by Pulse Oximetry Oxygen Devices in Use Now: Nasal Cannula Appearance: sitting up in chair, lethargic Eyes: No Scleral Icterus, - - PERRL Ears/Nose/Mouth/Throat: Clear Oropharnyx Respiratory: Symmetrical Chest Expansion and Respiratory Effort, Clear to Auscultation Cardiovascular: RRR Abdominal: NL Sounds; No Tenderness; No Distention Extremities: No Edema Neurological: - - lethargic, oriented to self only, not very participatory in interview/exam but will follow some simple commands, very [place] Nutrition: Taking PO's Result Diagrams: 12/29/19 06:00 12/29/19 06:00 Assess/Plan/Problems-Billing Mr Larose is an 84yo M with PMH of dementia with behavioral disturbance, RA, CAD, prostate CA, GERD, CKD stage 3, HTN, depression, who presented to ED twice in 24h with c/o headache, N/V. - Patient Problems (1) Cerebrovascular accident involving cerebellum Current Visit: Yes Status: Acute Code(s): I63.9 - CEREBRAL INFARCTION, UNSPECIFIED SNOMED Code(s): 99676786074992739 Comment: MRI done to eval persistent headache revealed 2 punctate infarcts in the L cerebellum. Continue ASA and plavix x21 days then plavix alone. Pt to continue to work with PT/OT. I am concerned about him returning to [place] alone (his is in rehab). May need STR. (2) CKD (chronic kidney disease) stage 3, GFR 30-59 ml/min Current Visit: Yes Status: Acute Code(s): N18.3 - CHRONIC KIDNEY DISEASE, STAGE 3 (MODERATE) SNOMED Code(s): 955922328 Comment: Creatinine is stable and at baseline. (3) Dementia Current Visit: Yes Status: Acute Code(s): F03.90 - UNSPECIFIED DEMENTIA WITHOUT BEHAVIORAL DISTURBANCE SNOMED Code(s): 70003113 Comment: Continue supportive care. (4) Headache Current Visit: Yes Status: Acute Code(s): R51 - HEADACHE SNOMED Code(s): 73402873 Comment: Mild reported headache. Dr. Vogt did not believe the headache was secondary to temporal arteritis and recommended discontinuation of prednisone. If significant NIÑO returns may recheck inflammatory markers. No clear cause of headache identified at this time. -d/c prednisone -continue supportive care (5) Near syncope Current Visit: Yes Status: Acute Comment: I wonder if the "near syncope" may be actually dizziness/spinning from his cerebellar CVA. Will continue to monitor on tele. (6) Temporal arteritis Current Visit: Yes Status: Inactive Code(s): M31.6 - OTHER GIANT CELL ARTERITIS SNOMED Code(s): 789021768 Comment: Hx of what appears to be a remote incidence. No necessary interventions at this time. Continue to monitor for s/s of this disease process. (7) DVT prophylaxis Current Visit: Yes Status: Chronic Onset Date: 01/12/15 Code(s): MXQ6423 - SNOMED Code(s): 955266955 Comment: keturah (8) DNR (do not resuscitate) Current Visit: Yes Status: Acute Attending: [employer]
[2020-01-02] MEDS: Acetaminophen TAB* 325 MG PO PRN (21:57)
[2020-01-02] MEDS: Sertraline* 50 MG TAB PO SCH (21:58)
[2020-01-03] MEDS: Enoxaparin(*) 30 MG/0.3 ML SYR SUBCUT SCH (05:33)
[2020-01-03] MEDS: Acetaminophen TAB* 325 MG PO PRN ×2 (06:54→20:42)
[2020-01-03] MEDS: Aspirin EC TAB* 81 MG TAB.EC PO SCH (08:04)
[2020-01-03] MEDS: Senna TAB 8.6 mg* TAB PO SCH ×2 (08:04→20:42)
[2020-01-03] MEDS: Atorvastatin* 20 MG TAB PO SCH (08:04)
[2020-01-03] MEDS: Pantoprazole TAB * 40 MG TAB PO SCH (08:05)
[2020-01-03] MEDS: Clopidogrel TAB* 75 MG PO SCH (08:05)
[2020-01-03] MEDS: Fluticasone NASAL SPRAY 50MCG* 16 gm SPRAY BTL BOTH NARES SCH (08:05)
[2020-01-03] MEDS: Docusate LIQ* 100 MG/10 ML UDC PO SCH ×2 (08:05→20:42)
[2020-01-03] MEDS: LORATADINE 10 MG PO SCH (08:05)
[2020-01-03] MEDS: Isosorbide Mononitrate ER TAB* 30 MG PO SCH (08:05)
[2020-01-03 12:20] LABS: ABS Eosinophils 0.3 10^3/ul (0-0.6); ABS Lymphocytes 0.8 10^3/ul (1.0-4.8); ABS Monocytes 0.5 10^3/ul (0-0.8); ABS Neutrophils 5.1 10^3/ul (1.5-7.7); Hematocrit 34 % (42-52); Hemoglobin 11.7 g/dL (14.0-18.0); Lymphocyte % 11.6 %; Mean Corpuscular HGB Conc 34 g/dL (31-36); Mean Corpuscular Hemoglobin 28 pg (27-31); Mean Corpuscular Volume 84 fL (80-94); Mean Platelet Volume 7.2 fL (7.4-10.4); Platelet Count 200 10^3/uL (150-450); Red Blood Count 4.11 10^6 /uL (4.18-5.48); Red Cell Distribution Width 16 % (10-15); White Blood Count 6.9 10^3/uL (3.5-10.8)
[2020-01-03 12:36] LABS: BUN/Creatinine Ratio 16.9 (8-20); C Reactive Protein 3.81 mg/L (<8.01); Calcium 9.1 mg/dL (8.6-10.3); EGFR African American 54.5 (>60); EGFR Non-African American 45.1 (>60); Potassium 3.7 mmol/L (3.5-5.0)
[2020-01-03] MEDS: Ondansetron INJ* 2 MG/ML VIAL IV PRN (14:49)
--- NOTE | 2020-01-03 20:04 | PN ---
Subjective Date of Service: 01/03/20 Interval History: Pt much more alert this morning, continues to ask about his brothers picking him up. Oriented to self only. C/o very mild discomfort to R parietal area when asked and some dizziness during conversation which seemed to resolve within a few seconds and did not recur during assessment. Denies CP, SOB, nausea, abdominal pain, numbness/tingling. Per nursing he had an episode of grabbing his head and yelling about a headache and dizziness with a later episode of emesis. Family History: Unchanged from Admission Social History: Unchanged from Admission Past Medical History: Unchanged from Admission Objective Active Medications: Acetaminophen (Tylenol Tab*) 650 mg PO Q6H PRN PRN Reason: MILD PAIN or TEMP > 100.4 Last Admin: 01/03/20 06:54 Dose: 650 mg Albuterol (Ventolin 2.5 Mg/3 Ml Neb.Joana*) 2.5 mg INH Q6H PRN PRN Reason: CONGESTION Aspirin (Aspirin Ec Tab*) 81 mg PO QAM [facility] Last Admin: 01/03/20 08:04 Dose: 81 mg Atorvastatin Calcium (Lipitor*) 20 mg PO DAILY [facility] Last Admin: 01/03/20 08:04 Dose: 20 mg Clopidogrel Bisulfate (Plavix Tab*) 75 mg PO DAILY [facility] Last Admin: 01/03/20 08:05 Dose: 75 mg Docusate Sodium (Colace Liq*) 100 mg PO BID [facility] Last Admin: 01/03/20 08:05 Dose: 100 mg Enoxaparin Sodium (Lovenox(*)) 30 mg SUBCUT Q24H [facility] Last Admin: 01/03/20 05:33 Dose: 30 mg Fluticasone Propionate (Flonase Nasal [place] 50mcg*) 2 spray BOTH NARES DAILY [facility] Last Admin: 01/03/20 08:05 Dose: 2 spray Isosorbide Mononitrate (Imdur Er Tab*) 15 mg PO DAILY [facility] Last Admin: 01/03/20 08:05 Dose: 15 mg Loratadine (Claritin Tab(Nf)) 5 mg PO DAILY [facility] Last Admin: 01/03/20 08:05 Dose: 5 mg Ondansetron HCl (Zofran Inj*) 4 mg IV Q6H PRN PRN Reason: NAUSEA Last Admin: 01/03/20 14:49 Dose: 4 mg Pantoprazole Sodium (Protonix Tab*) 40 mg PO DAILY [facility] Last Admin: 01/03/20 08:05 Dose: 40 mg Prednisone (Deltasone 10 Mg Tab) 10 mg PO DAILY [facility] Last Admin: 01/03/20 14:40 Dose: 10 mg Prochlorperazine Edisylate (Compazine Inj*) 5 mg IV Q6H PRN PRN Reason: NAUSEA/VOMITING Last Admin: 01/01/20 20:52 Dose: 5 mg Senna (Senokot 8.6 Mg Tab*) 1 tab PO BID [facility] Last Admin: 01/03/20 08:04 Dose: 1 tab Sertraline HCl (Zoloft*) 50 mg PO BEDTIME [facility] Last Admin: 01/02/20 21:58 Dose: 50 mg Tramadol HCl (Ultram*) 50 mg PO Q6H PRN PRN Reason: PAIN - SEVERE Last Admin: 01/01/20 07:58 Dose: 50 mg Vital Signs - 8 hr 01/03/20 01/03/20 15:15 18:44 Temperature 97.6 F Pulse Rate 92 Respiratory 16 Rate Blood Pressure 102/68 (mmHg) O2 Sat by Pulse 96 96 Oximetry Oxygen Devices in Use Now: None Appearance: sitting up in bed, NAD Eyes: No Scleral Icterus, - - PERRL Ears/Nose/Mouth/Throat: Clear Oropharnyx, Mucous Membranes Moist Respiratory: Symmetrical Chest Expansion and Respiratory Effort, Clear to Auscultation Cardiovascular: RRR Abdominal: - - normoactive BS throughout, abdomen large, round, but SNT Extremities: No Edema, - - PPP 2+ Neurological: Alert and Oriented x 3 Nutrition: Taking PO's Result Diagrams: 01/03/20 12:15 01/03/20 12:15 Additional Lab and Data: Abnormal Lab Results 01/03/20 01/03/20 12:15 12:15 WBC 6.9 RBC 4.11 L Hgb 11.7 L Hct 34 L MCV 84 MCH 28 MCHC 34 RDW 16 H Plt Count 200 MPV 7.2 L Neut % (Auto) 74.8 Lymph % (Auto) 11.6 [place] % (Auto) 8.0 Eos % (Auto) 5.0 Baso % (Auto) 0.6 Absolute Neuts (auto) 5.1 Absolute Lymphs (auto) 0.8 L Absolute Monos (auto) 0.5 Absolute Eos (auto) 0.3 Absolute Basos (auto) 0.0 Absolute Nucleated RBC 0.0 Nucleated RBC % 0.0 Sodium 134 L Potassium 3.7 Chloride 100 L Carbon Dioxide 28 Anion Gap 6 BUN 25 H Creatinine 1.48 H Est GFR ( Amer) 54.5 Est GFR (Non-Af Amer) 45.1 BUN/Creatinine Ratio 16.9 Glucose 129 H Calcium 9.1 C-Reactive Protein 3.81 Assess/Plan/Problems-Billing Mr Larose is an 84yo M with PMH of dementia with behavioral disturbance, RA, CAD, prostate CA, GERD, CKD stage 3, HTN, depression, who presented to ED twice in 24h with c/o headache, N/V. - Patient Problems (1) Cerebrovascular accident involving cerebellum Current Visit: Yes Status: Acute Code(s): I63.9 - CEREBRAL INFARCTION, UNSPECIFIED SNOMED Code(s): 29330647396321228 Comment: MRI done to eval persistent headache revealed 2 punctate infarcts in the L cerebellum. Continue ASA and plavix x21 days then plavix alone. Pt to continue to work with PT/OT. May need STR. (2) CKD (chronic kidney disease) stage 3, GFR 30-59 ml/min Current Visit: Yes Status: Acute Code(s): N18.3 - CHRONIC KIDNEY DISEASE, STAGE 3 (MODERATE) SNOMED Code(s): 546532632 Comment: Creatinine is stable and at baseline. (3) Dementia Current Visit: Yes Status: Acute Code(s): F03.90 - UNSPECIFIED DEMENTIA WITHOUT BEHAVIORAL DISTURBANCE SNOMED Code(s): 35582369 Comment: Continue supportive care. (4) Headache Current Visit: Yes Status: Acute Code(s): R51 - HEADACHE SNOMED Code(s): 84661267 Comment: Originally Dr. Vogt did not believe the headache was secondary to temporal arteritis and recommended discontinuation of prednisone which sounds as if this recommendation was more in relation to temporal arteritis. Due to reported incident of NIÑO this morning I spoke to , CRP WNL, spoke about the discontinuation of prednisone and considering report from daughter about general improvement on steroids we decided to reinitiate to avoid relapse, per prednisone 10mg PO daily, can keep his May appointment with to evaluate effectiveness/dosage -continue supportive care (5) Near syncope Current Visit: Yes Status: Acute Comment: I wonder if the "near syncope" may be actually dizziness/spinning from his cerebellar CVA. Will continue to monitor on tele. (6) Rheumatoid arthritis Current Visit: Yes Status: Acute Code(s): M06.9 - RHEUMATOID ARTHRITIS, UNSPECIFIED SNOMED Code(s): 15914374 Comment: No signs of exacerbation at this time. spoke with 01/02 about the discontinuation of prednisone and considering report from daughter about general improvement while chronically using steroids prior to arrival we decided to reinitiate steroid to avoid relapse, per prednisone 10mg PO daily as dose was increased by on a prior date from 3mg daily to 5mg daily per daughter's report, can keep his January appointment with to evaluate effectiveness/dosage (7) Temporal arteritis Current Visit: Yes Status: Inactive Code(s): M31.6 - OTHER GIANT CELL ARTERITIS SNOMED Code(s): 723116165 Comment: Hx of what appears to be a remote incidence. No necessary interventions at this time. Continue to monitor for s/s of this disease process. (8) DVT prophylaxis Current Visit: Yes Status: Chronic Onset Date: 01/12/15 Code(s): DVE7800 - SNOMED Code(s): 141268120 Comment: keturah (9) DNR (do not resuscitate) Current Visit: Yes Status: Acute Attending: [employer]
[2020-01-03] MEDS: Sertraline* 50 MG TAB PO SCH (20:42)
[2020-01-04] MEDS: Enoxaparin(*) 30 MG/0.3 ML SYR SUBCUT SCH (05:55)
[2020-01-04] MEDS: Clopidogrel TAB* 75 MG PO SCH (08:09)
[2020-01-04] MEDS: Senna TAB 8.6 mg* TAB PO SCH ×2 (08:09→21:41)
[2020-01-04] MEDS: Atorvastatin* 20 MG TAB PO SCH (08:09)
[2020-01-04] MEDS: LORATADINE 10 MG PO SCH (08:09)
[2020-01-04] MEDS: Aspirin EC TAB* 81 MG TAB.EC PO SCH (08:09)
[2020-01-04] MEDS: Isosorbide Mononitrate ER TAB* 30 MG PO SCH (08:09)
[2020-01-04] MEDS: Pantoprazole TAB * 40 MG TAB PO SCH (08:09)
[2020-01-04] MEDS: Fluticasone NASAL SPRAY 50MCG* 16 gm SPRAY BTL BOTH NARES SCH (08:10)
[2020-01-04] MEDS: Docusate LIQ* 100 MG/10 ML UDC PO SCH ×2 (08:10→21:41)
--- NOTE | 2020-01-04 12:51 | PN ---
Subjective Date of Service: 01/04/20 Interval History: Pt somewhat drowsy, responds quickly but with obvious very significant confusion. Very NISQUALLY. Difficult to get answers from him. Keeps talking about what sound like distant memories, not able to participate in normal conversation. Will sometimes follow simple commands but often not. When asked will report headache which he seems to be tolerating okay but does seem mildly uncomfortable, also c/o nausea. Not dizzy at this time. Per nursing shortly after assessment pt did have episode of emesis. No focal neurologic deficits noted however as mentioned earlier pt does not participate well with exam. Family History: Unchanged from Admission Social History: Unchanged from Admission Past Medical History: Unchanged from Admission Objective Active Medications: Acetaminophen (Tylenol Tab*) 650 mg PO Q6H PRN PRN Reason: MILD PAIN or TEMP > 100.4 Last Admin: 01/03/20 20:42 Dose: 650 mg Albuterol (Ventolin 2.5 Mg/3 Ml Neb.Joana*) 2.5 mg INH Q6H PRN PRN Reason: CONGESTION Aspirin (Aspirin Ec Tab*) 81 mg PO QAM [facility] Last Admin: 01/04/20 08:09 Dose: 81 mg Atorvastatin Calcium (Lipitor*) 20 mg PO DAILY [facility] Last Admin: 01/04/20 08:09 Dose: 20 mg Clopidogrel Bisulfate (Plavix Tab*) 75 mg PO DAILY [facility] Last Admin: 01/04/20 08:09 Dose: 75 mg Docusate Sodium (Colace Liq*) 100 mg PO BID [facility] Last Admin: 01/04/20 08:10 Dose: 100 mg Enoxaparin Sodium (Lovenox(*)) 30 mg SUBCUT Q24H [facility] Last Admin: 01/04/20 05:55 Dose: 30 mg Fluticasone Propionate (Flonase Nasal [place] 50mcg*) 2 spray BOTH NARES DAILY [facility] Last Admin: 01/04/20 08:10 Dose: 2 spray Isosorbide Mononitrate (Imdur Er Tab*) 15 mg PO DAILY [facility] Last Admin: 01/04/20 08:09 Dose: 15 mg Loratadine (Claritin Tab(Nf)) 5 mg PO DAILY [facility] Last Admin: 01/04/20 08:09 Dose: 5 mg Ondansetron HCl (Zofran Inj*) 4 mg IV Q6H PRN PRN Reason: NAUSEA Last Admin: 01/03/20 14:49 Dose: 4 mg Pantoprazole Sodium (Protonix Tab*) 40 mg PO DAILY [facility] Last Admin: 01/04/20 08:09 Dose: 40 mg Prednisone (Deltasone 10 Mg Tab) 10 mg PO DAILY [facility] Last Admin: 01/04/20 08:09 Dose: 10 mg Prochlorperazine Edisylate (Compazine Inj*) 5 mg IV Q6H PRN PRN Reason: NAUSEA/VOMITING Last Admin: 01/01/20 20:52 Dose: 5 mg Senna (Senokot 8.6 Mg Tab*) 1 tab PO BID [facility] Last Admin: 01/04/20 08:09 Dose: 1 tab Sertraline HCl (Zoloft*) 50 mg PO BEDTIME [facility] Last Admin: 01/03/20 20:42 Dose: 50 mg Tramadol HCl (Ultram*) 50 mg PO Q6H PRN PRN Reason: PAIN - SEVERE Last Admin: 01/01/20 07:58 Dose: 50 mg Vital Signs - 8 hr 01/04/20 01/04/20 01/04/20 08:07 08:48 11:51 Temperature 97.4 F 98.1 F Pulse Rate 93 92 Respiratory 16 18 18 Rate Blood Pressure 150/98 99/67 (mmHg) O2 Sat by Pulse 94 95 Oximetry Oxygen Devices in Use Now: None Appearance: sitting up in chair, appears to be in a mild discomfort, drowsy Eyes: No Scleral Icterus, - - PERRL Ears/Nose/Mouth/Throat: Clear Oropharnyx Respiratory: Symmetrical Chest Expansion and Respiratory Effort, Clear to Auscultation Cardiovascular: RRR Abdominal: - - normoactive BSX4, abdomen large, round, mildly distended, mild tenderness to deep palpation throughout noted by mild winces from pt Extremities: No Edema - PPP 2+ Neurological: - - drowsy, oriented to self only, PERRL, no facial droop, 3/5 hand grasp bilaterally Nutrition: Taking PO's Result Diagrams: 01/03/20 12:15 01/03/20 12:15 Additional Lab and Data: Abnormal Lab Results 01/03/20 01/03/20 12:15 12:15 WBC 6.9 RBC 4.11 L Hgb 11.7 L Hct 34 L MCV 84 MCH 28 MCHC 34 RDW 16 H Plt Count 200 MPV 7.2 L Neut % (Auto) 74.8 Lymph % (Auto) 11.6 [place] % (Auto) 8.0 Eos % (Auto) 5.0 Baso % (Auto) 0.6 Absolute Neuts (auto) 5.1 Absolute Lymphs (auto) 0.8 L Absolute Monos (auto) 0.5 Absolute Eos (auto) 0.3 Absolute Basos (auto) 0.0 Absolute Nucleated RBC 0.0 Nucleated RBC % 0.0 Sodium 134 L Potassium 3.7 Chloride 100 L Carbon Dioxide 28 Anion Gap 6 BUN 25 H Creatinine 1.48 H Est GFR ( Amer) 54.5 Est GFR (Non-Af Amer) 45.1 BUN/Creatinine Ratio 16.9 Glucose 129 H Calcium 9.1 C-Reactive Protein 3.81 Assess/Plan/Problems-Billing Mr Larose is an 84yo M with PMH of dementia with behavioral disturbance, RA, CAD, prostate CA, GERD, CKD stage 3, HTN, depression, who presented to ED twice in 24h with c/o headache, N/V. - Patient Problems (1) Cerebrovascular accident involving cerebellum Current Visit: Yes Status: Acute Code(s): I63.9 - CEREBRAL INFARCTION, UNSPECIFIED SNOMED Code(s): 84615316617485989 Comment: MRI done to eval persistent headache revealed 2 punctate infarcts in the L cerebellum. Continue ASA and plavix x21 days then plavix alone. Pt to continue to work with PT/OT. May need STR. (2) Dementia Current Visit: Yes Status: Acute Code(s): F03.90 - UNSPECIFIED DEMENTIA WITHOUT BEHAVIORAL DISTURBANCE SNOMED Code(s): 30410624 Comment: Continue supportive care. (3) Headache Current Visit: Yes Status: Acute Code(s): R51 - HEADACHE SNOMED Code(s): 25446497 Comment: NIÑO/N/V of unclear etiology. ?from CVA. Is continueing to c/o NIÑO/N and episode of emesis this afternoon. has been contacted, would appreciate neuro input to form best plan of care, ?another treatable cause vs continuing to treat symptoms continue supportive care (4) CKD (chronic kidney disease) stage 3, GFR 30-59 ml/min Current Visit: Yes Status: Acute Code(s): N18.3 - CHRONIC KIDNEY DISEASE, STAGE 3 (MODERATE) SNOMED Code(s): 874902529 Comment: Creatinine is stable and at baseline. (5) Near syncope Current Visit: Yes Status: Acute Comment: Has not had any other near- syncopal episodes. Continue tele Continue supportive measures (6) Rheumatoid arthritis Current Visit: Yes Status: Acute Code(s): M06.9 - RHEUMATOID ARTHRITIS, UNSPECIFIED SNOMED Code(s): 49128269 Comment: No signs of exacerbation at this time. spoke with 01/02 about the discontinuation of prednisone and considering report from daughter about general improvement while chronically using steroids prior to arrival we decided to reinitiate steroid to avoid relapse, per prednisone 10mg PO daily as dose was increased by on a prior date from 3mg daily to 5mg daily per daughter's report, can keep his January appointment with to evaluate effectiveness/dosage (7) Temporal arteritis Current Visit: Yes Status: Inactive Code(s): M31.6 - OTHER GIANT CELL ARTERITIS SNOMED Code(s): 346543567 Comment: Hx of what appears to be a remote incidence. inflammatory markers have been WNL. No necessary interventions at this time. Continue to monitor for s/s of this disease process. (8) DVT prophylaxis Current Visit: Yes Status: Chronic Onset Date: 01/12/15 Code(s): SQZ9982 - SNOMED Code(s): 326986181 Comment: keturah (9) DNR (do not resuscitate) Current Visit: Yes Status: Acute Attending: [employer]
[2020-01-04] MEDS: Ondansetron INJ* 2 MG/ML VIAL IV PRN (12:57)
[2020-01-04] MEDS: Sertraline* 50 MG TAB PO SCH (21:41)
[2020-01-05] MEDS ORDERED: QUEtiapine TAB* 25 MG PO ONE (01:37)
[2020-01-05] MEDS: Enoxaparin(*) 30 MG/0.3 ML SYR SUBCUT SCH (06:52)
[2020-01-05] MEDS: LORATADINE 10 MG PO SCH (08:20)
[2020-01-05] MEDS: Atorvastatin* 20 MG TAB PO SCH (08:20)
[2020-01-05] MEDS: Clopidogrel TAB* 75 MG PO SCH (08:20)
[2020-01-05] MEDS: Senna TAB 8.6 mg* TAB PO SCH ×2 (08:21→22:13)
[2020-01-05] MEDS: Docusate LIQ* 100 MG/10 ML UDC PO SCH ×2 (08:21→22:14)
[2020-01-05] MEDS: Pantoprazole TAB * 40 MG TAB PO SCH (08:21)
[2020-01-05] MEDS: Aspirin EC TAB* 81 MG TAB.EC PO SCH (08:21)
[2020-01-05] MEDS: Fluticasone NASAL SPRAY 50MCG* 16 gm SPRAY BTL BOTH NARES SCH (08:21)
[2020-01-05] MEDS: Isosorbide Mononitrate ER TAB* 30 MG PO SCH (08:21)
--- NOTE | 2020-01-05 16:36 | PN ---
Subjective Date of Service: 01/05/20 Length of Stay: 8 Days Neurology is following for stroke. Interval History: The patient has been sleeping all day in a chair. He received Seroquel last night. I stopped by to see the patient three times. He never complained of headaches but does point to his eyes when mentioning if he has pain. He has history of macular degeneration and trouble seeing. When asked if he has headaches, he replies "severe headache" but then goes back to sleep. He is able to move all extremities to command. I reviewed the MRI brain and MRA head without contrast imaging. The MRI brain without contrast showed small areas of restricted diffusion in the left cerebellum. He has moderate to severe cerebral atrophy. TTE: EF 55-60%. Mildly dilated left atrium MRA showed patent basilar artery. Review of Systems: Denied CP, SOB, or palpitations. Family History: Unchanged from Admission Social History: Unchanged from Admission Past Medical History: Unchanged from Admission Objective Active Medications: Acetaminophen (Tylenol Tab*) 650 mg PO Q6H PRN PRN Reason: MILD PAIN or TEMP > 100.4 Last Admin: 01/03/20 20:42 Dose: 650 mg Albuterol (Ventolin 2.5 Mg/3 Ml Neb.Joana*) 2.5 mg INH Q6H PRN PRN Reason: CONGESTION Aspirin (Aspirin Ec Tab*) 81 mg PO QAM [facility] Last Admin: 01/05/20 08:21 Dose: 81 mg Atorvastatin Calcium (Lipitor*) 20 mg PO DAILY [facility] Last Admin: 01/05/20 08:20 Dose: 20 mg Clopidogrel Bisulfate (Plavix Tab*) 75 mg PO DAILY [facility] Last Admin: 01/05/20 08:20 Dose: 75 mg Docusate Sodium (Colace Liq*) 100 mg PO BID [facility] Last Admin: 01/05/20 08:21 Dose: 100 mg Enoxaparin Sodium (Lovenox(*)) 30 mg SUBCUT Q24H [facility] Last Admin: 01/05/20 06:52 Dose: 30 mg Fluticasone Propionate (Flonase Nasal [place] 50mcg*) 2 spray BOTH NARES DAILY [facility] Last Admin: 01/05/20 08:21 Dose: 2 spray Isosorbide Mononitrate (Imdur Er Tab*) 15 mg PO DAILY [facility] Last Admin: 01/05/20 08:21 Dose: 15 mg Loratadine (Claritin Tab(Nf)) 5 mg PO DAILY [facility] Last Admin: 01/05/20 08:20 Dose: 5 mg Ondansetron HCl (Zofran Inj*) 4 mg IV Q6H PRN PRN Reason: NAUSEA Last Admin: 01/04/20 12:57 Dose: 4 mg Pantoprazole Sodium (Protonix Tab*) 40 mg PO DAILY [facility] Last Admin: 01/05/20 08:21 Dose: 40 mg Prednisone (Deltasone 10 Mg Tab) 10 mg PO DAILY [facility] Last Admin: 01/05/20 08:21 Dose: 10 mg Prochlorperazine Edisylate (Compazine Inj*) 5 mg IV Q6H PRN PRN Reason: NAUSEA/VOMITING Last Admin: 01/01/20 20:52 Dose: 5 mg Senna (Senokot 8.6 Mg Tab*) 1 tab PO BID [facility] Last Admin: 01/05/20 08:21 Dose: 1 tab Sertraline HCl (Zoloft*) 50 mg PO BEDTIME [facility] Last Admin: 01/04/20 21:41 Dose: 50 mg Vital Signs 01/04/20 01/04/20 01/04/20 19:55 20:00 23:45 Temperature 97.2 F 97.7 F Pulse Rate 91 58 Respiratory 16 16 17 Rate Blood Pressure 109/82 169/53 (mmHg) O2 Sat by Pulse 96 100 Oximetry 01/05/20 01/05/20 01/05/20 00:25 03:15 07:15 Temperature 97.3 F 97.3 F 97.7 F Pulse Rate 88 49 65 Respiratory 16 16 20 Rate Blood Pressure 152/73 152/55 170/91 (mmHg) O2 Sat by Pulse 95 94 93 Oximetry 01/05/20 01/05/20 01/05/20 07:35 11:15 15:15 Temperature 97.6 F 97.6 F Pulse Rate 83 99 Respiratory 18 20 21 Rate Blood Pressure 111/84 101/68 (mmHg) O2 Sat by Pulse 97 95 Oximetry Intake and Output Last 24 Hours 01/03/20 01/04/20 01/05/20 01/06/20 06:59 06:59 06:59 06:59 Intake Total 480 600 420 Output Total 0 400 75 Balance 480 200 345 Intake: Oral 480 600 420 Output: Urine 0 400 75 Other: Estimated Void Small Medium # Bowel Movements 0 Estimated Stool Amount Large # Voids 1 1 Oxygen Devices in Use Now: None Neurology Exam: General: Chronically ill appearing elderly and demented man who is sitting in a chair comfortably HEENT: Normocephelic/atraumatic, sclera anicteric, mucous membranes moist Cardiac: No edema. Neck: Supple Extremities: No clubbing, cyanosis, or edema Neurological Findings: Drowsy, alert to self but not place or time. He has moderate psychmotor slowing. He is slow to respond. He opens his eyes for few seconds then closes his eyes. NIHSS: 3 as he had trouble reading but this was due to his drowsy state Cranial Nerve: PERRL, EOM intact, VFF, no nystagmus, face symmetric bilaterally Motor: s/s throughout, proximal and distal extremities x4 tone/bulk normal Sensation: intact to LT/PP bilaterally upper and lower extremities Deep Tendon Reflex: 1+ symmetric in the upper/lower extremities, Babinski - down going Finger to nose, rapid alternating movements intact without tremor, no dysdiadochokinesia Result Diagrams: 01/03/20 12:15 01/03/20 12:15 Additional Lab and Data: Abnormal Lab Results 01/03/20 01/03/20 12:15 12:15 WBC 6.9 RBC 4.11 L Hgb 11.7 L Hct 34 L MCV 84 MCH 28 MCHC 34 RDW 16 H Plt Count 200 MPV 7.2 L Neut % (Auto) 74.8 Lymph % (Auto) 11.6 [place] % (Auto) 8.0 Eos % (Auto) 5.0 Baso % (Auto) 0.6 Absolute Neuts (auto) 5.1 Absolute Lymphs (auto) 0.8 L Absolute Monos (auto) 0.5 Absolute Eos (auto) 0.3 Absolute Basos (auto) 0.0 Absolute Nucleated RBC 0.0 Nucleated RBC % 0.0 Sodium 134 L Potassium 3.7 Chloride 100 L Carbon Dioxide 28 Anion Gap 6 BUN 25 H Creatinine 1.48 H Est GFR ( Amer) 54.5 Est GFR (Non-Af Amer) 45.1 BUN/Creatinine Ratio 16.9 Glucose 129 H Calcium 9.1 C-Reactive Protein 3.81 Assessment/Plan Mr. Larose is an 84-year-old man with Alzheimer's dementia with behavioral disturbance, RA, history of temporal artiritis, stage III kidney disease, HTN, who presented to [facility] with symptoms of dizziness and vomiting. The patient was found to have a left cerebellar punctate infarction. The stroke was most likely related to an [id number] emboli or cardio embolic event. He would not be a great candidate for anticoagulation therapy due to his age, dementia, and multiple microhemorrhages seen on MRI. He was put on aspirin and Plavix for 21 days, then I recommend discontinuing aspirin. Continue his statin therapy. I added on a lipid profile today. In terms of his nausea/vomiting, he seems to have stabilized and is tolerating Zofran. Minimize the use of Compazine as it can increase his drowsiness. In terms of his acute encephalopathy manifesting as hypoactive delirium and excessive drowsiness, I suspect this was induced by Seroquel therapy last night. Please minimize the exposure of benzodiazepine, anti-cholinergic, and certainly anti-psychotic therapy. Practice delirium measures and reorient the patient frequently if he develops agitation or aggressive behavior. Use Benadryl IV as a last resort. Regarding the headache, it can be explained by ophthalmologic disease or related to his stroke. I don't think he has active or flare-up of his giant cell artertitis since his CRP and ESR are within normal range and he is already on Prednisone therapy. I agree with Dr. Ortiz's plan to taper the steroids. Please follow-up with ophthlamology. He can use acetaminophen for pain. Stroke education was performed today with the patient and daughter via telephone. I will arrange a follow-up appointment with neurology.
[2020-01-05 17:11] LABS: HDL Cholesterol 47.5 mg/dL
--- NOTE | 2020-01-05 20:45 | PN ---
Subjective Date of Service: 01/05/20 Interval History: Pt very drowsy upon assessment. He kept his eyes closed but did answer question with loud and mild tactile stimulation, was very groggy, speech unclear but without slurring quality. Pt very TANGIRNAQ with significant dementia. Did get a dose of seroquel last night for which his daughter states that he gets very sleepy after taking seroquel and is requesting that he not have it again. Does state headache when asked, but does not describe or point to the area, eyes kept closed and appeared to quickly fall back asleep. Not particularly cooperative during exam in relation to drowsiness. Family History: Unchanged from Admission Social History: Unchanged from Admission Past Medical History: Unchanged from Admission Objective Active Medications: Acetaminophen (Tylenol Tab*) 650 mg PO Q6H PRN PRN Reason: MILD PAIN or TEMP > 100.4 Last Admin: 01/03/20 20:42 Dose: 650 mg Albuterol (Ventolin 2.5 Mg/3 Ml Neb.Joana*) 2.5 mg INH Q6H PRN PRN Reason: CONGESTION Aspirin (Aspirin Ec Tab*) 81 mg PO QAM [facility] Last Admin: 01/05/20 08:21 Dose: 81 mg Atorvastatin Calcium (Lipitor*) 20 mg PO DAILY [facility] Last Admin: 01/05/20 08:20 Dose: 20 mg Clopidogrel Bisulfate (Plavix Tab*) 75 mg PO DAILY [facility] Last Admin: 01/05/20 08:20 Dose: 75 mg Docusate Sodium (Colace Liq*) 100 mg PO BID [facility] Last Admin: 01/05/20 08:21 Dose: 100 mg Enoxaparin Sodium (Lovenox(*)) 30 mg SUBCUT Q24H [facility] Last Admin: 01/05/20 06:52 Dose: 30 mg Fluticasone Propionate (Flonase Nasal [place] 50mcg*) 2 spray BOTH NARES DAILY [facility] Last Admin: 01/05/20 08:21 Dose: 2 spray Isosorbide Mononitrate (Imdur Er Tab*) 15 mg PO DAILY [facility] Last Admin: 01/05/20 08:21 Dose: 15 mg Loratadine (Claritin Tab(Nf)) 5 mg PO DAILY [facility] Last Admin: 01/05/20 08:20 Dose: 5 mg Ondansetron HCl (Zofran Inj*) 4 mg IV Q6H PRN PRN Reason: NAUSEA Last Admin: 01/04/20 12:57 Dose: 4 mg Pantoprazole Sodium (Protonix Tab*) 40 mg PO DAILY [facility] Last Admin: 01/05/20 08:21 Dose: 40 mg Prednisone (Deltasone 10 Mg Tab) 10 mg PO DAILY [facility] Last Admin: 01/05/20 08:21 Dose: 10 mg Prochlorperazine Edisylate (Compazine Inj*) 5 mg IV Q6H PRN PRN Reason: NAUSEA/VOMITING Last Admin: 01/01/20 20:52 Dose: 5 mg Senna (Senokot 8.6 Mg Tab*) 1 tab PO BID [facility] Last Admin: 01/05/20 08:21 Dose: 1 tab Sertraline HCl (Zoloft*) 50 mg PO BEDTIME [facility] Last Admin: 01/04/20 21:41 Dose: 50 mg Vital Signs - 8 hr 01/05/20 01/05/20 15:15 19:15 Temperature 97.6 F 97.5 F Pulse Rate 99 96 Respiratory 21 17 Rate Blood Pressure 101/68 126/90 (mmHg) O2 Sat by Pulse 95 97 Oximetry Oxygen Devices in Use Now: None Appearance: sitting up in chair, very drowsy and in NAD Eyes: - - PERRL Respiratory: Symmetrical Chest Expansion and Respiratory Effort, Clear to Auscultation - diminished to bases. Breaths were of somewhat poor quality as pt was not consistently breathing deeply when asked Cardiovascular: - - HR irregular, S1/S2 present, no murmur,rub,gallop Abdominal: - - Normoactive BSX4. Abdomen large, round, but SNT Extremities: No Edema - PPP 2+ Neurological: - - Very drowsy, unable to adequately assess orientation Nutrition: Taking PO's Result Diagrams: 01/03/20 12:15 01/03/20 12:15 Additional Lab and Data: Abnormal Lab Results 01/03/20 01/03/20 12:15 12:15 WBC 6.9 RBC 4.11 L Hgb 11.7 L Hct 34 L MCV 84 MCH 28 MCHC 34 RDW 16 H Plt Count 200 MPV 7.2 L Neut % (Auto) 74.8 Lymph % (Auto) 11.6 [place] % (Auto) 8.0 Eos % (Auto) 5.0 Baso % (Auto) 0.6 Absolute Neuts (auto) 5.1 Absolute Lymphs (auto) 0.8 L Absolute Monos (auto) 0.5 Absolute Eos (auto) 0.3 Absolute Basos (auto) 0.0 Absolute Nucleated RBC 0.0 Nucleated RBC % 0.0 Sodium 134 L Potassium 3.7 Chloride 100 L Carbon Dioxide 28 Anion Gap 6 BUN 25 H Creatinine 1.48 H Est GFR ( Amer) 54.5 Est GFR (Non-Af Amer) 45.1 BUN/Creatinine Ratio 16.9 Glucose 129 H Calcium 9.1 C-Reactive Protein 3.81 Abnormal Lab Results 01/03/20 12:15 Sodium 134 L Potassium 3.7 Chloride 100 L Carbon Dioxide 28 Anion Gap 6 BUN 25 H Creatinine 1.48 H Est GFR ( Amer) 54.5 Est GFR (Non-Af Amer) 45.1 BUN/Creatinine Ratio 16.9 Glucose 129 H Calcium 9.1 C-Reactive Protein 3.81 Triglycerides 117 Cholesterol 157 LDL Cholesterol 86 HDL Cholesterol 47.5 Assess/Plan/Problems-Billing Mr Larose is an 84yo M with PMH of dementia with behavioral disturbance, RA, CAD, prostate CA, GERD, CKD stage 3, HTN, depression, who presented to ED twice in 24h with c/o headache, N/V. - Patient Problems (1) Cerebrovascular accident involving cerebellum Current Visit: Yes Status: Acute Code(s): I63.9 - CEREBRAL INFARCTION, UNSPECIFIED SNOMED Code(s): 30622754835355143 Comment: MRI done to eval persistent headache revealed 2 punctate infarcts in the L cerebellum. Continue ASA and plavix x21 days then plavix alone, followed by neuro Pt to continue to work with PT/OT. Plan for return to [place] once accepted (2) Dementia Current Visit: Yes Status: Acute Code(s): F03.90 - UNSPECIFIED DEMENTIA WITHOUT BEHAVIORAL DISTURBANCE SNOMED Code(s): 54036567 Comment: Continue supportive care. (3) Headache Current Visit: Yes Status: Acute Code(s): R51 - HEADACHE SNOMED Code(s): 45019076 Comment: NIÑO/N/V of unclear etiology. Temporal arteritis unlikely, per neuro may be in relation to CVA vs oopthalmologic disease. Has been seen by today, see his note please. Pt should follow-up with opthalmology as outpatient continue supportive care (4) CKD (chronic kidney disease) stage 3, GFR 30-59 ml/min Current Visit: Yes Status: Acute Code(s): N18.3 - CHRONIC KIDNEY DISEASE, STAGE 3 (MODERATE) SNOMED Code(s): 915705859 Comment: Creatinine is stable and at baseline. (5) Near syncope Current Visit: Yes Status: Acute Comment: Has not had any other near- syncopal episodes. Continue tele Continue supportive measures (6) Rheumatoid arthritis Current Visit: Yes Status: Acute Code(s): M06.9 - RHEUMATOID ARTHRITIS, UNSPECIFIED SNOMED Code(s): 48813260 Comment: No signs of exacerbation at this time. spoke with Dr. Ortiz today who suggested continuation of prednisone with taper to 5mg daily. 10mg daily for 2 weeks 7.5mg daily for 2 weeks Then continue at 5mg daily Pt already has f/u appointment scheduled with 's office (7) Temporal arteritis Current Visit: Yes Status: Inactive Code(s): M31.6 - OTHER GIANT CELL ARTERITIS SNOMED Code(s): 610094495 Comment: Hx of what appears to be a remote incidence, not active. inflammatory markers have been WNL. No necessary interventions at this time. Continue to monitor for s/s of this disease process. (8) DVT prophylaxis Current Visit: Yes Status: Chronic Onset Date: 01/12/15 Code(s): MDU0105 - SNOMED Code(s): 151036478 Comment: polinax (9) DNR (do not resuscitate) Current Visit: Yes Status: Acute Attending: Micaela Juarez
[2020-01-05] MEDS: Sertraline* 50 MG TAB PO SCH (22:14)
[2020-01-06] MEDS: Enoxaparin(*) 30 MG/0.3 ML SYR SUBCUT SCH (05:53)
[2020-01-06] MEDS: Fluticasone NASAL SPRAY 50MCG* 16 gm SPRAY BTL BOTH NARES SCH (09:32)
[2020-01-06] MEDS: Isosorbide Mononitrate ER TAB* 30 MG PO SCH (09:32)
[2020-01-06] MEDS: Docusate LIQ* 100 MG/10 ML UDC PO SCH ×2 (09:32→21:42)
[2020-01-06] MEDS: Pantoprazole TAB * 40 MG TAB PO SCH (09:33)
[2020-01-06] MEDS: Aspirin EC TAB* 81 MG TAB.EC PO SCH (09:33)
[2020-01-06] MEDS: Clopidogrel TAB* 75 MG PO SCH (09:34)
[2020-01-06] MEDS: Senna TAB 8.6 mg* TAB PO SCH ×2 (09:34→21:41)
[2020-01-06] MEDS: LORATADINE 10 MG PO SCH (09:34)
[2020-01-06] MEDS: Atorvastatin* 20 MG TAB PO SCH (09:34)
--- NOTE | 2020-01-06 15:58 | PN ---
Subjective Date of Service: 01/06/20 Interval History: patient is alert to self. he is pleasantry confused. offers no complaints. talkative. Family History: Unchanged from Admission Social History: Unchanged from Admission Past Medical History: Unchanged from Admission Objective Active Medications: Acetaminophen (Tylenol Tab*) 650 mg PO Q6H PRN PRN Reason: MILD PAIN or TEMP > 100.4 Last Admin: 01/03/20 20:42 Dose: 650 mg Albuterol (Ventolin 2.5 Mg/3 Ml Neb.Joana*) 2.5 mg INH Q6H PRN PRN Reason: CONGESTION Aspirin (Aspirin Ec Tab*) 81 mg PO QAM [facility] Last Admin: 01/06/20 09:33 Dose: 81 mg Atorvastatin Calcium (Lipitor*) 20 mg PO DAILY [facility] Last Admin: 01/06/20 09:34 Dose: 20 mg Clopidogrel Bisulfate (Plavix Tab*) 75 mg PO DAILY [facility] Last Admin: 01/06/20 09:34 Dose: 75 mg Docusate Sodium (Colace Liq*) 100 mg PO BID [facility] Last Admin: 01/06/20 09:32 Dose: 100 mg Enoxaparin Sodium (Lovenox(*)) 30 mg SUBCUT Q24H [facility] Last Admin: 01/06/20 05:53 Dose: 30 mg Fluticasone Propionate (Flonase Nasal [place] 50mcg*) 2 spray BOTH NARES DAILY [facility] Last Admin: 01/06/20 09:32 Dose: 2 spray Isosorbide Mononitrate (Imdur Er Tab*) 15 mg PO DAILY [facility] Last Admin: 01/06/20 09:32 Dose: 15 mg Loratadine (Claritin Tab(Nf)) 5 mg PO DAILY [facility] Last Admin: 01/06/20 09:34 Dose: 5 mg Ondansetron HCl (Zofran Inj*) 4 mg IV Q6H PRN PRN Reason: NAUSEA Last Admin: 01/04/20 12:57 Dose: 4 mg Pantoprazole Sodium (Protonix Tab*) 40 mg PO DAILY [facility] Last Admin: 01/06/20 09:33 Dose: 40 mg Prednisone (Deltasone 5 Mg Tab) 10 mg PO DAILY [facility]; Taper Stop: 01/30/20 20:48 Last Admin: 01/06/20 09:33 Dose: 10 mg Prednisone (Deltasone 5 Mg Tab) 5 mg PO DAILY [facility] Prochlorperazine Edisylate (Compazine Inj*) 5 mg IV Q6H PRN PRN Reason: NAUSEA/VOMITING Last Admin: 01/01/20 20:52 Dose: 5 mg Senna (Senokot 8.6 Mg Tab*) 1 tab PO BID [facility] Last Admin: 01/06/20 09:34 Dose: 1 tab Sertraline HCl (Zoloft*) 50 mg PO BEDTIME [facility] Last Admin: 01/05/20 22:14 Dose: 50 mg Vital Signs - 8 hr 01/06/20 01/06/20 08:00 11:27 Temperature 98.2 F Pulse Rate 90 Respiratory 18 16 Rate Blood Pressure 106/74 (mmHg) O2 Sat by Pulse 95 Oximetry Oxygen Devices in Use Now: None Appearance: elderly male laying in bed. alert to self. pleasant. talkative Eyes: PERRLA Respiratory: Symmetrical Chest Expansion and Respiratory Effort, Clear to Auscultation Cardiovascular: No Edema, - - irregualry irregular Extremities: No Edema, No Clubbing, Cyanosis Skin: No Rash or Ulcers, No Nodules or Sclerosis Neurological: - - alert. moves all extremities. clear speech. dementia. alert to self only Lines/Tubes/Other Access: Clean, Dry and Intact Peripheral IV Nutrition: Taking PO's Result Diagrams: 01/03/20 12:15 01/03/20 12:15 Assess/Plan/Problems-Billing Mr Larose is an 84yo M with PMH of dementia with behavioral disturbance, RA, CAD, prostate CA, GERD, CKD stage 3, HTN, depression, who presented to ED twice in 24h with c/o headache, N/V. - Patient Problems (1) Cerebrovascular accident involving cerebellum Comment: MRI done to eval persistent headache revealed 2 punctate infarcts in the L cerebellum. Continue ASA and plavix x21 days then plavix alone, followed by neuro Pt to continue to work with PT/OT. Plan for return to [place] tomorrow (2) Dementia Comment: Continue supportive care. (3) Headache Comment: NIÑO/N/V of unclear etiology. Temporal arteritis unlikely, per neuro may be in relation to CVA vs oopthalmologic disease. Has been seen by today, see his note please. Pt should follow-up with opthalmology as outpatient continue supportive care (4) Near syncope Comment: Has not had any other near-syncopal episodes. Continue tele Continue supportive measures (5) Rheumatoid arthritis Comment: No signs of exacerbation at this time. Dr. Ortiz suggested continuation of prednisone with taper to 5mg daily. 10mg daily for 2 weeks 7.5 mg daily for 2 weeks Then continue at 5mg daily Pt already has f/u appointment scheduled with 's office (6) DVT prophylaxis Comment: lovenox (7) DNR (do not resuscitate) (8) CKD (chronic kidney disease) stage 3, GFR 30-59 ml/min Comment: Creatinine is stable and at baseline. (9) Temporal arteritis Comment: Hx of what appears to be a remote incidence, not active. inflammatory markers have been WNL. No necessary interventions at this time. Continue to monitor for s/s of this disease process. Status and Disposition: inpatient. Plan for [facility] back [facility] tomorrow
[2020-01-06] MEDS: Sertraline* 50 MG TAB PO SCH (21:41)
[2020-01-07] MEDS: Enoxaparin(*) 30 MG/0.3 ML SYR SUBCUT SCH (06:12)
--- NOTE | 2020-01-07 09:29 | DCNOTE ---
Subjective Date of Service: 01/07/20 Interval History: patient is alert. Pleasantly confused. reports "I have a belly ache" - denies nausea or vomiting. reports he ate his breakfast. Has not had a BM in several days. Spoke to daughter. She is concerned about no BM for several days and he usually complains of stomach ache when this happens. She is concerned that he is going back to [place] without his who is currently in PMRU. Family History: Unchanged from Admission Social History: Unchanged from Admission Past Medical History: Unchanged from Admission Objective Active Medications: Acetaminophen (Tylenol Tab*) 650 mg PO Q6H PRN PRN Reason: MILD PAIN or TEMP > 100.4 Last Admin: 01/03/20 20:42 Dose: 650 mg Albuterol (Ventolin 2.5 Mg/3 Ml Neb.Joana*) 2.5 mg INH Q6H PRN PRN Reason: CONGESTION Aspirin (Aspirin Ec Tab*) 81 mg PO QAM [facility] Last Admin: 01/06/20 09:33 Dose: 81 mg Atorvastatin Calcium (Lipitor*) 20 mg PO DAILY [facility] Last Admin: 01/06/20 09:34 Dose: 20 mg Clopidogrel Bisulfate (Plavix Tab*) 75 mg PO DAILY [facility] Last Admin: 01/06/20 09:34 Dose: 75 mg Docusate Sodium (Colace Liq*) 100 mg PO BID [facility] Last Admin: 01/06/20 21:42 Dose: 100 mg Enoxaparin Sodium (Lovenox(*)) 30 mg SUBCUT Q24H [facility] Last Admin: 01/07/20 06:12 Dose: 30 mg Fluticasone Propionate (Flonase Nasal [place] 50mcg*) 2 spray BOTH NARES DAILY [facility] Last Admin: 01/06/20 09:32 Dose: 2 spray Isosorbide Mononitrate (Imdur Er Tab*) 15 mg PO DAILY [facility] Last Admin: 01/06/20 09:32 Dose: 15 mg Loratadine (Claritin Tab(Nf)) 5 mg PO DAILY [facility] Last Admin: 01/06/20 09:34 Dose: 5 mg Ondansetron HCl (Zofran Inj*) 4 mg IV Q6H PRN PRN Reason: NAUSEA Last Admin: 01/04/20 12:57 Dose: 4 mg Pantoprazole Sodium (Protonix Tab*) 40 mg PO DAILY [facility] Last Admin: 01/06/20 09:33 Dose: 40 mg Prednisone (Deltasone 5 Mg Tab) 10 mg PO DAILY [facility]; Taper Stop: 01/30/20 20:48 Last Admin: 01/06/20 09:33 Dose: 10 mg Prednisone (Deltasone 5 Mg Tab) 5 mg PO DAILY [facility] Prochlorperazine Edisylate (Compazine Inj*) 5 mg IV Q6H PRN PRN Reason: NAUSEA/VOMITING Last Admin: 01/01/20 20:52 Dose: 5 mg Senna (Senokot 8.6 Mg Tab*) 1 tab PO BID [facility] Last Admin: 01/06/20 21:41 Dose: 1 tab Sertraline HCl (Zoloft*) 50 mg PO BEDTIME [facility] Last Admin: 01/06/20 21:41 Dose: 50 mg Vital Signs - 8 hr 01/07/20 03:42 Temperature 97.4 F Pulse Rate 77 Respiratory 18 Rate Blood Pressure 129/81 (mmHg) O2 Sat by Pulse 97 Oximetry Oxygen Devices in Use Now: None Appearance: alert, pleasantly confused Eyes: PERRLA Ears/Nose/Mouth/Throat: Mucous Membranes Moist Neck: NL Appearance and Movements; NL JVP Respiratory: Symmetrical Chest Expansion and Respiratory Effort, Clear to Auscultation Cardiovascular: NL Sounds; No Murmurs; No JVD, RRR, No Edema Abdominal: NL Sounds; No Tenderness; No Distention Skin: No Rash or Ulcers, No Nodules or Sclerosis Neurological: - - alert to self Lines/Tubes/Other Access: Clean, Dry and Intact Peripheral IV Nutrition: Taking PO's Result Diagrams: 01/03/20 12:15 01/03/20 12:15 Assess/Plan/Problems-Billing Mr Larose is an 84yo M with PMH of dementia with behavioral disturbance, RA, CAD, prostate CA, GERD, CKD stage 3, HTN, depression, who presented to ED twice in 24h with c/o headache, N/V found to have a CVA - Patient Problems (1) Cerebrovascular accident involving cerebellum Comment: MRI done to eval persistent headache revealed 2 punctate infarcts in the L cerebellum. Continue ASA and plavix x21 days then plavix alone (01/20 D/C ASA), followed by neuro Pt to continue to work with PT/OT. Plan for return to [place] today (2) Dementia Comment: Continue supportive care. (3) Headache Comment: NIÑO/N/V of unclear etiology. Temporal arteritis unlikely, per neuro may be in relation to CVA vs oopthalmologic disease. Has been seen by - see his note please. Pt should follow-up with opthalmology as outpatient continue supportive care (4) Near syncope Comment: Has not had any other near-syncopal episodes - possible dizziness? Hasnot reoccured Continue supportive measures (5) Rheumatoid arthritis Comment: No signs of exacerbation at this time. Dr. Ortiz suggested continuation of prednisone with taper to 5mg daily. 10mg daily for 2 weeks 7.5 mg daily for 2 weeks Then continue at 5mg daily Pt already has f/u appointment scheduled with 's office (6) DVT prophylaxis Comment: lovenox (7) DNR (do not resuscitate) (8) CKD (chronic kidney disease) stage 3, GFR 30-59 ml/min Comment: Creatinine is stable and at baseline. (9) Temporal arteritis Comment: Hx of what appears to be a remote incidence, not active. inflammatory markers have been WNL. No necessary interventions at this time. Continue to monitor for s/s of this disease process. Status and Disposition: inpatient. Plan for DC back to [place] today. Stable
[2020-01-07] MEDS: Isosorbide Mononitrate ER TAB* 30 MG PO SCH (09:36)
[2020-01-07] MEDS: Docusate LIQ* 100 MG/10 ML UDC PO SCH ×2 (09:36→20:51)
[2020-01-07] MEDS: Senna TAB 8.6 mg* TAB PO SCH ×2 (09:37→20:52)
[2020-01-07] MEDS: Pantoprazole TAB * 40 MG TAB PO SCH (09:37)
[2020-01-07] MEDS: Atorvastatin* 20 MG TAB PO SCH (09:37)
[2020-01-07] MEDS: Clopidogrel TAB* 75 MG PO SCH (09:37)
[2020-01-07] MEDS: Aspirin EC TAB* 81 MG TAB.EC PO SCH (09:37)
[2020-01-07] MEDS: LORATADINE 10 MG PO SCH (09:38)
[2020-01-07] MEDS: Fluticasone NASAL SPRAY 50MCG* 16 gm SPRAY BTL BOTH NARES SCH (09:39)
[2020-01-07] MEDS ORDERED: Magnesium Hydroxide LIQ* 30 ML UDC PO PRN (10:27)
--- NOTE | 2020-01-07 13:36 | DS ---
Amended report to enter cosigning physician. DATE OF ADMISSION: 12/28/2019. DATE OF DISCHARGE: 01/07/2020. PROVIDER: Miguelito Lynn NP. ATTENDING PHYSICIAN: Dr. Juarez* (report dictated by Miguelito Lynn NP). PRIMARY CARE PHYSICIAN: Dr. Shruthi Harry. CONSULTING NEUROLOGIST: Dr. Vogt and Dr. Champion. CONSULTING PSYCHIATRIST: Dr. Rodgers. DISCHARGE STATUS: Stable. DISCHARGED TO: [facility]. DISCHARGE DIAGNOSES: 1. CVA. 2. Headache. 3. Near syncope/dizziness. 4. Nausea/Vomiting - unclear etiology - possible GERD. SECONDARY DIAGNOSES: 1. Rheumatoid arthritis. 2. Temporal arteritis. 3. Dementia with behavioral disturbance. 4. Coronary artery disease, status post PCI. 5. History of prostate cancer. 6. GERD. 7. Chronic kidney disease, stage 3. 8. Hypertension. 9. Chronic low back pain. 10. Depression. 11. History of iron deficiency anemia. DISCHARGE MEDICATIONS: 1. Aspirin 81 mg p.o. daily, to be discontinued on 01/21/2020. 2. Plavix 75 mg daily (new medication). 3. Imdur ER 15 mg daily. 4. Lutein eye vitamins 20 mg p.o. daily. 5. Multivitamin one tab p.o. daily. 6. Nitroglycerin 0.4 mg sublingual q.5 minutes prn chest pain/angina. 7. Pantoprazole 40 mg p.o. BID (this was increased from once daily) 8. Senna 8.6 mg one tab p.o. b.i.d. 9. Zoloft 50 mg p.o. at bedtime. 10. Didi 180 mg p.o. daily prn. 11. Ferrous Sulfate 134 mg p.o. every other day. 12. Atorvastatin 20 mg p.o. daily. 13. Acetaminophen 975 mg p.o. q.8 hours prn. 14. Albuterol inhaler two puffs INH q.6 hours prn. 15. Prednisone 10 mg daily for 2 weeks, then 7.5 mg daily for 2 weeks, then continue at 5 mg daily. The patient was started on Prednisone 10 mg daily on . 16. Amlodipine 2.5 mg p.o. daily. 17. Meclizine 12.5 mg p.o. t.i.d. prn dizziness. MEDICATIONS ON HOLD: Seroquel 25 mg p.o. at bedtime (please note, this made the patient very lethargic). HISTORY OF PRESENT ILLNESS/HOSPITAL COURSE: Mr. Larose is an 84-year-old male with a past medical history as stated above who currently resides at [facility], who presented to the emergency department for the second time with complaint of headache, abdominal pain, and two episodes of nausea and vomiting in the last 24 hours. Apparently, he had been complaining of abdominal pain on and off for the past three to four days per [facility]'s report and had one episode of emesis , and he was sent to the emergency department. On arrival to the emergency department, the patient no longer complained of abdominal pain, but instead complained of headache. His emergency room work-up on 12/27/2019 showed largely unremarkable labs and a CT abdomen and pelvis that showed no acute pathology. A CT of the head showed no acute intracranial pathology, aside from some mild sinusitis. He was treated symptomatically for resume of evidence of emesis in the setting of headache with no associated fever or upper respiratory symptoms and was discharged back to [facility] on 12/27/2019. He presented to the emergency department only several hours later, again having another episode of nausea and clear emesis with complaint of headache and was admitted for observation. He underwent a brain CT which showed no acute intracranial hemorrhage or acute territorial type infarct. A small chronic lacunar infarct was visualized. He underwent a brain MRI which did reveal two small foci of restricted diffusion noted at the left inferior cerebral hemisphere consistent with acute or subacute infarcts. Please see report for full details. He was seen in consultation by neurologist Dr. Vogt and it appears unclear if these are acute versus subacute. He did feel that with the punctuate recent infarctions, it was reasonable to put him on Plavix plus aspirin for 21 days and then switch him to Plavix only. It is unclear the source of nausea and vomiting, but this has resolved throughout the hospitalization except today he had another episode of nausea and emesis - yellow bile. Some mild epigastric tenderness, unclear if this is due to that he is constipated or GERD. No signs of infectious process. Plan to increase PPI to twice daily. His abdomen/pelvis CT on 12/27/2019 was unremarkable. He has been eating normally without any issues. The patient should follow-up with Neurology Service as an outpatient within the next month. The patient did undergo a head MRA which showed no intracranial aneurysms or arterial dissection evident. Based on correlation with CT, there is calcification plaque in the carotid siphons with resulting approximately 50 percent stenosis on the right. Negative for occlusion or significant stenosis. Please see full MRA report for full details, otherwise there is nothing acute noted. The patient also underwent a transthoracic echocardiogram which showed estimated EF 55 to 60 percent, hypokinesis of the basal inferior and basal inferolateral myocardium, left ventricular diastolic function parameters are normal for patient's age. PFO is not demonstrated by color Doppler and negative bubble study. Please see full report for full details. The patient was seen in consultation by Dr. Rodgers, psychiatrist, for possible suicidal ideation. It was not felt that the patient required psychiatric inpatient admission and thought most likely this was secondary to dementia with behavioral disturbance. The patient has done well throughout the hospitalization. His headache has seemed to resolved and he has no complaints. He was having intermittent episodes of feeling dizzy and have a hard time reading. It is recommended that he follow-up with an eye exam as an outpatient and an meter attendant. For his headache, he did receive Solu-Medrol thinking possibly it was from temporal arteritis. Bee Miramontes, RESIDENTIAL LEASING MANAGER hospitalist spoke to model and pattern supervisor Dr. Ortiz who suggested a Prednisone taper with 10 mg daily for two weeks, then 7.5 mg daily for two weeks, then 5 mg daily. The patient already has a follow-up appointment scheduled with Dr. Ortiz. His RA appears to be controlled at this time. It is unclear if the headaches were causes by acute versus subacute CVA versus a possible viral illness. Lower suspicion for temporal arteritis as inflammatory markers have been within normal limits. The patient was given his home dose of Seroquel during hospitalization and this was found to make him very sleepy and per the daughter, requested he not have it again. This has been held and he has been doing well. He does have dementia noted at his baseline and has not had behavioral disturbances and has been pleasantly confused. His anemia appears to be at baseline. Recommend continuing iron supplementation. Creatine appears to be at baseline. Lipid profile appears to be well controlled. On admission, it is noted that his total protein is a little bit low, but he was having nausea and vomiting prior to hospitalization. Encourage three meals a day. The patient has been eating well throughout hospitalization. The patient is stable for discharge back to [facility]. He has remained afebrile throughout hospitalization and hemodynamically stable. DISCHARGE PLAN: 1. Transfer patient back to [facility] today. 2. Follow-up with Dr. Harry within one week. 3. Follow-up with Dr. Pope, meter attendant, for eye exam. 4. Follow-up with Dr. Ortiz, he has a previously scheduled upcoming appointment. 5. Follow-up with Neurology, either Dr. Champion or Dr. Vogt within one month. 6. Again continue dual antiplatelet therapy with aspirin and Plavix for 21 days , then the patient is to discontinue aspirin on 01/21/2020 and will continue Plavix 75 mg daily only. 7. Consider follow up with GI - possible GERD and epigastric tenderness, PPI increased. Primary to follow-up. DISPOSITION AT DISCHARGE: Stable. TIME SPENT: Approximately 60 minutes were spent on this discharge. MIGUELITO LYNN, RESIDENTIAL LEASING MANAGER [id number]/CPS #: [id number] ADDENDUM: PATIENTS DISCHARGE WAS HELD YESTERDAY DUE TO HE HAD NOT HAD A BOWEL MOVEMENT FOR MANY DAYS, HAD ALSO C/O ABDOMINAL DISCOMFORT 'STOMACH MARISELA", NAUSEA AND HAD AN EPISODE OF EMESIS -SMALL AMOUNT (BILE). HE WAS GIVEN MOM AND HAD A LARGE BM SINCE LAST NIGHT. TODAY HE STATES HIS ABDOMINAL DISCOMFORT IS RESOLVED, AND HAS NO N/V. IT IS UNCLEAR THE ETIOLOGY OF HIS INTERMITTENT N/V AND C/O ABDOMINAL/ STOMACH ACHE. HE DOES HAVE SOME EPIGASTRIC TENDERNESS AND I AM THINKING THIS COULD BE DRIVEN BY GERD SYMPTOMS. WITH HIS DEMENTIA THE ASSESSMENT IS CHALLENGING. HIS PPI WAS INCREASED AND PCP TO FOLLOW UP ON POST HOSPITALIZATION. LOW SUSPICION FOR INFECTIOUS PROCESS. NO NOTED GI BLEEDING. PATIENT LOOKS GOOD THIS MORNING, STABLE FOR TRANSFER BACK TO [facility]. DAUGHTER UPDATED. SHE WILL ALSO BE PICKING UP HIS (HER MOTHER) FROM [facility] TO BRING HOME TODAY AND FEELS GOOD ABOUT THE DISCHARGE - SHE LIVES CLOSE AND IS VERY INVOLVED. BROCK
[2020-01-07] MEDS: Acetaminophen TAB* 325 MG PO PRN ×2 (13:44→20:52)
[2020-01-07] MEDS: PROCHLORPERAZINE INJ 5 MG/ML 2 ML VIAL IV PRN (13:45)
[2020-01-07] MEDS: Sertraline* 50 MG TAB PO SCH (20:53)
[2020-01-08] MEDS: Enoxaparin(*) 30 MG/0.3 ML SYR SUBCUT SCH (06:51)
[2020-01-08] MEDS: Pantoprazole TAB * 40 MG TAB PO SCH (09:40)
[2020-01-08] MEDS: Docusate LIQ* 100 MG/10 ML UDC PO SCH (09:40)
[2020-01-08] MEDS: Isosorbide Mononitrate ER TAB* 30 MG PO SCH (09:40)
[2020-01-08] MEDS: Aspirin EC TAB* 81 MG TAB.EC PO SCH (09:40)
[2020-01-08] MEDS: Senna TAB 8.6 mg* TAB PO SCH (09:41)
[2020-01-08] MEDS: Fluticasone NASAL SPRAY 50MCG* 16 gm SPRAY BTL BOTH NARES SCH (09:41)
[2020-01-08] MEDS: Clopidogrel TAB* 75 MG PO SCH (09:41)
[2020-01-08] MEDS: LORATADINE 10 MG PO SCH (09:41)
[2020-01-08] MEDS: Atorvastatin* 20 MG TAB PO SCH (09:41)
--- NOTE | 2020-01-08 11:00 | DCNOTE ---
Subjective Date of Service: 01/08/20 Interval History: patient sitting up in a chair alert, appears well. Denies a stomach ache or abdominal pain, reports he had a BM. Wants to go home. Denies niño, dizziness. Reports good appetite for breakfast Family History: Unchanged from Admission Social History: Unchanged from Admission Past Medical History: Unchanged from Admission Objective Active Medications: Acetaminophen (Tylenol Tab*) 650 mg PO Q6H PRN PRN Reason: MILD PAIN or TEMP > 100.4 Last Admin: 01/07/20 20:52 Dose: 650 mg Albuterol (Ventolin 2.5 Mg/3 Ml Neb.Joana*) 2.5 mg INH Q6H PRN PRN Reason: CONGESTION Aspirin (Aspirin Ec Tab*) 81 mg PO QAM [facility] Last Admin: 01/08/20 09:40 Dose: 81 mg Atorvastatin Calcium (Lipitor*) 20 mg PO DAILY [facility] Last Admin: 01/08/20 09:41 Dose: 20 mg Clopidogrel Bisulfate (Plavix Tab*) 75 mg PO DAILY [facility] Last Admin: 01/08/20 09:41 Dose: 75 mg Docusate Sodium (Colace Liq*) 100 mg PO BID [facility] Last Admin: 01/08/20 09:40 Dose: 100 mg Enoxaparin Sodium (Lovenox(*)) 30 mg SUBCUT Q24H [facility] Last Admin: 01/08/20 06:51 Dose: 30 mg Fluticasone Propionate (Flonase Nasal [place] 50mcg*) 2 spray BOTH NARES DAILY [facility] Last Admin: 01/08/20 09:41 Dose: 2 spray Isosorbide Mononitrate (Imdur Er Tab*) 15 mg PO DAILY [facility] Last Admin: 01/08/20 09:40 Dose: 15 mg Loratadine (Claritin Tab(Nf)) 5 mg PO DAILY [facility] Last Admin: 01/08/20 09:41 Dose: 5 mg Magnesium Hydroxide (Milk Of Magnesia Liq*) 30 ml PO Q6H PRN PRN Reason: CONSTIPATION Last Admin: 01/07/20 11:17 Dose: 30 ml Ondansetron HCl (Zofran Inj*) 4 mg IV Q6H PRN PRN Reason: NAUSEA Last Admin: 01/04/20 12:57 Dose: 4 mg Pantoprazole Sodium (Protonix Tab*) 40 mg PO DAILY [facility] Last Admin: 01/08/20 09:40 Dose: 40 mg Prednisone (Deltasone 5 Mg Tab) 10 mg PO DAILY [facility]; Taper Stop: 01/30/20 20:48 Last Admin: 01/08/20 09:40 Dose: 10 mg Senna (Senokot 8.6 Mg Tab*) 1 tab PO BID [facility] Last Admin: 01/08/20 09:41 Dose: 1 tab Sertraline HCl (Zoloft*) 50 mg PO BEDTIME [facility] Last Admin: 01/07/20 20:53 Dose: 50 mg Vital Signs - 8 hr 01/08/20 04:01 Temperature 97.2 F Pulse Rate 55 Respiratory 18 Rate Blood Pressure 146/76 (mmHg) O2 Sat by Pulse 98 Oximetry Oxygen Devices in Use Now: None Appearance: elderly male alert to self only NAD Eyes: No Scleral Icterus, PERRLA Ears/Nose/Mouth/Throat: Mucous Membranes Moist Neck: NL Appearance and Movements; NL JVP Respiratory: Symmetrical Chest Expansion and Respiratory Effort, Clear to Auscultation Cardiovascular: NL Sounds; No Murmurs; No JVD, RRR, No Edema Abdominal: - - mild epigastric tenderness otherwise nontender, soft, obese. NL BS x4 Extremities: No Edema, No Clubbing, Cyanosis Neurological: NL Sensation, NL Muscle Strength and Tone, - - alert to self, he knows he is not home but cant tell me where he is. Is able to tell me his and daughters name. Lines/Tubes/Other Access: Clean, Dry and Intact Peripheral IV Result Diagrams: 01/03/20 12:15 01/03/20 12:15 Additional Lab and Data: Abnormal Lab Results 01/03/20 01/03/20 12:15 12:15 WBC 6.9 RBC 4.11 L Hgb 11.7 L Hct 34 L MCV 84 MCH 28 MCHC 34 RDW 16 H Plt Count 200 MPV 7.2 L Neut % (Auto) 74.8 Lymph % (Auto) 11.6 [place] % (Auto) 8.0 Eos % (Auto) 5.0 Baso % (Auto) 0.6 Absolute Neuts (auto) 5.1 Absolute Lymphs (auto) 0.8 L Absolute Monos (auto) 0.5 Absolute Eos (auto) 0.3 Absolute Basos (auto) 0.0 Absolute Nucleated RBC 0.0 Nucleated RBC % 0.0 Sodium 134 L Potassium 3.7 Chloride 100 L Carbon Dioxide 28 Anion Gap 6 BUN 25 H Creatinine 1.48 H Est GFR ( Amer) 54.5 Est GFR (Non-Af Amer) 45.1 BUN/Creatinine Ratio 16.9 Glucose 129 H Calcium 9.1 C-Reactive Protein 3.81 Abnormal Lab Results 01/03/20 12:15 Sodium 134 L Potassium 3.7 Chloride 100 L Carbon Dioxide 28 Anion Gap 6 BUN 25 H Creatinine 1.48 H Est GFR ( Amer) 54.5 Est GFR (Non-Af Amer) 45.1 BUN/Creatinine Ratio 16.9 Glucose 129 H Calcium 9.1 C-Reactive Protein 3.81 Triglycerides 117 Cholesterol 157 LDL Cholesterol 86 HDL Cholesterol 47.5 Assess/Plan/Problems-Billing Mr Larose is an 84yo M with PMH of dementia with behavioral disturbance, RA, CAD, prostate CA, GERD, CKD stage 3, HTN, depression, who presented to ED twice in 24h with c/o headache, N/V found to have a CVA - Patient Problems (1) Cerebrovascular accident involving cerebellum Comment: MRI done to eval persistent headache revealed 2 punctate infarcts in the L cerebellum. Continue ASA and plavix x21 days then plavix alone (01/20 D/C ASA), followed by neuro Pt to continue to work with PT/OT. Plan for return to [place] today (2) Dementia Comment: Continue supportive care. (3) Headache Comment: NIÑO/N/V of unclear etiology. Temporal arteritis unlikely, per neuro may be in relation to CVA vs oopthalmologic disease. Has been seen by - see his note please. Pt should follow-up with opthalmology as outpatient continue supportive care (4) Near syncope Comment: Has not had any other near-syncopal episodes - possible dizziness? Hasnot reoccured Continue supportive measures (5) Rheumatoid arthritis Comment: No signs of exacerbation at this time. Dr. Ortiz suggested continuation of prednisone with taper to 5mg daily. 10mg daily for 2 weeks 7.5 mg daily for 2 weeks Then continue at 5mg daily Pt already has f/u appointment scheduled with 's office (6) DVT prophylaxis Comment: lovenox (7) CKD (chronic kidney disease) stage 3, GFR 30-59 ml/min Comment: Creatinine is stable and at baseline. (8) Temporal arteritis Comment: Hx of what appears to be a remote incidence, not active. inflammatory markers have been WNL. No necessary interventions at this time. Continue to monitor for s/s of this disease process. (9) DNR (do not resuscitate) (10) Nausea & vomiting Comment: he has had intermittent episodes - unclear if this is viral illness, possibly GERD - he does have some mild epigastric tenderness - PPI was oincreased with recommendation to f/u with PCP and possible GI consult Status and Disposition: inpatient. Plan for DC back to [place] today. Stable
[2020-01-08 12:54] VITALS: BP 117/80
== END 2020-01-08 13:00 | DRG 65 ==
LOC: ED 03:56 → MEDTELE 05:26 → OBSVTOIN 12-30 11:00
PROVIDERS: ADMIT Internal Medicine; ATTEND Internal Medicine
DX: I63.89 Other cerebral infarction (principal); F03.91 Unspecified dementia, unspecified severity, with behavioral disturbance; R45.851 Suicidal ideations; G93.40 Encephalopathy, unspecified; F05 Delirium due to known physiological condition; F32.9 Major depressive disorder, single episode, unspecified; R41.9 Unspecified symptoms and signs involving cognitive functions and awareness; M06.9 Rheumatoid arthritis, unspecified; I25.10 Atherosclerotic heart disease of native coronary artery without angina pectoris; K21.9 Gastro-esophageal reflux disease without esophagitis; I12.9 Hypertensive chronic kidney disease with stage 1 through stage 4 chronic kidney disease, or unspecified chronic kidney disease; M54.5 Low back pain; F32.4 Major depressive disorder, single episode, in partial remission; J32.9 Chronic sinusitis, unspecified; D63.1 Anemia in chronic kidney disease; Z66 Do not resuscitate; G89.29 Other chronic pain; N18.3 Chronic kidney disease, stage 3 (moderate); R51 Headache; R55 Syncope and collapse; Z96.641 Presence of right artificial hip joint; Z96.651 Presence of right artificial knee joint; D50.9 Iron deficiency anemia, unspecified; N40.0 Benign prostatic hyperplasia without lower urinary tract symptoms; R11.2 Nausea with vomiting, unspecified; R42 Dizziness and giddiness; M31.6 Other giant cell arteritis; Z95.5 Presence of coronary angioplasty implant and graft; Z85.46 Personal history of malignant neoplasm of prostate; Z79.82 Long term (current) use of aspirin; Z88.8 Allergy status to other drugs, medicaments and biological substances; Z88.5 Allergy status to narcotic agent; Z79.899 Other long term (current) drug therapy; Z79.52 Long term (current) use of systemic steroids; Z87.891 Personal history of nicotine dependence; I25.2 Old myocardial infarction; E78.5 Hyperlipidemia, unspecified; E78.00 Pure hypercholesterolemia, unspecified; K59.09 Other constipation; Z87.442 Personal history of urinary calculi; M48.00 Spinal stenosis, site unspecified
CPT/HCPCS: 36415; 70450; 70544; 70551; 71045; 80048; 80053; 80061; 81003; 81015; 82140; 82607; 83605; 84443; 84484; 85025; 85652; 86140; 93005; 93306; 94762; 96361; 96372; 96374; 96375; 99284; A9270-GY; C8929; G0378; J0780; J1650; J2405; J2930; J3010; J7512

== ENCOUNTER 2020-03-29 14:38 | Inpatient (IN) ==
[2020-03-29] MEDS ORDERED: Iodixanol (CONTRAST) 320 MG/ML 100 ML SDV IV ONE (15:02)
[2020-03-29 15:53] LABS: ABS Basophils 0.1 10^3/ul (0-0.2); ABS Eosinophils 0.1 10^3/ul (0-0.6); ABS Lymphocytes 0.5 10^3/ul (1.0-4.8); ABS Monocytes 0.7 10^3/ul (0-0.8); ABS Neutrophils 12.2 10^3/ul (1.5-7.7); Eosinophil % 0.8 %; Hematocrit 36 % (42-52); Hemoglobin 11.9 g/dL (14.0-18.0); Lymphocyte % 3.5 %; Mean Corpuscular HGB Conc 33 g/dL (31-36); Mean Corpuscular Hemoglobin 28 pg (27-31); Mean Corpuscular Volume 85 fL (80-94); Mean Platelet Volume 7.2 fL (7.4-10.4); Platelet Count 179 10^3/uL (150-450); Red Blood Count 4.21 10^6 /uL (4.18-5.48); Red Cell Distribution Width 15 % (10-15); White Blood Count 13.6 10^3/uL (3.5-10.8)
[2020-03-29 15:54] LABS: Activated Partial Thrombo Time 27.6 seconds (26.0-38.0); INR 1.06 (0.82-1.09)
[2020-03-29 15:59] LABS: BUN/Creatinine Ratio 19.1 (8-20); CRP High Sensitivity 5.96 mg/L (<2.00); Calcium 8.8 mg/dL (8.6-10.3); EGFR African American 57.5 (>60); EGFR Non-African American 47.5 (>60); Magnesium 2.1 mg/dL (1.9-2.7); Potassium 4.4 mmol/L (3.5-5.0)
[2020-03-29 16:09] LABS: Troponin I 0.01 ng/mL (<0.03)
[2020-03-29 16:11] LABS: TSH Ultra Thyroid Stim Horm 2.53 mcIU/mL (0.34-5.60)
[2020-03-29 16:26] LABS: Free T4 0.76 ng/dL (0.61-1.12)
[2020-03-29 17:14] LABS: Urine Appearance Clear; Urine Bilirubin Negative (Negative); Urine Blood Negative (Negative); Urine Color Yellow; Urine Glucose Negative (Negative); Urine Ketones Negative (Negative); Urine Nitrite Negative (Negative); Urine Protein 1+(30 mg/dL) (Negative); Urine Urobilinogen Negative (Negative)
[2020-03-29 17:17] LABS: Urine Bacteria Absent (Absent); Urine Red Blood Cell Trace(0-2/hpf) (Absent); Urine Squamous Epithelial Cell Present (Absent); Urine White Blood Cell Trace(0-5/hpf) (Absent)
[2020-03-29 18:15] LABS: Erythrocyte Sed Rate 16 mm/Hr (0-19)
[2020-03-29] MEDS ORDERED: NS 0.9% 1000 ml BAG 1,000 ML IV SCH (19:45)
[2020-03-29] MEDS ORDERED: Albuterol HFA INHALER 8 gm MDI INH PRN (19:58)
[2020-03-30] MEDS: Heparin 5000 UNITS/ML 1 mL VIAL SUBCUT SCH ×4 (00:10→21:40)
[2020-03-30] MEDS ORDERED: Haloperidol 5 mg/ml SDV IV/IM 5 MG/ML AMP IV SLOW PU ONE (02:36)
[2020-03-30] MEDS ORDERED: Haloperidol 5 mg/ml SDV IV/IM 5 MG/ML AMP ONE (03:35)
[2020-03-30 07:34] LABS: Calcium 8.7 mg/dL (8.6-10.3); EGFR African American 56.1 (>60); EGFR Non-African American 46.4 (>60); Potassium 4.2 mmol/L (3.5-5.0)
[2020-03-30] MEDS ORDERED: Aspirin EC 81 mg TAB.EC (enteric coated) PO SCH (09:00)
[2020-03-30 09:53] LABS: ABS Eosinophils 0.3 10^3/ul (0-0.6); ABS Lymphocytes 0.8 10^3/ul (1.0-4.8); ABS Monocytes 0.5 10^3/ul (0-0.8); ABS Neutrophils 5.4 10^3/ul (1.5-7.7); Eosinophil % 4.1 %; Hematocrit 34 % (42-52); Hemoglobin 11.6 g/dL (14.0-18.0); Lymphocyte % 11.2 %; Mean Corpuscular HGB Conc 34 g/dL (31-36); Mean Corpuscular Hemoglobin 29 pg (27-31); Mean Corpuscular Volume 84 fL (80-94); Mean Platelet Volume 7.1 fL (7.4-10.4); Nucleated Red Blood Cells % 0.1; Platelet Count 186 10^3/uL (150-450); Red Blood Count 4.05 10^6 /uL (4.18-5.48); Red Cell Distribution Width 16 % (10-15)
[2020-03-30] MEDS: Isosorbide Mononit ER 30mg TAB PO SCH (10:15)
[2020-03-30] MEDS: Multivitamins/Minerals TAB PO SCH (10:15)
[2020-03-31] MEDS: Heparin 5000 UNITS/ML 1 mL VIAL SUBCUT SCH ×3 (07:00→20:56)
[2020-03-31] MEDS: Multivitamins/Minerals TAB PO SCH (10:15)
[2020-03-31] MEDS: Isosorbide Mononit ER 30mg TAB PO SCH (10:15)
[2020-04-01] MEDS: Heparin 5000 UNITS/ML 1 mL VIAL SUBCUT SCH ×3 (04:08→22:34)
[2020-04-01] MEDS ORDERED: Polyethylene Glycol 3350 17 GM PACKET PO SCH (08:00)
[2020-04-01] MEDS: Polyethylene Glycol 3350 17 GM PACKET PO SCH ×2 (09:39→22:35)
[2020-04-01] MEDS: Isosorbide Mononit ER 30mg TAB PO SCH (09:45)
[2020-04-01] MEDS: Multivitamins/Minerals TAB PO SCH (09:46)
[2020-04-02] MEDS: Heparin 5000 UNITS/ML 1 mL VIAL SUBCUT SCH ×3 (05:16→20:43)
[2020-04-02] MEDS: Multivitamins/Minerals TAB PO SCH (07:57)
[2020-04-02] MEDS: Polyethylene Glycol 3350 17 GM PACKET PO SCH ×3 (07:57→20:36)
[2020-04-02] MEDS: Isosorbide Mononit ER 30mg TAB PO SCH (07:57)
[2020-04-03] MEDS: Heparin 5000 UNITS/ML 1 mL VIAL SUBCUT SCH ×3 (06:14→21:11)
[2020-04-03] MEDS: Multivitamins/Minerals TAB PO SCH ×2 (10:09→10:22)
[2020-04-03] MEDS: Isosorbide Mononit ER 30mg TAB PO SCH (10:09)
[2020-04-03] MEDS: Polyethylene Glycol 3350 17 GM PACKET PO SCH ×2 (10:09→21:11)
[2020-04-04] MEDS: Heparin 5000 UNITS/ML 1 mL VIAL SUBCUT SCH ×3 (05:48→20:20)
[2020-04-04] MEDS: Polyethylene Glycol 3350 17 GM PACKET PO SCH (07:51)
[2020-04-04] MEDS: Isosorbide Mononit ER 30mg TAB PO SCH (07:52)
[2020-04-04] MEDS: Multivitamins/Minerals TAB PO SCH (07:54)
[2020-04-04] MEDS ORDERED: NS 0.9% 1000 ml BAG 1,000 ML IV ONE (09:59)
[2020-04-04 11:11] LABS: ABS Basophils 0.1 10^3/ul (0-0.2); ABS Eosinophils 0.2 10^3/ul (0-0.6); ABS Lymphocytes 0.7 10^3/ul (1.0-4.8); ABS Monocytes 0.6 10^3/ul (0-0.8); Eosinophil % 3.1 %; Hematocrit 34 % (42-52); Hemoglobin 11.7 g/dL (14.0-18.0); Lymphocyte % 8.8 %; Mean Corpuscular HGB Conc 34 g/dL (31-36); Mean Corpuscular Hemoglobin 29 pg (27-31); Mean Corpuscular Volume 85 fL (80-94); Mean Platelet Volume 7.1 fL (7.4-10.4); Platelet Count 201 10^3/uL (150-450); Red Blood Count 4.03 10^6 /uL (4.18-5.48); Red Cell Distribution Width 15 % (10-15); White Blood Count 7.6 10^3/uL (3.5-10.8)
[2020-04-04 11:30] LABS: Albumin 3.5 g/dL (3.2-5.2); Albumin/Globulin Ratio 1.3 (1-3); BUN/Creatinine Ratio 14.2 (8-20); C Reactive Protein 11.33 mg/L (<8.01); Calcium 8.2 mg/dL (8.6-10.3); EGFR Non-African American 40.5 (>60); Globulin 2.8 g/dL (2-4); Total Bilirubin 0.6 mg/dL (0.2-1.0); Total Protein 6.3 g/dL (6.4-8.9)
[2020-04-04 12:31] LABS: Troponin I 0.01 ng/mL (<0.03)
[2020-04-04 19:03] LABS: Urine Appearance Cloudy; Urine Bilirubin Negative (Negative); Urine Blood Negative (Negative); Urine Color Yellow; Urine Glucose Negative (Negative); Urine Ketones Negative (Negative); Urine Nitrite Negative (Negative); Urine Protein Negative (Negative); Urine Specific Gravity 1.018 (1.010-1.030); Urine Urobilinogen Negative (Negative)
[2020-04-05] MEDS: Heparin 5000 UNITS/ML 1 mL VIAL SUBCUT SCH ×3 (07:50→23:10)
[2020-04-05] MEDS: Isosorbide Mononit ER 30mg TAB PO SCH (10:28)
[2020-04-05] MEDS: Multivitamins/Minerals TAB PO SCH (10:30)
[2020-04-06] MEDS: Heparin 5000 UNITS/ML 1 mL VIAL SUBCUT SCH ×3 (05:14→23:33)
[2020-04-06] MEDS: Isosorbide Mononit ER 30mg TAB PO SCH (10:49)
[2020-04-06] MEDS: Multivitamins/Minerals TAB PO SCH (10:50)
[2020-04-07] MEDS: Heparin 5000 UNITS/ML 1 mL VIAL SUBCUT SCH (05:41)
[2020-04-07] MEDS: Isosorbide Mononit ER 30mg TAB PO SCH (09:06)
[2020-04-07] MEDS: Multivitamins/Minerals TAB PO SCH (09:07)
[2020-04-07 13:53] VITALS: BP 124/71
== END 2020-04-07 13:30 | disposition home or self-care (01) | DRG 69 ==
LOC: ED 14:38 → MED 19:17
PROVIDERS: ADMIT Internal Medicine; ATTEND Internal Medicine

== ENCOUNTER 2020-09-21 08:05 | Inpatient (IN) ==
[2020-09-21] MEDS ORDERED: Ondansetron 4 mg VIAL 2 MG/ML 2 ml VIAL IV ONE (08:21)
[2020-09-21 08:35] LABS: ABS Lymphocytes 0.6 10^3/ul (1.0-4.8); ABS Monocytes 0.3 10^3/ul (0-0.8); Eosinophil % 0.6 %; Hematocrit 36 % (42-52); Hemoglobin 12.6 g/dL (14.0-18.0); Lymphocyte % 11.4 %; Mean Corpuscular HGB Conc 35 g/dL (31-36); Mean Corpuscular Hemoglobin 29 pg (27-31); Mean Corpuscular Volume 82 fL (80-94); Mean Platelet Volume 7.4 fL (7.4-10.4); Platelet Count 196 10^3/uL (150-450); Red Blood Count 4.42 10^6 /uL (4.18-5.48); Red Cell Distribution Width 15 % (10-15)
[2020-09-21 08:45] LABS: Activated Partial Thrombo Time 31.5 seconds (26.0-38.0); INR 1.19 (0.82-1.09)
[2020-09-21 08:53] LABS: Influenza A Molecular Negative (Negative); Influenza B Molecular Negative (Negative)
[2020-09-21 08:55] LABS: ALT 18 U/L (7-52); AST 37 U/L (13-39); Albumin 4.1 g/dL (3.2-5.2); Albumin/Globulin Ratio 1.1 (1-3); Alkaline Phosphatase 76 U/L (34-104); Anion Gap 10 mmol/L (2-11); BUN/Creatinine Ratio 19.9 (8-20); Blood Urea Nitrogen 29 mg/dL (6-24); C Reactive Protein 113.95 mg/L (<8.01); CO2 Carbon Dioxide 24 mmol/L (22-32); Calcium 9.2 mg/dL (8.6-10.3); Chloride 107 mmol/L (101-111); EGFR African American 55.3 (>60); EGFR Non-African American 45.7 (>60); Globulin 3.9 g/dL (2-4); Glucose 99 mg/dL (70-100); Potassium 3.5 mmol/L (3.5-5.0); Sodium 141 mmol/L (135-145)
[2020-09-21 09:29] LABS: LDH 246 U/L (140-271)
[2020-09-21 10:07] LABS: Troponin I 0.04 ng/mL (<0.03)
[2020-09-21] MEDS ORDERED: Ondansetron 4 mg VIAL 2 MG/ML 2 ml VIAL IV PRN (10:25)
[2020-09-21 10:54] LABS: Urine Appearance Cloudy; Urine Bilirubin Negative (Negative); Urine Blood 3+ (Negative); Urine Color Yellow; Urine Glucose Negative (Negative); Urine Ketones Negative (Negative); Urine Nitrite Negative (Negative); Urine Protein 2+(100 mg/dL) (Negative); Urine Urobilinogen Negative (Negative)
[2020-09-21 10:59] LABS: Urine Bacteria Absent (Absent); Urine Red Blood Cell 3+(>10/hpf) (Absent); Urine Squamous Epithelial Cell Present (Absent); Urine White Blood Cell Absent (Absent)
[2020-09-21] MEDS: Heparin 5000 UNITS/ML 1 mL VIAL SUBCUT SCH ×2 (13:00→20:37)
[2020-09-22] MEDS: Heparin 5000 UNITS/ML 1 mL VIAL SUBCUT SCH ×3 (06:08→22:27)
[2020-09-22] MEDS ORDERED: Remdesivir 5 MG/ML LIQ IV Vial 200 MG in NS 0.9% 250 ml 210 ML IV ONE (08:12)
[2020-09-22] MEDS ORDERED: Multivitamins/Minera Areds(NF) CAP PO SCH (09:00)
[2020-09-22] MEDS ORDERED: Isosorbide Mononit ER 30mg TAB PO SCH (09:00)
[2020-09-22] MEDS: Multivitamins/Minerals TAB PO SCH (10:52)
[2020-09-22] MEDS ORDERED: NS 0.9% 1000 ml BAG 1,000 ML IV ONE (16:00)
[2020-09-22 19:35] LABS: ABS Lymphocytes 0.2 10^3/ul (1.0-4.8); ABS Monocytes 0.2 10^3/ul (0-0.8); ABS Neutrophils 4.5 10^3/ul (1.5-7.7); Eosinophil % 0.1 %; Hematocrit 32 % (42-52); Hemoglobin 11.2 g/dL (14.0-18.0); Lymphocyte % 4.3 %; Mean Corpuscular HGB Conc 35 g/dL (31-36); Mean Corpuscular Hemoglobin 28 pg (27-31); Mean Corpuscular Volume 81 fL (80-94); Mean Platelet Volume 7.4 fL (7.4-10.4); Platelet Count 178 10^3/uL (150-450); Red Blood Count 3.99 10^6 /uL (4.18-5.48); Red Cell Distribution Width 15 % (10-15); White Blood Count 4.9 10^3/uL (3.5-10.8)
[2020-09-22 20:02] LABS: Albumin 3.2 g/dL (3.2-5.2); BUN/Creatinine Ratio 20.3 (8-20); C Reactive Protein 152.2 mg/L (<8.01); Calcium 8.3 mg/dL (8.6-10.3); EGFR African American 54.4 (>60); Globulin 3.1 g/dL (2-4); Potassium 3.7 mmol/L (3.5-5.0); Total Bilirubin 0.4 mg/dL (0.2-1.0); Total Protein 6.3 g/dL (6.4-8.9)
[2020-09-23] MEDS: Heparin 5000 UNITS/ML 1 mL VIAL SUBCUT SCH ×3 (05:58→20:32)
[2020-09-23] MEDS: Multivitamins/Minerals TAB PO SCH (09:52)
[2020-09-23] MEDS: Remdesivir 5 MG/ML LIQ IV Vial 100 MG in NS 0.9% 250 ml 230 ML IV SCH (09:58)
[2020-09-24] MEDS: Heparin 5000 UNITS/ML 1 mL VIAL SUBCUT SCH ×2 (06:35→14:25)
[2020-09-24 07:47] LABS: CO2 Carbon Dioxide 16 mmol/L (22-32); Calcium 8.3 mg/dL (8.6-10.3); Sodium 143 mmol/L (135-145)
[2020-09-24 07:49] LABS: Chloride 117 mmol/L (101-111)
[2020-09-24 07:53] LABS: BUN/Creatinine Ratio 28.8 (8-20); Blood Urea Nitrogen 42 mg/dL (6-24); EGFR African American 55.3 (>60); EGFR Non-African American 45.7 (>60); Glucose 124 mg/dL (70-100)
[2020-09-24 07:57] LABS: Anion Gap 10 mmol/L (2-11)
[2020-09-24] MEDS: Multivitamins/Minerals TAB PO SCH (08:37)
[2020-09-24] MEDS: Remdesivir 5 MG/ML LIQ IV Vial 100 MG in NS 0.9% 250 ml 230 ML IV SCH (10:27)
[2020-09-24] MEDS ORDERED: Enoxaparin 30 MG/0.3 ML SYR SUBCUT SCH ×2 (16:00→22:00)
[2020-09-25 07:16] LABS: Albumin 3.4 g/dL (3.2-5.2); CO2 Carbon Dioxide 17 mmol/L (22-32); Calcium 8.8 mg/dL (8.6-10.3)
[2020-09-25 07:19] LABS: Chloride 117 mmol/L (101-111)
[2020-09-25 07:22] LABS: ALT 25 U/L (7-52); Albumin/Globulin Ratio 1.1 (1-3); Alkaline Phosphatase 85 U/L (34-104); Blood Urea Nitrogen 42 mg/dL (6-24); EGFR African American 53.6 (>60); EGFR Non-African American 44.3 (>60); Globulin 3.1 g/dL (2-4); Glucose 105 mg/dL (70-100); Total Protein 6.5 g/dL (6.4-8.9)
[2020-09-25 07:43] LABS: Anion Gap 14 mmol/L (2-11); Sodium 148 mmol/L (135-145)
[2020-09-25 08:18] LABS: C Reactive Protein 87.52 mg/L (<8.01); Potassium Redraw 3.5 mmol/L (3.5-5.0)
[2020-09-25] MEDS: Isosorbide Mononit ER 30mg TAB PO SCH (09:11)
[2020-09-25] MEDS: Remdesivir 5 MG/ML LIQ IV Vial 100 MG in NS 0.9% 250 ml 230 ML IV SCH (09:12)
[2020-09-25] MEDS: Multivitamins/Minerals TAB PO SCH (09:12)
[2020-09-25] MEDS ORDERED: D5W 1/2 NS 1000 ml BAG 1,000 ML IV SCH (12:00)
[2020-09-25] MEDS ORDERED: Senna TAB 8.6 mg TAB PO PRN (13:56)
[2020-09-26] MEDS: Isosorbide Mononit ER 30mg TAB PO SCH (08:41)
[2020-09-26] MEDS: Morphine ORAL CONCENTRATE 5 MG/0.25 ML ORAL.SYRIN SL PRN (23:27)
[2020-09-27 02:48] VITALS: BP 164/64
[2020-09-27] MEDS: Morphine ORAL CONCENTRATE 5 MG/0.25 ML ORAL.SYRIN SL PRN ×3 (06:12→17:25)
[2020-09-27] MEDS: Isosorbide Mononit ER 30mg TAB PO SCH ×2 (08:28→08:43)
[2020-09-28] MEDS: Morphine ORAL CONCENTRATE 5 MG/0.25 ML ORAL.SYRIN SL PRN ×4 (11:46→23:34)
[2020-09-29] MEDS: Morphine ORAL CONCENTRATE 5 MG/0.25 ML ORAL.SYRIN SL PRN ×3 (05:23→11:30)
== END 2020-09-29 10:00 | disposition hospice, inpatient (51) | DRG 177 ==
LOC: ED 08:05 → MED 11:33
PROVIDERS: ADMIT Internal Medicine; ATTEND Internal Medicine